=== PATIENT | female | born 1970 | race Caucasian/White ===

== ENCOUNTER → 2019-12-05 11:18 | Outpatient (BNVA) | payer MEDICARE, MEDICAID, SELFPAY | PROVIDERS: PCP Internal Medicine; Referring Provider Internal Medicine; Visit Provider Dietitian, Registered | DX: Z76.89 Persons encountering health services in other specified circumstances (principal) ==

== ENCOUNTER → 2020-02-04 11:22 | Outpatient (BNVA) | payer MEDICARE, MEDICAID, SELFPAY | PROVIDERS: PCP Internal Medicine; Visit Provider Dietitian, Registered | DX: Z76.89 Persons encountering health services in other specified circumstances (principal) ==

== ENCOUNTER → 2020-03-31 10:51 | Outpatient (BNVA) | payer OTHER, SELFPAY | PROVIDERS: PCP Internal Medicine; Visit Provider Dietitian, Registered ==

== ENCOUNTER 2020-06-13 08:45 | Outpatient (REF) | payer OTHER, SELFPAY ==
--- NOTE | ~2020-06-13 | XR_ITS ---
EXAMINATION: XR HIP, LEFT CLINICAL INFORMATION: Left hip pain. COMPARISON: None TECHNIQUE: Two views of the left hip. FINDINGS: There is cortical irregularity along the lateral aspect of the left iliac crest consistent with enthesopathy. Mild soft tissue calcification of the greater trochanter is consistent with enthesopathic change. The left hip joint space is maintained. No other bony abnormality is demonstrated. XR/XR hip LT min 2V IMPRESSION: Enthesopathic changes as described.
== END 2020-06-13 08:46 | disposition home or self-care (01) ==
LOC: HO.XRAY 08:45
PROVIDERS: PCP Internal Medicine; Visit Provider Internal Medicine
DX: M25.552 Pain in left hip (principal)
CPT/HCPCS: 73502

== ENCOUNTER → 2020-06-29 10:02 | Outpatient (BNVA) | payer OTHER, SELFPAY | PROVIDERS: PCP Internal Medicine; Visit Provider Dietitian, Registered | DX: E66.01 Morbid (severe) obesity due to excess calories (principal); E11.9 Type 2 diabetes mellitus without complications; Z68.42 Body mass index [BMI] 45.0-49.9, adult | CPT/HCPCS: 97803 ==

== ENCOUNTER → 2020-07-06 10:42 | Outpatient (BNVA) | payer OTHER, SELFPAY | PROVIDERS: PCP Internal Medicine; Visit Provider Internal Medicine | DX: E66.01 Morbid (severe) obesity due to excess calories (principal); G47.33 Obstructive sleep apnea (adult) (pediatric); J45.909 Unspecified asthma, uncomplicated; I25.10 Atherosclerotic heart disease of native coronary artery without angina pectoris; Z68.42 Body mass index [BMI] 45.0-49.9, adult | CPT/HCPCS: 99202 ==

== ENCOUNTER 2020-07-28 09:51 | Outpatient (REF) | payer OTHER, SELFPAY ==
--- NOTE | 2020-07-28 13:08 | PFT_ITS ---
FLOWS: FEV1 of 65% of predicted at 2.48 L. FVC 57% of predicted at 2.75 L. FEV1 to FVC ratio of 0.90. No bronchodilator response except in small to medium airways. LUNG VOLUMES: Total lung capacity 64% of predicted at 4.25 L. Residual volume 68% of predicted at 1.60 L. Slow vital capacity 62% of predicted at 2.65 L. Expiratory reserve volume 21% of predicted at 0.31 L. Diffusion capacity is mildly decreased, diffusion capacity adjust to normal after correction for alveolar ventilation. IMPRESSION: Moderate restrictive ventilatory defect with no bronchodilator response except in small to medium airways. Decreased expiratory reserve volume suggests extrathoracic restriction likely secondary to abdominal obesity. MD BELLA Aguila/MODL / [id number]
== END 2020-07-28 09:52 | disposition home or self-care (01) ==
LOC: HO.RESP 09:51
PROVIDERS: PCP Internal Medicine; Visit Provider Internal Medicine
DX: G47.33 Obstructive sleep apnea (adult) (pediatric) (principal); J45.909 Unspecified asthma, uncomplicated; E66.01 Morbid (severe) obesity due to excess calories; Z68.42 Body mass index [BMI] 45.0-49.9, adult
CPT/HCPCS: 94060; 94727; 94729

== ENCOUNTER → 2020-08-05 10:52 | Outpatient (BNVA) | payer OTHER, SELFPAY | PROVIDERS: PCP Internal Medicine; Visit Provider Internal Medicine | DX: J45.909 Unspecified asthma, uncomplicated (principal); G47.33 Obstructive sleep apnea (adult) (pediatric); E66.01 Morbid (severe) obesity due to excess calories; Z68.42 Body mass index [BMI] 45.0-49.9, adult | CPT/HCPCS: 99212 ==

== ENCOUNTER 2020-08-11 09:32 | Outpatient (REF) | payer OTHER, SELFPAY ==
--- NOTE | ~2020-08-11 | MM_ITS ---
EXAMINATION: MM SCREENING DIGITAL BREAST TOMOSYNTHESIS, BILATERAL CLINICAL INFORMATION: Screening. Asymptomatic. The lifetime risk of breast cancer based on the Tyrer-Cuzick Model is 9%. COMPARISON: Mammography: 04/30/2018, 04/04/2017, 02/11/2016 TECHNIQUE: Digital breast tomosynthesis is performed in both the craniocaudal and mediolateral oblique views along with computer-aided detection (CAD). Synthesized 2D images are generated from the tomosynthesis. FINDINGS: The breasts are almost entirely fatty (ACR BI-RADS breast composition Category a). There are no significant masses, abnormal calcifications, or other abnormalities. The axilla are unremarkable. There is a chronic dermal lesion again noted overlying the periareolar left breast. No significant changes. MM/MM tomosynthesis screening BI IMPRESSION: No mammographic evidence of malignancy. ASSESSMENT: BI-RADS 2: Benign RECOMMENDATION: Routine annual mammography screening. This patient's information was entered into a reminder system with a target due date for their next mammogram.
== END 2020-08-11 09:33 | disposition home or self-care (01) ==
LOC: HO.MAMMO 09:32
PROVIDERS: Visit Provider Internal Medicine
DX: Z12.31 Encounter for screening mammogram for malignant neoplasm of breast (principal)
CPT/HCPCS: 77063; 77067

== ENCOUNTER → 2020-08-20 11:04 | Outpatient (BNVA) | payer OTHER, SELFPAY | PROVIDERS: PCP Internal Medicine; Visit Provider Physician Assistant | DX: Z12.11 Encounter for screening for malignant neoplasm of colon (principal) | CPT/HCPCS: 99202 ==

== ENCOUNTER 2020-08-26 11:00 | Outpatient (RCR) | payer OTHER, SELFPAY ==
--- NOTE | 2020-07-14 10:49 | MHC.PT.EP ---
[facility] [place] Office [place] Office [place] Office [address] Nikki Ennis [address] [phone] F: [phone] F: [phone] F: [phone] F: [phone] Physical Therapy Plan of Care Date of Evaluation: Date of Surgery: N/A Diagnosis: left hip pain Assessment: pt presents to physical therapy with pain, decreased range of motion, decreased strength, impaired functional mobility, impaired postural awareness, and gait deviations. pt is a good candidate for skilled PT due to age, potential remediation of impairments, typical disease/condition progression and prognosis, comorbidities, and motivation. pt would benefit from tailored strengthening and stretching exercise program, functional training, gait training, postural re-training, neuromuscular re-education, modalities as needed for pain, equipment safety demonstration. Frequency and Duration: The patient will be seen 2x/wk for 4 wks Short Term Goals: pt will be I w/ HEP to promote self-management of condition. pt will improve B hip ABD strength by 1 MMT grade to normalize gait impairments on even ground. Silk Spreader Goals: pt will report a statistically significant improvement on self-reported outcome measure, LEFI, to promote return to PLOF. 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 Treatment Plan: Modalities to reduce pain, spasms and effusion. Manual therapy to restore motion and function. Therapeutic exercise to improve strength and flexibility. Neuromuscular re-education for posture and balance. Therapeutic activities to return to functional activities of daily living. Electronically signed by: Radha Bernal PT, DPT Please sign and return to therapist. Thank you for your referral.
--- NOTE | 2020-08-26 14:32 | MHC.PT.DC ---
[facility] [place] Office [place] Office [place] Office [address] Nikki Ennis 140 [facility] [phone] F: [phone] F: [phone] F: [phone] F: [phone] Physical Therapy Discharge Report Diagnosis: left hip pain Date of Surgery: N/A Date of Evaluation: 07/14/20 Date of Discharge: 08/26/20 Treatments to Date: 9 Cancellations to Date: 3 No Shows to Date: 0 Discharge Status: Independent with HEP Recommend MD Follow-up Discharge Summary: The patient overall reported minimal improvement of hip symptoms with physical therapy intervention to this point. She was limited in her participation for therapy for her hip by bilateral knee pain. The patient did report a statistically significant improvement in her self-reported outcome measure, LEFI, compared to the initial evaluation. She is discharged to her home exercise program at this time. Electronically signed by: Radha Bernal PT, DPT Please sign and return to therapist. Thank you for your referral.
== END 2020-08-26 14:32 | disposition home or self-care (01) ==
LOC: HO.PT 11:00
PROVIDERS: PCP Internal Medicine; Visit Provider Internal Medicine
DX: M25.552 Pain in left hip (principal)
CPT/HCPCS: 97110; 97140; 97161

== ENCOUNTER 2020-10-07 09:12 | Outpatient (REF) | payer OTHER, SELFPAY ==
[2020-10-07 09:46] LABS: MANUAL DIFF FLAG NO
[2020-10-07 09:58] LABS: Basophils Absolute Auto 0.1 X10*3/uL (0.0-0.2); Basophils Percent Auto 0.5 % (0-2); Eosinophils Absolute Auto 0.2 X10*3/uL (0.0-0.4); Eosinophils Percent Auto 2.1 % (0-4); Hematocrit 39.8 % (37-47); Hemoglobin 13.5 g/dl (12.0-16.0); Imm Gran Abs Auto 0.03 X10*3/uL (0.00-0.03); Imm Gran Pct Auto 0.3 % (0.0-0.4); Lymphocytes Absolute Auto 2.5 X10*3/uL (1.2-4.9); Lymphocytes Percent Auto 26.2 % (20-40); Mean Corpuscular HGB Conc 33.9 g/dl (31.0-35.0); Mean Corpuscular Hemoglobin 29.9 pg (27.0-33.0); Mean Corpuscular Volume 88.1 fL (80-98); Mean Platelet Volume 10.5 fL (9.4-12.3); Monocytes Absolute Auto 0.7 X10*3/uL (0.1-1.2); Monocytes Percent Auto 7.6 % (2-11); Neutrophils Absolute Auto 6.1 X10*3/uL (2.0-8.3); Neutrophils Percent Auto 63.3 % (45-73); Platelet Count 198 X10*3/uL (160-400); Red Blood Count 4.52 X10*6/uL (4.20-5.50); Red Cell Distribution Width 13.1 % (11.0-16.0); White Blood Count 9.6 X10*3/uL (4.8-10.8)
[2020-10-07 10:15] LABS: Estimated Average Glucose 154 mg/dL; Hemoglobin A1C 187.8684 umol/L
[2020-10-07 10:20] LABS: Alanine Aminotransferase 21 U/L (0-31); Albumin Level 4.1 g/dL (3.5-5.0); Alkaline Phosphatase 81 U/L (39-117); Anion Gap 14 (12-20); Aspartate Amino Transferase 15 U/L (5-31); Bilirubin Total 1.5 mg/dL (0.0-1.0); Blood Urea Nitrogen 18 mg/dL (9-16); Calcium 8.7 mg/dL (8.4-10.2); Carbon Dioxide 21 mmol/L (22-29); Chloride 108 mmol/L (96-108); Cholesterol 109 mg/dL; Estimated Glomerular Filt Rate 59; Glucose Random 169 mg/dL (60-115); HDL Cholesterol 45 mg/dL; LDL Cholesterol Calculated 57 mg/dl; Potassium 3.7 mmol/L (3.3-5.1); Sodium 139 mmol/L (135-145); Total Protein 6.8 g/dL (6.5-8.0); Triglycerides 38 mg/dL
[2020-10-07 11:10] LABS: Folate 9.3 ng/mL (> or = 4.0); Vitamin B12 300 pg/mL (200-900)
[2020-10-07 11:11] LABS: Free T4 (Free Thyroxine) 1.08 ng/dL (0.71-1.85); Thyroid Stimulating Hormone 1.53 uIU/mL (0.32-4.0); Vitamin D 25-OH Total 18.2 ng/mL (>30)
== END 2020-10-07 09:13 | disposition home or self-care (01) ==
LOC: HO.LAB 09:12
PROVIDERS: PCP Internal Medicine; Visit Provider Internal Medicine
DX: E11.65 Type 2 diabetes mellitus with hyperglycemia (principal); I10 Essential (primary) hypertension; K21.9 Gastro-esophageal reflux disease without esophagitis; E78.00 Pure hypercholesterolemia, unspecified
CPT/HCPCS: 36415; 80053; 80061; 82306; 82607; 82746; 83036; 84439; 84443; 85025

== ENCOUNTER → 2020-10-13 14:12 | Outpatient (BNVA) | payer OTHER, SELFPAY | PROVIDERS: PCP Internal Medicine; Visit Provider Dietitian, Registered | DX: E66.01 Morbid (severe) obesity due to excess calories (principal); E11.9 Type 2 diabetes mellitus without complications; Z68.42 Body mass index [BMI] 45.0-49.9, adult | CPT/HCPCS: 97803 ==

== ENCOUNTER → 2020-10-20 13:59 | Outpatient (BNVA) | payer OTHER, SELFPAY | PROVIDERS: Visit Provider Physician Assistant | CPT/HCPCS: Q3014 ==

== ENCOUNTER → 2020-11-24 09:24 | Outpatient (BNVA) | payer OTHER, SELFPAY | PROVIDERS: PCP Internal Medicine; Visit Provider Dietitian, Registered | DX: E11.9 Type 2 diabetes mellitus without complications (principal); E66.01 Morbid (severe) obesity due to excess calories; Z68.42 Body mass index [BMI] 45.0-49.9, adult; Z71.3 Dietary counseling and surveillance | CPT/HCPCS: 97803 ==

== ENCOUNTER → 2020-12-01 10:49 | Outpatient (BNVA) | payer OTHER, SELFPAY | PROVIDERS: PCP Internal Medicine; Visit Provider Internal Medicine | DX: E66.9 Obesity, unspecified (principal); J45.20 Mild intermittent asthma, uncomplicated; G47.33 Obstructive sleep apnea (adult) (pediatric) | CPT/HCPCS: 99212 ==

== ENCOUNTER → 2021-01-25 09:19 | Outpatient (BNVA) | payer OTHER, SELFPAY | PROVIDERS: PCP Internal Medicine; Visit Provider Dietitian, Registered | DX: E11.9 Type 2 diabetes mellitus without complications (principal); E66.01 Morbid (severe) obesity due to excess calories; Z68.42 Body mass index [BMI] 45.0-49.9, adult | CPT/HCPCS: 97803 ==

== ENCOUNTER → 2021-04-08 10:33 | Outpatient (BNVA) | payer OTHER, SELFPAY | PROVIDERS: PCP Internal Medicine; Visit Provider Internal Medicine | DX: J45.20 Mild intermittent asthma, uncomplicated (principal); G47.33 Obstructive sleep apnea (adult) (pediatric); E66.01 Morbid (severe) obesity due to excess calories; Z68.42 Body mass index [BMI] 45.0-49.9, adult | CPT/HCPCS: 99212 ==

== ENCOUNTER → 2021-04-26 09:51 | Outpatient (BNVA) | payer OTHER, SELFPAY | PROVIDERS: PCP Internal Medicine; Visit Provider Dietitian, Registered | DX: E11.9 Type 2 diabetes mellitus without complications (principal); E66.01 Morbid (severe) obesity due to excess calories; Z68.42 Body mass index [BMI] 45.0-49.9, adult | CPT/HCPCS: 97803 ==

== ENCOUNTER → 2021-07-29 11:18 | Outpatient (BNVA) | payer OTHER, SELFPAY | PROVIDERS: PCP Internal Medicine; Visit Provider Dietitian, Registered | DX: E11.9 Type 2 diabetes mellitus without complications (principal); E66.01 Morbid (severe) obesity due to excess calories; Z68.42 Body mass index [BMI] 45.0-49.9, adult; Z71.3 Dietary counseling and surveillance | CPT/HCPCS: 97803 ==

== ENCOUNTER 2021-10-20 10:57 | Outpatient (REF) | payer OTHER, SELFPAY ==
[2021-10-20 11:18] LABS: MANUAL DIFF FLAG NO
[2021-10-20 11:49] LABS: Basophils Absolute Auto 0.1 X10*3/uL (0.0-0.2); Basophils Percent Auto 0.7 % (0-2); Eosinophils Absolute Auto 0.2 X10*3/uL (0.0-0.4); Eosinophils Percent Auto 2.3 % (0-4); Hematocrit 42.5 % (37.0-47.0); Hemoglobin 14.5 g/dl (12.0-16.0); Imm Gran Abs Auto 0.03 X10*3/uL (0.00-0.03); Imm Gran Pct Auto 0.3 % (0.0-0.4); Lymphocytes Absolute Auto 2.1 X10*3/uL (1.2-4.9); Mean Corpuscular HGB Conc 34.1 g/dl (31.0-35.0); Mean Corpuscular Hemoglobin 29.9 pg (27.0-33.0); Mean Corpuscular Volume 87.6 fL (80.0-98.0); Mean Platelet Volume 10.8 fL (9.4-12.3); Monocytes Absolute Auto 0.6 X10*3/uL (0.1-1.2); Monocytes Percent Auto 6.8 % (2-11); Neutrophils Absolute Auto 5.8 x10*3/uL (2.0-8.3); Neutrophils Percent Auto 65.9 % (45-73); Platelet Count 217 X10*3/uL (160-400); Red Blood Count 4.85 X10*6/uL (4.20-5.50); Red Cell Distribution Width 13.2 % (11.0-16.0); White Blood Count 8.8 X10*3/uL (4.8-10.8)
[2021-10-20 12:27] LABS: B Type Natriuretic Peptide 328 pg/mL (<100)
[2021-10-20 12:41] LABS: Alanine Aminotransferase 20 U/L (0-31); Albumin Level 4.1 g/dL (3.5-5.0); Alkaline Phosphatase 85 U/L (39-117); Anion Gap 17 (12-20); Aspartate Amino Transferase 14 U/L (5-31); Bilirubin Total 1.5 mg/dL (0.0-1.0); Blood Urea Nitrogen 17 mg/dL (9-16); Calcium 8.8 mg/dL (8.4-10.2); Carbon Dioxide 22 mmol/L (22-29); Chloride 105 mmol/L (96-108); Cholesterol 123 mg/dL; Estimated Glomerular Filt Rate 53; Glucose Random 176 mg/dL (60-115); HDL Cholesterol 50 mg/dL; LDL Cholesterol Calculated 63 mg/dl; Potassium 4.2 mmol/L (3.3-5.1); Sodium 140 mmol/L (135-145); Total Protein 7.1 g/dL (6.5-8.0); Triglycerides 51 mg/dL
[2021-10-20 12:51] LABS: Free T4 (Free Thyroxine) 1.03 ng/dL (0.71-1.85); Thyroid Stimulating Hormone 1.52 uIU/mL (0.32-4.0); Vitamin D 25-OH Total 16.8 ng/mL (>30)
[2021-10-20 12:56] LABS: Vitamin B12 317 pg/mL (200-900)
== END 2021-10-20 10:58 | disposition home or self-care (01) ==
LOC: HO.LAB 10:57
PROVIDERS: PCP Internal Medicine; Visit Provider Internal Medicine
DX: J45.20 Mild intermittent asthma, uncomplicated (principal); E66.01 Morbid (severe) obesity due to excess calories; G47.33 Obstructive sleep apnea (adult) (pediatric); E11.65 Type 2 diabetes mellitus with hyperglycemia; E78.00 Pure hypercholesterolemia, unspecified; I25.10 Atherosclerotic heart disease of native coronary artery without angina pectoris; Z68.42 Body mass index [BMI] 45.0-49.9, adult; Z79.899 Other long term (current) drug therapy
CPT/HCPCS: 36415; 80053; 80061; 82306; 82607; 82746; 83880; 84439; 84443; 85025; 99212

== ENCOUNTER → 2021-12-22 09:30 | Outpatient (BNVA) | payer OTHER, SELFPAY | PROVIDERS: Visit Provider Dietitian, Registered | DX: E11.9 Type 2 diabetes mellitus without complications (principal); E66.01 Morbid (severe) obesity due to excess calories; Z68.42 Body mass index [BMI] 45.0-49.9, adult | CPT/HCPCS: 97803 ==

== ENCOUNTER 2021-12-29 08:31 | Outpatient (REF) | payer OTHER, SELFPAY ==
--- NOTE | ~2021-12-29 | MM_ITS ---
EXAMINATION: MM SCREENING DIGITAL BREAST TOMOSYNTHESIS, BILATERAL CLINICAL INFORMATION: Screening. Asymptomatic. COMPARISON: Mammography: 08/11/2020, 419, 04/04/2017 TECHNIQUE: Digital breast tomosynthesis is performed in both the craniocaudal and mediolateral oblique views along with computer-aided detection (CAD). Synthesized 2D images are generated from the tomosynthesis. FINDINGS: The breasts are almost entirely fatty (ACR BI-RADS breast composition Category a). Background stromal markings are similar to prior exams. There are no significant masses, abnormal calcifications, or other abnormalities. No developing density or architectural abnormality. Again, there is a chronic dermal lesion periareolar left breast. The axilla are unremarkable. MM/MM tomosynthesis screening BI IMPRESSION: No mammographic evidence of malignancy. ASSESSMENT: BI-RADS 2: Benign RECOMMENDATION: Routine annual mammography screening. This patient's information was entered into a reminder system with a target due date for their next mammogram.
== END 2021-12-29 08:32 | disposition home or self-care (01) ==
LOC: HO.MAMMO 08:31
PROVIDERS: PCP Internal Medicine; Visit Provider Internal Medicine
DX: Z12.31 Encounter for screening mammogram for malignant neoplasm of breast (principal)
CPT/HCPCS: 77063; 77067

== ENCOUNTER → 2022-01-31 13:30 | Outpatient (BNVA) | payer OTHER, SELFPAY | PROVIDERS: PCP Internal Medicine; Visit Provider Internal Medicine Cardiovascular Disease | DX: R07.89 Other chest pain (principal); I25.10 Atherosclerotic heart disease of native coronary artery without angina pectoris; I25.5 Ischemic cardiomyopathy; I35.0 Nonrheumatic aortic (valve) stenosis; Z79.82 Long term (current) use of aspirin; Z79.899 Other long term (current) drug therapy | CPT/HCPCS: 93005; 99212 ==

== ENCOUNTER → 2022-02-15 09:16 | Outpatient (REF) | payer OTHER, SELFPAY ==
--- NOTE | 2022-02-15 09:20 | CA_ITS ---
Transthoracic Echocardiogram Patient (Last, First, Middle): Radha Moreno L Gender: Female Date of : 1970 Age: 51 Procedure Date: 02/15/2022 Procedure Type: Transthoracic Echocardiogram Location: OP Height: 187.96 cm Weight: 170.1 kg BSA: 2.84 m2 Heart Rate: 62 bpm BP: 171 / 83 mmHg Counter Tender: EMMA Referring MD: Renaldo Cook MD Symptoms: I35.0 - Nonrheumatic aortic (valve) stenosis Study Quality: Fair w contrast ECG Rhythm: Sinus Conclusions: - The left ventricular systolic function is mildly decreased. The calculated ejection fraction is 51% by biplane method. - Evidence suggests grade II (moderate) diastolic dysfunction. - The inferoseptal wall, the apex, apical anterior, and apical septum segments are akinetic. - Gradients across aortic valve are elevated (mean 14mmHg). Cannot exclude subaortic membrane. - Consider a VANDANA if clinically appropriate. Findings Procedure Information Contrast agent, definity, is being given per protocol without apparent complications. Left Ventricle Mildly increased left ventricular cavity size. The left ventricular systolic function is mildly decreased. The calculated ejection fraction is 51% by biplane method. There is evidence of regional wall motion abnormalities. E/E prime ratio is >15, consistent with elevated filling pressures. Evidence suggests grade II (moderate) diastolic dysfunction. Wall Motion Rest Echo Findings The inferoseptal wall, the apex, apical anterior, and apical septum segments are akinetic. Atria Both atria are normal in size. Aortic Valve The aortic valve was not well visualized. The peak aortic gradient is 27 mmHg.The mean gradient is 14 mmHg. There is trace (trivial) aortic valve regurgitation. Gradients across aortic valve are elevated. Cannot exclude subaortic membrane. Mitral Valve There is mild mitral annular calcification. There is no mitral valve regurgitation. There is no mitral valve stenosis. Pulmonic Valve The pulmonic valve is likely normal. Tricuspid Valve There is trace tricuspid valve regurgitation. There is no evidence of pulmonary hypertension. Great Vessels The asc aorta is normal in size. Venous The inferior vena cava is normal in size and collapses greater than 50% with inspiration. Pericardium/Pleural There is no evidence of pericardial effusion. Prior Study Comparison No significant change compared to prior study dated: 10/23/2019. Recommendations, Care & Conclusions Consider a VANDANA if clinically appropriate. Measurements 2D Linear Measurements IVSd: 1.03 0.6-0.9/0.6-1.0 cm LVIDd: 6.66 3.9-5.3/4.2-5.9 cm LVIDd Index: 2.35 2.4-3.2/2.2-3.1 cm/m2 LVPWd: 0.99 0.7-1.1 cm LA Diam: 5.20 2.7-3.8/3.0-4.0 cm LAIDs Index: 1.83 1.5-2.3 cm/m2 LV Mass: 373.85 67-162/88-224 g LV Mass Index: 131.64 43-95/49-115 g/m2 LVOT Diam: 2.40 3.0+(-)1.3 cm 2D Volumes RA ESV A/L: 24.50 19-21 ML/M2 2D Systolic Function EF 4C: 44.10 >55% EF 2C: 56.00 >55% EF BiP: 50.80 >55% Mitral Valve MV Pk E: 1.03 MV PK A: 0.90 MV Decel Time: 223.00 E/A: 1.10 E'Lateral: 3.73 E'Medial: 5.03 E/E' Med: 20.50 E/E' Lat: 27.60 PHT: 65.00 MVA PHT: 3.38 Decel [place]: 4.62 Aortic Valve AoV Pk Nabor: 2.58 AoV Mn Nabor: 1.71 AoV VTI: 0.59 AoV Pk Grad: 27.00 Aov Mn Grad: 14.00 LVOT LVOT Pk Nabor: 2.44 LVOT Mn Nabor: 1.67 LVOT VTI: 0.57 LVOT Pk Grad: 24.00 LVOT Mn Grad: 13.00 LVOT Diam: 2.40 LVOT Area: 4.52 Diastolic Function MV Pk E: 1.03 MV Pk A: 0.90 E/A: 1.10 E'Medial: 5.03 E/E' Med: 20.50 E' Laterial: 3.73 E/E' Lat: 27.60 Tricuspid Valve RA Press: 3.00 Great Vessels Aorta Sinus of Valsalva: 3.40 2.0-3.5 cm Ao Asc: 3.60 2.1-3.4 cm Pulmonary Veins Pulm Vein S/D 1.00 Pulmonary Valve PV Pk Nabor: 1.30 Peak PV Grad: 7.00 Updated in Other Vendor System with Status of Final Christiano Whitlock MD electronically signed on 02/16/2022 12:07:36 PM with status of Final
== END ==
LOC: HO.CARD 09:16
PROVIDERS: Visit Provider Internal Medicine Cardiovascular Disease
DX: I35.0 Nonrheumatic aortic (valve) stenosis (principal)
CPT/HCPCS: 93306; Q9957

== ENCOUNTER → 2022-02-22 07:46 | Outpatient (REF) | payer OTHER, SELFPAY ==
--- NOTE | ~2022-02-22 | NM_ITS ---
Lexiscan Myocardial perfusion study Indication: Chest pain, assess for coronary disease and ischemia Technique: The patient was brought in for a Lexiscan perfusion study on 02/22/2022 and was injected 0.4 mg of Lexiscan intravenously. Within a minute of this injection 35 mCi of sestamibi was given intravenously. Images were obtained using the SPECT gamma camera interlaced with the gating device. Images were obtained in supine position. Resting perfusion study was performed on 02/23/2022. Patient was administered 35 mCi of sestamibi intravenously at rest. Images were then obtained in supine position. Total DLP 164mGy-cm. Images were processed with the software and compared side to side in short axis, horizontal long axis and vertical long axis views. Findings: Raw acquisition reviewed. The stress perfusion study showed absent tracer uptake in the mid to distal inferior wall and adjacent apex. No significant change with CT attenuation correction. The gated study shows reduced LV systolic function with calculated LVEF of 42%. LV cavity is dilated in size. The gated study shows absent wall thickening in the mid to distal inferior wall and adjacent apex. Resting study shows findings similar to stress acquisition. Gating at rest reveals mid to distal inferior akinesis with LVEF 43% The findings are consistent with fixed defect mid to distal inferior wall and adjacent apex. No clear reversible defects. NM/NM stacie perf SPECT rest & str Impression: 1. Myocardial perfusion imaging study shows transmural infarct involving the mid to distal inferior wall, adjacent apex. 2. Gated LVEF is 42% during stress and 43% during rest. 3. Transient ischemic dilatation not present but LV cavity is dilated. EKG component of the test reported separately.
--- NOTE | 2022-02-22 07:50 | CA_ITS ---
Acquisition Time: 2022-02-22 08:05:00 Total Exercise Time: 00:02:46 Test Indications: ABN ECHO Medications: SEE CHART Protocol: FER Max HR: 117 BPM 70% of Pred: 167 BPM Max BP: 152/086 mmHG Max Work Load: 4.6 METS Exercise stress test with exercise 2 min 46 sec of Fer protocol, achieving 70% MPHR, with moderate sob and request to stop. Assisted to sitting position and when breathing improved testing changed to a pharmacological stress test with Lexiscan injection, while kicking her legs, with isolated PAC and PVC, with normotensive response to injection, with nondiagnostic EKG for ischemia. In recovery she was treated with Aminophylline 75mg IVP to reverse Lexiscan. Nuclear images pending. Test reviewed with Dr Cook Referred By: Renaldo Cook Overread By: GERRY CORONADO
== END ==
LOC: HO.CARD 07:46
PROVIDERS: Visit Provider Internal Medicine Cardiovascular Disease
DX: R07.89 Other chest pain (principal)
CPT/HCPCS: 78452; 93017; A9500; J0280; J2785

== ENCOUNTER → 2022-03-17 10:52 | Outpatient (BNVA) | payer OTHER, SELFPAY | PROVIDERS: PCP Internal Medicine; Visit Provider Internal Medicine | DX: J45.20 Mild intermittent asthma, uncomplicated (principal); G47.33 Obstructive sleep apnea (adult) (pediatric); E11.65 Type 2 diabetes mellitus with hyperglycemia; I10 Essential (primary) hypertension; E66.01 Morbid (severe) obesity due to excess calories; Z68.42 Body mass index [BMI] 45.0-49.9, adult; Z99.89 Dependence on other enabling machines and devices | CPT/HCPCS: 99212 ==

== ENCOUNTER → 2022-03-23 13:04 | Outpatient (BNVA) | payer OTHER, SELFPAY | PROVIDERS: PCP Internal Medicine; Referring Provider Internal Medicine; Visit Provider Nurse Practitioner Family | DX: R07.89 Other chest pain (principal); I25.10 Atherosclerotic heart disease of native coronary artery without angina pectoris; I35.0 Nonrheumatic aortic (valve) stenosis; I10 Essential (primary) hypertension; I21.9 Acute myocardial infarction, unspecified | CPT/HCPCS: 99212 ==

== ENCOUNTER → 2022-06-20 10:23 | Outpatient (BNVA) | payer OTHER, SELFPAY | PROVIDERS: PCP Internal Medicine; Visit Provider Dietitian, Registered | DX: E11.9 Type 2 diabetes mellitus without complications (principal); E66.01 Morbid (severe) obesity due to excess calories; Z68.42 Body mass index [BMI] 45.0-49.9, adult | CPT/HCPCS: 97803 ==

== ENCOUNTER 2022-07-12 08:37 | Outpatient (REF) | payer OTHER, SELFPAY ==
--- NOTE | ~2022-07-12 | XR_ITS ---
EXAMINATION: Bilateral knee x-ray CLINICAL INFORMATION: Osteoarthritis COMPARISON: Left knee x-ray from 2009 TECHNIQUE: 4 views of each knee FINDINGS: Left: Bone alignment is normal. No fracture or dislocation. Severe tricompartment arthritis with joint space narrowing and osteophyte formation. Slight lateral tilt of the patella. Small joint effusion. Right: Bone alignment is normal. No fracture or dislocation. Severe tricompartment arthritis. Lateral tilt of the patella. Small joint effusion. XR/XR knee RT 4V IMPRESSION: Severe bilateral arthritis.
--- NOTE | ~2022-07-12 | XR_ITS ---
EXAMINATION: Bilateral knee x-ray CLINICAL INFORMATION: Osteoarthritis COMPARISON: Left knee x-ray from 2009 TECHNIQUE: 4 views of each knee FINDINGS: Left: Bone alignment is normal. No fracture or dislocation. Severe tricompartment arthritis with joint space narrowing and osteophyte formation. Slight lateral tilt of the patella. Small joint effusion. Right: Bone alignment is normal. No fracture or dislocation. Severe tricompartment arthritis. Lateral tilt of the patella. Small joint effusion. XR/XR knee LT 4V IMPRESSION: Severe bilateral arthritis.
== END 2022-07-12 08:38 | disposition home or self-care (01) ==
LOC: HO.XRAY 08:37
PROVIDERS: PCP Internal Medicine; Visit Provider Internal Medicine
DX: M17.0 Bilateral primary osteoarthritis of knee (principal)
CPT/HCPCS: 73564

== ENCOUNTER → 2022-07-14 08:48 | Outpatient (BNVA) | payer OTHER, SELFPAY | PROVIDERS: PCP Internal Medicine; Visit Provider Orthopaedic Surgery | DX: M17.0 Bilateral primary osteoarthritis of knee (principal); M75.41 Impingement syndrome of right shoulder; E11.65 Type 2 diabetes mellitus with hyperglycemia; E66.01 Morbid (severe) obesity due to excess calories; Z68.42 Body mass index [BMI] 45.0-49.9, adult | CPT/HCPCS: 99202 ==

== ENCOUNTER → 2022-07-29 10:01 | Outpatient (BNVA) | payer OTHER, SELFPAY | PROVIDERS: PCP Internal Medicine; Visit Provider Orthopaedic Surgery | DX: M17.0 Bilateral primary osteoarthritis of knee (principal) | CPT/HCPCS: 20610; 99212; J7318 ==

== ENCOUNTER 2022-09-27 08:33 | Outpatient (REF) | payer OTHER, SELFPAY ==
[2022-09-27 09:04] LABS: MANUAL DIFF FLAG NO
[2022-09-27 09:13] LABS: Basophils Absolute Auto 0.1 X10*3/uL (0.0-0.2); Basophils Percent Auto 0.7 % (0-2); Eosinophils Absolute Auto 0.2 X10*3/uL (0.0-0.4); Eosinophils Percent Auto 2.1 % (0-4); Hematocrit 44.5 % (37.0-47.0); Imm Gran Abs Auto 0.03 X10*3/uL (0.00-0.03); Imm Gran Pct Auto 0.3 % (0.0-0.4); Lymphocytes Absolute Auto 2.4 X10*3/uL (1.2-4.9); Lymphocytes Percent Auto 25.2 % (20-40); Mean Corpuscular HGB Conc 33.7 g/dl (31.0-35.0); Mean Corpuscular Hemoglobin 29.5 pg (27.0-33.0); Mean Corpuscular Volume 87.4 fL (80.0-98.0); Monocytes Absolute Auto 0.6 X10*3/uL (0.1-1.2); Monocytes Percent Auto 6.7 % (2-11); Neutrophils Absolute Auto 6.2 x10*3/uL (2.0-8.3); Platelet Count 224 X10*3/uL (160-400); Red Blood Count 5.09 X10*6/uL (4.20-5.50); White Blood Count 9.5 X10*3/uL (4.8-10.8)
[2022-09-27 10:08] LABS: Alanine Aminotransferase 22 U/L (0-31); Albumin Level 4.1 g/dL (3.5-5.0); Alkaline Phosphatase 86 U/L (39-117); Anion Gap 16 (12-20); Aspartate Amino Transferase 14 U/L (5-31); Bilirubin Total 1.5 mg/dL (0.0-1.0); Blood Urea Nitrogen 21 mg/dL (9-16); Calcium 9.5 mg/dL (8.4-10.2); Carbon Dioxide 21 mmol/L (22-29); Chloride 106 mmol/L (96-108); Cholesterol 115 mg/dL; Estimated Glomerular Filt Rate 50; Glucose Random 184 mg/dL (60-115); HDL Cholesterol 46 mg/dL; LDL Cholesterol Calculated 59 mg/dl; Sodium 139 mmol/L (135-145); Total Protein 7.4 g/dL (6.5-8.0); Triglycerides 50 mg/dL
[2022-09-27 10:24] LABS: Free T4 (Free Thyroxine) 0.98 ng/dL (0.71-1.85); Thyroid Stimulating Hormone 1.55 uIU/mL (0.32-4.0); Vitamin D 25-OH Total 23.9 ng/mL (>30)
[2022-09-27 10:27] LABS: Folate 8.8 ng/mL (> or = 4.0); Vitamin B12 394 pg/mL (200-900)
[2022-09-27 11:56] LABS: Microalbum/Creatinine Ratio Ur 143.6 ug/mg cr
[2022-09-28 17:28] LABS: Transglutaminase Ab IgG <1.0 U/mL; Transglutaminase IgA <1.0 U/mL
== END 2022-09-27 08:34 | disposition home or self-care (01) ==
LOC: HO.LAB 08:33
PROVIDERS: PCP Internal Medicine; Visit Provider Internal Medicine
DX: E11.65 Type 2 diabetes mellitus with hyperglycemia (principal); E78.00 Pure hypercholesterolemia, unspecified; E66.01 Morbid (severe) obesity due to excess calories; Z68.42 Body mass index [BMI] 45.0-49.9, adult; Z83.79 Family history of other diseases of the digestive system
CPT/HCPCS: 36415; 80053; 80061; 82043; 82306; 82607; 82746; 84439; 84443; 85025; 86364; 97803

== ENCOUNTER 2022-09-27 09:55 | Outpatient (AMB) | payer OTHER, SELFPAY ==
--- NOTE | 2022-09-27 09:59 | A.OFFVIS_ITS ---
Intake VS Expanded 09/27/22 10:02 Height 6 ft 2 in Weight 373 lb 0.354 oz BMI 47.9 Intake Visit Reasons: T2DM, check weight Allergies amoxicillin [AMOXICILLIN] Allergy (Unknown, Verified 08/08/22 14:02) HIVES atorvastatin Allergy (Unknown, Verified 08/08/22 14:02) hives bupropion [From ZYBAN] Allergy (Unknown, Verified 08/08/22 14:02) HIVES milk Allergy (Unknown, Verified 08/08/22 14:02) Diarrhea Penicillins [PENICILLINS] Allergy (Unknown, Verified 08/08/22 14:02) HIVES pravastatin Allergy (Unknown, Verified 08/08/22 14:02) hives simvastatin [SIMVASTATIN] Allergy (Unknown, Verified 08/08/22 14:02) HIVES tomato Allergy (Unknown, Verified 08/08/22 14:02) Hives HPI Nutrition Presentation Details Pt presents for MNT for T2DM and obesity Patient reports not monitoring blood glucose Reports recently starting to work on reducing starches and having once or twice a week an meal that consist of limb protein and non starchy vegetables. Patient reports taking a daily multivitamin Patient has SNAP, has not participated in the [employer] as of yet Food frequency Fruits: 0-1 a day, juices 4-6 oz a day Vegetables: 2-3 servings per day Starches: Greater than 20 servings per day Dairy: Greater than 2 servings a day Protein foods: Choosing a variety p of poultry, Beef, tofu 2, eggs, not including fish Beverages: Water, Crystal Light, diet soda, tea Physical activity: Daily life activities, limited due to bilateral osteoarthritis of knee Alcohol/smoking: Denies GEF-Momsvdm-Gs.Jeor Equation Height 6 ft 2 in Weight 373 lb Resting Metabolic Rate 2443.20 Calculated Activity Level Sedentary Calories Needed to Maintain Weight 2931.84 Most Recent Diabetes Results: Microalb/Creat Ratio Pending 09/27/22 Cholesterol 115 mg/dL 09/27/22 HDL Cholesterol 46 mg/dL 09/27/22 Triglycerides 50 mg/dL 09/27/22 Creatinine 1.14 mg/dL (0.5-1.4) 09/27/22 Blood Urea Nitrogen 21 mg/dL (9-16) H 09/27/22 Sodium 139 mmol/L (135-145) 09/27/22 Potassium 4.0 mmol/L (3.3-5.1) 09/27/22 Chloride 106 mmol/L (96-108) 09/27/22 Carbon Dioxide 21 mmol/L (22-29) L 09/27/22 Calcium 9.5 mg/dL (8.4-10.2) 09/27/22 AST 14 U/L (5-31) 09/27/22 ALT 22 U/L (0-31) 09/27/22 Total Protein 7.4 g/dL (6.5-8.0) 09/27/22 Albumin 4.1 g/dL (3.5-5.0) 09/27/22 [facility] Medical History Asthma Breast cancer screening by mammogram Colon cancer screening Folic acid deficiency GERD (gastroesophageal reflux disease) Hypercholesterolemia Hypertension Type 2 diabetes mellitus with hyperglycemia Vitamin D deficiency Surgical History History of section History of cholecystectomy History of coronary artery stent placement History of hand surgery Family History Father CVD (cardiovascular disease) Hypertension Heart disease Mother No problems noted. 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 Follow healthy plate method EST Kcal NEEDS as per [place] [facility] Jeor: 2931- 1000 = 1930 kcal/d USED BODY WT : 169 kg est protein needs as per -1.0 g/kg bw: 169 g/d est fluid needs as per 25 ml/kg bw: 4200 ml/d Educate patient on: (R= Reviewed, V = verbalizes understanding N/R= Needs review N/A= not applicable) * Food sources of carbohydrates and serving adequate serving sizes : V * Difference between complex carbohydrates and simple carbohydrates, role of fiber: V * Differences between fats (MUFA/PUFA/saturated fats, trans fats) and food sources of various fats: V * Food sources of sodium and salt and healthy modifications for heart health and kidney health: V * Vitamins and minerals: V * How to interpret food labels: V * Healthy Plate method concept: V * Physical activity: benefits and precaution: V (2) Morbid obesity with BMI of 45.0-49.9, adult: Code(s): E66.01 - Morbid (severe) obesity due to excess calories; Z68.42 - Body mass index [BMI] 45.0-49.9, adult Plan: Continue working on reducing total caloric intake from empty calorie foods (500- 1000 calories less per day) and follow healthy plate method EST Kcal NEEDS as per [facility] Jeor: 2931- 1000 = 1930 kcal/d USED BODY WT : 169 kg est protein needs as per 0.8-1.0 g/kg bw: 169 g/d est fluid needs as per 25 ml/kg bw: 4200 ml/d Patient Instructions: Include fish at least twice a week, baked, boiled, not fried or breaded, rep lacing higher fat meats (fried meats, pork beef high fat cheese) Continue working on reducing portion of high fat snacks and choose a fruit instead Continue working on following healthy plate method 4 times a week Discuss with your doctor regarding switching to metformin Extended Release Coding Level of Care Code Nutr Indiv Subseq ([id number]) Diagnoses T2DM (type 2 diabetes mellitus) E11.9 Morbid obesity with BMI of 45.0-49.9, adult E66.01; Z68.42 Time Spent (min) 30
[2022-09-27 10:02] VITALS: BMI 47.9
[2022-09-27 11:04] VITALS: BMI 47.9
== END 2022-09-27 11:03 | disposition home or self-care (01) ==
PROVIDERS: PCP Internal Medicine; Visit Provider Dietitian, Registered
DX: E11.9 Type 2 diabetes mellitus without complications (principal); E66.01 Morbid (severe) obesity due to excess calories; Z68.42 Body mass index [BMI] 45.0-49.9, adult

== ENCOUNTER 2022-09-29 14:03 | Outpatient (AMB) | payer OTHER, SELFPAY ==
[2022-09-29 14:05] VITALS: BP 132/68; PULSE 71; O2SAT 96; BMI 48.0
--- NOTE | 2022-09-29 14:05 | A.OFFVIS_ITS ---
Intake Vital Signs 09/29/22 14:05 Height 6 ft 2 in Weight 373 lb 10.936 oz BMI 48.0 BP 132/68 Blood Pressure Location Lt brachial Position Sitting Pulse 71 Pulse Source Pulse Oximeter Pulse Oximetry (%) 96 Oxygen Delivery Method Room Air Intake Visit Reasons: Asthma, KRYSTAL (obstructive sleep apnea) Oil Ref[employer] Process Technician Required: No Allergies amoxicillin [AMOXICILLIN] Allergy (Unknown, Verified 09/29/22 14:23) HIVES atorvastatin Allergy (Unknown, Verified 09/29/22 14:23) hives bupropion [From ZYBAN] Allergy (Unknown, Verified 09/29/22 14:23) HIVES milk Allergy (Unknown, Verified 09/29/22 14:23) Diarrhea Penicillins [PENICILLINS] Allergy (Unknown, Verified 09/29/22 14:23) HIVES pravastatin Allergy (Unknown, Verified 09/29/22 14:23) hives simvastatin [SIMVASTATIN] Allergy (Unknown, Verified 09/29/22 14:23) HIVES tomato Allergy (Unknown, Verified 09/29/22 14:23) Hives Medication List - Last Reconciled 09/29/22 by Pili Hunter MD albuterol sulfate 90 mcg/actuation (ProAir HFA) 2 puffs inhalation Q6H amlodipine (Norvasc) 5 mg PO DAILY aspirin (Adult Low Dose Aspirin) 162 mg PO DAILY [AUTOCPAP 8-20 mm HG humidified heated air As directed] blood sugar diagnostic As directed blood sugar diagnostic ([employer] Ultra Test strips) As directed check the blood sugar once a day blood-glucose meter As directed blood-glucose meter (Networks in MotionTouch Ultra2 Meter kit) As directed check the blood sugar once a day compr.stocking,knee,long,x-lrg As directed 20-30 mm HG [cpap Supplies As directed] [Diabetic Shoes As directed] [diabetic socks As directed] ibuprofen 800 mg PO TID PRN lancets (Networks in MotionTouch Delica Lancets) As directed check the blood sugar q.day lancets As directed lisinopril 40 mg PO DAILY metformin 1,000 mg (2 x 500 mg) PO BIDWMEAL 90 days metoprolol tartrate 2 tabs in am and 3 tabs in pm PO 2 times a day; montelukast 10 mg PO BEDTIME nitroglycerin 0.4 mg sublingual Q5M PRN rosuvastatin 10 mg PO BEDTIME [Sleeve right hand As directed] triamcinolone acetonide 0.5% 1 appl topical BID 14 days [trouser socks 20-30 millimeter mercury pressure] Do you need a note to return to daycare/school/sports/work: No HPI Asthma HPI Details 51 years old female with morbid obesity and diagnosis of obstructive sleep apnea, comes for her 6 months follow-up. She has been using her CPAP very regularly every night for at least 6-7 hours, and sleeps good. There is a mild air leak issue along the nasal bridge. But she does not want to tighten her straps anymore which becomes uncomfortable. Weight grimm there has been no big progress, she is seeing the Dietecian regularly. She is nonsmoker. Breathing is okay and uses albuterol inhaler only once in a while. [facility] Medical History Asthma Breast cancer screening by mammogram Colon cancer screening Folic acid deficiency GERD (gastroesophageal reflux disease) Hypercholesterolemia Hypertension Type 2 diabetes mellitus with hyperglycemia Vitamin D deficiency Surgical History History of section History of cholecystectomy History of coronary artery stent placement History of hand surgery Family History Father CVD (cardiovascular disease) Hypertension Heart disease Mother No problems noted. 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 Cognitive needs: No Hearing needs: No Vision needs: No Review of Systems Const All systems reviewed & are unremarkable except as noted in HPI and below Eyes Reports no additional complaints ENT Reports nasal congestion (Off and on due to changes in the weather) Card Denies chest pain, Denies irregular heart rhythm and Denies leg edema Resp Reports as per HPI GI Reports no additional complaints Reports no additional complaints Musc Reports no additional complaints Skin/Breast Reports dry skin and Reports pruritus (On the legs, ) Neuro Reports no additional complaints Psych Reports no additional complaints Physical Exam Vital Signs: Last Vital Signs Pulse 71 09/29/22 14:05 BP 132/68 09/29/22 14:05 Pulse Ox 96 09/29/22 14:05 Oxygen Delivery Method Room Air 09/29/22 14:05 BMI result Body Mass Index 48.0 Const Other: She is tall and grossly overweight General: comfortable, no acute distress, alert and awake Orientation/consciousness: patient oriented x3 HEENT Head: Yes normal to inspection General nose exam: No nasal polyps present and No nasal discharge present Face and sinus: Yes sinuses nontender Mouth: oropharynx normal Throat: Yes posterior oropharynx normal Eyes General: appearance normal, both eyes and all related structures Neck Neck: Yes normal visual inspection, Yes no lymphadenopathy, Yes trachea midline, Yes no JVD and Yes other (Neck is very obese) Thyroid: Thyroid normal Chest Chest palpation & inspection: normal inspection of the chest, normal palpation of entire chest wall and no tenderness Resp Effort & Inspection: normal respiratory effort Auscultation: clear to auscultation bilaterally Percussion: percussion normal Cardio Palpation: normal PMI Rate: regular rate Rhythm: regular rhythm Heart sounds: no gallops and no murmurs GI Palpation (GI): Soft to palpation, nontender, No hepatosplenomegaly present, no masses and Other GI palpation findings present (Abdomen obese and protuberant) Auscultation: normal bowel sounds Back/Spine/Pelvis Thoracic/Lumbar Spine: thoracic and lumbar spine normal to inspection and thoraco-lumbar ROM limited Skin General skin exam: dry skin Rashes: other (Mild stasis dermatitis noted over the lower part of legs) Neuro General: patient oriented x3 and no focal motor deficits Cranial nerves: Yes CN's II-XII intact bilaterally Extrem General: Yes normal to inspection, Yes no calf tenderness and Yes venous stasis dermatitis Psych Appearance: grossly normal and well kempt Speech and movement: Normal speech and movement present Results Reviewed Results Reviewed: COMPLIANCE REPORT FOR THE LAST 30 NIGHTS SHOWS THAT SHE HAS USING IT 100% OF THE NIGHTS. AVERAGE USE IT PER NIGHT 7 HOURS 15 MINUTES. 95TH PERCENTILE PRESSURE. 12.7 CM RESIDUAL AHI 0.9. THERE IS MODERATE AIR LEAK MAXIMUM 91.4 L. Assessment & Plan Assessment & Plan (1) Obstructive sleep apnea: Comment: DIAGNOSIS SINCE 2008. HAS BEEN VERY COMPLIANT, FACE MASK OF SMALLER SIZE IS MORE COMFORTABLE , SHE INTER CHANGES BETWEEN THE SMALL SIZE AND LARGE SIZE. Also has Fullface maskIFit-20 ( medium-sized ) ADVISED TO CONTINUE PRESENT SETTINGS OF AUTO PAP MODE 8-20 CM. And continue to use every night. Code(s): G47.33 - Obstructive sleep apnea (adult) (pediatric) (2) Morbid obesity with BMI of 45.0-49.9, adult: Comment: BMI=48 REMAINS MORBIDLY OBESE. SHE IS NOT ABLE TO EXERCISE MUCH, STAYS MOSTLY IN THE HOUSE. SHE IS WORKING WITH DIETITIAN. Code(s): E66.01 - Morbid (severe) obesity due to excess calories; Z68.42 - Body mass index [BMI] 45.0-49.9, adult (3) Asthma: Comment: SHE HAS LONG-STANDING HISTORY OF ASTHMA WHICH IS FAIRLY WELL CONTROLLED. IT SEEMS THAT HER MAIN TRIGGER IS PHYSICAL EXERTION . PFT. RESULTS SHOW MOSTLY RESTRICTIVE PATTEN . [place]: ADVISED TO USE PROAIR 2 PUFFS Q 4-6 HOURS P.R.N.. AND CONTINUE USING MONTELUKAST 10 MG DAILY. Code(s): J45.909 - Unspecified asthma, uncomplicated Qualifiers: Asthma severity: mild Asthma persistence: intermittent Asthma complication type: uncomplicated Qualified Code(s): J45.20 - Mild intermittent asthma, uncomplicated Coding Level of Care Code Est Pt Level 3 (63899) Diagnoses Obstructive sleep apnea G47.33 Morbid obesity with BMI of 45.0-49.9, adult E66.01; Z68.42 Asthma J45.20 Asthma severity: mild Asthma persistence: intermittent Asthma complication type: uncomplicated
== END 2022-09-29 14:25 | disposition home or self-care (01) ==
PROVIDERS: PCP Internal Medicine; Visit Provider Internal Medicine
DX: G47.33 Obstructive sleep apnea (adult) (pediatric) (principal); E66.01 Morbid (severe) obesity due to excess calories; Z68.42 Body mass index [BMI] 45.0-49.9, adult; J45.20 Mild intermittent asthma, uncomplicated
CPT/HCPCS: 99213

== ENCOUNTER → 2022-09-29 14:03 | Outpatient (BNVA) | payer OTHER, SELFPAY | PROVIDERS: Visit Provider Internal Medicine | DX: G47.33 Obstructive sleep apnea (adult) (pediatric) (principal); J45.20 Mild intermittent asthma, uncomplicated; E66.01 Morbid (severe) obesity due to excess calories; Z68.42 Body mass index [BMI] 45.0-49.9, adult | CPT/HCPCS: 99212 ==

== ENCOUNTER 2022-10-05 11:06 | Outpatient (AMB) | payer OTHER, SELFPAY ==
--- NOTE | 2022-10-05 11:14 | MHC.PC.OV ---
Vital Signs 10/05/22 11:15 Height 6 ft 2 in Weight 372 lb BMI 47.8 BP 158/90 H Blood Pressure Location Lt radial Position Sitting Pulse 64 Pulse Source Pulse Oximeter Temp Source Skin Pulse Oximetry (%) 97 Oxygen Delivery Method Room Air Intake Visit Reasons: 3 month f/u Allergies amoxicillin [AMOXICILLIN] Allergy (Unknown, Verified 10/05/22 11:18) HIVES atorvastatin Allergy (Unknown, Verified 10/05/22 11:18) hives bupropion [From ZYBAN] Allergy (Unknown, Verified 10/05/22 11:18) HIVES milk Allergy (Unknown, Verified 10/05/22 11:18) Diarrhea Penicillins [PENICILLINS] Allergy (Unknown, Verified 10/05/22 11:18) HIVES pravastatin Allergy (Unknown, Verified 10/05/22 11:18) hives simvastatin [SIMVASTATIN] Allergy (Unknown, Verified 10/05/22 11:18) HIVES tomato Allergy (Unknown, Verified 10/05/22 11:18) Hives Medication List - Last Reconciled 10/05/22 by Adán Yadav MD albuterol sulfate 90 mcg/actuation (ProAir HFA) 2 puffs inhalation Q6H amlodipine (Norvasc) 5 mg PO DAILY aspirin (Adult Low Dose Aspirin) 162 mg PO DAILY [AUTOCPAP 8-20 mm HG humidified heated air As directed] blood sugar diagnostic As directed blood sugar diagnostic (Red-M Groupuch Ultra Test strips) As directed check the blood sugar once a day blood-glucose meter As directed blood-glucose meter (OneTouch Ultra2 Meter kit) As directed check the blood sugar once a day compr.stocking,knee,long,x-lrg As directed 20-30 mm HG [cpap Supplies As directed] [Diabetic Shoes As directed] [diabetic socks As directed] ibuprofen 800 mg PO TID PRN lancets (OneTouch Delica Lancets) As directed check the blood sugar q.day lancets As directed lisinopril 40 mg PO DAILY metformin ER 2,000 mg (4 x 500 mg) PO DAILY 90 days metoprolol tartrate 2 tabs in am and 3 tabs in pm PO 2 times a day; montelukast 10 mg PO BEDTIME nitroglycerin 0.4 mg sublingual Q5M PRN rosuvastatin 10 mg PO BEDTIME semaglutide 0.25 mg (0.368 mL) subcut QWEEK [Sleeve right hand As directed] triamcinolone acetonide 0.5% 1 appl topical BID 14 days [trouser socks 20-30 millimeter mercury pressure] Tobacco use date assessed: 10/05/22 Dental Screening Dental Screen Date: 10/05/22 Did you have a dental visit in the last 12 months?: Yes Did you have a dental problem in the last 6 months where you did not have access to dental care?: No Was dental information given to patient?: Patient has dentist HPI 3 month f/u HPI Details 51-year-old morbidly obese female with diabetes mellitus asthma obstructive sleep apnea coronary artery disease hypertension hypercholesterolemia GERD last seen in June 2022 having left shoulder pain and knee osteoarthritis. Orthopedic referral done and blood work requested mammogram is up-to-date Cologuard 2020 patient follows up with Pulmonary for the obstructive sleep apnea compliant and for the asthma continues on the inhaler. For the knee patient was seen by Orthopedics and had injections done. PAtient admits to take only metformin 100 mg in am only [facility] Medical History Asthma Breast cancer screening by mammogram Colon cancer screening Folic acid deficiency GERD (gastroesophageal reflux disease) Hypercholesterolemia Hypertension Type 2 diabetes mellitus with hyperglycemia Vitamin D deficiency Surgical History History of section History of cholecystectomy History of coronary artery stent placement History of hand surgery Family History Father CVD (cardiovascular disease) Hypertension Heart disease Mother No problems noted. 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 How often do you have a drink containing alcohol?: Never 2. How many drinks containing alcohol do you have on a typical day when you are drinking?: 1 or 2 3. How often do you have six or more drinks on one occasion?: Never Total Score: 0 NGOZI-7 AMB Questionnaire NGOZI-7 Date NGOZI - 7 assessed: 03/31/22 Source: Developed by Drs. Steve Joshi, Carole Patton, Seth Duke and colleagues, with an educational velia from [employer]. Physical exam (Primary Care) Vital Signs: Last Vital Signs Pulse 64 10/05/22 11:15 BP 158/90 H 10/05/22 11:15 Pulse Ox 97 10/05/22 11:15 Oxygen Delivery Method Room Air 10/05/22 11:15 BMI result Body Mass Index 47.8 Tobacco/Smoking Status: Tobacco use Status Tobacco use date assessed 10/05/22 10/05/22 11:20 Patient Tobacco Use Status Former Tobacco user 10/05/22 11:20 Tobacco use type Cigarette 10/05/22 11:20 e-Cigarette/Vaping Use Never Used 10/05/22 11:20 Thrive Assessment: Date of Thrive Assessment Date Thrive assessed 03/31/22 10/05/22 11:20 Const General: alert; No acute distress Eyes Conjunctivae: conjunctivae normal Resp Auscultation: clear to auscultation bilaterally Cardio Rate: regular rate Rhythm: regular rhythm GI Inspection: Yes normal to inspection Extrem General: Yes normal to inspection and No edema Results AMB Hemoglobin A1c AMB Hemoglobin A1c 7.1 % Last Edit by SKYE Vargas on 10/05/22 11:25 Results Reviewed Results Reviewed: Laboratory Last Values Hgb A1c (Clinic) 7.1 % (4.0-6.0) H 10/05/22 11:14 Assessment and Plan Assessment & Plan (1) Morbid obesity with BMI of 45.0-49.9, adult: Comment: BMI=48 REMAINS MORBIDLY OBESE. SHE IS NOT ABLE TO EXERCISE MUCH, STAYS MOSTLY IN THE HOUSE. SHE IS WORKING WITH DIETITIAN. Code(s): E66.01 - Morbid (severe) obesity due to excess calories; Z68.42 - Body mass index [BMI] 45.0-49.9, adult Plan: Diet and exercise (2) Obstructive sleep apnea: Comment: DIAGNOSIS SINCE 2008. HAS BEEN VERY COMPLIANT, FACE MASK OF SMALLER SIZE IS MORE COMFORTABLE , SHE INTER CHANGES BETWEEN THE SMALL SIZE AND LARGE SIZE. Also has Fullface maskIFit-20 ( medium-sized ) ADVISED TO CONTINUE PRESENT SETTINGS OF AUTO PAP MODE 8-20 CM. And continue to use every night. Code(s): G47.33 - Obstructive sleep apnea (adult) (pediatric) Plan: Patient follows up with Pulmonary and has been compliant with CPAP uses more than 4 hours a night and benefits from this (3) Type 2 diabetes mellitus with hyperglycemia: Code(s): E11.65 - Type 2 diabetes mellitus with hyperglycemia Qualifiers: Diabetes mellitus terminal system operator insulin use: without alf use Qualified Code(s): E11.65 - Type 2 diabetes mellitus with hyperglycemia Plan: Decrease the amount of carbohydrate intake, pasta, bread, rice and potatoes are all sugar and that is aside from all the sweet stuff, remember that fruits are good but they are Sweet also. Hemoglobin A1c goal of less than 6.5 patient is taking metformin only (4) Asthma: Comment: SHE HAS LONG-STANDING HISTORY OF ASTHMA WHICH IS FAIRLY WELL CONTROLLED. IT SEEMS THAT HER MAIN TRIGGER IS PHYSICAL EXERTION . PFT. RESULTS SHOW MOSTLY RESTRICTIVE PATTEN . TX: ADVISED TO USE PROAIR 2 PUFFS Q 4-6 HOURS P.R.N.. AND CONTINUE USING MONTELUKAST 10 MG DAILY. Code(s): J45.909 - Unspecified asthma, uncomplicated Qualifiers: Asthma severity: mild Asthma persistence: intermittent Asthma complication type: uncomplicated Qualified Code(s): J45.20 - Mild intermittent asthma, uncomplicated Plan: Continue with the inhalers patient follows up with Pulmonary (5) Coronary artery disease: Comment: Myocardial infarction [address] Ayala ejection fraction 40-50% .10 November 2017, echo October 2018 dilated left ventricle 45-50% moderate grade 2 diastolic dysfunction. She is being followed by Cardiology service. Code(s): I25.10 - Atherosclerotic heart disease of [place] coronary artery without angina pectoris Qualifiers: Coronary Disease-Associated Artery/Lesion type: [place] artery [place] vs. transplanted heart: [place] heart Associated angina: without angina Qualified Code(s): I25.10 - Atherosclerotic heart disease of [place] coronary artery without angina pectoris Plan: Control the cholesterol, weight, blood pressure, diabetes (6) Hypertension: Code(s): I10 - Essential (primary) hypertension Qualifiers: Hypertension type: essential hypertension Qualified Code(s): I10 - Essential (primary) hypertension Plan: Continue with blood pressure medication. Decrease salt intake and exercise patient is on metoprolol lisinopril and amlodipine (7) Hypercholesterolemia: Code(s): E78.00 - Pure hypercholesterolemia, unspecified Plan: Avoid fried foods, chicken skin, eggs, butter margarine, pastries and meat. Be it pork or beef they have a lot of cholesterol LDL goal of less than 70 patient is at goal and triglyceride less than 150 (8) GERD (gastroesophageal reflux disease): Code(s): K21.9 - Gastro-esophageal reflux disease without esophagitis Qualifiers: Esophagitis presence: without esophagitis Qualified Code(s): K21.9 - Gastro-esophageal reflux disease without esophagitis Plan: Avoid the foods that causes that usually spicy foods, tomato products, juices, coffee, soda and foods that your sensitive to. After eating do not lie down, allow 3-4 hours before in lie down. And keep the head of bed above 30 degrees to avoid the acid from going up. (9) Tricompartment osteoarthritis of knees, bilateral: Code(s): M17.0 - Bilateral primary osteoarthritis of knee Plan: Patient has seen ortho and has had injections Orders: Orders AMB Hemoglobin A1c Today E11.65 - Type 2 diabetes mellitus with hyperglycemia Medications: New metformin ER 2,000 mg (4 x 500 mg) PO DAILY 90 days 360 tabs 3RF E11.65 - Type 2 diabetes mellitus with hyperglycemia semaglutide for 4 weeks 0.25 mg (0.368 mL) subcut QWEEK 3 mL 2RF E11.65 - Type 2 diabetes mellitus with hyperglycemia semaglutide for 4 weeks 0.25 mg (0.368 mL) subcut QWEEK 3 mL 2RF E11.65 - Type 2 diabetes mellitus with hyperglycemia ketoconazole 2% 1 appl topical 2XW 120 mL 0RF E11.65 - Type 2 diabetes mellitus with hyperglycemia Discontinued metformin Discontinued Reason: Patient Refused 1,000 mg (2 x 500 mg) PO BIDWMEAL 90 days 360 tabs 3RF E11.65 - Type 2 diabetes mellitus with hyperglycemia Coding Level of Care Code Est Pt Level 4 (72527) Diagnoses Morbid obesity with BMI of 45.0-49.9, adult E66.01; Z68.42 Obstructive sleep apnea G47.33 Type 2 diabetes mellitus with hyperglycemia E11.65 Diabetes mellitus terminal system operator insulin use: without terminal system operator use Asthma J45.20 Asthma severity: mild Asthma persistence: intermittent Asthma complication type: uncomplicated Coronary artery disease I25.10 Coronary Disease-Associated Artery/Lesion type: [place] artery [place] vs. transplanted heart: [place] heart Associated angina: without angina Hypertension I10 Hypertension type: essential hypertension Hypercholesterolemia E78.00 GERD (gastroesophageal reflux disease) K21.9 Esophagitis presence: without esophagitis Tricompartment osteoarthritis of knees, bilateral M17.0
[2022-10-05 11:15] VITALS: BP 158/90; PULSE 64; O2SAT 97; BMI 47.8
== END 2022-10-05 12:16 | disposition home or self-care (01) ==
PROVIDERS: Visit Provider Internal Medicine
DX: E11.65 Type 2 diabetes mellitus with hyperglycemia (principal); E66.01 Morbid (severe) obesity due to excess calories; Z68.42 Body mass index [BMI] 45.0-49.9, adult; I10 Essential (primary) hypertension; J45.20 Mild intermittent asthma, uncomplicated; K21.9 Gastro-esophageal reflux disease without esophagitis; G47.33 Obstructive sleep apnea (adult) (pediatric); I25.10 Atherosclerotic heart disease of native coronary artery without angina pectoris; E78.00 Pure hypercholesterolemia, unspecified; M17.0 Bilateral primary osteoarthritis of knee
CPT/HCPCS: 83036; 99214

== ENCOUNTER 2022-10-07 09:13 | Outpatient (AMB) | payer OTHER, SELFPAY ==
[2022-10-07 09:24] VITALS: BP 144/82; PULSE 62; BMI 47.8
--- NOTE | 2022-10-07 09:24 | A.OFFVIS_ITS ---
Intake Vital Signs 10/07/22 09:24 Height 6 ft 2 in Weight 372 lb BMI 47.8 BP 144/82 H Blood Pressure Location Lt radial Pulse 62 Intake Visit Reasons: 3-4 month follow up Intake Note: 3- 4 month f/u Internal Audit Consultant Required: No Allergies amoxicillin [AMOXICILLIN] Allergy (Unknown, Verified 10/07/22 09:33) HIVES atorvastatin Allergy (Unknown, Verified 10/07/22 09:33) hives bupropion [From ZYBAN] Allergy (Unknown, Verified 10/07/22 09:33) HIVES milk Allergy (Unknown, Verified 10/07/22 09:33) Diarrhea Penicillins [PENICILLINS] Allergy (Unknown, Verified 10/07/22 09:33) HIVES pravastatin Allergy (Unknown, Verified 10/07/22 09:33) hives simvastatin [SIMVASTATIN] Allergy (Unknown, Verified 10/07/22 09:33) HIVES tomato Allergy (Unknown, Verified 10/07/22 09:33) Hives Medication List - Last Reconciled 10/07/22 by JOMAR Grady albuterol sulfate 90 mcg/actuation (ProAir HFA) 2 puffs inhalation Q6H amlodipine (Norvasc) 5 mg PO DAILY aspirin (Adult Low Dose Aspirin) 162 mg PO DAILY [AUTOCPAP 8-20 mm HG humidified heated air As directed] blood sugar diagnostic As directed blood sugar diagnostic (eReceiptsuch Ultra Test strips) As directed check the blood sugar once a day blood-glucose meter As directed blood-glucose meter (eReceiptsuch Ultra2 Meter kit) As directed check the blood sugar once a day compr.stocking,knee,long,x-lrg As directed 20-30 mm HG [cpap Supplies As directed] [Diabetic Shoes As directed] [diabetic socks As directed] ibuprofen 800 mg PO TID PRN ketoconazole 2% 1 appl topical 2XW lancets (eReceiptsuch Delica Lancets) As directed check the blood sugar q.day lancets As directed lisinopril 40 mg PO DAILY metformin ER 2,000 mg (4 x 500 mg) PO DAILY 90 days metoprolol tartrate 2 tabs in am and 3 tabs in pm PO 2 times a day; montelukast 10 mg PO BEDTIME nitroglycerin 0.4 mg sublingual Q5M PRN rosuvastatin 10 mg PO BEDTIME semaglutide 0.25 mg (0.368 mL) subcut QWEEK [Sleeve right hand As directed] triamcinolone acetonide 0.5% 1 appl topical BID 14 days [trouser socks 20-30 millimeter mercury pressure] HPI 3-4 month follow up HPI Details Radha is a 51-year-old female with past medical history of morbid obesity, hypertension, hyperlipidemia, diabetes, obstructive sleep apnea, CAD with prior NV, lad stent who presents for follow-up. Today she has been doing well since her last visit. She believes the amlodipine is giving her headache and she takes it every other day. She takes all other meds as directed. She has not had any concerning chest discomfort at rest or with activity. She had shoulder discomfort once which she is relating to a pulled muscle. No palpitations, dizziness, presyncope, syncope, falls. She has some shortness of breath with exertional activities which is not new or concerning. Breathing is comfortable at rest, no PND, orthopnea or edema. She does have venous stasis changes in her lower extremities which is unchanged. She is busy with her 3-year-old foster child and is hoping to adopt her. She uses her CPAP at night. [facility] Medical History Asthma Breast cancer screening by mammogram Colon cancer screening Folic acid deficiency GERD (gastroesophageal reflux disease) Hypercholesterolemia Hypertension Type 2 diabetes mellitus with hyperglycemia Vitamin D deficiency Surgical History History of section History of cholecystectomy History of coronary artery stent placement History of hand surgery Family History Father CVD (cardiovascular disease) Hypertension Heart disease Mother No problems noted. 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 Cognitive needs: No Hearing needs: No Vision needs: No Review of Systems Const All systems reviewed & are unremarkable except as noted in HPI and below ENT Denies dizziness Card Denies chest pain, Denies chest pain at rest, Denies chest pain with activity, Denies rapid heart rate, Denies pedal edema, Denies edema, Denies leg edema, Denies lightheadedness, Denies palpitations, Denies dyspnea, Reports dyspnea on exertion and Denies orthopnea Resp Denies cough, Denies dyspnea and Reports dyspnea on exertion GI Denies hematochezia and Denies change in stool character Musc Denies abnormal gait, Reports limited range of motion, Reports muscle cramps, Denies muscle weakness, Denies numbness, Denies radiating pain into limb, Denies stiffness and Denies tingling Neuro Denies abnormal gait, Denies dizziness, Denies numbness and Denies tingling Endo Denies palpitations Physical Exam Vital Signs: Last Vital Signs Pulse 62 10/07/22 09:24 BP 144/82 H 10/07/22 09:24 BMI result Body Mass Index 47.8 Const Other: Morbidly obese General: cooperative, comfortable and no acute distress Orientation/consciousness: patient oriented x3 Neck Neck: Yes normal visual inspection Resp Effort & Inspection: normal respiratory effort Auscultation: clear to auscultation bilaterally, no crackles, no rales, no rhonchi and no wheezes Cardio Jugular venous distension: no JVD Rate: regular rate Rhythm: regular rhythm Heart sounds: S1 normal heart sound present, S2 normal heart sound present, Murmur heart sound present (2/6 systolic murmur, aortic region) and no rubs Neuro General: patient oriented x3 Extrem Other: Venous stasis changes to lower extremities, no skin break, no pitting edema Psych Appearance: grossly normal Mental Status: mental status grossly normal Speech and movement: Normal speech and movement present Office Procedures EKG Details: Today, read by me, sinus rhythm with first-degree AV block, can not rule out prior anterior infarct, compared to prior EKG and unchanged, rate 62, QTC 454 millisecond [id number], Complete Assessment & Plan Assessment & Plan (1) Atypical chest pain: Code(s): R07.89 - Other chest pain Plan: Prior reports of left shoulder discomfort with concern for possible angina. She has known history of CAD with prior LAD stent 2009. To evaluate her symptoms she underwent echocardiogram on 02/15/2022 showing EF 51%, grade 2 diastolic dysfunction, inferior septal, apex, apical anterior and apical septum akinetic, aortic valve gradients elevated, grade 2 diastolic dysfunction, no significant change from 10/23/2019. Nuclear stress test done on 02/23/2022 showing transmural infarct involving the mid to distal inferior wall and adjacent apex. On follow-up visit she reports that the shoulder discomfort had resolved. Today she reports she had discomfort in the shoulder once in the last 6 months and she is relating it to a muscle strain. She has no anginal sounding symptoms. She does have mild shortness of breath with activity which is not new. She remains active during the day and cares for her 3-year-old foster child. EKG done today showing sinus rhythm with first-degree AV block, prior anterior infarct, unchanged from prior, rate 62. Will continue current management for stable CAD including aspirin, rosuvastatin, metoprolol, amlodipine. She believes amlodipine is giving her headache. Instructed on trying half dose which would be 2.5 mg daily. Her blood pressure is mildly elevated this morning but tells me that she did not take any of her morning medications as she woke up late and was rushing to get to this appointment. Cardiology follow-up in 6 months, sooner if needed. (2) Coronary artery disease: Comment: Myocardial infarction [address] Ayala ejection fraction 40-50% 1.10 November 2017, echo October 2018 dilated left ventricle 45-50% moderate grade 2 diastolic dysfunction. She is being followed by Cardiology service. Code(s): I25.10 - Atherosclerotic heart disease of [place] coronary artery without angina pectoris Qualifiers: Coronary Disease-Associated Artery/Lesion type: [place] artery [place] vs. transplanted heart: [place] heart Associated angina: without angina Qualified Code(s): I25.10 - Atherosclerotic heart disease of [place] coronary artery without angina pectoris Plan: History of CAD with NV 2009. Notes indicate stent in the LAD, ischemic ca rdiomyopathy with EF 40-50%. Recent echo as above with EF 51%. Old NV noted on nuclear stress test however no ischemic findings. (3) Myocardial infarction: Code(s): I21.9 - Acute myocardial infarction, unspecified (4) Aortic stenosis: Code(s): I35.0 - Nonrheumatic aortic (valve) stenosis Plan: Previously followed by Dr. Holley. In the notes there is mention of echocardiogram showing moderate aortic stenosis. Systolic murmur noted on examination. She denies any cardinal signs of severe including new shortness of breath, chest discomfort with activity, presyncope or syncope. Echo done 02/23/22 does show aortic valve is not well visualized, peak gradient 20 7 mmHg, mean gradient 14 mmHg, trace aortic regurgitation, can not occlude subaortic membrane. Plan is for repeat echo 1 year from last, due 01/2023. (5) Hypertension: Code(s): I10 - Essential (primary) hypertension Qualifiers: Hypertension type: essential hypertension Qualified Code(s): I10 - Essential (primary) hypertension Plan: Blood pressure mildly elevated today. Had not taken medications today (6) Hypercholesterolemia: Code(s): E78.00 - Pure hypercholesterolemia, unspecified Plan: [place] LDL goal less than 70 and patient with known CAD and diabetes. Labs done on 10/20/2021 shows LDL 63. Continue rosuvastatin. (7) Morbid obesity with BMI of 45.0-49.9, adult: Comment: BMI=48 REMAINS MORBIDLY OBESE. SHE IS NOT ABLE TO EXERCISE MUCH, STAYS MOSTLY IN THE HOUSE. SHE IS WORKING WITH DIETITIAN. Code(s): E66.01 - Morbid (severe) obesity due to excess calories; Z68.42 - Body mass index [BMI] 45.0-49.9, adult Coding Level of Care Code Est Pt Level 4 (67571) Diagnoses Atypical chest pain R07.89 Coronary artery disease I25.10 Coronary Disease-Associated Artery/Lesion type: [place] artery [place] vs. transplanted heart: [place] heart Associated angina: without angina Myocardial infarction I21.9 Aortic stenosis I35.0 Hypertension I10 Hypertension type: essential hypertension Hypercholesterolemia E78.00 Morbid obesity with BMI of 45.0-49.9, adult E66.01; Z68.42 CPT Codes EKG - CPT: 31846-[id number], Complete ([id number]) Time Spent (min) 26 Comment Chart review, documentation, interview, assess
== END 2022-10-07 10:00 | disposition home or self-care (01) ==
PROVIDERS: PCP Internal Medicine; Referring Provider Internal Medicine; Visit Provider Nurse Practitioner Family
DX: R07.89 Other chest pain (principal); I25.10 Atherosclerotic heart disease of native coronary artery without angina pectoris; I21.9 Acute myocardial infarction, unspecified; I35.0 Nonrheumatic aortic (valve) stenosis; I10 Essential (primary) hypertension; E78.00 Pure hypercholesterolemia, unspecified; E66.01 Morbid (severe) obesity due to excess calories; Z68.42 Body mass index [BMI] 45.0-49.9, adult
CPT/HCPCS: 93010; 99214

== ENCOUNTER → 2022-10-07 09:13 | Outpatient (BNVA) | payer OTHER, SELFPAY | PROVIDERS: PCP Internal Medicine; Referring Provider Internal Medicine; Visit Provider Nurse Practitioner Family | DX: I44.0 Atrioventricular block, first degree (principal); I25.10 Atherosclerotic heart disease of native coronary artery without angina pectoris; I25.2 Old myocardial infarction; I35.0 Nonrheumatic aortic (valve) stenosis; I10 Essential (primary) hypertension; E11.9 Type 2 diabetes mellitus without complications; E66.01 Morbid (severe) obesity due to excess calories; E78.00 Pure hypercholesterolemia, unspecified; Z68.42 Body mass index [BMI] 45.0-49.9, adult; Z95.5 Presence of coronary angioplasty implant and graft; Z87.891 Personal history of nicotine dependence | CPT/HCPCS: 93005; 99212 ==

== ENCOUNTER 2022-11-03 09:54 | Outpatient (AMB) | payer OTHER, SELFPAY ==
--- NOTE | 2022-11-03 10:01 | A.OFFVIS_ITS ---
Intake Intake Visit Reasons: OV - Bilateral Knee Durolane last inj 07/29/22 Intake Note: Radha is a 52 year old female who presents today for a follow up of her bilateral knee pain. She received bilateral knee Durolane injections on 07/29/22. Patient reports that these injection did offer some releif. Allergies amoxicillin [AMOXICILLIN] Allergy (Unknown, Verified 10/07/22 09:33) HIVES atorvastatin Allergy (Unknown, Verified 10/07/22 09:33) hives bupropion [From ZYBAN] Allergy (Unknown, Verified 10/07/22 09:33) HIVES milk Allergy (Unknown, Verified 10/07/22 09:33) Diarrhea Penicillins [PENICILLINS] Allergy (Unknown, Verified 10/07/22 09:33) HIVES pravastatin Allergy (Unknown, Verified 10/07/22 09:33) hives simvastatin [SIMVASTATIN] Allergy (Unknown, Verified 10/07/22 09:33) HIVES tomato Allergy (Unknown, Verified 10/07/22 09:33) Hives HPI OV - Bilateral Knee Durolane last inj 07/29/22 HPI Details Radha is a 52 year old woman who returns to discuss her bilateral knee OA. She received bilateral Durolane injections on 07/29/22, which she says gave her some relief. She continues to have some pain and difficulty with daily activities, but says this has improved somewhat following her Durolane injections. She continues to work on weight management, and says she started Ozempic a few weeks ago which she hopes will help her. She remains active playing with her 3 year old. [facility] Medical History Asthma Breast cancer screening by mammogram Colon cancer screening Folic acid deficiency GERD (gastroesophageal reflux disease) Hypercholesterolemia Hypertension Type 2 diabetes mellitus with hyperglycemia Vitamin D deficiency Surgical History History of section History of cholecystectomy History of coronary artery stent placement History of hand surgery Family History Father CVD (cardiovascular disease) Hypertension Heart disease Mother No problems noted. 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 Cognitive needs: No Hearing needs: No Vision needs: No Review of Systems Const All systems reviewed & are unremarkable except as noted in HPI and below Physical Exam Const General: no acute distress, alert and awake Orientation/consciousness: patient oriented x3 HEENT Head: Yes normocephalic and Yes atraumatic Eyes EOM: EOMs intact bilaterally Resp Effort & Inspection: normal respiratory effort and able to speak in complete sentences Cardio Jugular venous distension: no JVD Skin General skin exam: turgor normal Rashes: no rashes Neuro General: patient oriented x3 Extrem Other: Bilateral Knees: TTP medial compartment Mild antalgia Psych Appearance: grossly normal Affect: normal affect Attitude: cooperative Assessment & Plan Assessment & Plan (1) Tricompartment osteoarthritis of knees, bilateral: Code(s): M17.0 - Bilateral primary osteoarthritis of knee Plan: This is a 51 year old woman with bilateral knee OA. She had some relief from bilateral Durolane injecitons on 07/29/22. She continues to have pain with daily activity, and remains active with her 3 year old child. I discussed possible surgical intervention in the future. She will continue to work on weight management and remaining active as tolerated, she has recently started Ozempic. She will follow up in 6 months. (2) BMI 45.0-49.9, adult: Code(s): Z68.42 - Body mass index [BMI] 45.0-49.9, adult Plan: Current BMI 47.6. Continue Ozempic, dietary modifications and weight management. Plan Scribed for Dougie Siddiqui MD by Rommel Edwards, lpn or medical assistant, on 11/03/22 at 10:30 AM, EST. Coding Level of Care Code Est Pt Level 4 (23059) Diagnoses Tricompartment osteoarthritis of knees, bilateral M17.0 BMI 45.0-49.9, adult Z68.42
== END 2022-11-03 10:30 | disposition home or self-care (01) ==
PROVIDERS: PCP Internal Medicine; Visit Provider Orthopaedic Surgery
DX: M17.0 Bilateral primary osteoarthritis of knee (principal); Z68.42 Body mass index [BMI] 45.0-49.9, adult
CPT/HCPCS: 99213

== ENCOUNTER → 2022-11-03 09:54 | Outpatient (BNVA) | payer OTHER, SELFPAY | PROVIDERS: PCP Internal Medicine; Visit Provider Orthopaedic Surgery ==

== ENCOUNTER 2022-12-15 10:02 | Outpatient (AMB) | payer OTHER, SELFPAY ==
--- NOTE | 2022-12-15 10:06 | A.OFFPC_ITS ---
Vital Signs 12/15/22 10:07 Height 6 ft 2 in Weight 356 lb BMI 45.7 BP 138/86 Blood Pressure Location Lt brachial Position Sitting Pulse 72 Pulse Source Pulse Oximeter Pulse Oximetry (%) 97 Oxygen Delivery Method Room Air Intake Visit Reasons: Annual Exam Intake Note: Patient here for an annual physical exam Residential Sales Representative Required: No Accompanied by: Self / Same As Patient Allergies amoxicillin [AMOXICILLIN] Allergy (Unknown, Verified 12/15/22 10:08) HIVES atorvastatin Allergy (Unknown, Verified 12/15/22 10:08) hives bupropion [From ZYBAN] Allergy (Unknown, Verified 12/15/22 10:08) HIVES milk Allergy (Unknown, Verified 12/15/22 10:08) Diarrhea Penicillins [PENICILLINS] Allergy (Unknown, Verified 12/15/22 10:08) HIVES pravastatin Allergy (Unknown, Verified 12/15/22 10:08) hives simvastatin [SIMVASTATIN] Allergy (Unknown, Verified 12/15/22 10:08) HIVES tomato Allergy (Unknown, Verified 12/15/22 10:08) Hives Medication List - Last Reconciled 12/15/22 by Adán Yadav MD albuterol sulfate 90 mcg/actuation (ProAir HFA) 2 puffs inhalation Q6H amlodipine (Norvasc) 5 mg PO DAILY aspirin (Adult Low Dose Aspirin) 162 mg PO DAILY [AUTOCPAP 8-20 mm HG humidified heated air As directed] blood sugar diagnostic As directed blood sugar diagnostic ([employer] Ultra Test strips) As directed check the blood sugar once a day blood-glucose meter As directed check the blood sugar once a day compr.stocking,knee,long,x-lrg As directed 20-30 mm HG [cpap Supplies As directed] [Diabetic Shoes As directed] [diabetic socks As directed] ibuprofen 800 mg PO TID PRN ketoconazole 2% 1 appl topical 2XW lancets (Smart PatientsTouch Delica Lancets) As directed check the blood sugar q.day lancets As directed lisinopril 40 mg PO DAILY metformin ER 2,000 mg (4 x 500 mg) PO DAILY 90 days metoprolol tartrate 2 tabs in am and 3 tabs in pm PO 2 times a day; montelukast 10 mg PO BEDTIME nitroglycerin 0.4 mg sublingual Q5M PRN rosuvastatin 10 mg PO BEDTIME semaglutide 0.5 mg (0.736 mL) subcut QWEEK [Sleeve right hand As directed] triamcinolone acetonide 0.5% 1 appl topical BID 14 days [trouser socks 20-30 millimeter mercury pressure] Tobacco use date assessed: 10/05/22 Dental Screening Dental Screen Date: 12/15/22 Did you have a dental visit in the last 12 months?: Yes Did you have a dental problem in the last 6 months where you did not have access to dental care?: No Was dental information given to patient?: Patient has dentist HPI Annual Exam HPI Details 52-year-old morbidly obese female with d iabetes mellitus obstructive sleep apnea asthma coronary artery disease 2009 hypertension hypercholesterolemia GERD and bilateral knee osteoarthritis last seen in September 2022. Patient is here for physical exam. Mammogram is due next month. Cologuard September 2020. Review of the notes was seen by Orthopedic October 2022 had do Prince injections July 2022 discussed about surgical intervention and will be working on weight.. September 2022 patient was seen by Cardiology echocardiogram January 2022 ejection fraction 51% grade 2 diastolic dysfunction inferior septal, apex, apical anterior and apical septum akinetic aortic valve gradients elevated grade 2 diastolic dysfunction no significant change since September 2019 nuclear stress test done January 2022 showing transmural infarct mid to distal inferior wall and adjacent apex amlodipine decrease to 2.5 mg once a day due to headaches repeat echo January 2023. has diarrhea- allergies to [facility] Medical History Asthma Breast cancer screening by mammogram Colon cancer screening Folic acid deficiency GERD (gastroesophageal reflux disease) Hypercholesterolemia Hypertension Type 2 diabetes mellitus with hyperglycemia Vitamin D deficiency Surgical History History of coronary artery stent placement History of cholecystectomy History of hand surgery History of section Family History Father CVD (cardiovascular disease) Hypertension Heart disease Mother No problems noted. 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 Steve Joshi, Carole Patton, Seth Duke and colleagues, with an educational velia from [employer]. Review of Systems Const Denies poor appetite and Denies weakness Eyes Denies no additional complaints ENT Reports Normal hearing present, Denies dizziness, Denies nasal congestion, Denies tinnitus and Denies sore throat Card Denies chest pain, Denies syncope, Denies rapid heart rate and Denies dyspnea Resp Denies cough and Denies dyspnea GI Denies change in stool character, Reports constipation, Denies diarrhea, Denies nausea and Denies vomiting Denies urinary frequency, Denies difficulty voiding and Denies dysuria Neuro Reports Normal hearing present, Denies confusion, Denies dizziness, Denies syncope and Denies weakness Psych Denies confusion Physical exam (Primary Care) Vital Signs: Last Vital Signs Pulse 72 12/15/22 10:07 BP 138/86 12/15/22 10:07 Pulse Ox 97 12/15/22 10:07 Oxygen Delivery Method Room Air 12/15/22 10:07 BMI result Body Mass Index 45.7 Tobacco/Smoking Status: Tobacco use Status Tobacco use date assessed 10/05/22 12/15/22 10:10 Patient Tobacco Use Status Former Tobacco user 12/15/22 10:10 Tobacco use type Cigarette 12/15/22 10:10 e-Cigarette/Vaping Use Never Used 12/15/22 10:10 Thrive Assessment: Date of Thrive Assessment Date Thrive assessed 03/31/22 12/15/22 10:10 Const General: No confusion Orientation/consciousness: No confusion HENMT Head: Yes normocephalic Ears: external ears normal and TM's normal bilaterally Face and sinus: Yes normal facial exam Mouth: moist mucous membranes Throat: Yes tonsils normal Eyes Conjunctivae: conjunctivae normal Pupils: Equal, round and reactive pupils present and Pupil accommodation reflex normal Direct Ophthalmoscopy: normal light reflex Neck Neck: No lymphadenopathy Thyroid: Thyroid normal Chest Chest palpation & inspection: normal inspection of the chest Resp Effort & Inspection: normal respiratory effort and no audible wheezes Auscultation: clear to auscultation bilaterally, no crackles, no wheezes and lung sounds not diminished Cardio Rate: regular rate Rhythm: regular rhythm Peripheral pulses: radial pulses present and dorsalis pedis present GI Palpation (GI): no masses Auscultation: normal bowel sounds and normoactive bowel sounds Rectal Exam - Female: deferred Skin General skin exam: no rashes or lesions noted Rashes: no rashes Neuro General: No confusion Cranial nerves: Yes Equal, round and reactive pupils present and Yes Normal hearing present Cognition (Neuro): normal cognition Gait exam (Neuro): Normal gait present Motor exam (neuro): 5/5 motor strength present throughout Deep tendon reflexes (DTR's): Right brachioradialis reflex intensity grade: 2+, Left brachioradialis reflex intensity grade: 2+, Right patellar reflex intensity grade: 2+ and Left patellar reflex intensity grade: 2+ Extrem General: No edema Assessment and Plan Assessment & Plan (1) Annual physical exam: Code(s): Z00.00 - Encounter for general adult medical examination without abnormal findings (2) Coronary artery disease: Comment: Myocardial infarction [address] Ayala ejection fraction 40-50% 1.10 November 2017, echo October 2018 dilated left ventricle 45-50% moderate grade 2 diastolic dysfunction. She is being followed by Cardiology service. Code(s): I25.10 - Atherosclerotic heart disease of [place] coronary artery without angina pectoris Qualifiers: Coronary Disease-Associated Artery/Lesion type: [place] artery [place] vs. transplanted heart: [place] heart Associated angina: without angina Qualified Code(s): I25.10 - Atherosclerotic heart disease of [place] coronary artery without angina pectoris Plan: Control the cholesterol, weight, blood pressure, diabetes continue with aspirin 81 mg once a day (3) Type 2 diabetes mellitus with hyperglycemia: Code(s): E11.65 - Type 2 diabetes mellitus with hyperglycemia Qualifiers: Diabetes mellitus senior care insulin use: without chemical recovery operator use Qualified Code(s): E11.65 - Type 2 diabetes mellitus with hyperglycemia Plan: Decrease the amount of carbohydrate intake, pasta, bread, rice and potatoes are all sugar and that is aside from all the sweet stuff, remember that fruits are good but they are Sweet also. Hemoglobin A1c goal of less than 6.5 patient is taking metformin 2000 mg once a day 7 glue time (4) Obstructive sleep apnea: Comment: DIAGNOSIS SINCE 2008. HAS BEEN VERY COMPLIANT, FACE MASK OF SMALLER SIZE IS MORE COMFORTABLE , SHE INTER CHANGES BETWEEN THE SMALL SIZE AND LARGE SIZE. Also has Fullface maskIFit-20 ( medium-sized ) ADVISED TO CONTINUE PRESENT SETTINGS OF AUTO PAP MODE 8-20 CM. And continue to use every night. Code(s): G47.33 - Obstructive sleep apnea (adult) (pediatric) Plan: Continue to use the CPAP more than 4 hours a night and benefits from this (5) Hypertension: Code(s): I10 - Essential (primary) hypertension Qualifiers: Hypertension type: essential hypertension Qualified Code(s): I10 - Essential (primary) hypertension Plan: Continue with blood pressure medication. Decrease salt intake and exercise patient on amlodipine 5 mg once a day lisinopril 40 mg once a day and and metoprolol (6) Hypercholesterolemia: Code(s): E78.00 - Pure hypercholesterolemia, unspecified Plan: Avoid fried foods, chicken skin, eggs, butter margarine, pastries and meat. Be it pork or beef they have a lot of cholesterol LDL goal of less than 70 and triglyceride of less than 150. Patient is on rosuvastatin (7) GERD (gastroesophageal reflux disease): Code(s): K21.9 - Gastro-esophageal reflux disease without esophagitis Qualifiers: Esophagitis presence: without esophagitis Qualified Code(s): K21.9 - Gastro-esophageal reflux disease without esophagitis Plan: Avoid the foods that causes that usually spicy foods, tomato products, juices, c offee, soda and foods that your sensitive to. After eating do not lie down, allow 3-4 hours before in lie down. And keep the head of bed above 30 degrees to avoid the acid from going up. (8) Obesity: Comment: Patient is fully aware of her being grossly obese. Trying to limit her calories intake, needs to walk more. Code(s): E66.9 - Obesity, unspecified Plan: Diet and exercise and continue with the semaglutide (9) Tricompartment osteoarthritis of knees, bilateral: Code(s): M17.0 - Bilateral primary osteoarthritis of knee Plan: Patient follows up with ortho and discussion about treatment (10) Venous stasis dermatitis of both lower extremities: Code(s): I87.2 - Venous insufficiency (chronic) (peripheral) Medications: Changed From metformin ER 2,000 mg (4 x 500 mg) PO DAILY 90 days 360 tabs 3RF E11.65 - Type 2 diabetes mellitus with hyperglycemia To metformin ER 1,000 mg (2 x 500 mg) PO DAILY 90 days 180 tabs 3RF E11.65 - Type 2 diabetes mellitus with hyperglycemia Coding Level of Care Code Est Pt Prev Care 40-64y([id number]) Diagnoses Annual physical exam Z00.00 Coronary artery disease involving [place] coronary artery of [place] heart without angina pectoris I25.10 Coronary Disease-Associated Artery/Lesion type: [place] artery [place] vs. transplanted heart: [place] heart Associated angina: without angina Type 2 diabetes mellitus with hyperglycemia, without long-term current use of insulin E11.65 Diabetes mellitus chemical recovery operator insulin use: without senior care use Obstructive sleep apnea G47.33 Essential hypertension I10 Hypertension type: essential hypertension Hypercholesterolemia E78.00 Gastroesophageal reflux disease without esophagitis K21.9 Esophagitis presence: without esophagitis Obesity E66.9 Tricompartment osteoarthritis of knees, bilateral M17.0 Venous stasis dermatitis of both lower extremities I87.2
[2022-12-15 10:07] VITALS: BP 138/86; PULSE 72; O2SAT 97; BMI 45.7
== END 2022-12-15 11:06 | disposition home or self-care (01) ==
PROVIDERS: Visit Provider Internal Medicine
DX: Z00.00 Encounter for general adult medical examination without abnormal findings (principal); E11.65 Type 2 diabetes mellitus with hyperglycemia; I25.10 Atherosclerotic heart disease of native coronary artery without angina pectoris; G47.33 Obstructive sleep apnea (adult) (pediatric); I10 Essential (primary) hypertension; E78.00 Pure hypercholesterolemia, unspecified; K21.9 Gastro-esophageal reflux disease without esophagitis; E66.9 Obesity, unspecified; M17.0 Bilateral primary osteoarthritis of knee; I87.2 Venous insufficiency (chronic) (peripheral)
CPT/HCPCS: 99396

== ENCOUNTER 2022-12-28 09:53 | Outpatient (AMB) | payer OTHER, SELFPAY ==
[2022-12-28 10:23] VITALS: BMI 45.6
--- NOTE | 2022-12-28 10:23 | A.OFFVIS_ITS ---
Intake VS Expanded 12/28/22 10:23 Height 6 ft 2 in Weight 355 lb 6.162 oz BMI 45.6 Intake Visit Reasons: DM Allergies amoxicillin [AMOXICILLIN] Allergy (Unknown, Verified 12/15/22 10:08) HIVES atorvastatin Allergy (Unknown, Verified 12/15/22 10:08) hives bupropion [From ZYBAN] Allergy (Unknown, Verified 12/15/22 10:08) HIVES milk Allergy (Unknown, Verified 12/15/22 10:08) Diarrhea Penicillins [PENICILLINS] Allergy (Unknown, Verified 12/15/22 10:08) HIVES pravastatin Allergy (Unknown, Verified 12/15/22 10:08) hives simvastatin [SIMVASTATIN] Allergy (Unknown, Verified 12/15/22 10:08) HIVES tomato Allergy (Unknown, Verified 12/15/22 10:08) Hives HPI Nutrition Presentation Details Pt presents for MNT f/u for T2DM with morbid obesity Pt reports doing well, now is on Ozempic and reports blood sugar getting better. Pt reports working on meal planning and including foods with Calcium in diet (fortified: almond milk , oatmilk,lactose free cows milk 2 c/d) Pt reports working n reducing on fried foods in general. Pt feeling motivated Most Recent Diabetes Results: Microalb/Creat Ratio 143.6 ug/mg cr 09/27/22 Cholesterol 115 mg/dL 09/27/22 HDL Cholesterol 46 mg/dL 09/27/22 Triglycerides 50 mg/dL 09/27/22 Creatinine 1.14 mg/dL (0.5-1.4) 09/27/22 Blood Urea Nitrogen 21 mg/dL (9-16) H 09/27/22 Sodium 139 mmol/L (135-145) 09/27/22 Potassium 4.0 mmol/L (3.3-5.1) 09/27/22 Chloride 106 mmol/L (96-108) 09/27/22 Carbon Dioxide 21 mmol/L (22-29) L 09/27/22 Calcium 9.5 mg/dL (8.4-10.2) 09/27/22 AST 14 U/L (5-31) 09/27/22 ALT 22 U/L (0-31) 09/27/22 Total Protein 7.4 g/dL (6.5-8.0) 09/27/22 Albumin 4.1 g/dL (3.5-5.0) 09/27/22 [facility] Medical History Asthma Breast cancer screening by mammogram Colon cancer screening Folic acid deficiency GERD (gastroesophageal reflux disease) Hypercholesterolemia Hypertension Type 2 diabetes mellitus with hyperglycemia Vitamin D deficiency Surgical History History of coronary artery stent placement History of cholecystectomy History of hand surgery History of section Family History Father CVD (cardiovascular disease) Hypertension Heart disease Mother No problems noted. 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 Follow healthy plate method EST Kcal NEEDS as per [place] [facility] Jeor: 2931 kcal/d USED BODY WT : 161 kg est protein needs as per -1.0 g/kg bw: 161 g/d est fluid needs as per 25 ml/kg bw: 0 ml/d Educate patient on: (R= Reviewed, V = verbalizes understanding N/R= Needs review N/A= not applicable) * Food sources of carbohydrates and serving adequate serving sizes : V * Difference between complex carbohydrates and simple carbohydrates, role of fiber: V * Differences between fats (MUFA/PUFA/saturated fats, trans fats) and food sources of various fats: V * Food sources of sodium and salt and healthy modifications for heart health and kidney health: V * Vitamins and minerals: V * How to interpret food labels: V * Healthy Plate method concept: V * Physical activity: benefits and precaution: V (2) Morbid obesity with BMI of 45.0-49.9, adult: Code(s): E66.01 - Morbid (severe) obesity due to excess calories; Z68.42 - Body mass index [BMI] 45.0-49.9, adult Plan: Continue working on reducing total caloric intake from empty calorie foods (500- 1000 calories less per day) and follow healthy plate method EST Kcal NEEDS as per [place] [facility] kcal/d USED BODY WT : 161 kg est protein needs as per 0.8-1.0 g/kg bw: 161 g/d est fluid needs as per 25 ml/kg bw: 4000 ml/d Patient Instructions: Include vitamin D sources of foods (3-4 serving of vitamin d fortified foods : milk/alternatives/fortified cereals Keep physically active as able Coding Level of Care Code Nutr Indiv Subseq ([id number]) Diagnoses T2DM (type 2 diabetes mellitus) E11.9 Morbid obesity with BMI of 45.0-49.9, adult E66.01; Z68.42 Time Spent (min) 30
== END 2022-12-28 10:48 | disposition home or self-care (01) ==
PROVIDERS: PCP Internal Medicine; Visit Provider Dietitian, Registered
DX: E11.9 Type 2 diabetes mellitus without complications (principal); E66.01 Morbid (severe) obesity due to excess calories; Z68.42 Body mass index [BMI] 45.0-49.9, adult

== ENCOUNTER → 2022-12-28 09:53 | Outpatient (BNVA) | payer OTHER, SELFPAY | PROVIDERS: PCP Internal Medicine; Visit Provider Dietitian, Registered | DX: E11.9 Type 2 diabetes mellitus without complications (principal); E66.01 Morbid (severe) obesity due to excess calories; Z68.42 Body mass index [BMI] 45.0-49.9, adult; Z71.3 Dietary counseling and surveillance | CPT/HCPCS: 97803 ==

== ENCOUNTER 2023-01-04 08:47 | Outpatient (REF) | payer OTHER, SELFPAY ==
--- NOTE | ~2023-01-04 | MM_ITS ---
EXAMINATION: MM SCREENING DIGITAL BREAST TOMOSYNTHESIS, BILATERAL CLINICAL INFORMATION: Screening. Asymptomatic. COMPARISON: Mammography: This study is compared with prior exams dating back to 2016. TECHNIQUE: Digital breast tomosynthesis is performed in both the craniocaudal and mediolateral oblique views along with computer-aided detection (CAD). Synthesized 2D images are generated from the tomosynthesis. FINDINGS: The breasts are almost entirely fatty (ACR BI-RADS breast composition Category a). There are no significant masses, abnormal calcifications, or other abnormalities. MM/MM tomosynthesis screening BI IMPRESSION: No mammographic evidence of malignancy. ASSESSMENT: BI-RADS BI-RADS 1 - Negative RECOMMENDATION: Routine annual mammography screening. 1 year F/U This examination should not preclude the clinical evaluation of a suspicious palpable abnormality. This patient's information was entered into a reminder system with a target due date for their next mammogram.
== END 2023-01-04 08:48 | disposition home or self-care (01) ==
LOC: HO.MAMMO 08:47
PROVIDERS: PCP Internal Medicine; Visit Provider Internal Medicine
DX: Z12.31 Encounter for screening mammogram for malignant neoplasm of breast (principal)
CPT/HCPCS: 77063; 77067

== ENCOUNTER → 2023-01-04 09:00 | Outpatient (BNV) | payer OTHER, SELFPAY | PROVIDERS: PCP Internal Medicine; Visit Provider Radiology Diagnostic Radiology | DX: Z12.31 Encounter for screening mammogram for malignant neoplasm of breast (principal) | CPT/HCPCS: 77063; 77067 ==

== ENCOUNTER → 2023-01-06 09:34 | Outpatient (REF) | payer OTHER, SELFPAY ==
--- NOTE | 2023-01-06 09:36 | CA_ITS ---
Transthoracic Echocardiogram Patient (Last, First, Middle): Radha Moreno L Gender: Female Date of : 1970 Age: 52 Procedure Date: 01/06/2023 Procedure Type: Transthoracic Echocardiogram Location: OP Height: 187.96 cm Weight: 158.76 kg BSA: 2.76 m2 Heart Rate: 69 bpm BP: 130 / 80 mmHg Fuel Quality Tech: BETH Davis MD: Majo Murillo VOCATIONAL PSYCHOLOGIST-C Security Installer: Renaldo Cook MD Symptoms: I35.0 - Nonrheumatic aortic (valve) stenosis Study Quality: Technically Difficult ECG Rhythm: Sinus Conclusions: - 1. [id number] LV systolic dysfunction with LVEF of 40-45% with wall motion abnormality in LAD territory with impaired relaxation filling pattern 2. Mild aortic stenosis and regurgitation noted 3. Upper limits normal ascending aortic size Findings Procedure Information Contrast agent, definity, is being given per protocol without apparent complications. Left Ventricle Normal left ventricular cavity size. There is mildly increased left ventricular wall thickness. The left ventricular systolic function is mild to moderately decreased. The visually estimated ejection fraction is between 40-45%. Spectral Doppler is indicative of an impaired relaxation filling pattern. E/E prime ratio is between 8 and 15 consistent with indeterminate filling pressures. Wall Motion Rest Echo Findings The apical lateral, mid inferoseptal, and basal anteroseptal segments are hypokinetic. The apical anterior, apical inferior, apical septum, basal inferoseptal, and mid anteroseptal segments are akinetic. The apex segment is dyskinetic. All other scored wall segments showed normal motion. Right Ventricle The right ventricle was not well visualized. Atria The left atrium is mildly dilated. Interatrial shunt cannot be excluded. The right atrium was not well visualized. Aortic Valve The aortic valve was not well visualized. There is mild calcification of the aortic valve. There is mild aortic valve stenosis. The peak aortic gradient is 27 mmHg.The mean gradient is 16 mmHg. The aortic valve area is 1.99 cm2. There is mild aortic valve regurgitation. Mitral Valve The mitral valve was not well visualized. There is mild mitral annular calcification. There is trace mitral valve regurgitation. There is no mitral valve stenosis. Pulmonic Valve The pulmonic valve was not well visualized. Tricuspid Valve The tricuspid valve was not well visualized. Tricuspid regurgitation envelope is inadequate for calculation of right ventricular systolic pressure. Normal right atrial pressure. Great Vessels The pulmonary artery was not well visualized. Venous The inferior vena cava is normal in size and collapses greater than 50% with inspiration. Pericardium/Pleural The pericardium was not well visualized. Measurements 2D Linear Measurements IVSd: 1.08 0.6-0.9/0.6-1.0 cm LVIDd: 5.19 3.9-5.3/4.2-5.9 cm LVIDd Index: 1.88 2.4-3.2/2.2-3.1 cm/m2 LVIDs: 3.96 2.0-3.6 cm LVPWd: 1.20 0.7-1.1 cm LA Diam: 4.50 2.7-3.8/3.0-4.0 cm LAIDs Index: 1.63 1.5-2.3 cm/m2 LV Mass: 432.24 67-162/88-224 g LV Mass Index: 156.61 43-95/49-115 g/m2 LVOT Diam: 2.10 3.0+(-)1.3 cm 2D Systolic Function EF 4C: 32.20 >55% EF 2C: 49.60 >55% EF BiP: 41.60 >55% Mitral Valve MV Pk E: 0.93 MV PK A: 1.17 MV Decel Time: 219.00 E/A: 0.80 E'Lateral: 12.60 E'Medial: 7.94 E/E' Med: 11.70 E/E' Lat: 7.40 PHT: 64.00 MVA PHT: 3.44 Decel [place]: 4.26 Aortic Valve AoV Pk [place]: 2.61 AoV Mn [place]: 1.89 AoV VTI: 0.59 AoV Pk Grad: 27.00 Aov Mn Grad: 16.00 STEPHEN Cont.VTI: 1.99 AI Pk [place]: 4.96 AI [place]: 2.90 LVOT LVOT Pk [place]: 1.44 LVOT Mn [place]: 1.01 LVOT VTI: 0.34 LVOT Pk Grad: 8.00 LVOT Mn Grad: 5.00 LVOT Diam: 2.10 LVOT Area: 3.46 Diastolic Function MV Pk E: 0.93 MV Pk A: 1.17 E/A: 0.80 E'Medial: 7.94 E/E' Med: 11.70 E' Laterial: 12.60 E/E' Lat: 7.40 Right Ventricle TAPSE (mm): 29.50 TVS' [place]: 18.30 Tricuspid Valve RA Press: 3.00 Great Vessels Aorta Sinus of Valsalva: 3.70 2.0-3.5 cm Ao Asc: 3.60 2.1-3.4 cm Pulmonary Valve PV Pk [place]: 1.60 Peak PV Grad: 10.00 Updated in Other Vendor System with Status of Final Renaldo Cook MD electronically signed on 01/06/2023 5:23:12 PM with status of Final
== END ==
LOC: HO.CARD 09:34
PROVIDERS: PCP Internal Medicine; Visit Provider Nurse Practitioner Family
DX: I25.10 Atherosclerotic heart disease of native coronary artery without angina pectoris (principal); I35.0 Nonrheumatic aortic (valve) stenosis
CPT/HCPCS: 93306; Q9957

== ENCOUNTER → 2023-01-06 09:36 | Outpatient (BNV) | payer OTHER, SELFPAY | PROVIDERS: PCP Internal Medicine; Visit Provider Internal Medicine Cardiovascular Disease | DX: I35.2 Nonrheumatic aortic (valve) stenosis with insufficiency (principal) | CPT/HCPCS: 93306 ==

== ENCOUNTER 2023-01-10 09:59 | Outpatient (AMB) | payer OTHER, SELFPAY ==
--- NOTE | 2023-01-10 10:43 | MHC.OFFWIV ---
Intake Vital Signs 01/10/23 10:44 Height 6 ft 2 in Weight 356 lb BMI 45.7 BP 132/78 Blood Pressure Location Rt brachial Position Sitting Pulse 78 Pulse Source Pulse Oximeter Temp 96.9 F Temp Source Temporal Artery Scan Pulse Oximetry (%) 98 Oxygen Delivery Method Room Air Intake Visit Reasons: EP, itchy watery eye, congestion [phone]) Intake Note: Pt is here c/o watery eyes and chest congestion. Patient Tobacco Use Status: Former Tobacco user Allergies amoxicillin [AMOXICILLIN] Allergy (Unknown, Verified 01/15/23 16:52) HIVES atorvastatin Allergy (Unknown, Verified 01/15/23 16:52) hives bupropion [From ZYBAN] Allergy (Unknown, Verified 01/15/23 16:52) HIVES milk Allergy (Unknown, Verified 01/15/23 16:52) Diarrhea Penicillins [PENICILLINS] Allergy (Unknown, Verified 01/15/23 16:52) HIVES pravastatin Allergy (Unknown, Verified 01/15/23 16:52) hives simvastatin [SIMVASTATIN] Allergy (Unknown, Verified 01/15/23 16:52) HIVES tomato Allergy (Unknown, Verified 01/15/23 16:52) Hives Medication List - Last Reconciled 01/15/23 by Cameron Trejo MD albuterol sulfate 90 mcg/actuation (ProAir HFA) 2 puffs inhalation Q6H amlodipine (Norvasc) 5 mg PO DAILY aspirin (Adult Low Dose Aspirin) 162 mg PO DAILY [AUTOCPAP 8-20 mm HG humidified heated air As directed] blood sugar diagnostic As directed blood sugar diagnostic ([employer] Ultra Test strips) As directed check the blood sugar once a day blood-glucose meter As directed check the blood sugar once a day compr.stocking,knee,long,x-lrg As directed 20-30 mm HG [cpap Supplies As directed] [Diabetic Shoes As directed] [diabetic socks As directed] erythromycin 0.5 inches ophthalmic (eye) TID ibuprofen 800 mg PO TID PRN ketoconazole 2% 1 appl topical 2XW lancets ([employer] Delica Lancets) As directed check the blood sugar q.day lancets As directed lisinopril 40 mg PO DAILY metformin ER 1,000 mg (2 x 500 mg) PO DAILY 90 days metoprolol tartrate 2 tabs in am and 3 tabs in pm PO 2 times a day; montelukast 10 mg PO BEDTIME nitroglycerin 0.4 mg sublingual Q5M PRN rosuvastatin 10 mg PO BEDTIME semaglutide 0.5 mg (0.736 mL) subcut QWEEK [Sleeve right hand As directed] triamcinolone acetonide 0.5% 1 appl topical BID 14 days [trouser socks 20-30 millimeter mercury pressure] Do you need a note to return to daycare/school/sports/work: No HPI EP, itchy watery eye, congestion [phone]) HPI Details 52-year-old female presents to the office for a sick visit Patient is reporting symptoms of redness in the eye, increased tearing and congestion. Associated symptoms include a mild sore throat without any fever. [facility] Medical History Asthma Breast cancer screening by mammogram Colon cancer screening Folic acid deficiency GERD (gastroesophageal reflux disease) Hypercholesterolemia Hypertension Type 2 diabetes mellitus with hyperglycemia Vitamin D deficiency Surgical History History of coronary artery stent placement History of cholecystectomy History of hand surgery History of section Family History Father CVD (cardiovascular disease) Hypertension Heart disease Mother No problems noted. 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 Anterior chambers clear. No digital tenderness. Neck Neck: Yes normal visual inspection Chest Chest palpation & inspection: normal palpation of entire chest wall Resp Effort & Inspection: normal respiratory effort Neuro General: patient oriented x3 Assessment & Plan Assessment & Plan (1) Conjunctivitis: Code(s): H10.9 - Unspecified conjunctivitis Plan: Erythromycin ophthalmic ointment. Symptoms not better to follow-up here. Medications: New erythromycin 0.5 inches ophthalmic (eye) TID 1 g 0RF Coding Level of Care Code Est Pt Level 3 (25435) Diagnoses Conjunctivitis H10.9
[2023-01-10 10:44] VITALS: BP 132/78; PULSE 78; TEMP 36.1; O2SAT 98; BMI 45.7
== END 2023-01-10 11:24 | disposition home or self-care (01) ==
PROVIDERS: PCP Internal Medicine; Visit Provider Internal Medicine
DX: H10.9 Unspecified conjunctivitis (principal)
CPT/HCPCS: 99213

== ENCOUNTER 2023-01-24 10:41 | Outpatient (AMB) | payer OTHER, SELFPAY ==
[2023-01-24 10:46] VITALS: BP 132/82; PULSE 72; O2SAT 99; BMI 45.0
--- NOTE | 2023-01-24 10:46 | MHC.PC.OV ---
Vital Signs 01/24/23 10:46 Height 6 ft 2 in Weight 350 lb 6 oz BMI 45.0 BP 132/82 Blood Pressure Location Lt brachial Position Sitting Pulse 72 Pulse Source Pulse Oximeter Pulse Oximetry (%) 99 Oxygen Delivery Method Room Air Intake Visit Reasons: Diabetes mellitus Machine Fastener Required: No Accompanied by: Self / Same As Patient Allergies amoxicillin [AMOXICILLIN] Allergy (Unknown, Verified 01/24/23 10:46) HIVES atorvastatin Allergy (Unknown, Verified 01/24/23 10:46) hives bupropion [From ZYBAN] Allergy (Unknown, Verified 01/24/23 10:46) HIVES milk Allergy (Unknown, Verified 01/24/23 10:46) Diarrhea Penicillins [PENICILLINS] Allergy (Unknown, Verified 01/24/23 10:46) HIVES pravastatin Allergy (Unknown, Verified 01/24/23 10:46) hives simvastatin [SIMVASTATIN] Allergy (Unknown, Verified 01/24/23 10:46) HIVES tomato Allergy (Unknown, Verified 01/24/23 10:46) Hives Medication List - Last Reconciled 01/24/23 by Adán Yadav MD albuterol sulfate 90 mcg/actuation (ProAir HFA) 2 puffs inhalation Q6H amlodipine (Norvasc) 5 mg PO DAILY aspirin (Adult Low Dose Aspirin) 162 mg PO DAILY [AUTOCPAP 8-20 mm HG humidified heated air As directed] blood sugar diagnostic As directed blood sugar diagnostic ([place] Ultra Test strips) As directed check the blood sugar once a day blood-glucose meter As directed check the blood sugar once a day compr.stocking,knee,long,x-lrg As directed 20-30 mm HG [cpap Supplies As directed] [Diabetic Shoes As directed] [diabetic socks As directed] erythromycin 0.5 inches ophthalmic (eye) TID ibuprofen 800 mg PO TID PRN ketoconazole 2% 1 appl topical 2XW lancets ([employer] Delica Lancets) As directed check the blood sugar q.day lancets As directed lisinopril 40 mg PO DAILY metformin ER 1,000 mg (2 x 500 mg) PO DAILY 90 days metoprolol tartrate 2 tabs in am and 3 tabs in pm PO 2 times a day; montelukast 10 mg PO BEDTIME nitroglycerin 0.4 mg sublingual Q5M PRN rosuvastatin 10 mg PO BEDTIME semaglutide 1 mg (0.75 mL) subcut QWEEK 30 days [Sleeve right hand As directed] triamcinolone acetonide 0.5% 1 appl topical BID 14 days [trouser socks 20-30 millimeter mercury pressure] Tobacco use date assessed: 10/05/22 Dental Screening Dental Screen Date: 01/24/23 Did you have a dental visit in the last 12 months?: Yes Did you have a dental problem in the last 6 months where you did not have access to dental care?: No Was dental information given to patient?: Patient has dentist HPI Diabetes mellitus HPI Details 52-year-old morbidly obese female with controlled diabetes mellitus obstructive sleep apnea hypertension hypercholesterolemia GERD bilateral knee osteoarthritis coming in for follow-up last seen in November 2022. For physical exam patient is here for follow-up mammogram is up-to-date Cologuard is up-to-date. Echocardiogram December 2022 [id number] LV systolic dysfunction with LVEF of 40-45% with wall motion abnormality in LAD territory with impaired relaxation filling pattern 2. Mild aortic stenosis and regurgitation noted 3. Upper limits normal ascending aortic size [facility] Medical History Asthma Breast cancer screening by mammogram Colon cancer screening Folic acid deficiency GERD (gastroesophageal reflux disease) Hypercholesterolemia Hypertension Type 2 diabetes mellitus with hyperglycemia Vitamin D deficiency Surgical History History of coronary artery stent placement History of cholecystectomy History of hand surgery History of section Family History Father CVD (cardiovascular disease) Hypertension Heart disease Mother No problems noted. 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 Steve Joshi, Carole Patton, Seth Duke and colleagues, with an educational veila from [employer]. Physical exam (Primary Care) Vital Signs: Last Vital Signs Pulse 72 01/24/23 10:46 BP 132/82 01/24/23 10:46 Pulse Ox 99 01/24/23 10:46 Oxygen Delivery Method Room Air 01/24/23 10:46 BMI result Body Mass Index 45.0 Tobacco/Smoking Status: Tobacco use Status Tobacco use date assessed 10/05/22 01/24/23 10:47 Patient Tobacco Use Status Former Tobacco user 01/24/23 10:47 Tobacco use type Cigarette 01/24/23 10:47 e-Cigarette/Vaping Use Never Used 01/24/23 10:47 Thrive Assessment: Date of Thrive Assessment Date Thrive assessed 03/31/22 01/24/23 10:47 Const General: alert; No acute distress Eyes Conjunctivae: conjunctivae normal Resp Auscultation: clear to auscultation bilaterally Cardio Rate: regular rate Rhythm: regular rhythm GI Inspection: Yes normal to inspection Extrem General: Yes normal to inspection and No edema Results AMB Hemoglobin A1c AMB Hemoglobin A1c 5.9 % Last Edit by Laya Jaimes on 01/24/23 11:23 Results Reviewed Results Reviewed: Laboratory Last Values Hgb A1c (Clinic) 5.9 % (4.0-6.0) 01/24/23 10:48 Assessment and Plan Assessment & Plan (1) Type 2 diabetes mellitus with hyperglycemia: Code(s): E11.65 - Type 2 diabetes mellitus with hyperglycemia Qualifiers: Diabetes mellitus customer acquisition manager insulin use: without group home use Qualified Code(s): E11.65 - Type 2 diabetes mellitus with hyperglycemia Plan: Decrease the amount of carbohydrate intake, pasta, bread, rice and potatoes are all sugar and that is aside from all the sweet stuff, remember that fruits are good but they are Sweet also. Hemoglobin A1c goal of less than 6.5. Patient is on metformin 1000 mg once a day placed on semaglutide. (2) Obstructive sleep apnea: Comment: DIAGNOSIS SINCE 2008. HAS BEEN VERY COMPLIANT, FACE MASK OF SMALLER SIZE IS MORE COMFORTABLE , SHE INTER CHANGES BETWEEN THE SMALL SIZE AND LARGE SIZE. Also has Fullface maskIFit-20 ( medium-sized ) ADVISED TO CONTINUE PRESENT SETTINGS OF AUTO PAP MODE 8-20 CM. And continue to use every night. Code(s): G47.33 - Obstructive sleep apnea (adult) (pediatric) Plan: Continue to use the CPAP more than 4 hours a night and benefits from this (3) Morbid obesity with BMI of 45.0-49.9, adult: Code(s): E66.01 - Morbid (severe) obesity due to excess calories; Z68.42 - Body mass index [BMI] 45.0-49.9, adult Plan: Noted weight loss continue (4) Coronary artery disease: Comment: Myocardial infarction [address] Ayala ejection fraction 40-50% 1.10 November 2017, echo October 2018 dilated left ventricle 45-50% moderate grade 2 diastolic dysfunction. She is being followed by Cardiology service. Echocardiogram December 2022 Code(s): I25.10 - Atherosclerotic heart disease of grayling coronary artery without angina pectoris Qualifiers: Coronary Disease-Associated Artery/Lesion type: gray[place] artery [place] vs. transplanted heart: grayling heart Associated angina: without angina Qualified Code(s): I25.10 - Atherosclerotic heart disease of grayling coronary artery without angina pectoris Plan: Control the cholesterol, weight, blood pressure, diabetes (5) Hypertension: Code(s): I10 - Essential (primary) hypertension Qualifiers: Hypertension type: essential hypertension Qualified Code(s): I10 - Essential (primary) hypertension Plan: Continue with blood pressure medication. Decrease salt intake and exercise continue with metoprolol lisinopril and amlodipine (6) Hypercholesterolemia: Code(s): E78.00 - Pure hypercholesterolemia, unspecified Plan: Avoid fried foods, chicken skin, eggs, butter margarine, pastries and meat. Be it pork or beef they have a lot of cholesterol September 2022 last blood work LDL goal of less than 70 and triglyceride of less than 150 patient on rosuvastatin 10 mg (7) GERD (gastroesophageal reflux disease): Code(s): K21.9 - Gastro-esophageal reflux disease without esophagitis Qualifiers: Esophagitis presence: without esophagitis Qualified Code(s): K21.9 - Gastro-esophageal reflux disease without esophagitis Plan: Avoid the foods that causes that usually spicy foods, tomato products, juices, coffee, soda and foods that your sensitive to. After eating do not lie down, allow 3-4 hours before in lie down. And keep the head of bed above 30 degrees to avoid the acid from going up. Orders: Orders AMB Hemoglobin A1c Today Z13.9 - Encounter for screening, unspecified Medications: Changed From semaglutide for 4 weeks 0.5 mg (0.736 mL) subcut QWEEK 3 mL 2RF E11.65 - Type 2 diabetes mellitus with hyperglycemia To semaglutide for 4 weeks 1 mg (0.75 mL) subcut QWEEK 3.75 mL 2RF 30 days E11.65 - Type 2 diabetes mellitus with hyperglycemia Refilled ibuprofen 800 mg PO TID PRN 90 tabs 2RF for pain Coding Level of Care Code Est Pt Level 4 (97718) Diagnoses Type 2 diabetes mellitus with hyperglycemia, without long-term current use of insulin E11.65 Diabetes mellitus customer acquisition manager insulin use: without group home use Obstructive sleep apnea G47.33 Morbid obesity with BMI of 45.0-49.9, adult E66.01; Z68.42 Coronary artery disease involving grayling coronary artery of grayling heart without angina pectoris I25.10 Coronary Disease-Associated Artery/Lesion type: [place] artery [place] vs. transplanted heart: grayling heart Associated angina: without angina Essential hypertension I10 Hypertension type: essential hypertension Hypercholesterolemia E78.00 Gastroesophageal reflux disease without esophagitis K21.9 Esophagitis presence: without esophagitis
== END 2023-01-24 12:46 | disposition home or self-care (01) ==
PROVIDERS: PCP Internal Medicine; Visit Provider Internal Medicine
DX: E11.65 Type 2 diabetes mellitus with hyperglycemia (principal); E66.01 Morbid (severe) obesity due to excess calories; Z68.42 Body mass index [BMI] 45.0-49.9, adult; G47.33 Obstructive sleep apnea (adult) (pediatric); I25.10 Atherosclerotic heart disease of native coronary artery without angina pectoris; I10 Essential (primary) hypertension; E78.00 Pure hypercholesterolemia, unspecified; K21.9 Gastro-esophageal reflux disease without esophagitis
CPT/HCPCS: 83036; 99214

== ENCOUNTER 2023-03-30 09:49 | Outpatient (AMB) | payer OTHER, SELFPAY ==
[2023-03-30 10:06] VITALS: BMI 45.3
--- NOTE | 2023-03-30 10:06 | A.OFFVIS_ITS ---
Intake VS Expanded 03/30/23 10:06 Height 6 ft 2 in Weight 353 lb 2.888 oz BMI 45.3 Intake Visit Reasons: t1dm/CONFIRMED Allergies amoxicillin [AMOXICILLIN] Allergy (Unknown, Verified 01/24/23 10:46) HIVES atorvastatin Allergy (Unknown, Verified 01/24/23 10:46) hives bupropion [From ZYBAN] Allergy (Unknown, Verified 01/24/23 10:46) HIVES milk Allergy (Unknown, Verified 01/24/23 10:46) Diarrhea Penicillins [PENICILLINS] Allergy (Unknown, Verified 01/24/23 10:46) HIVES pravastatin Allergy (Unknown, Verified 01/24/23 10:46) hives simvastatin [SIMVASTATIN] Allergy (Unknown, Verified 01/24/23 10:46) HIVES tomato Allergy (Unknown, Verified 01/24/23 10:46) Hives HPI Nutrition Presentation Details Pt presents for MNT f/u for T2DM Pt reports doing ok c/o frequent bowel movements, reports having discussions with MD regarding this and having med changes which appear to lessen symptoms. Pt reports working on diet modifications, trying different recipes with lower sugar options Most Recent Diabetes Results: No Data to Display [facility] Medical History Asthma Breast cancer screening by mammogram Colon cancer screening Folic acid deficiency GERD (gastroesophageal reflux disease) Hypercholesterolemia Hypertension Type 2 diabetes mellitus with hyperglycemia Vitamin D deficiency Surgical History History of coronary artery stent placement History of cholecystectomy History of hand surgery History of section Family History Father CVD (cardiovascular disease) Hypertension Heart disease Mother No problems noted. 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 Follow healthy plate method EST Kcal NEEDS as per [place] Jeor: 2931 kcal/d USED BODY WT : 161 kg est protein needs as per -1.0 g/kg bw: 161 g/d est fluid needs as per 25 ml/kg bw: 0 ml/d Educate patient on: (R= Reviewed, V = verbalizes understanding N/R= Needs review N/A= not applicable) * Food sources of carbohydrates and serving adequate serving sizes : V * Difference between complex carbohydrates and simple carbohydrates, role of fiber: V * Differences between fats (MUFA/PUFA/saturated fats, trans fats) and food sources of various fats: V * Food sources of sodium and salt and healthy modifications for heart health and kidney health: V * Vitamins and minerals: V * How to interpret food labels: V * Healthy Plate method concept: V * Physical activity: benefits and precaution: V (2) Morbid obesity with BMI of 45.0-49.9, adult: Code(s): E66.01 - Morbid (severe) obesity due to excess calories; Z68.42 - Body mass index [BMI] 45.0-49.9, adult Plan: Continue working on reducing total caloric intake from empty calorie foods (500- 1000 calories less per day) and follow healthy plate method EST Kcal NEEDS as per [place] Jeor: 2931 kcal/d USED BODY WT : 161 kg est protein needs as per 0.8-1.0 g/kg bw: 161 g/d est fluid needs as per 25 ml/kg bw: 4000 ml/d Patient Instructions: Read labels , choosing foods with less saturated (choose those with less than 10% per serving size), read labels and reduce sugar alcohols which often cause diarrhea Including solubles fiber ( oats, bananas, pears) Coding Level of Care Code Nutr Indiv Subseq (76669) Diagnoses T2DM (type 2 diabetes mellitus) E11.9 Morbid obesity with BMI of 45.0-49.9, adult E66.01; Z68.42 Time Spent (min) 25
== END 2023-03-30 10:48 | disposition home or self-care (01) ==
PROVIDERS: PCP Internal Medicine; Visit Provider Dietitian, Registered
DX: E11.9 Type 2 diabetes mellitus without complications (principal); E66.01 Morbid (severe) obesity due to excess calories; Z68.42 Body mass index [BMI] 45.0-49.9, adult

== ENCOUNTER → 2023-03-30 09:49 | Outpatient (BNVA) | payer OTHER, SELFPAY | PROVIDERS: PCP Internal Medicine; Visit Provider Dietitian, Registered | DX: E11.9 Type 2 diabetes mellitus without complications (principal); E66.01 Morbid (severe) obesity due to excess calories; Z68.42 Body mass index [BMI] 45.0-49.9, adult; Z71.3 Dietary counseling and surveillance | CPT/HCPCS: 97803 ==

== ENCOUNTER 2023-04-13 13:17 | Outpatient (AMB) | payer OTHER, SELFPAY ==
[2023-04-13 13:23] VITALS: BP 130/62; PULSE 74; O2SAT 97; BMI 45.6
--- NOTE | 2023-04-13 13:23 | MHC.OFFVIS ---
Intake Vital Signs 04/13/23 13:23 Height 6 ft 2 in Weight 354 lb 15.108 oz BMI 45.6 BP 130/62 Blood Pressure Location Lt radial Position Sitting Pulse 74 Pulse Source Pulse Oximeter Pulse Oximetry (%) 97 Oxygen Delivery Method Room Air Intake Visit Reasons: hung Intake Note: pt is here for follow up of HUNG, cpap is going well. Director Service Required: No Allergies amoxicillin [AMOXICILLIN] Allergy (Unknown, Verified 04/13/23 13:40) HIVES atorvastatin Allergy (Unknown, Verified 04/13/23 13:40) hives bupropion [From ZYBAN] Allergy (Unknown, Verified 04/13/23 13:40) HIVES milk Allergy (Unknown, Verified 04/13/23 13:40) Diarrhea Penicillins [PENICILLINS] Allergy (Unknown, Verified 04/13/23 13:40) HIVES pravastatin Allergy (Unknown, Verified 04/13/23 13:40) hives simvastatin [SIMVASTATIN] Allergy (Unknown, Verified 04/13/23 13:40) HIVES tomato Allergy (Unknown, Verified 04/13/23 13:40) Hives Medication List - Last Reconciled 04/13/23 by Pili Hunter MD albuterol sulfate 90 mcg/actuation (ProAir HFA) 2 puffs inhalation Q6H amlodipine (Norvasc) 5 mg PO DAILY aspirin (Adult Low Dose Aspirin) 162 mg PO DAILY [AUTOCPAP 8-20 mm HG humidified heated air As directed] blood sugar diagnostic As directed blood sugar diagnostic (kenxusuch Ultra Test strips) As directed check the blood sugar once a day blood-glucose meter As directed check the blood sugar once a day compr.stocking,knee,long,x-lrg As directed 20-30 mm HG [cpap Supplies As directed] [Diabetic Shoes As directed] [diabetic socks As directed] erythromycin 0.5 inches ophthalmic (eye) TID ibuprofen 800 mg PO TID PRN ketoconazole 2% 1 appl topical 2XW lancets (QumuTouch Delica Lancets) As directed check the blood sugar q.day lancets As directed lisinopril 40 mg PO DAILY metformin ER 1,000 mg (2 x 500 mg) PO DAILY 90 days metoprolol tartrate 2 tabs in am and 3 tabs in pm PO 2 times a day; montelukast 10 mg PO BEDTIME nitroglycerin 0.4 mg sublingual Q5M PRN rosuvastatin 10 mg PO BEDTIME semaglutide 1 mg (0.75 mL) subcut QWEEK 30 days [Sleeve right hand As directed] triamcinolone acetonide 0.5% 1 appl topical BID 14 days [trouser socks 20-30 millimeter mercury pressure] HPI hung HPI Details JANE IS 52 YEARS OLD FEMALE, , MORBIDLY OBESE AND KNOWN CASE OF OBSTRUCTIVE SLEEP APNEA. SHE HAS BEEN USING CPAP VERY REGULARLY EVERY NIGHT AND SLEEPS GOOD. SHE DOES HAVE SOME IRRITATION OF THE SKIN OF ON BOTH CHEEKS BUT IT IS TOLERABLE. AIR LEAK IS NOT MUCH IT WAS BEFORE. SHE GETS GOOD SLEEP FOR MORE THAN 6 HOURS AND WAKES UP REFRESHED. FOR WEIGHT REDUCTION SHE IS SEEING THE IT APPLICATION DEVELOPMENT MANAGER. WATCHING HER DIET, BUT HAS NOT BEEN ABLE TO LOSE MUCH WEIGHT. SHE HAS NO ISSUES WITH THE MASK OR CPAP MACHINE AT THIS TIME. [facility] Medical History Colon cancer screening Breast cancer screening by mammogram GERD (gastroesophageal reflux disease) Hypercholesterolemia Hypertension Folic acid deficiency Vitamin D deficiency Asthma Type 2 diabetes mellitus with hyperglycemia Surgical History History of coronary artery stent placement History of cholecystectomy History of hand surgery History of section Family History Father CVD (cardiovascular disease) Hypertension Heart disease Mother No problems noted. 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 Cognitive needs: No Hearing needs: No Vision needs: Yes Review of Systems Const All systems reviewed & are unremarkable except as noted in HPI and below Eyes Reports no additional complaints ENT Reports nasal congestion (Off and on due to changes in the weather) Card Denies chest pain, Denies irregular heart rhythm and Denies leg edema Resp Reports as per HPI GI Reports no additional complaints Reports no additional complaints Musc Reports no additional complaints Skin/Breast Reports dry skin and Reports pruritus (On the legs, ) Neuro Reports no additional complaints Psych Reports no additional complaints Physical Exam Const Other: She is tall and grossly overweight General: comfortable, no acute distress, alert and awake Orientation/consciousness: patient oriented x3 HEENT Head: Yes normal to inspection General nose exam: No nasal polyps present and No nasal discharge present Face and sinus: Yes sinuses nontender Mouth: oropharynx normal Throat: Yes posterior oropharynx normal Eyes General: appearance normal, both eyes and all related structures Neck Neck: Yes normal visual inspection, Yes no lymphadenopathy, Yes trachea midline, Yes no JVD and Yes other (Neck is very obese) Thyroid: Thyroid normal Chest Chest palpation & inspection: normal inspection of the chest, normal palpation of entire chest wall and no tenderness Resp Effort & Inspection: normal respiratory effort Auscultation: clear to auscultation bilaterally Percussion: percussion normal Cardio Palpation: normal PMI Rate: regular rate Rhythm: regular rhythm Heart sounds: no gallops and no murmurs GI Palpation (GI): Soft to palpation, nontender, No hepatosplenomegaly present, no masses and Other GI palpation findings present (Abdomen obese and protuberant) Auscultation: normal bowel sounds Back/Spine/Pelvis Thoracic/Lumbar Spine: thoracic and lumbar spine normal to inspection and thoraco-lumbar ROM limited Skin General skin exam: dry skin Rashes: other (Mild stasis dermatitis noted over the lower part of legs) Neuro General: patient oriented x3 and no focal motor deficits Cranial nerves: Yes CN's II-XII intact bilaterally Extrem General: Yes normal to inspection, Yes no calf tenderness and Yes venous stasis dermatitis Psych Appearance: grossly normal and well kempt Speech and movement: Normal speech and movement present Results Reviewed Results Reviewed: COMPLIANCE REPORT FOR THE LAST 30 NIGHTS SHOWS THAT SHE HAS USED 30/30 NIGHTS, 100%. AVERAGE USE IT PER NIGHT 6 HOURS 25 MINUTE. PRESSURE REQUIREMENT IS BETWEEN 15-18 CM. THERE IS MILD AIR LEAK MAXIMUM 76.3 L. RESIDUAL AHI 0.3 WHICH IS EXCELLENT Assessment & Plan Assessment & Plan (1) Morbid obesity with BMI of 45.0-49.9, adult: Comment: PATIENT HAS LONGSTANDING MORBID OBESITY, CURRENT BMI 45.6. Code(s): E66.01 - Morbid (severe) obesity due to excess calories; Z68.42 - Body mass index [BMI] 45.0-49.9, adult Plan: PATIENT IS SEEING THE IT APPLICATION DEVELOPMENT MANAGER FOR MANAGEMENT OF HER DIET. NOT ABLE TO DO MUCH EXERCISE (2) Obstructive sleep apnea: Comment: DIAGNOSIS SINCE 2008. HAS BEEN VERY COMPLIANT, FACE MASK OF SMALLER SIZE IS MORE COMFORTABLE , SHE INTER CHANGES BETWEEN THE SMALL SIZE AND LARGE SIZE. Also has Fullface mask IFit-20 ( medium-sized ) Code(s): G47.33 - Obstructive sleep apnea (adult) (pediatric) Plan: COMMENDED FOR GOOD COMPLIANCE AND ENCOURAGED TO KEEP ON USING IT EVERY NIGHT. TRY TO KEEP THE STRAPS TIGHT POSSIBLE. (3) Asthma: Comment: SHE HAS LONG-STANDING HISTORY OF ASTHMA WHICH IS FAIRLY WELL CONTROLLED. IT SEEMS THAT HER MAIN TRIGGER IS PHYSICAL EXERTION . PFT. RESULTS SHOW MOSTLY RESTRICTIVE PATTEN . TX: ADVISED TO USE PROAIR 2 PUFFS Q 4-6 HOURS P.R.N.. AND CONTINUE USING MONTELUKAST 10 MG DAILY. Code(s): J45.909 - Unspecified asthma, uncomplicated Qualifiers: Asthma severity: mild Asthma persistence: intermittent Asthma complication type: uncomplicated Qualified Code(s): J45.20 - Mild intermittent asthma, uncomplicated Plan: ABOVE Coding Level of Care Code Est Pt Level 3 (00973) Diagnoses Morbid obesity with BMI of 45.0-49.9, adult E66.01; Z68.42 Obstructive sleep apnea G47.33 Mild intermittent asthma without complication J45.20 Asthma severity: mild Asthma persistence: intermittent Asthma complication type: uncomplicated
== END 2023-04-13 13:42 | disposition home or self-care (01) ==
PROVIDERS: PCP Internal Medicine; Visit Provider Internal Medicine
DX: E66.01 Morbid (severe) obesity due to excess calories (principal); Z68.42 Body mass index [BMI] 45.0-49.9, adult; G47.33 Obstructive sleep apnea (adult) (pediatric); J45.20 Mild intermittent asthma, uncomplicated
CPT/HCPCS: 99213

== ENCOUNTER → 2023-04-13 13:17 | Outpatient (BNVA) | payer OTHER, SELFPAY | PROVIDERS: PCP Internal Medicine; Visit Provider Internal Medicine | DX: G47.33 Obstructive sleep apnea (adult) (pediatric) (principal); J45.20 Mild intermittent asthma, uncomplicated; E66.01 Morbid (severe) obesity due to excess calories; Z68.42 Body mass index [BMI] 45.0-49.9, adult | CPT/HCPCS: 99212 ==

== ENCOUNTER 2023-04-28 08:39 | Outpatient (AMB) | payer OTHER, SELFPAY ==
[2023-04-28 08:47] VITALS: BP 130/62; PULSE 69; BMI 45.1
--- NOTE | 2023-04-28 08:47 | A.OFFVIS_ITS ---
Intake Vital Signs 04/28/23 08:47 Height 6 ft 2 in Weight 351 lb 6.669 oz BMI 45.1 BP 130/62 Blood Pressure Location Rt radial Position Sitting Pulse 69 Pulse Source Pulse Oximeter Intake Visit Reasons: r/s 6 mos followup Software Designer Required: No Allergies amoxicillin [AMOXICILLIN] Allergy (Unknown, Verified 04/28/23 08:50) HIVES atorvastatin Allergy (Unknown, Verified 04/28/23 08:50) hives bupropion [From ZYBAN] Allergy (Unknown, Verified 04/28/23 08:50) HIVES milk Allergy (Unknown, Verified 04/28/23 08:50) Diarrhea Penicillins [PENICILLINS] Allergy (Unknown, Verified 04/28/23 08:50) HIVES pravastatin Allergy (Unknown, Verified 04/28/23 08:50) hives simvastatin [SIMVASTATIN] Allergy (Unknown, Verified 04/28/23 08:50) HIVES tomato Allergy (Unknown, Verified 04/28/23 08:50) Hives Medication List - Last Reconciled 04/28/23 by JOMAR Grady albuterol sulfate 90 mcg/actuation (ProAir HFA) 2 puffs inhalation Q6H amlodipine (Norvasc) 5 mg PO DAILY aspirin (Adult Low Dose Aspirin) 162 mg PO DAILY [AUTOCPAP 8-20 mm HG humidified heated air As directed] blood sugar diagnostic As directed blood sugar diagnostic (Rexteruch Ultra Test strips) As directed check the blood sugar once a day blood-glucose meter As directed check the blood sugar once a day compr.stocking,knee,long,x-lrg As directed 20-30 mm HG [cpap Supplies As directed] [Diabetic Shoes As directed] [diabetic socks As directed] ibuprofen 800 mg PO TID PRN ketoconazole 2% 1 appl topical 2XW lancets (Notice KioskTouch Delica Lancets) As directed check the blood sugar q.day lancets As directed lisinopril 40 mg PO DAILY metformin ER 1,000 mg (2 x 500 mg) PO DAILY 90 days metoprolol tartrate 2 tabs in am and 3 tabs in pm PO 2 times a day; montelukast 10 mg PO BEDTIME nitroglycerin 0.4 mg sublingual Q5M PRN rosuvastatin 10 mg PO BEDTIME semaglutide 1 mg (0.75 mL) subcut QWEEK 30 days [Sleeve right hand As directed] triamcinolone acetonide 0.5% 1 appl topical BID 14 days [trouser socks 20-30 millimeter mercury pressure] HPI r/s 6 mos followup HPI Details Radha is a 51-year-old female with past medical history of morbid obesity, hypertension, hyperlipidemia, diabetes, obstructive sleep apnea, CAD with prior VT, lad stent, mild aortic stenosis who presents for follow-up. Today she reports she has been doing well since her last visit in September. She denies any chest discomfort at rest or with activity. She has chronic shortness of breath with exertion which is not new. She has no PND, orthopnea. She does get leg edema in his currently wearing compression stockings. She remains active throughout the day and cares for her 4-year-old daughter. No palpitations, lightheadedness, presyncope, syncope, falls. Taking all meds as directed. She is on Ozempic and it is helping with weight loss. [facility] Medical History Colon cancer screening Breast cancer screening by mammogram GERD (gastroesophageal reflux disease) Hypercholesterolemia Hypertension Folic acid deficiency Vitamin D deficiency Asthma Type 2 diabetes mellitus with hyperglycemia Surgical History History of coronary artery stent placement History of cholecystectomy History of hand surgery History of section Family History Father CVD (cardiovascular disease) Hypertension Heart disease Mother No problems noted. 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 Cognitive needs: No Hearing needs: No Vision needs: Yes Review of Systems Const All systems reviewed & are unremarkable except as noted in HPI and below ENT Denies dizziness Card Denies chest pain, Denies chest pain at rest, Denies chest pain with activity, Denies rapid heart rate, Denies pedal edema, Denies edema, Denies leg edema, Den ies lightheadedness, Denies palpitations, Denies dyspnea, Reports dyspnea on exertion and Denies orthopnea Resp Denies cough, Denies dyspnea and Reports dyspnea on exertion GI Denies hematochezia and Denies change in stool character Musc Details: Low back discomfort Denies abnormal gait, Reports limited range of motion, Denies muscle cramps, Denies muscle weakness, Denies numbness, Denies radiating pain into limb, Denies stiffness and Denies tingling Neuro Denies abnormal gait, Denies dizziness, Denies numbness and Denies tingling Endo Denies palpitations Physical Exam Vital Signs: Last Vital Signs Pulse 69 04/28/23 08:47 BP 130/62 04/28/23 08:47 BMI result Body Mass Index 45.1 Const General: cooperative, healthy appearing, comfortable and no acute distress Orientation/consciousness: patient oriented x3 Neck Neck: Yes normal visual inspection and Yes no JVD Carotids: normal carotid upstroke Resp Effort & Inspection: normal respiratory effort Auscultation: clear to auscultation bilaterally, no crackles, no rales, no rhonchi and no wheezes Cardio Jugular venous distension: no JVD Rate: regular rate Rhythm: regular rhythm Heart sounds: S1 normal heart sound present, S2 normal heart sound present, no murmurs and no rubs Neuro General: patient oriented x3 Extrem Other: Wearing compression stockings General: Yes normal to inspection and No no pedal edema Psych Appearance: grossly normal Mental Status: mental status grossly normal Speech and movement: Normal speech and movement present Assessment & Plan Assessment & Plan (1) Coronary artery disease: Comment: Myocardial infarction [address] Ayala ejection fraction 40-50% .10 November 2017, echo October 2018 dilated left ventricle 45-50% moderate grade 2 diastolic dysfunction. She is being followed by Cardiology service. Echocardiogram December 2022 Code(s): I25.10 - Atherosclerotic heart disease of [place] coronary artery without angina pectoris Qualifiers: Coronary Disease-Associated Artery/Lesion type: [place] artery [place] vs. transplanted heart: [place] heart Associated angina: without angina Qualified Code(s): I25.10 - Atherosclerotic heart disease of [place] coronary artery without angina pectoris Plan: History of CAD with VT 2009. Notes indicate stent in the LAD, ischemic cardiomyopathy with EF 40-50%. Echocardiogram on 02/15/2022 showing EF 51%, grade 2 diastolic dysfunction, inferior septal, apex, apical anterior and apical septum akinetic, aortic valve gradients elevated, grade 2 diastolic dysfunction, no significant change from 10/23/2019. Nuclear stress test done on 02/23/2022 showing transmural infarct involving the mid to distal inferior wall and adjacent apex. A repeat echo was done on 01/06/2023 showing EF 40-45% with wall motion abnormality in the LAD territory which was seen on prior echo as well, mild and mild AR. Today she reports that she has been doing well overall. She has mild shortness of breath with exertion which is not new. No chest discomfort at rest or with activity. Continue med management for stable CAD and ischemic cardiomyopathy. Continue aspirin indefinitely. Continue rosuvastatin with ideal LDL goal less than 70. Continue metoprolol and lisinopril for neurohormonal modulation. Continue amlodipine for blood pressure control and as 2nd antianginal. Labs done 09/27/2022 showed potassium 4.0 creatinine 1.14, LDL 59. Signs and symptoms of angina and heart failure reviewed with her. Encouraged ongoing weight loss and increasing physical activity. Continue risk factor modification with good blood pressure, cholesterol and blood sugar control. Cardiology follow-up in 6 months, sooner if needed. (2) Myocardial infarction: Code(s): I21.9 - Acute myocardial infarction, unspecified Plan: As above (3) Aortic stenosis: Code(s): I35.0 - Nonrheumatic aortic (valve) stenosis Plan: Previously followed by Dr. Holley. In the notes there is mention of echocardiogram showing moderate aortic stenosis. Systolic murmur noted on exam ination. She denies any cardinal signs of severe including new shortness of breath, chest discomfort with activity, presyncope or syncope. Echo done 02/23/22 does show aortic valve is not well visualized, mean gradient 14 mmHg, trace aortic regurgitation, can not occlude subaortic membrane. Last echo 01/06/2023 shows mild aortic stenosis, mean gradient 16 mmHg, aortic valve area 1.99 centimeter sq and mild aortic regurgitation. Will continue to follow with periodic echoes (4) Hypertension: Code(s): I10 - Essential (primary) hypertension Qualifiers: Hypertension type: essential hypertension Qualified Code(s): I10 - Ess ential (primary) hypertension Plan: Blood pressure normal range today. No med changes made (5) Hypercholesterolemia: Code(s): E78.00 - Pure hypercholesterolemia, unspecified Plan: [place] LDL goal less than 70 and patient with known CAD and diabetes. LDL well controlled. Continue rosuvastatin. (6) Morbid obesity with BMI of 45.0-49.9, adult: Comment: PATIENT HAS LONGSTANDING MORBID OBESITY, CURRENT BMI 45.6. Code(s): E66.01 - Morbid (severe) obesity due to excess calories; Z68.42 - Body mass index [BMI] 45.0-49.9, adult Plan: Currently on Ozempic and tells me she is lost approximately 20 lb. With weight loss she hopes to increase her ability to do physical activity. Plan Time spent on chart review, documentation, interview and assessment Coding Level of Care Code Est Pt Level 4 (22116) Diagnoses Coronary artery disease involving [place] coronary artery of [place] heart without angina pectoris I25.10 Coronary Disease-Associated Artery/Lesion type: [place] artery [place] vs. transplanted heart: [place] heart Associated angina: without angina Myocardial infarction I21.9 Aortic stenosis I35.0 Essential hypertension I10 Hypertension type: essential hypertension Hypercholesterolemia E78.00 Morbid obesity with BMI of 45.0-49.9, adult E66.01; Z68.42 Time Spent (min) 28
== END 2023-04-28 09:35 | disposition home or self-care (01) ==
PROVIDERS: PCP Internal Medicine; Visit Provider Nurse Practitioner Family
DX: I25.10 Atherosclerotic heart disease of native coronary artery without angina pectoris (principal); I21.9 Acute myocardial infarction, unspecified; I35.0 Nonrheumatic aortic (valve) stenosis; I10 Essential (primary) hypertension; E78.00 Pure hypercholesterolemia, unspecified; E66.01 Morbid (severe) obesity due to excess calories; Z68.42 Body mass index [BMI] 45.0-49.9, adult
CPT/HCPCS: 99214

== ENCOUNTER → 2023-04-28 08:39 | Outpatient (BNVA) | payer OTHER, SELFPAY | PROVIDERS: PCP Internal Medicine; Visit Provider Nurse Practitioner Family | DX: I25.10 Atherosclerotic heart disease of native coronary artery without angina pectoris (principal); I25.2 Old myocardial infarction; I35.0 Nonrheumatic aortic (valve) stenosis; I10 Essential (primary) hypertension; E78.00 Pure hypercholesterolemia, unspecified; E66.01 Morbid (severe) obesity due to excess calories; Z68.42 Body mass index [BMI] 45.0-49.9, adult | CPT/HCPCS: 99212 ==

== ENCOUNTER 2023-05-29 12:49 | Outpatient (AMB) | payer OTHER, SELFPAY ==
[2023-05-29 12:54] VITALS: BP 134/68; PULSE 75; O2SAT 99; BMI 43.9
--- NOTE | 2023-05-29 12:54 | A.OFFPC_ITS ---
Vital Signs 05/29/23 12:54 Height 6 ft 2 in Weight 342 lb 0.6 oz BMI 43.9 BP 134/68 Blood Pressure Location Lt radial Position Sitting Pulse 75 Pulse Source Pulse Oximeter Pulse Oximetry (%) 99 Oxygen Delivery Method Room Air Intake Visit Reasons: DM Preparation Room Worker Required: No Allergies amoxicillin [AMOXICILLIN] Allergy (Unknown, Verified 05/29/23 12:54) HIVES atorvastatin Allergy (Unknown, Verified 05/29/23 12:54) hives bupropion [From ZYBAN] Allergy (Unknown, Verified 05/29/23 12:54) HIVES milk Allergy (Unknown, Verified 05/29/23 12:54) Diarrhea Penicillins [PENICILLINS] Allergy (Unknown, Verified 05/29/23 12:54) HIVES pravastatin Allergy (Unknown, Verified 05/29/23 12:54) hives simvastatin [SIMVASTATIN] Allergy (Unknown, Verified 05/29/23 12:54) HIVES tomato Allergy (Unknown, Verified 05/29/23 12:54) Hives metformin Adverse Reaction (Intermediate, Unverified 05/29/23 13:45) Diarrhea Tobacco use date assessed: 05/29/23 Dental Screening Dental Screen Date: 05/29/23 Did you have a dental visit in the last 12 months?: Yes Did you have a dental problem in the last 6 months where you did not have access to dental care?: No Was dental information given to patient?: Patient has dentist HPI DM HPI Details 52-year-old morbidly obese female with c ontrolled diabetes mellitus obstructive sleep apnea coronary artery disease hypertension hypercholesterolemia and GERD last seen in December 2022. Patient's mammogram is up-to-date Cologuard -20 due for Cologuard later this year patient has followed up with Cardiology in April 2023 last echocardiogram was December 2022. EF 40-45% aspirin ideal LDL of 70 patient also follows up with Pulmonary on CPAP good compliance as for the asthma has the montelukast ProAir [facility] Medical History Colon cancer screening Breast cancer screening by mammogram GERD (gastroesophageal reflux disease) Hypercholesterolemia Hypertension Folic acid deficiency Vitamin D deficiency Asthma Type 2 diabetes mellitus with hyperglycemia Surgical History History of coronary artery stent placement History of cholecystectomy History of hand surgery History of section Family History Father CVD (cardiovascular disease) Hypertension Heart disease Mother No problems noted. 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 1. Little interest or pleasure in doing things: not at all 2. Feeling down, depressed, or hopeless: not at all 3. Trouble falling or staying asleep, or sleeping too much: not at all 4. Feeling tired or having little energy: not at all 5. Poor appetite or overeating: not at all 6. Feeling bad about yourself - or that you are a failure or have let yourself or your family down: not at all 7. Trouble concentrating on things, such as reading the newspaper or watching television: not at all 8. Moving or speaking so slowly that other people could have noticed. Or the opposite - being so fidgety or restless that you have been moving around a lot more than usual: not at all 9. Thoughts that you would be better off or of hurting yourself in some way: not at all Total score: 0 Depression Screening Interpretation: Negative Depression Screening Done: Yes 52208 - PHQ-9 Billing: Yes Source: Developed by Drs. Steve Joshi, Carole Patton, Seth Duke and colleagues, with an educational velia from [employer]. Thrive Questionnaire Date Thrive assessed: 05/29/23 I am a: Patient What is your living situation today?: I have a steady place to live Within the past 12 months, did the food you bought not last and you didn't have the money to get more?: Never true Within the past 12 months, did you worry whether your food would run out before you got money to buy more?: Never true Do you have trouble paying for medicines?: No Do you have trouble getting transportation to medical appointments?: No Do you have trouble paying your heating and electricity bill?: No Do you have trouble taking care of your child, family member or friend?: No Do you have trouble with day-to-day activities such as bathing, preparing meals, shopping, managing finances, etc.?: No Are you currently unemployed and looking for a job?: No Are you interested in more education?: No Please select the resources that you would like help with: None Currently or been in a relationship where the following occur: no concerns reported THRIVE Score: 0 AUDIT C Alcohol Use Questionnaire (AUDIT-C) 1. How often do you have a drink containing alcohol?: Never 2. How many drinks containing alcohol do you have on a typical day when you are drinking?: 1 or 2 3. How often do you have six or more drinks on one occasion?: Never Total Score: 0 NGOZI-7 AMB Questionnaire NGOZI-7 Date NGOZI - 7 assessed: 05/29/23 Feeling nervous, anxious, or on edge: 0 = Not at all Not being able to stop or control worryin = Not at all Worrying too much about different things: 0 = Not at all Trouble relaxin = Not at all Being so restless that it is hard to sit still: 0 = Not at all Becoming easily annoyed or irritable: 0 = Not at all Feeling afraid as if something awful might happen: 0 = Not at all Total NGOZI-7 score (0-4 normal; 5-9 mild; 10-14 moderate; 15-21 severe): 0 Source: Developed by Drs. Steve Joshi, Carole Patton, Seth Duke and colleagues, with an educational velia from [employer] NGOZI-7 Assessment Billing NGOZI-7 Assessment Tool: NGOZI-7 Assessment 63130 Physical exam (Primary Care) Vital Signs: Last Vital Signs Pulse 75 05/29/23 12:54 BP 134/68 05/29/23 12:54 Pulse Ox 99 05/29/23 12:54 Oxygen Delivery Method Room Air 05/29/23 12:54 BMI result Body Mass Index 43.9 Tobacco/Smoking Status: Tobacco use Status Tobacco use date assessed 05/29/23 05/29/23 12:55 Patient Tobacco Use Status Former Tobacco user 05/29/23 12:55 Tobacco use type Cigarette 05/29/23 12:55 e-Cigarette/Vaping Use Never Used 05/29/23 12:55 PHQ-9: PHQ-9 Score PHQ-9: Total score 0 05/29/23 13:41 Depression Screening Interpretation: Negative Thrive Assessment: Date of Thrive Assessment Date Thrive assessed 05/29/23 05/29/23 12:55 Currently or been in a relationship where the following occur: no concerns reported Const General: alert; No acute distress Eyes Conjunctivae: conjunctivae normal Resp Auscultation: clear to auscultation bilaterally Cardio Rate: regular rate Rhythm: regular rhythm GI Inspection: Yes normal to inspection Extrem General: Yes normal to inspection and No edema Results AMB Hemoglobin A1c AMB Hemoglobin A1c 5.5 % Last Edit by SKYE Vargas on 05/29/23 13:06 Results Reviewed Results Reviewed: Laboratory Last Values Hgb A1c (Clinic) 5.5 % (4.0-6.0) 05/29/23 12:53 Assessment and Plan Assessment & Plan (1) Coronary artery disease: Comment: Myocardial infarction [address] Ayala ejection fraction 40-50% 1.10 November 2017, echo October 2018 dilated left ventricle 45-50% moderate grade 2 diastolic dysfunction. She is being followed by Cardiology service. Echocardiogram December 2022 Code(s): I25.10 - Atherosclerotic heart disease of [place] coronary artery without angina pectoris Qualifiers: Associated angina: without angina Coronary Disease-Associated Artery/Lesion type: [place] artery [place] vs. transplanted heart: [place] heart Qualified Code(s): I25.10 - Atherosclerotic heart disease of [place] coronary artery without angina pectoris Plan: Control the cholesterol, weight, blood pressure, diabetes continue to follow up with Cardiology and continue with aspirin (2) Hypertension: Code(s): I10 - Essential (primary) hypertension Qualifiers: Hypertension type: essential hypertension Qualified Code(s): I10 - Essential (primary) hypertension Plan: Continue with blood pressure medication. Decrease salt intake and exercise continue with present medical (3) Type 2 diabetes mellitus with hyperglycemia: Code(s): E11.65 - Type 2 diabetes mellitus with hyperglycemia Qualifiers: Diabetes mellitus prison insulin use: without prison use Qualified Code(s): E11.65 - Type 2 diabetes mellitus with hyperglycemia Plan: Decrease the amount of carbohydrate intake, pasta, bread, rice and potatoes are all sugar and that is aside from all the sweet stuff, remember that fruits are good but they are Sweet also. Hemoglobin A1c goal of less than 6.5 continue with present medication (4) Obstructive sleep apnea: Comment: DIAGNOSIS SINCE 2008. HAS BEEN VERY COMPLIANT, FACE MASK OF SMALLER SIZE IS MORE COMFORTABLE , SHE INTER CHANGES BETWEEN THE SMALL SIZE AND LARGE SIZE. Also has Fullface mask IFit-20 ( medium-sized ) Code(s): G47.33 - Obstructive sleep apnea (adult) (pediatric) Plan: Continue with CPAP more than 4 hours a night and benefits from this. Follows up with Pulmonary (5) Asthma: Comment: SHE HAS LONG-STANDING HISTORY OF ASTHMA WHICH IS FAIRLY WELL CONTROLLED. IT SEEMS THAT HER MAIN TRIGGER IS PHYSICAL EXERTION . PFT. RESULTS SHOW MOSTLY RESTRICTIVE PATTEN . TX: ADVISED TO USE PROAIR 2 PUFFS Q 4-6 HOURS P.R.N.. AND CONTINUE USING MONTELUKAST 10 MG DAILY. Code(s): J45.909 - Unspecified asthma, uncomplicated Qualifiers: Asthma complication type: uncomplicated Asthma persistence: intermittent Asthma severity: mild Qualified Code(s): J45.20 - Mild intermittent asthma, uncomplicated Plan: On ProAir and montelukast. (6) Hypercholesterolemia: Code(s): E78.00 - Pure hypercholesterolemia, unspecified Plan: Avoid fried foods, chicken skin, eggs, butter margarine, pastries and meat. Be it pork or beef they have a lot of cholesterol LDL goal of less than 70 and triglyceride of less than 150 patient on rosuvastatin 10 (7) GERD (gastroesophageal reflux disease): Code(s): K21.9 - Gastro-esophageal reflux disease without esophagitis Qualifiers: Esophagitis presence: without esophagitis Qualified Code(s): K21.9 - Gastro-esophageal reflux disease without esophagitis Plan: Avoid the foods that causes that usually spicy foods, tomato products, juices, coffee, soda and foods that your sensitive to. After eating do not lie down, allow 3-4 hours before in lie down. And keep the head of bed above 30 degrees to avoid the acid from going up. Orders: Orders AMB Hemoglobin A1c Today E11.65 - Type 2 diabetes mellitus with hyperglycemia Medications: Refilled semaglutide for 4 weeks 1 mg (0.75 mL) subcut QWEEK 3.75 mL 8RF 30 days E11.65 - Type 2 diabetes mellitus with hyperglycemia Coding Level of Care Code Est Pt Level 4 (23857) Diagnoses Coronary artery disease involving [place] coronary artery of [place] heart without angina pectoris I25.10 Associated angina: without angina Coronary Disease-Associated Artery/Lesion type: [place] artery [place] vs. transplanted heart: [place] heart Essential hypertension I10 Hypertension type: essential hypertension Type 2 diabetes mellitus with hyperglycemia, without long-term current use of insulin E11.65 Diabetes mellitus prison insulin use: without prison use Obstructive sleep apnea G47.33 Mild intermittent asthma without complication J45.20 Asthma complication type: uncomplicated Asthma persistence: intermittent Asthma severity: mild Hypercholesterolemia E78.00 Gastroesophageal reflux disease without esophagitis K21.9 Esophagitis presence: without esophagitis Additional Codes NGOZI-7 Assessment Billing - NGOZI-7 Assessment Tool: NGOZI-7 Assessment 11148 ([id number])
== END 2023-05-29 13:55 | disposition home or self-care (01) ==
PROVIDERS: PCP Internal Medicine; Visit Provider Internal Medicine
DX: I25.10 Atherosclerotic heart disease of native coronary artery without angina pectoris (principal); I10 Essential (primary) hypertension; E11.65 Type 2 diabetes mellitus with hyperglycemia; G47.33 Obstructive sleep apnea (adult) (pediatric); J45.20 Mild intermittent asthma, uncomplicated; E78.00 Pure hypercholesterolemia, unspecified; K21.9 Gastro-esophageal reflux disease without esophagitis
CPT/HCPCS: 83036; 99214

== ENCOUNTER 2023-07-20 09:54 | Outpatient (AMB) | payer OTHER, SELFPAY ==
[2023-07-20 10:14] VITALS: BMI 46.5
--- NOTE | 2023-07-20 10:14 | A.OFFVIS_ITS ---
VS Expanded 07/20/23 10:14 Height 6 ft 2 in Weight 361 lb 15.984 oz BMI 46.5 Intake Visit Reasons: t2dm Allergies amoxicillin [AMOXICILLIN] Allergy (Unknown, Verified 05/29/23 12:54) HIVES atorvastatin Allergy (Unknown, Verified 05/29/23 12:54) hives bupropion [From ZYBAN] Allergy (Unknown, Verified 05/29/23 12:54) HIVES milk Allergy (Unknown, Verified 05/29/23 12:54) Diarrhea Penicillins [PENICILLINS] Allergy (Unknown, Verified 05/29/23 12:54) HIVES pravastatin Allergy (Unknown, Verified 05/29/23 12:54) hives simvastatin [SIMVASTATIN] Allergy (Unknown, Verified 05/29/23 12:54) HIVES tomato Allergy (Unknown, Verified 05/29/23 12:54) Hives metformin Adverse Reaction (Intermediate, Unverified 05/29/23 13:45) Diarrhea Nutrition Presentation Details: Pt presents for MNT f/u for T2DM, obesity Pt reports increasing sugars this past 2 weeks Food frequency Fruits 1-3 servings per day Vegetables: Advised servings per day Dairy: Choosing lactose free may have 3 servings per day Protein foods: Poultry, eggs, fish, P Starches: Greater than 25 servings per day Physical activity: Daily life activities Alcohol/smoking: Denies BS Monitoring Most Recent Diabetes Results: No Data to Display [facility] Equation Height: 6 ft 2 in Weight: 362 lb Resting Metabolic Rate: 2388.43 Calculated Activity Level: Sedentary Calories Needed to Maintain Weight: 2866.12 [facility], [facility] Medical History Colon cancer screening Breast cancer screening by mammogram GERD (gastroesophageal reflux disease) Hypercholesterolemia Hypertension Folic acid deficiency Vitamin D deficiency Asthma Type 2 diabetes mellitus with hyperglycemia Surgical History History of coronary artery stent placement History of cholecystectomy History of hand surgery History of section Family History Father CVD (cardiovascular disease) Hypertension Heart disease Mother No problems noted. 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 Follow healthy plate method EST Kcal NEEDS as per [address] [place]: 2866 kcal/d USED BODY WT : 164 kg est protein needs as per -1.0 g/kg bw: 164 g/d est fluid needs as per 30 ml/kg bw: 4900 ml/d Educate patient on: (R= Reviewed, V = verbalizes understanding N/R= Needs review N/A= not applicable) * Food sources of carbohydrates and serving adequate serving sizes : V * Difference between complex carbohydrates and simple carbohydrates, role of fiber: V * Differences between fats (MUFA/PUFA/saturated fats, trans fats) and food sources of various fats: V * Food sources of sodium and salt and healthy modifications for heart health and kidney health: V * Vitamins and minerals: V * How to interpret food labels: V * Healthy Plate method concept: V * Physical activity: benefits and precaution: V (2) Morbid obesity with BMI of 45.0-49.9, adult: Code(s): E66.01 - Morbid (severe) obesity due to excess calories; Z68.42 - Body mass index [BMI] 45.0-49.9, adult Category: Medical Plan: Continue working on reducing total caloric intake from empty calorie foods (500- 1000 calories less per day) and follow healthy plate method EST Kcal NEEDS as per [address] [place]ee: 2965 kcal/d USED BODY WT : 164 kg est protein needs as per 0.8-1.0 g/kg bw: 164 g/d est fluid needs as per 30 ml/kg bw: 4900 ml/d Patient Instructions: Resume reducing on sugars, pastries and similar aim at having a fruit Continue working on reducing on empty calorie foods, reduce calories as snacks to less than 200 and limit to 3 snacks a day Coding Level of Care Code Nutr Indiv Subseq (32568) Diagnoses T2DM (type 2 diabetes mellitus) E11.9 Morbid obesity with BMI of 45.0-49.9, adult E66.01; Z68.42 Time Spent (min) 30
[2023-07-31 11:07] VITALS: BMI 46.5
== END 2023-07-20 12:53 | disposition home or self-care (01) ==
PROVIDERS: PCP Internal Medicine; Visit Provider Dietitian, Registered
DX: E11.9 Type 2 diabetes mellitus without complications (principal); E66.01 Morbid (severe) obesity due to excess calories; Z68.42 Body mass index [BMI] 45.0-49.9, adult

== ENCOUNTER → 2023-07-20 09:54 | Outpatient (BNVA) | payer OTHER, SELFPAY | PROVIDERS: PCP Internal Medicine; Visit Provider Dietitian, Registered | DX: E11.9 Type 2 diabetes mellitus without complications (principal); E66.01 Morbid (severe) obesity due to excess calories; Z68.42 Body mass index [BMI] 45.0-49.9, adult | CPT/HCPCS: 97803 ==

== ENCOUNTER 2023-09-04 11:03 | Outpatient (AMB) | payer OTHER, SELFPAY ==
[2023-09-04 11:52] VITALS: BP 136/78; PULSE 87; TEMP 36.6; O2SAT 98
--- NOTE | 2023-09-04 11:52 | MHC.OFFWIV ---
Intake Vital Signs 09/04/23 11:52 Height 6 ft 2 in BMI Reason not done Patient refused/unable BP 136/78 Blood Pressure Location Rt brachial Position Sitting Pulse 87 Pulse Source Pulse Oximeter Temp 97.8 F Temp Source Temporal Artery Scan Pulse Oximetry (%) 98 Intake Visit Reasons: EP lump rt side neck/ear Intake Note: pt is here for lump on right side of neck/ear Patient Tobacco Use Status: Former Tobacco user Allergies amoxicillin [AMOXICILLIN] Allergy (Unknown, Verified 09/04/23 11:52) HIVES atorvastatin Allergy (Unknown, Verified 09/04/23 11:52) hives bupropion [From ZYBAN] Allergy (Unknown, Verified 09/04/23 11:52) HIVES milk Allergy (Unknown, Verified 09/04/23 11:52) Diarrhea Penicillins [PENICILLINS] Allergy (Unknown, Verified 09/04/23 11:52) HIVES pravastatin Allergy (Unknown, Verified 09/04/23 11:52) hives simvastatin [SIMVASTATIN] Allergy (Unknown, Verified 09/04/23 11:52) HIVES tomato Allergy (Unknown, Verified 09/04/23 11:52) Hives metformin Adverse Reaction (Intermediate, Verified 09/04/23 11:52) Diarrhea Do you need a note to return to daycare/school/sports/work: No HPI HPI Comments History of Present Illness Details Patient is a 52-year-old female complaining of 4 days of a sore throat, productive cough, headache, fatigue and bilateral ear pain. She denies any fevers, shortness of breath, wheezing, nausea vomiting or diarrhea. She denies any sick contacts but thinks her daughter is starting to develop the same thing she has. She states nothing seems to make it better or worse. She is managing to handle her own secretions and can eat and drink but it is very painful and takes her much longer than normal PFS Medical History Colon cancer screening Breast cancer screening by mammogram GERD (gastroesophageal reflux disease) Hypercholesterolemia Hypertension Folic acid deficiency Vitamin D deficiency Asthma Type 2 diabetes mellitus with hyperglycemia Surgical History History of coronary artery stent placement History of cholecystectomy History of hand surgery History of section Family History Father CVD (cardiovascular disease) Hypertension Heart disease Mother No problems noted. 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 Cognitive needs: No Hearing needs: No Vision needs: Yes Review of Systems Const All systems reviewed & are unremarkable except as noted in HPI and below Physical Exam Vital Signs: Last Vital Signs Temp 97.8 F 09/04/23 11:52 Pulse 87 09/04/23 11:52 BP 136/78 09/04/23 11:52 Pulse Ox 98 09/04/23 11:52 Const General: cooperative, healthy appearing, comfortable and no acute distress Orientation/consciousness: patient oriented x3 Limitations: no limitations HEENT Head: Yes normal to inspection Ears: hearing grossly normal bilaterally, external ears normal and TM's normal bilaterally General nose exam: Normal external nose present, Normal nares present and No nasal discharge present Face and sinus: Yes normal facial exam and Yes sinuses nontender Mouth: Normal oral and palatal mucosa present and moist mucous membranes Throat: Yes tonsils normal, Yes uvula midline and Yes posterior oropharynx abnormal (Erythema) Eyes General: appearance normal, both eyes and all related structures Neck Neck: Yes normal visual inspection Resp Effort & Inspection: normal respiratory effort, able to speak in complete sentences, no respiratory distress, not tachypneic, no tripod positioning and no use of accessory muscles Auscultation: clear to auscultation bilaterally Cardio Rate: regular rate Rhythm: regular rhythm Heart sounds: normal S1 and S2 Skin General skin exam: no rashes or lesions noted Neuro General: patient oriented x3 Extrem General: Yes normal to inspection and Yes no clubbing, cyanosis or edema Assessment & Plan Assessment & Plan (1) Upper respiratory tract infection: Code(s): J06.9 - Acute upper respiratory infection, unspecified Qualifiers: URI type: unspecified viral URI Qualified Code(s): J06.9 - Acute upper respiratory infection, unspecified Plan: Sent COVID/flu/RSV disease. Recommended qlyc-nap-xluvbpi meds to treat her symptoms, staying hydrated. Plan See above Orders: Orders SARS-CoV2/FLU/RSV Today J06.9 - Acute upper respiratory infection, unspecified Coding Level of Care Code Est Pt Level 3 (63488) Diagnoses Viral upper respiratory tract infection J06.9 URI type: unspecified viral URI
== END 2023-09-04 12:37 | disposition home or self-care (01) ==
PROVIDERS: PCP Internal Medicine; Visit Provider Physician Assistant
DX: J06.9 Acute upper respiratory infection, unspecified (principal)
CPT/HCPCS: 99213

== ENCOUNTER 2023-09-04 12:26 | Outpatient (REF) | payer OTHER, SELFPAY ==
[2023-09-04 16:48] LABS: Influenza A PCR NEGATIVE (Negative); Influenza B PCR NEGATIVE (Negative); Resp Syncy Virus RNA Qual PCR NEGATIVE (Negative); SARS COV2 PCR INHOUSE NEGATIVE (Negative)
== END 2023-09-04 12:27 | disposition home or self-care (01) ==
LOC: HO.LAB 12:26
PROVIDERS: Visit Provider Physician Assistant
DX: J06.9 Acute upper respiratory infection, unspecified (principal)
CPT/HCPCS: 0241U

== ENCOUNTER 2023-09-05 11:31 | Outpatient (AMB) | payer OTHER, SELFPAY ==
--- NOTE | 2023-09-05 11:35 | AM.OFFWIN_ITS ---
Intake Vital Signs 09/05/23 11:36 Height 6 ft 2 in BMI Reason not done Patient refused/unable BP 130/72 Blood Pressure Location Rt brachial Position Sitting Pulse 72 Pulse Source Pulse Oximeter Temp 98.8 F Temp Source Oral Pulse Oximetry (%) 98 Oxygen Delivery Method Room Air Intake Visit Reasons: EP seen on 09/03 now has body rash Intake Note: pt was seen yesterday in walk in, and states she now has body rash. Patient Tobacco Use Status: Former Tobacco user Allergies amoxicillin [AMOXICILLIN] Allergy (Unknown, Verified 09/05/23 11:35) HIVES atorvastatin Allergy (Unknown, Verified 09/05/23 11:35) hives bupropion [From ZYBAN] Allergy (Unknown, Verified 09/05/23 11:35) HIVES milk Allergy (Unknown, Verified 09/05/23 11:35) Diarrhea Penicillins [PENICILLINS] Allergy (Unknown, Verified 09/05/23 11:35) HIVES pravastatin Allergy (Unknown, Verified 09/05/23 11:35) hives simvastatin [SIMVASTATIN] Allergy (Unknown, Verified 09/05/23 11:35) HIVES tomato Allergy (Unknown, Verified 09/05/23 11:35) Hives metformin Adverse Reaction (Intermediate, Verified 09/05/23 11:35) Diarrhea Do you need a note to return to daycare/school/sports/work: No HPI HPI Comments History of Present Illness Details 52-year-old female who presents today co mplaining of a total body rash. The patient was seen yesterday and diagnosed with a viral upper respiratory infection. Her COVID test came back negative. She continues to complain of right-sided lymphadenopathy and now has developed bilateral ear pain. FOR[facility], [facility] Medical History Colon cancer screening Breast cancer screening by mammogram GERD (gastroesophageal reflux disease) Hypercholesterolemia Hypertension Folic acid deficiency Vitamin D deficiency Asthma Type 2 diabetes mellitus with hyperglycemia Surgical History History of coronary artery stent placement History of cholecystectomy History of hand surgery History of section Family History Father CVD (cardiovascular disease) Hypertension Heart disease Mother No problems noted. 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 Cognitive needs: No Hearing needs: No Vision needs: Yes Review of Systems Const All systems reviewed & are unremarkable except as noted in HPI and below Reports lethargy Eyes Reports no additional complaints ENT Reports otalgia and Reports nasal congestion Card Reports no additional complaints Resp Reports no additional complaints and Reports cough Skin/Breast Reports rash (Total body rash erythema and slightly raised) Neuro Reports no additional complaints Physical Exam Vital Signs: Last Vital Signs Temp 98.8 F 09/05/23 11:36 Pulse 72 09/05/23 11:36 BP 130/72 09/05/23 11:36 Pulse Ox 98 09/05/23 11:36 Oxygen Delivery Method Room Air 09/05/23 11:36 Const General: in distress mild HEENT Head: Yes normal to inspection, Yes normocephalic and Yes atraumatic Ears: hearing grossly normal bilaterally and TM abnormal bulging, wth effusion and erythematous General nose exam: Normal external nose present Face and sinus: Yes normal facial exam and Yes sinuses nontender Throat: Yes posterior oropharynx normal Neck Lymphatic: lymphadenopathy (Left posterior cervical nodes) Resp Effort & Inspection: normal respiratory effort Auscultation: clear to auscultation bilaterally Cardio Rate: regular rate Rhythm: regular rhythm Heart sounds: S1 normal heart sound present and S2 normal heart sound present Skin Rashes: rashes noted (Total body erythematous rash slightly raised) Results AMB Rapid Strep AMB Rapid Strep Negative Last Edit by Andrea Grimes CMA on 09/05/23 12 :03 AMB Rapid Hart AMB Rapid Hart Negative Last Edit by Andrea Grimes CMA on 09/05/23 12: 13 Results Reviewed Results Reviewed: The patient had a rapid strep and Monospot done here today that were both negative. Her COVID test that was done yesterday was negative Assessment & Plan Assessment & Plan (1) Otitis media: Code(s): H66.90 - Otitis media, unspecified, unspecified ear Plan: Antibiotic ordered and the patient will follow up with the PCP. She was cautioned about being more susceptible to sunburn Plan See plan Orders: Orders AMB Rapid Strep Screen Today Z13.9 - Encounter for screening, unspecified AMB Hart Screen Today Z13.9 - Encounter for screening, unspecified Medications: New doxycycline hyclate 100 mg PO BID 10 days 20 caps 0RF Coding Level of Care Code Est Pt Level 3 (57172) Diagnoses Otitis media H66.90
[2023-09-05 11:36] VITALS: BP 130/72; PULSE 72; TEMP 37.1; O2SAT 98
== END 2023-09-05 12:19 | disposition home or self-care (01) ==
PROVIDERS: PCP Internal Medicine; Visit Provider Physician Assistant Medical
DX: H66.93 Otitis media, unspecified, bilateral (principal); R21 Rash and other nonspecific skin eruption
CPT/HCPCS: 87880; 99213

== ENCOUNTER 2023-09-15 11:07 | Outpatient (AMB) | payer OTHER, SELFPAY ==
[2023-09-15 11:09] VITALS: BP 146/98; PULSE 72; O2SAT 96; BMI 46.2
--- NOTE | 2023-09-15 11:09 | MHC.PC.OV ---
Vital Signs 09/15/23 11:09 Height 6 ft 2 in Weight 360 lb 0.6 oz BMI 46.2 BP 146/98 H Blood Pressure Location Lt brachial Position Sitting Pulse 72 Pulse Source Pulse Oximeter Pulse Oximetry (%) 96 Oxygen Delivery Method Room Air Intake Visit Reasons: DM Intake Note: Patient is here to follow up on DM Health Unit Supervisor Required: No Allergies amoxicillin [AMOXICILLIN] Allergy (Unknown, Verified 09/15/23 11:09) HIVES atorvastatin Allergy (Unknown, Verified 09/15/23 11:09) hives bupropion [From ZYBAN] Allergy (Unknown, Verified 09/15/23 11:09) HIVES milk Allergy (Unknown, Verified 09/15/23 11:09) Diarrhea Penicillins [PENICILLINS] Allergy (Unknown, Verified 09/15/23 11:09) HIVES pravastatin Allergy (Unknown, Verified 09/15/23 11:09) hives simvastatin [SIMVASTATIN] Allergy (Unknown, Verified 09/15/23 11:09) HIVES tomato Allergy (Unknown, Verified 09/15/23 11:09) Hives metformin Adverse Reaction (Intermediate, Verified 09/15/23 11:09) Diarrhea Tobacco use date assessed: 05/29/23 Dental Screening Dental Screen Date: 05/29/23 HPI DM HPI Details 52-year-old morbidly obese female with coronary artery disease diabetes mellitus hypertension obstructive sleep apnea asthma hypercholesterolemia and GERD last seen in May 2023. Patient's mammogram is up-to-date 01/16/2023 Cologuard test done in 10/16/2020. Noted urgent care visit September 04 for rash in the body diagnosis though of otitis media doxycycline sent patient is up-to-date with the eye exam August 08 no retinopathy does have cataracts which is not significant for now. rash on the exposed areas only. L ear pain and sore throat AB given - better right now PFSH Medical History Colon cancer screening Breast cancer screening by mammogram GERD (gastroesophageal reflux disease) Hypercholesterolemia Hypertension Folic acid deficiency Vitamin D deficiency Asthma Type 2 diabetes mellitus with hyperglycemia Surgical History History of coronary artery stent placement History of cholecystectomy History of hand surgery History of section Family History Father CVD (cardiovascular disease) Hypertension Heart disease Mother No problems noted. 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 Cognitive needs: No Hearing needs: No Vision needs: Yes Questionnaire Thrive Questionnaire Date Thrive assessed: 05/29/23 I am a: Patient What is your living situation today?: I have a steady place to live Within the past 12 months, did the food you bought not last and you didn't have the money to get more?: Never true Within the past 12 months, did you worry whether your food would run out before you got money to buy more?: Never true Do you have trouble paying for medicines?: No Do you have trouble getting transportation to medical appointments?: No Do you have trouble paying your heating and electricity bill?: No Do you have trouble taking care of your child, family member or friend?: No Do you have trouble with day-to-day activities such as bathing, preparing meals, shopping, managing finances, etc.?: No Are you currently unemployed and looking for a job?: No Are you interested in more education?: No Please select the resources that you would like help with: None THRIVE Score: 0 AUDIT C Alcohol Use Questionnaire (AUDIT-C) 1. How often do you have a drink containing alcohol?: Never 2. How many drinks containing alcohol do you have on a typical day when you are drinking?: 1 or 2 3. How often do you have six or more drinks on one occasion?: Never Total Score: 0 NGOZI-7 AMB Questionnaire NGOZI-7 Date NGOZI - 7 assessed: 05/29/23 Source: Developed by Drs. Steve Joshi, Carole B.W. Seth Patton and colleagues, with an educational velia from [employer]. Physical exam (Primary Care) Vital Signs: Last Vital Signs Pulse 72 09/15/23 11:09 BP 146/98 H 09/15/23 11:09 Pulse Ox 96 09/15/23 11:09 Oxygen Delivery Method Room Air 09/15/23 11:09 BMI result Body Mass Index 46.2 Tobacco/Smoking Status: Tobacco use Status Tobacco use date assessed 05/29/23 09/15/23 11:10 Patient Tobacco Use Status Former Tobacco user 09/15/23 11:10 Tobacco use type Cigarette 09/15/23 11:10 e-Cigarette/Vaping Use Never Used 09/15/23 11:10 Thrive Assessment: Date of Thrive Assessment Date Thrive assessed 05/29/23 09/15/23 11:10 Const General: alert; No acute distress Eyes Conjunctivae: conjunctivae normal Resp Auscultation: clear to auscultation bilaterally Cardio Rate: regular rate Rhythm: regular rhythm GI Inspection: Yes normal to inspection Extrem General: Yes normal to inspection and No edema Results AMB Hemoglobin A1c AMB Hemoglobin A1c 6.2 % Last Edit by SKYE Vargas on 09/15/23 11:26 Assessment and Plan Assessment & Plan (1) Type 2 diabetes mellitus with hyperglycemia: Code(s): E11.65 - Type 2 diabetes mellitus with hyperglycemia Qualifiers: Diabetes mellitus 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 Hemoglobin A1c goal of less than 6.5. Patient follows up with Ophthalmology does have cataracts but not significant yet, follows up with Podiatry. Metformin is a 1000 mg twice a day patient placed on semaglutide 1 mg once a week (2) Obstructive sleep apnea: Comment: DIAGNOSIS SINCE 2008. HAS BEEN VERY COMPLIANT, FACE MASK OF SMALLER SIZE IS MORE COMFORTABLE , SHE INTER CHANGES BETWEEN THE SMALL SIZE AND LARGE SIZE. Also has Fullface mask IFit-20 ( medium-sized ) Code(s): G47.33 - Obstructive sleep apnea (adult) (pediatric) Plan: Continue with CPAP use more than 4 hours a night and benefits from this (3) Asthma: Comment: SHE HAS LONG-STANDING HISTORY OF ASTHMA WHICH IS FAIRLY WELL CONTROLLED. IT SEEMS THAT HER MAIN TRIGGER IS PHYSICAL EXERTION . PFT. RESULTS SHOW MOSTLY RESTRICTIVE PATTEN . TX: ADVISED TO USE PROAIR 2 PUFFS Q 4-6 HOURS P.R.N.. AND CONTINUE USING MONTELUKAST 10 MG DAILY. Code(s): J45.909 - Unspecified asthma, uncomplicated Qualifiers: Asthma complication type: uncomplicated Asthma persistence: intermittent Asthma severity: mild Qualified Code(s): J45.20 - Mild intermittent asthma, uncomplicated Plan: Continue with the albuterol inhaler on montelukast 10 mg at bedtime (4) Coronary artery disease: Comment: Myocardial infarction [address] Ayala ejection fraction 40-50% 1.10 November 2017, echo October 2018 dilated left ventricle 45-50% moderate grade 2 diastolic dysfunction. She is being followed by Cardiology service. Echocardiogram December 2022 Code(s): I25.10 - Atherosclerotic heart disease of [place] coronary artery without angina pectoris Qualifiers: Associated angina: without angina Coronary Disease-Associated Artery/Lesion type: [place] artery [place] vs. transplanted heart: [place] heart Qualified Code(s): I25.10 - Atherosclerotic heart disease of [place] coronary artery without angina pectoris Plan: Control the cholesterol, weight, blood pressure, diabetes continue with aspirin 81 mg once a day (5) Hypertension: Code(s): I10 - Essential (primary) hypertension Qualifiers: Hypertension type: essential hypertension Qualified Code(s): I10 - Essential (primary) hypertension Plan: Continue with blood pressure medication. Decrease salt intake and exercise on amlodipine 5 mg once a day lisinopril 40 mg once a day metoprolol tartrate (6) Hypercholesterolemia: Code(s): E78.00 - Pure hypercholesterolemia, unspecified Plan: Avoid fried foods, chicken skin, eggs, butter margarine, pastries and meat. Be it pork or beef they have a lot of cholesterol LDL goal of less than 70 on rosuvastatin 10 mg at bedtime repeat blood work requested (7) GERD (gastroesophageal reflux disease): Code(s): K21.9 - Gastro-esophageal reflux disease without esophagitis Qualifiers: Esophagitis presence: without esophagitis Qualified Code(s): K21.9 - Gastro-esophageal reflux disease without esophagitis Plan: Avoid the foods that causes that usually spicy foods, tomato products, juices, coffee, soda and foods that your sensitive to. After eating do not lie down, allow 3-4 hours before in lie down. And keep the head of bed above 30 degrees to avoid the acid from going up. (8) Obesity: Comment: Patient is fully aware of her being grossly obese. Trying to limit her calories intake, needs to walk more. Code(s): E66.9 - Obesity, unspecified Plan: Diet and exercise Orders: Orders AMB Hemoglobin A1c Today E11.65 - Type 2 diabetes mellitus with hyperglycemia Complete Blood Count Auto Diff Today E11.65 - Type 2 diabetes mellitus with hyperglycemia Creatinine Urine Today E11.65 - Type 2 diabetes mellitus with hyperglycemia Microalbumin, Random (w Creat) Today E11.65 - Type 2 diabetes mellitus with hyperglycemia Thyroid Stimulating Hormone Today E11.65 - Type 2 diabetes mellitus with hyperglycemia Vitamin B12 and Folate Today E11.65 - Type 2 diabetes mellitus with hyperglycemia Free T4 (Free Thyroxine) Today E11.65 - Type 2 diabetes mellitus with hyperglycemia Comprehensive Met. Panel Today E11.65 - Type 2 diabetes mellitus with hyperglycemia Hemoglobin A1c Today E11.65 - Type 2 diabetes mellitus with hyperglycemia Lipid Panel Today E11.65 - Type 2 diabetes mellitus with hyperglycemia, E78.00 - Pure hypercholesterolemia, unspecified Vitamin D 25-OH Total Today E11.65 - Type 2 diabetes mellitus with hyperglycemia Medications: Changed From semaglutide for 4 weeks 1 mg (0.75 mL) subcut QWEEK 30 days 3.75 mL 8RF E11.65 - Type 2 diabetes mellitus with hyperglycemia To semaglutide for 4 weeks 2 mg (0.75 mL) subcut QWEEK 30 days 3.75 mL 8RF E11.65 - Type 2 diabetes mellitus with hyperglycemia Coding Level of Care Code Est Pt Level 4 (60740) Diagnoses Type 2 diabetes mellitus with hyperglycemia, without long-term current use of insulin E11.65 Diabetes mellitus shelter insulin use: without shelter use Obstructive sleep apnea G47.33 Mild intermittent asthma without complication J45.20 Asthma complication type: uncomplicated Asthma persistence: intermittent Asthma severity: mild Coronary artery disease involving [place] coronary artery of [place] heart without angina pectoris I25.10 Associated angina: without angina Coronary Disease-Associated Artery/Lesion type: [place] artery [place] vs. transplanted heart: [place] heart Essential hypertension I10 Hypertension type: essential hypertension Hypercholesterolemia E78.00 Gastroesophageal reflux disease without esophagitis K21.9 Esophagitis presence: without esophagitis Obesity E66.9
== END 2023-09-15 11:45 | disposition home or self-care (01) ==
PROVIDERS: PCP Internal Medicine; Visit Provider Internal Medicine
DX: E11.65 Type 2 diabetes mellitus with hyperglycemia (principal); E66.9 Obesity, unspecified; Z68.42 Body mass index [BMI] 45.0-49.9, adult; G47.33 Obstructive sleep apnea (adult) (pediatric); J45.20 Mild intermittent asthma, uncomplicated; I25.10 Atherosclerotic heart disease of native coronary artery without angina pectoris; I10 Essential (primary) hypertension; E78.00 Pure hypercholesterolemia, unspecified; K21.9 Gastro-esophageal reflux disease without esophagitis
CPT/HCPCS: 83036; 99214

== ENCOUNTER 2023-10-19 10:06 | Outpatient (AMB) | payer OTHER, SELFPAY ==
[2023-10-19 10:11] VITALS: BP 152/98; PULSE 75; O2SAT 97; BMI 46.0
--- NOTE | 2023-10-19 10:11 | A.OFFVIS_ITS ---
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: No Allergies amoxicillin [AMOXICILLIN] Allergy (Unknown, Verified 10/19/23 10:27) HIVES atorvastatin Allergy (Unknown, Verified 10/19/23 10:27) hives bupropion [From ZYBAN] Allergy (Unknown, Verified 10/19/23 10:27) HIVES milk Allergy (Unknown, Verified 10/19/23 10:27) Diarrhea Penicillins [PENICILLINS] Allergy (Unknown, Verified 10/19/23 10:27) HIVES pravastatin Allergy (Unknown, Verified 10/19/23 10:27) hives simvastatin [SIMVASTATIN] Allergy (Unknown, Verified 10/19/23 10:27) HIVES tomato Allergy (Unknown, Verified 10/19/23 10:27) Hives metformin Adverse Reaction (Intermediate, Verified 10/19/23 10:27) Diarrhea Medication List - Last Reconciled 10/19/23 by Pili Hunter MD albuterol sulfate 90 mcg/actuation (ProAir HFA) 2 puffs inhalation Q6H amlodipine (Norvasc) 5 mg PO DAILY aspirin (Adult Low Dose Aspirin) 162 mg PO DAILY [AUTOCPAP 8-20 mm HG humidified heated air As directed] blood sugar diagnostic As directed blood sugar diagnostic ([employer] Ultra Test strips) As directed check the blood sugar once a day blood-glucose meter As directed check the blood sugar once a day compr.stocking,knee,long,x-lrg As directed 20-30 mm HG [cpap Supplies As directed] [Diabetic Shoes As directed] [diabetic socks As directed] ibuprofen 800 mg PO TID PRN ketoconazole 2% 1 appl topical 2XW lancets ([employer] Delica Lancets) As directed check the blood sugar q.day lancets As directed lisinopril 40 mg PO DAILY metformin ER 1,000 mg (2 x 500 mg) PO DAILY 90 days metoprolol tartrate 2 tabs in am and 3 tabs in pm PO 2 times a day; montelukast 10 mg PO BEDTIME nitroglycerin 0.4 mg sublingual Q5M PRN rosuvastatin 10 mg PO BEDTIME semaglutide 2 mg (0.75 mL) subcut QWEEK 30 days [Sleeve right hand As directed] triamcinolone acetonide 0.5% 1 appl topical BID 14 days [trouser socks 20-30 millimeter mercury pressure] Do you need a note to return to daycare/school/sports/work: No HPI HPI Obstructive sleep apnea: Details: 52 YEARS OLD FEMALE CASE OF MORBID OBESITY AND OBSTRUCTIVE SLEEP APNEA, IS HERE FOR HER ROUTINE FOLLOW-UP. USES CPAP VERY REGULARLY EVERY NIGH.T AND SLEEPS WELL DENIES ANY DAYT.DOT SLEEPINESS WEIGHT REMAINS UNCHANGED AND RECENTLY STARTED ON OZEMPIC INJECTIONS. CURRENTLY SHE HAS MILD NASAL CONGESTION PROBABLY SECONDARY TO ALLERGIC RH INITIS. DENIES MUCH COUGH OR WHEEZING. PFSH Medical History Colon cancer screening Breast cancer screening by mammogram GERD (gastroesophageal reflux disease) Hypercholesterolemia Hypertension Folic acid deficiency Vitamin D deficiency Asthma Type 2 diabetes mellitus with hyperglycemia Surgical History History of coronary artery stent placement History of cholecystectomy History of hand surgery History of section Family History Father CVD (cardiovascular disease) Hypertension Heart disease Mother No problems noted. 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 Cognitive needs: No Hearing needs: No Vision needs: Yes Review of Systems Const All systems reviewed & are unremarkable except as noted in HPI and below Eyes Reports no additional complaints ENT Reports nasal congestion (Off and on due to changes in the weather) Card Denies chest pain, Denies irregular heart rhythm and Denies leg edema Resp Reports as per HPI GI Reports no additional complaints Reports no additional complaints Musc Reports no additional complaints Skin/Breast Reports dry skin and Reports pruritus (On the legs, ) Neuro Reports no additional complaints Psych Reports no additional complaints Physical Exam Vital Signs: Last Vital Signs Pulse 75 10/19/23 10:11 BP 152/98 H 10/19/23 10:11 Pulse Ox 97 10/19/23 10:11 Oxygen Delivery Method Room Air 10/19/23 10:11 BMI result Body Mass Index 46.0 Const Other: She is tall and grossly overweight General: comfortable, no acute distress, alert and awake Orientation/consciousness: patient oriented x3 HEENT Head: Yes normal to inspection General nose exam: No nasal polyps present, No nasal discharge present and Other nasal findings present ( MILD NASAL CONGESTION) Face and sinus: Yes sinuses nontender Mouth: oropharynx normal Throat: Yes posterior oropharynx normal Eyes General: appearance normal, both eyes and all related structures Neck Neck: Yes normal visual inspection, Yes no lymphadenopathy, Yes trachea midline, Yes no JVD and Yes other (Neck is very obese) Thyroid: Thyroid normal Chest Chest palpation & inspection: normal inspection of the chest, normal palpation of entire chest wall and no tenderness Resp Effort & Inspection: normal respiratory effort and other ( BREATH SOUNDS ARE SLIGHTLY DECREASED OVER THE BASILAR AREAS) Auscultation: clear to auscultation bilaterally Percussion: percussion normal Cardio Palpation: normal PMI Rate: regular rate Rhythm: regular rhythm Heart sounds: no gallops and no murmurs GI Palpation (GI): Soft to palpation, nontender, No hepatosplenomegaly present, no masses and Other GI palpation findings present (Abdomen obese and protuberant) Auscultation: normal bowel sounds Back/Spine/Pelvis Thoracic/Lumbar Spine: thoracic and lumbar spine normal to inspection and thoraco-lumbar ROM limited Skin General skin exam: dry skin Rashes: other (Mild stasis dermatitis noted over the lower part of legs) Neuro General: patient oriented x3 and no focal motor deficits Cranial nerves: Yes CN's II-XII intact bilaterally Extrem General: Yes normal to inspection, Yes no calf tenderness and Yes venous stasis dermatitis Psych Appearance: grossly normal and well kempt Speech and movement: Normal speech and movement present Results Reviewed Results Reviewed: COMPLIANCE REPORT FOR THE LAST 30 NIGHTS IS REVIEWED HER USAGE IS 30/30 NIGHTS, 100% AND AVERAGE USAGE 6 HOURS 27 MINUTES THERE IS SLIGHT AIR LEAK HOWEVER RESIDUAL AHI ONLY 0.4 Assessment & Plan Assessment & Plan (1) Obesity: Comment: continues to be grossly overweight . current BMI 46.0 Patient is fully aware of her being grossly obese. Trying to limit her calories intake, needs to walk more. Code(s): E66.9 - Obesity, unspecified Category: Medical Plan: Discussed about obesity once again She is not able to do much exercise ,started on Ozempic therapy and this may help to reduce some weight. (2) Obstructive sleep apnea: Comment: DIAGNOSIS SINCE 2008. HAS BEEN VERY COMPLIANT, FACE MASK OF SMALLER SIZE IS MORE COMFORTABLE , SHE INTER CHANGES BETWEEN THE SMALL SIZE AND LARGE SIZE. Also has Fullface mask IFit-20 ( medium-sized ) Code(s): G47.33 - Obstructive sleep apnea (adult) (pediatric) Category: Medical Plan: Commended for good compliance. As she does have some air leak issue, advised to keep the straps as tight as tolerated. Continue to use CPAP regularly every night . (3) Asthma: Comment: SHE HAS LONG-STANDING HISTORY OF ASTHMA WHICH IS FAIRLY WELL CONTROLLED. IT SEEMS THAT HER MAIN TRIGGER IS PHYSICAL EXERTION . PFT. RESULTS SHOWED MOSTLY RESTRICTIVE PATTEN . Code(s): J45.909 - Unspecified asthma, uncomplicated Category: Medical Qualifiers: Asthma severity: mild Asthma persistence: intermittent Asthma complication type: uncomplicated Qualified Code(s): J45.20 - Mild intermittent asthma, uncomplicated Plan: TX: ADVISED TO USE PROAIR 2 PUFFS Q 4-6 HOURS P.R.N.. AND CONTINUE USING MONTELUKAST 10 MG DAILY. Coding Level of Care Code Est Pt Level 3 (84656) Diagnoses Obesity E66.9 Obstructive sleep apnea G47.33 Mild intermittent asthma without complication J45.20 Asthma severity: mild Asthma persistence: intermittent Asthma complication type: uncomplicated
== END 2023-10-19 10:33 | disposition home or self-care (01) ==
PROVIDERS: PCP Internal Medicine; Visit Provider Internal Medicine
DX: E66.9 Obesity, unspecified (principal); G47.33 Obstructive sleep apnea (adult) (pediatric); J45.20 Mild intermittent asthma, uncomplicated
CPT/HCPCS: 99213

== ENCOUNTER → 2023-10-19 10:06 | Outpatient (BNVA) | payer OTHER, SELFPAY | PROVIDERS: PCP Internal Medicine; Visit Provider Internal Medicine | DX: E11.9 Type 2 diabetes mellitus without complications (principal); E66.01 Morbid (severe) obesity due to excess calories; G47.33 Obstructive sleep apnea (adult) (pediatric); J45.20 Mild intermittent asthma, uncomplicated; Z71.3 Dietary counseling and surveillance; Z68.42 Body mass index [BMI] 45.0-49.9, adult | CPT/HCPCS: 97803; 99212 ==

== ENCOUNTER 2023-10-19 10:58 | Outpatient (AMB) | payer OTHER, SELFPAY ==
--- NOTE | 2023-10-19 11:07 | A.OFFVIS_ITS ---
VS Expanded 10/19/23 21:46 Weight 358 lb Intake Visit Reasons: T2DM/CONFIRMED Allergies amoxicillin [AMOXICILLIN] Allergy (Unknown, Verified 10/19/23 10:27) HIVES atorvastatin Allergy (Unknown, Verified 10/19/23 10:27) hives bupropion [From ZYBAN] Allergy (Unknown, Verified 10/19/23 10:27) HIVES milk Allergy (Unknown, Verified 10/19/23 10:27) Diarrhea Penicillins [PENICILLINS] Allergy (Unknown, Verified 10/19/23 10:27) HIVES pravastatin Allergy (Unknown, Verified 10/19/23 10:27) hives simvastatin [SIMVASTATIN] Allergy (Unknown, Verified 10/19/23 10:27) HIVES tomato Allergy (Unknown, Verified 10/19/23 10:27) Hives metformin Adverse Reaction (Intermediate, Verified 10/19/23 10:27) Diarrhea Nutrition Presentation Details: Pt presents for MNT f/u for T2DM BS Monitoring Most Recent Diabetes Results: No Data to Display GWQ-Rizmzfp-Uz.Jeor Equation Height: 6 ft 2 in Weight: 358 lb Resting Metabolic Rate: 2365.39 Calculated Activity Level: Sedentary Calories Needed to Maintain Weight: 2838.47 PFSH Medical History Colon cancer screening Breast cancer screening by mammogram GERD (gastroesophageal reflux disease) Hypercholesterolemia Hypertension Folic acid deficiency Vitamin D deficiency Asthma Type 2 diabetes mellitus with hyperglycemia Surgical History History of coronary artery stent placement History of cholecystectomy History of hand surgery History of section Family History Father CVD (cardiovascular disease) Hypertension Heart disease Mother No problems noted. 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 Cognitive needs: No Hearing needs: No Vision needs: Yes Assessment & Plan Assessment & Plan (1) T2DM (type 2 diabetes mellitus): Comment: BMI hx 45.3 (04/22), 45.6 (12/2022) 47.9 on 09/2022, 48.3 on 05/2022 , 49 in 12/18 at PCP's appt, 48.6 on 07/29/21, 49.3 on 04/26/21, 49.6 on 12/05/2019, 48.2 on 07/26/20 , BMI at 49.5 on 01/25/21 Code(s): E11.9 - Type 2 diabetes mellitus without complications Category: Medical Plan: Reviewed low sodium, heart health nutrition concepts EST Kcal NEEDS as per [place] [address] Jeor: 2866 kcal/d USED BODY WT : 162 kg est protein needs as per -1.0 g/kg bw: 162 g/d est fluid needs as per 30 ml/kg bw: 4900 ml/d Educate patient on: (R= Reviewed, V = verbalizes understanding N/R= Needs review N/A= not applicable) * Food sources of carbohydrates and serving adequate serving sizes : V * Difference between complex carbohydrates and simple carbohydrates, role of fiber: V * Differences between fats (MUFA/PUFA/saturated fats, trans fats) and food sources of various fats: V * Food sources of sodium and salt and healthy modifications for heart health and kidney health: V * Vitamins and minerals: V * How to interpret food labels: V * Healthy Plate method concept: V * Physical activity: benefits and precaution: V (2) Morbid obesity with BMI of 45.0-49.9, adult: Code(s): E66.01 - Morbid (severe) obesity due to excess calories; Z68.42 - Body mass index [BMI] 45.0-49.9, adult Category: Medical Plan: Patient Instructions: Choose herbs, spices , lemon , vinegars to season foods , working on reducing sodium intake Read food labels Coding Level of Care Code Nutr Indiv Subseq (47500) Diagnoses T2DM (type 2 diabetes mellitus) E11.9 Morbid obesity with BMI of 45.0-49.9, adult E66.01; Z68.42 Time Spent (min) 20
[2023-10-26 21:53] VITALS: BMI 46.0
== END 2023-10-19 11:32 | disposition home or self-care (01) ==
PROVIDERS: PCP Internal Medicine; Visit Provider Dietitian, Registered
DX: E11.9 Type 2 diabetes mellitus without complications (principal); E66.01 Morbid (severe) obesity due to excess calories; Z68.42 Body mass index [BMI] 45.0-49.9, adult

== ENCOUNTER 2023-11-09 08:30 | Outpatient (AMB) | payer OTHER, SELFPAY ==
--- NOTE | 2023-11-09 08:43 | A.OFFVIS_ITS ---
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: No Allergies amoxicillin [AMOXICILLIN] Allergy (Unknown, Verified 10/19/23 10:27) HIVES atorvastatin Allergy (Unknown, Verified 10/19/23 10:27) hives bupropion [From ZYBAN] Allergy (Unknown, Verified 10/19/23 10:27) HIVES milk Allergy (Unknown, Verified 10/19/23 10:27) Diarrhea Penicillins [PENICILLINS] Allergy (Unknown, Verified 10/19/23 10:27) HIVES pravastatin Allergy (Unknown, Verified 10/19/23 10:27) hives simvastatin [SIMVASTATIN] Allergy (Unknown, Verified 10/19/23 10:27) HIVES tomato Allergy (Unknown, Verified 10/19/23 10:27) Hives metformin Adverse Reaction (Intermediate, Verified 10/19/23 10:27) Diarrhea Medication List - Last Reconciled 11/09/23 by Renaldo Cook MD albuterol sulfate 90 mcg/actuation (ProAir HFA) 2 puffs inhalation Q6H amlodipine (Norvasc) 5 mg PO DAILY aspirin (Adult Low Dose Aspirin) 162 mg PO DAILY [AUTOCPAP 8-20 mm HG humidified heated air As directed] blood sugar diagnostic As directed blood sugar diagnostic ([employer] Ultra Test strips) As directed check the blood sugar once a day blood-glucose meter As directed check the blood sugar once a day compr.stocking,knee,long,x-lrg As directed 20-30 mm HG [cpap Supplies As directed] [Diabetic Shoes As directed] [diabetic socks As directed] ibuprofen 800 mg PO TID PRN ketoconazole 2% 1 appl topical 2XW lancets ([employer] Delica Lancets) As directed check the blood sugar q.day lancets As directed lisinopril 40 mg PO DAILY metoprolol tartrate 2 tabs in am and 3 tabs in pm PO 2 times a day; montelukast 10 mg PO BEDTIME nitroglycerin 0.4 mg sublingual Q5M PRN rosuvastatin 10 mg PO BEDTIME semaglutide 2 mg (0.75 mL) subcut QWEEK 30 days [Sleeve right hand As directed] triamcinolone acetonide 0.5% 1 appl topical BID 14 days [trouser socks 20-30 millimeter mercury pressure] HPI Comments Details: Radha comes for yearly follow-up. She has been doing well from cardiac perspective. No cardiac symptoms of any exertional chest pain. Denies worsening shortness of breath, orthopnea, PND. Does have bilateral leg edema that gets treated with compression stocking. No recent lipid panel. She said her blood pressure can be elevated in stressful situation but otherwise controlled. Today her blood pressure is well controlled. She is taking all her medications religiously. Denies any lightheadedness, syncope. No prolonged palpitation irregular heartbeat. Uses CPAP regularly at nighttime. [facility] Medical History Myocardial infarction Colon cancer screening Breast cancer screening by mammogram GERD (gastroesophageal reflux disease) Hypercholesterolemia Hypertension Folic acid deficiency Vitamin D deficiency Asthma Type 2 diabetes mellitus with hyperglycemia Surgical History History of coronary artery stent placement History of cholecystectomy History of hand surgery History of section Family History Father CVD (cardiovascular disease) Hypertension Heart disease Mother No problems noted. 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 Cognitive needs: No Hearing needs: No Vision needs: Yes Review of Systems Const Denies chills, Denies fatigue, Denies fever(s), Denies frequent falls, Denies weakness, Denies weight gain and Denies weight loss ENT Denies dizziness Card Denies chest pain, Denies leg edema, Denies lightheadedness, Denies palpitations, Denies dyspnea, Denies dyspnea on exertion, Denies orthopnea and Denies other (loss of consciousness) Resp Denies cough, Denies dyspnea and Denies dyspnea on exertion GI Denies hematochezia and Denies change in stool character Musc Denies abnormal gait, Denies muscle weakness, Denies numbness, Denies radiating pain into limb and Denies tingling Neuro Denies abnormal gait, Denies dizziness, Denies frequent falls, Denies numbness, Denies tingling and Denies weakness Endo Denies fatigue and Denies palpitations Physical Exam Vital Signs: Last Vital Signs Pulse 70 11/09/23 08:45 BP 130/80 11/09/23 08:45 BMI result Body Mass Index 45.9 Const General: cooperative, healthy appearing, comfortable and no acute distress Orientation/consciousness: patient oriented x3 Neck Neck: Yes normal visual inspection and Yes no JVD Carotids: normal carotid upstroke Resp Effort & Inspection: normal respiratory effort Auscultation: clear to auscultation bilaterally, no crackles, no rales, no rhonchi and no wheezes Cardio Jugular venous distension: no JVD Rate: regular rate Rhythm: regular rhythm Heart sounds: S1 normal heart sound present, S2 normal heart sound present, no gallops, Murmur heart sound present systolic early, decrescendo, crescendo and soft and no rubs Neuro General: patient oriented x3 Extrem General: Yes normal to inspection, No no pedal edema and No calf tenderness Psych Appearance: grossly normal Mental Status: mental status grossly normal Speech and movement: Normal speech and movement present Office Procedures EKG Details: EKG shows normal sinus rhythm first-degree AV block with poor R-wave progression suggestive of prior anterior or LAD territory infarct [id number], Complete Assessment & Plan Assessment & Plan (1) Coronary artery disease: Comment: Myocardial infarction [address] Ayala ejection fraction 40-50% 1.10 November 2017, echo October 2018 dilated left ventricle 45-50% moderate grade 2 diastolic dysfunction. She is being followed by Cardiology service. Echocardiogram December 2022 Code(s): I25.10 - Atherosclerotic heart disease of [place] coronary artery without angina pectoris Category: Medical Qualifiers: Coronary Disease-Associated Artery/Lesion type: [place] artery [place] vs. transplanted heart: [place] heart Associated angina: without angina Qualified Code(s): I25.10 - Atherosclerotic heart disease of [place] coronary artery without angina pectoris Plan: CAD with prior myocardial infarction with LAD stent. Patient is currently doing well with no symptoms of now. No further workup is indicated at this point time. Continue aggressive medical therapy. Importance of this was discussed. Continue lifelong aspirin therapy. Continue high-intensity statin therapy. Advised lipid panel near future. Target goal LDL closer to 60 mg/dL. Continue aggressive blood pressure control which on today's exam is well controlled. Advised to monitor blood pressure intermittently at home maintain a log. Continue CPAP therapy. Continue aggressive diabetes management. Goal hemoglobin A1c less than 7%. Importance of aggressive weight loss program was discussed and she says she is trying. (2) Aortic stenosis: Code(s): I35.0 - Nonrheumatic aortic (valve) stenosis Category: Medical Plan: Aortic stenosis which is mild by last echocardiogram. Continue aggressive vascular risk factor modifications above. No interventions required from that perspective. Monitor clinically. (3) Ischemic cardiomyopathy: Code(s): I25.5 - Ischemic cardiomyopathy Category: Medical Plan: [id number] LV systolic dysfunction secondary to prior myocardial infarction. No signs or symptoms of heart failure. Continue aggressive neurohormonal modulation with lisinopril and metoprolol. Continue aggressive blood pressure control. Signs and symptoms of heart failure were discussed. Continue CPAP therapy. Will follow up in the clinic in 1 year's time, sooner p.r.n.. Thank you for allowing me to partake in the care Orders: Orders Lipid Panel Today I25.10 - Atherosclerotic heart disease of [place] coronary artery without angina pectoris CA echo transthorac w con 1 Year I35.0 - Nonrheumatic aortic (valve) stenosis Coding Level of Care Code Est Pt Level 4 (49173) Diagnoses Coronary artery disease involving [place] coronary artery of [place] heart without angina pectoris I25.10 Coronary Disease-Associated Artery/Lesion type: [place] artery [place] vs. transplanted heart: [place] heart Associated angina: without angina Aortic stenosis I35.0 Ischemic cardiomyopathy I25.5 CPT Codes EKG - CPT: 27261-[id number], Complete ([id number])
[2023-11-09 08:45] VITALS: BP 130/80; PULSE 70; BMI 45.9
== END 2023-11-09 09:04 | disposition home or self-care (01) ==
PROVIDERS: PCP Internal Medicine; Visit Provider Internal Medicine Cardiovascular Disease
DX: I25.10 Atherosclerotic heart disease of native coronary artery without angina pectoris (principal); I35.0 Nonrheumatic aortic (valve) stenosis; I25.5 Ischemic cardiomyopathy
CPT/HCPCS: 93010; 99214

== ENCOUNTER → 2023-11-09 08:30 | Outpatient (BNVA) | payer OTHER, SELFPAY | PROVIDERS: PCP Internal Medicine; Visit Provider Internal Medicine Cardiovascular Disease | DX: I44.0 Atrioventricular block, first degree (principal); I25.10 Atherosclerotic heart disease of native coronary artery without angina pectoris; I10 Essential (primary) hypertension; I35.0 Nonrheumatic aortic (valve) stenosis; I25.5 Ischemic cardiomyopathy; Z95.5 Presence of coronary angioplasty implant and graft | CPT/HCPCS: 93005; 99212 ==

== ENCOUNTER 2023-12-06 10:12 | Outpatient (REF) | payer OTHER, SELFPAY ==
[2023-12-06 10:48] LABS: MANUAL DIFF FLAG NO
[2023-12-06 11:14] LABS: Estimated Average Glucose 117 mg/dL; Hemoglobin A1C 135.9856 umol/L; Hemoglobin A1c % 5.7 % (<6.0); Total Hemoglobin (HGBA1C) 3462.9924 umol/L
[2023-12-06 11:22] LABS: Basophils Percent Auto 0.5 % (0-2); Eosinophils Absolute Auto 0.1 X10*3/uL (0.0-0.4); Eosinophils Percent Auto 1.9 % (0-4); Hematocrit 43.3 % (37.0-47.0); Hemoglobin 14.4 g/dl (12.0-16.0); Imm Gran Abs Auto 0.02 X10*3/uL (0.00-0.03); Imm Gran Pct Auto 0.3 % (0.0-0.4); Lymphocytes Absolute Auto 1.8 X10*3/uL (1.2-4.9); Mean Corpuscular HGB Conc 33.3 g/dl (31.0-35.0); Mean Corpuscular Hemoglobin 29.8 pg (27.0-33.0); Mean Corpuscular Volume 89.5 fL (80.0-98.0); Mean Platelet Volume 10.4 fL (9.4-12.3); Monocytes Absolute Auto 0.5 X10*3/uL (0.1-1.2); Neutrophils Percent Auto 66.3 % (45-73); Platelet Count 204 X10*3/uL (160-400); Red Blood Count 4.84 X10*6/uL (4.20-5.50); Red Cell Distribution Width 12.9 % (11.0-16.0); White Blood Count 7.6 X10*3/uL (4.8-10.8)
[2023-12-06 11:35] LABS: Creatinine Urine 42.72 mg/dL; Microalbum/Creatinine Ratio Ur 70.2 ug/mg cr (<30)
[2023-12-06 11:36] LABS: Cholesterol 103 mg/dL (<200); HDL Cholesterol 44 mg/dL (>40); LDL Cholesterol Calculated 51 mg/dL (<100); Triglycerides 40 mg/dL (<150)
[2023-12-06 11:42] LABS: Alanine Aminotransferase 19 U/L (0-31); Alkaline Phosphatase 94 U/L (39-117); Anion Gap 12 (12-20); Aspartate Amino Transferase 14 U/L (5-31); Bilirubin Total 1.4 mg/dL (0.0-1.0); Blood Urea Nitrogen 21 mg/dL (9-16); Calcium 9.3 mg/dL (8.4-10.2); Carbon Dioxide 23 mmol/L (22-29); Chloride 110 mmol/L (96-108); Cholesterol 105 mg/dL (<200); Estimated Glomerular Filt Rate 52; Glucose Random 118 mg/dL (60-115); HDL Cholesterol 45 mg/dL (>40); LDL Cholesterol Calculated 52 mg/dL (<100); Sodium 141 mmol/L (135-145); Total Protein 7.3 g/dL (6.5-8.0); Triglycerides 40 mg/dL (<150)
[2023-12-06 11:58] LABS: Free T4 (Free Thyroxine) 1.03 ng/dL (0.71-1.85); Vitamin D 25-OH Total 17.8 ng/mL (>30)
[2023-12-06 12:08] LABS: Folate 6.5 ng/mL (> or = 4.0); Vitamin B12 310 pg/mL (200-900)
== END 2023-12-06 10:13 | disposition home or self-care (01) ==
LOC: HO.LAB 10:12
PROVIDERS: Absent Provider Internal Medicine Cardiovascular Disease; PCP Internal Medicine; Visit Provider Internal Medicine
DX: E11.65 Type 2 diabetes mellitus with hyperglycemia (principal); E78.00 Pure hypercholesterolemia, unspecified; I25.10 Atherosclerotic heart disease of native coronary artery without angina pectoris
CPT/HCPCS: 36415; 80053; 80061; 82043; 82306; 82570; 82607; 82746; 83036; 84439; 84443; 85025

== ENCOUNTER 2024-01-11 09:28 | Outpatient (REF) | payer OTHER, SELFPAY ==
--- NOTE | ~2024-01-11 | MM_ITS ---
EXAMINATION: MM SCREENING DIGITAL BREAST TOMOSYNTHESIS, BILATERAL CLINICAL INFORMATION: Screening. Asymptomatic. COMPARISON: Mammography: Comparison is made with available priors TECHNIQUE: Digital breast mammography with tomosynthesis is performed in both the craniocaudal and mediolateral oblique views along with computer-aided detection (CAD). FINDINGS: There are scattered areas of fibroglandular density (ACR BI-RADS breast composition Category b). There are no significant masses, abnormal calcifications, or other abnormalities. MM/MM tomosynthesis screening BI IMPRESSION: No mammographic evidence of malignancy. ASSESSMENT: BI-RADS BI-RADS 1 - Negative RECOMMENDATION: Routine annual mammography screening. 1 year F/U This examination should not preclude the clinical evaluation of a suspicious palpable abnormality. This patient's information was entered into a reminder system with a target due date for their next mammogram. Electronically signed by: Kendra Call DO 01/19/2024 10:45 AM TONY
== END 2024-01-11 09:29 | disposition home or self-care (01) ==
LOC: HO.MAMMO 09:28
PROVIDERS: PCP Internal Medicine; Visit Provider Internal Medicine
DX: Z12.31 Encounter for screening mammogram for malignant neoplasm of breast (principal)
CPT/HCPCS: 77063; 77067

== ENCOUNTER → 2024-01-11 09:45 | Outpatient (BNV) | payer OTHER, SELFPAY | PROVIDERS: PCP Internal Medicine; Visit Provider Internal Medicine | DX: Z12.31 Encounter for screening mammogram for malignant neoplasm of breast (principal) | CPT/HCPCS: 77063; 77067 ==

== ENCOUNTER 2024-02-15 10:46 | Outpatient (AMB) | payer OTHER, SELFPAY ==
[2024-02-15 11:07] VITALS: BMI 45.3
--- NOTE | 2024-02-15 11:07 | A.OFFVIS_ITS ---
VS Expanded 02/15/24 11:07 03/03/24 18:46 Height 6 ft 2 in 6 ft 2 in Weight 352 lb 11.834 oz 353 lb BMI 45.3 45.3 Intake Visit Reasons: T2DM/Left vm Allergies amoxicillin [AMOXICILLIN] Allergy (Unknown, Verified 10/19/23 10:27) HIVES atorvastatin Allergy (Unknown, Verified 10/19/23 10:27) hives bupropion [From ZYBAN] Allergy (Unknown, Verified 10/19/23 10:27) HIVES milk Allergy (Unknown, Verified 10/19/23 10:27) Diarrhea Penicillins [PENICILLINS] Allergy (Unknown, Verified 10/19/23 10:27) HIVES pravastatin Allergy (Unknown, Verified 10/19/23 10:27) hives simvastatin [SIMVASTATIN] Allergy (Unknown, Verified 10/19/23 10:27) HIVES tomato Allergy (Unknown, Verified 10/19/23 10:27) Hives metformin Adverse Reaction (Intermediate, Verified 10/19/23 10:27) Diarrhea Nutrition Presentation Details: Pt presents for MNT f/u for morbid obesity Pt reports working on diet modification. Pt is also on DM med (semaglutide) denies symptoms of hypoglycemia Has questions regarding vitamin D sources of food, has vit d supplements at home but forgets to take them BS Monitoring Most Recent Diabetes Results: Microalb/Creat Ratio 70.2 ug/mg cr (<30) H 12/06/23 Cholesterol 105 mg/dL (<200) 12/06/23 HDL Cholesterol 45 mg/dL (>40) 12/06/23 Triglycerides 40 mg/dL (<150) 12/06/23 Creatinine 1.09 mg/dL (0.5-1.4) 12/06/23 Blood Urea Nitrogen 21 mg/dL (9-16) H 12/06/23 Sodium 141 mmol/L (135-145) 12/06/23 Potassium 4.0 mmol/L (3.3-5.1) 12/06/23 Chloride 110 mmol/L (96-108) H 12/06/23 Carbon Dioxide 23 mmol/L (22-29) 12/06/23 Calcium 9.3 mg/dL (8.4-10.2) 12/06/23 AST 14 U/L (5-31) 12/06/23 ALT 19 U/L (0-31) 12/06/23 Total Protein 7.3 g/dL (6.5-8.0) 12/06/23 Albumin 4.0 g/dL (3.5-5.0) 12/06/23 YMY-Iccmnzw-Bn.Jeor Equation Height: 6 ft 2 in Weight: 353 lb Resting Metabolic Rate: 2342.73 Calculated Activity Level: Sedentary Calories Needed to Maintain Weight: 2811.28 FOR[facility]LY [facility], [facility] Medical History Myocardial infarction Colon cancer screening Breast cancer screening by mammogram GERD (gastroesophageal reflux disease) Hypercholesterolemia Hypertension Folic acid deficiency Vitamin D deficiency Asthma Type 2 diabetes mellitus with hyperglycemia Surgical History History of coronary artery stent placement History of cholecystectomy History of hand surgery History of section Family History Father CVD (cardiovascular disease) Hypertension Heart disease Mother No problems noted. 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 Cognitive needs: No Hearing needs: No Vision needs: Yes Assessment & Plan Assessment & Plan (1) Morbid obesity with BMI of 45.0-49.9, adult: Code(s): E66.01 - Morbid (severe) obesity due to excess calories; Z68.42 - Body mass index [BMI] 45.0-49.9, adult Category: Medical Plan: BMI hx 45.3 (02/19), BMI at 49.5 on 01/25/21 Reviewed vitamin D sources of foods EST Kcal NEEDS as per [place] [facility] Jeor: 2800 kcal/d USED BODY WT : 160 kg est protein needs as per -1.0 g/kg bw: 160 g/d est fluid needs as per 30 ml/kg bw: 4800 ml/d Educate patient on: (R= Reviewed, V = verbalizes understanding N/R= Needs review N/A= not applicable) * Food sources of carbohydrates and serving adequate serving sizes : V * Difference between complex carbohydrates and simple carbohydrates, role of fiber: V * Differences between fats (MUFA/PUFA/saturated fats, trans fats) and food sources of various fats: V * Food sources of sodium and salt and healthy modifications for heart health and kidney health: V * Vitamins and minerals: V * How to interpret food labels: V * Healthy Plate method concept: V * Physical activity: benefits and precaution: V (2) T2DM (type 2 diabetes mellitus): Comment: BMI hx 45.3 (02/19), BMI at 49.5 on 01/25/21 Code(s): E11.9 - Type 2 diabetes mellitus without complications Category: Medical Plan: Reviewed low sodium, heart health nutrition concepts EST Kcal NEEDS as per [facility]: 2866 kcal/d USED BODY WT : 162 kg est protein needs as per -1.0 g/kg bw: 162 g/d est fluid needs as per 30 ml/kg bw: 4900 ml/d Educate patient on: (R= Reviewed, V = verbalizes understanding N/R= Needs review N/A= not applicable) * Food sources of carbohydrates and serving adequate serving sizes : V * Difference between complex carbohydrates and simple carbohydrates, role of fiber: V * Differences between fats (MUFA/PUFA/saturated fats, trans fats) and food sources of various fats: V * Food sources of sodium and salt and healthy modifications for heart health and kidney health: V * Vitamins and minerals: V * How to interpret food labels: V * Healthy Plate method concept: V * Physical activity: benefits and precaution: V Patient Instructions: Have at least 4 cups of vitamin D fortified almond milk (read food labels and choose the one with the higher %, at least 20% Vitamin D per cup) Include foods fortified with vitamin D, see list of options Coding Level of Care Code Nutr Indiv Subseq (33880) Diagnoses Morbid obesity with BMI of 45.0-49.9, adult E66.01; Z68.42 T2DM (type 2 diabetes mellitus) E11.9 Time Spent (min) 30
[2024-03-03 18:46] VITALS: BMI 45.3
== END 2024-02-15 11:38 | disposition home or self-care (01) ==
PROVIDERS: PCP Internal Medicine; Visit Provider Dietitian, Registered
DX: E66.01 Morbid (severe) obesity due to excess calories (principal); Z68.42 Body mass index [BMI] 45.0-49.9, adult; E11.9 Type 2 diabetes mellitus without complications

== ENCOUNTER → 2024-02-15 10:46 | Outpatient (BNVA) | payer OTHER, SELFPAY | PROVIDERS: PCP Internal Medicine; Visit Provider Dietitian, Registered | DX: E11.65 Type 2 diabetes mellitus with hyperglycemia (principal); E66.01 Morbid (severe) obesity due to excess calories; Z68.42 Body mass index [BMI] 45.0-49.9, adult; Z71.3 Dietary counseling and surveillance | CPT/HCPCS: 97803 ==

== ENCOUNTER 2024-03-04 09:43 | Outpatient (AMB) | payer OTHER, SELFPAY ==
[2024-03-04 10:42] VITALS: BP 128/90; PULSE 76; TEMP 36.6; O2SAT 96
--- NOTE | 2024-03-04 10:42 | MHC.OFFWIV ---
Intake Vital Signs 03/04/24 10:42 Weight 364 lb BP 128/90 H Blood Pressure Location Lt brachial Position Sitting Pulse 76 Pulse Source Pulse Oximeter Temp 97.8 F Temp Source Oral Pulse Oximetry (%) 96 Oxygen Delivery Method Room Air Intake Visit Reasons: EP-constantly dry throat, nose congestion Intake Note: Patient here for loss of voice, dry throat and congestion that has been present for about 3 weeks. Patient Tobacco Use Status: Former Tobacco user Allergies amoxicillin [AMOXICILLIN] Allergy (Unknown, Verified 03/04/24 10:43) HIVES atorvastatin Allergy (Unknown, Verified 03/04/24 10:43) hives bupropion [From ZYBAN] Allergy (Unknown, Verified 03/04/24 10:43) HIVES milk Allergy (Unknown, Verified 03/04/24 10:43) Diarrhea Penicillins [PENICILLINS] Allergy (Unknown, Verified 03/04/24 10:43) HIVES pravastatin Allergy (Unknown, Verified 03/04/24 10:43) hives simvastatin [SIMVASTATIN] Allergy (Unknown, Verified 03/04/24 10:43) HIVES tomato Allergy (Unknown, Verified 03/04/24 10:43) Hives metformin Adverse Reaction (Intermediate, Verified 03/04/24 10:43) Diarrhea Do you need a note to return to daycare/school/sports/work: No HPI HPI Comments History of Present Illness Details History - The patient is a 53-year-old female presenting with persistent symptoms of sore throat and nasal congestion for over three weeks. - Her symptoms include nasal congestion and a red, raw nasal area with crusting, now slightly improved. - The sore throat lingers, with no fever but a slight cough, and she reports asthma but hasn't used her inhaler recently. she denies shortness of breath or wheezing. - Recurrent nasal issues include irritation and scabbing. - The patient's household experienced similar illnesses, resolving without antibiotics, while her condition persists. Physical Exam General: Cooperative, healthy appearing, comfortable and no acute distress Orientation/consciousness: Patient oriented x3 Limitations: No limitations Head: Normal to inspection Ears: Hearing grossly normal bilaterally, external ears normal and TM's normal bilaterally Nose: 1cm linear area of scabbing and erythema tip of right nare, no warmth, no drainage or signs of infection noted. no nasal discharge present Face and sinus: Normal facial exam and Yes sinuses nontender Mouth: Normal oral and palatal mucosa present and moist mucous membranes Throat: Yes tonsils normal, Yes uvula midline. Posterior oropharynx erythema Eyes: Appearance normal, both eyes and all related structures Neck: Normal visual inspection Respiratory: Clear to auscultation bilaterally. Normal respiratory effort, able to speak in complete sentences, Actively coughing, no respiratory distress, not tachypneic, no tripod positioning and no use of accessory muscles Cardiovascular: Regular rate and rhythm. Normal S1 and S2 Skin: No rashes or lesions noted Neuro: Patient oriented x3 Extremities: Normal to inspection and Yes no clubbing, cyanosis or edema PFSH Medical History Myocardial infarction Colon cancer screening Breast cancer screening by mammogram GERD (gastroesophageal reflux disease) Hypercholesterolemia Hypertension Folic acid deficiency Vitamin D deficiency Asthma Type 2 diabetes mellitus with hyperglycemia Surgical History History of coronary artery stent placement History of cholecystectomy History of hand surgery History of section Family History Father CVD (cardiovascular disease) Hypertension Heart disease Mother No problems noted. 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 VSS, pt well appearing and PE unremarkable. Persistent symptoms. A thorough examination and assessment point towards atypical pneumonia as a possible underlying issue for the persistent sore throat and congestion. Azithromycin Z-Demarcus) is prescribed, carefully chosen due to the patient's allergies. Attention is given to the raw nasal skin, recommending petroleum-based products to promote healing. Further viral testing is deemed unnecessary given symptom persistence and family recovery patterns. The patient has adequate asthma management supplies, and no work-related adjustments are required. Patient was informed and verbally consented to the use of an ambient scribe for clinic note documentation during this visit Medications: New azithromycin For 250 mg dose pack: take 500 mg today (day 1), then 250 mg for 4 days (days 2-5) orally; 6 tabs 0RF Coding Level of Care Code Est Pt Level 3 (15135) Diagnoses Atypical pneumonia J18.9
== END 2024-03-04 11:33 | disposition home or self-care (01) ==
PROVIDERS: PCP Internal Medicine; Visit Provider Physician Assistant
DX: J18.9 Pneumonia, unspecified organism (principal)

== ENCOUNTER → 2024-03-04 09:43 | Outpatient (BNVA) | payer OTHER, SELFPAY | PROVIDERS: PCP Internal Medicine; Visit Provider Physician Assistant | DX: J18.9 Pneumonia, unspecified organism (principal) | CPT/HCPCS: 99212 ==

== ENCOUNTER 2024-03-21 09:44 | Outpatient (AMB) | payer OTHER, SELFPAY ==
[2024-03-21 09:51] VITALS: BP 142/78; PULSE 75; O2SAT 98; BMI 46.4
--- NOTE | 2024-03-21 09:51 | MHC.OFFVIS ---
Vital Signs 03/21/24 09:51 Height 6 ft 2 in Weight 361 lb 8.929 oz BMI 46.4 BP 142/78 H Blood Pressure Location Lt radial Position Sitting Pulse 75 Pulse Source Pulse Oximeter Pulse Oximetry (%) 98 Oxygen Delivery Method Room Air Intake Visit Reasons: Obstructive sleep apnea Intake Note: pt is here for follow up of KRYSTAL, and she is feeling good, cpap going well. 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 Allergies amoxicillin [AMOXICILLIN] Allergy (Unknown, Verified 03/21/24 10:25) HIVES atorvastatin Allergy (Unknown, Verified 03/21/24 10:25) hives bupropion [From ZYBAN] Allergy (Unknown, Verified 03/21/24 10:25) HIVES milk Allergy (Unknown, Verified 03/21/24 10:25) Diarrhea Penicillins [PENICILLINS] Allergy (Unknown, Verified 03/21/24 10:25) HIVES pravastatin Allergy (Unknown, Verified 03/21/24 10:25) hives simvastatin [SIMVASTATIN] Allergy (Unknown, Verified 03/21/24 10:25) HIVES tomato Allergy (Unknown, Verified 03/21/24 10:25) Hives metformin Adverse Reaction (Intermediate, Verified 03/21/24 10:25) Diarrhea Medication List - Last Reconciled 03/21/24 by Pili Hunter MD albuterol sulfate 90 mcg/actuation (ProAir HFA) 2 puffs inhalation Q6H aspirin (Adult Low Dose Aspirin) 162 mg PO DAILY [AUTOCPAP 8-20 mm HG humidified heated air As directed] blood sugar diagnostic As directed blood sugar diagnostic ([employer] Ultra Test strips) As directed check the blood sugar once a day blood-glucose meter As directed check the blood sugar once a day compr.stocking,knee,long,x-lrg As directed 20-30 mm HG [cpap Supplies As directed] [Diabetic Shoes As directed] [diabetic socks As directed] ibuprofen 800 mg PO TID PRN ketoconazole 2% 1 appl topical 2XW lancets ([employer] Delica Lancets) As directed check the blood sugar q.day lancets As directed lisinopril 40 mg PO DAILY metoprolol tartrate 2 tabs in am and 3 tabs in pm PO 2 times a day; montelukast 10 mg PO BEDTIME nitroglycerin 0.4 mg sublingual Q5M PRN rosuvastatin 10 mg PO BEDTIME semaglutide 2 mg (0.75 mL) subcut QWEEK 30 days [Sleeve right hand As directed] triamcinolone acetonide 0.5% 1 appl topical BID 14 days [trouser socks 20-30 millimeter mercury pressure] HPI HPI Obstructive sleep apnea: Details: THIS 53 YEARS OLD FEMALE IS A CASE OF SUPER MORBID OBESITY AND OBSTRUCTIVE SLEEP APNEA, SHE USES CPAP. RELIGIOUSLY EVERY NIGHT AND SLEEPS WELL. THERE IS NO ISSUE WITH THE CPAP DEVICE. SHE DENIES ANY DAYTIME SLEEPINESS. ONLY OCCASIONAL SENSE OF WHEEZING FOR WHICH SHE TAKES ALBUTEROL ONCE IN A WHILE. SHE ALSO HAS MILD INTERMITTENT NASAL CONGESTION WHICH REMAINS RELATIVELY CONTROLLED. SHE TAKES CARE OF HER 5 YEARS OLD CHILD AND REMAINS BUSY SO NOT ABLE TO DO MUCH EXERCISE. SHE HAS BEEN STARTED ON OZEMPIC INJECTIONS BUT SO FAR HAS NOT LOST MUCH WEIGHT. [facility] Medical History Myocardial infarction Colon cancer screening Breast cancer screening by mammogram GERD (gastroesophageal reflux disease) Hypercholesterolemia Hypertension Folic acid deficiency Vitamin D deficiency Asthma Type 2 diabetes mellitus with hyperglycemia Surgical History History of coronary artery stent placement History of cholecystectomy History of hand surgery History of section Family History Father CVD (cardiovascular disease) Hypertension Heart disease Mother No problems noted. 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 Cognitive needs: No Hearing needs: No Vision needs: Yes Review of Systems Const All systems reviewed & are unremarkable except as noted in HPI and below Eyes Reports no additional complaints ENT Reports nasal congestion (Off and on due to changes in the weather) Card Denies chest pain, Denies irregular heart rhythm and Denies leg edema Resp Reports as per HPI GI Reports no additional complaints Reports no additional complaints Musc Reports no additional complaints Skin/Breast Reports dry skin and Reports pruritus (On the legs, ) Neuro Reports no additional complaints Psych Reports no additional complaints Physical Exam Vital Signs: Last Vital Signs Pulse 75 03/21/24 09:51 BP 142/78 H 03/21/24 09:51 Pulse Ox 98 03/21/24 09:51 Oxygen Delivery Method Room Air 03/21/24 09:51 BMI result Body Mass Index 46.4 Const Other: She is tall and grossly overweight General: comfortable, no acute distress, alert and awake Orientation/consciousness: patient oriented x3 HEENT Head: Yes normal to inspection General nose exam: No nasal polyps present, No nasal discharge present and Other nasal findings present ( MILD NASAL CONGESTION) Face and sinus: Yes sinuses nontender Mouth: oropharynx normal Throat: Yes posterior oropharynx normal Eyes General: appearance normal, both eyes and all related structures Neck Neck: Yes normal visual inspection, Yes no lymphadenopathy, Yes trachea midline, Yes no JVD and Yes other (Neck is very obese) Thyroid: Thyroid normal Chest Chest palpation & inspection: normal inspection of the chest, normal palpation of entire chest wall and no tenderness Resp Effort & Inspection: normal respiratory effort and other ( BREATH SOUNDS ARE SLIGHTLY DECREASED OVER THE BASILAR AREAS) Auscultation: clear to auscultation bilaterally Percussion: percussion normal Cardio Palpation: normal PMI Rate: regular rate Rhythm: regular rhythm Heart sounds: no gallops and no murmurs GI Palpation (GI): Soft to palpation, nontender, No hepatosplenomegaly present, no masses and Other GI palpation findings present (Abdomen obese and protuberant) Auscultation: normal bowel sounds Back/Spine/Pelvis Thoracic/Lumbar Spine: thoracic and lumbar spine normal to inspection and thoraco-lumbar ROM limited Skin General skin exam: dry skin Rashes: other (Mild stasis dermatitis noted over the lower part of legs) Neuro General: patient oriented x3 and no focal motor deficits Cranial nerves: Yes CN's II-XII intact bilaterally Extrem General: Yes normal to inspection, Yes no calf tenderness, Yes edema (MILD ,CHRONIC STASIS ) and Yes venous stasis dermatitis Psych Appearance: grossly normal and well kempt Speech and movement: Normal speech and movement present Results Reviewed Results Reviewed: COMPLIANCE REPORT FOR THE LAST 30 NIGHTS IS REVIEWED. SHE HAS USED CPAP 30/30 NIGHTS AND AN AVERAGE USE IT PER NIGHT IS 7 HOURS 28 MINUTES. THERE IS NOT MUCH AIR LEAK AND RESIDUAL AHI ONLY 0.3 Assessment & Plan Assessment & Plan (1) Morbid obesity with BMI of 45.0-49.9, adult: Comment: PATIENT REMAINS MORBIDLY OBESE. WATCHES HER DIET BUT SHE IS NOT ABLE TO DO ANY WALKING OR EXERCISE. RECENTLY HAS BEEN STARTED ON OZEMPIC INJECTIONS. Code(s): E66.01 - Morbid (severe) obesity due to excess calories; Z68.42 - Body mass index [BMI] 45.0-49.9, adult Category: Medical Plan: STRESSED THAT SHE SHOULD FINDS SOME TIME TO WALK AROUND AT LEAST FOR 30 MINUTES. SHE SHOULD DO SOME KIND OF EXERCISE JUST AT HOME. CONTINUE TO WATCH DIET. (2) Obstructive sleep apnea: Comment: DIAGNOSIS SINCE 2008. HAS BEEN VERY COMPLIANT, FACE MASK OF SMALLER SIZE IS COMFORTABLE , SHE INTER CHANGES BETWEEN THE SMALL SIZE AND LARGE SIZE. Code(s): G47.33 - Obstructive sleep apnea (adult) (pediatric) Category: Medical Plan: COMMENDED FOR GOOD COMPLIANCE AND ADVISED TO CONTINUE USING CPAP EVERY NIGHT REGULARLY. (3) Asthma: Comment: SHE HAS LONG-STANDING HISTORY OF ASTHMA WHICH IS FAIRLY WELL CONTROLLED. IT SEEMS THAT HER MAIN TRIGGER IS PHYSICAL EXERTION . PFT. RESULTS SHOWED MOSTLY RESTRICTIVE PATTEN . Code(s): J45.909 - Unspecified asthma, uncomplicated Category: Medical Qualifiers: Asthma severity: mild Asthma persistence: intermittent Asthma complication type: uncomplicated Qualified Code(s): J45.20 - Mild intermittent asthma, uncomplicated Plan: CONTINUE USING ALBUTEROL 2 PUFFS Q 6 HOURS BUT ONLY P.R.N.. CONTINUE USING MONTELUKAST 10 MG DAILY. Coding Level of Care Code Est Pt Level 3 (96545) Diagnoses Morbid obesity with BMI of 45.0-49.9, adult E66.01; Z68.42 Obstructive sleep apnea G47.33 Mild intermittent asthma without complication J45.20 Asthma severity: mild Asthma persistence: intermittent Asthma complication type: uncomplicated
== END 2024-03-21 10:26 | disposition home or self-care (01) ==
PROVIDERS: PCP Internal Medicine; Visit Provider Internal Medicine
DX: E66.01 Morbid (severe) obesity due to excess calories (principal); Z68.42 Body mass index [BMI] 45.0-49.9, adult; G47.33 Obstructive sleep apnea (adult) (pediatric); J45.20 Mild intermittent asthma, uncomplicated
CPT/HCPCS: 99213

== ENCOUNTER → 2024-03-21 09:44 | Outpatient (BNVA) | payer OTHER, SELFPAY | PROVIDERS: PCP Internal Medicine; Visit Provider Internal Medicine | DX: J45.20 Mild intermittent asthma, uncomplicated (principal); G47.33 Obstructive sleep apnea (adult) (pediatric); E66.01 Morbid (severe) obesity due to excess calories; Z99.89 Dependence on other enabling machines and devices; Z68.42 Body mass index [BMI] 45.0-49.9, adult | CPT/HCPCS: 99212 ==

== ENCOUNTER 2024-05-03 11:18 | Outpatient (AMB) | payer OTHER, SELFPAY ==
--- NOTE | 2024-05-03 11:20 | MHC.PC.OV ---
Vital Signs 05/03/24 11:21 Height 6 ft 2 in Weight 365 lb BMI 46.9 BP 134/80 Respiration 18 Pulse 72 Pulse Source Pulse Oximeter Temp 97.8 F Pulse Oximetry (%) 97 Oxygen Delivery Method Room Air Intake Visit Reasons: 6 month f/u Ordering Box Operator Required: No Accompanied by: Self / Same As Patient Allergies amoxicillin [AMOXICILLIN] Allergy (Unknown, Verified 05/03/24 11:21) HIVES atorvastatin Allergy (Unknown, Verified 05/03/24 11:21) hives bupropion [From ZYBAN] Allergy (Unknown, Verified 05/03/24 11:21) HIVES milk Allergy (Unknown, Verified 05/03/24 11:21) Diarrhea Penicillins [PENICILLINS] Allergy (Unknown, Verified 05/03/24 11:21) HIVES pravastatin Allergy (Unknown, Verified 05/03/24 11:21) hives simvastatin [SIMVASTATIN] Allergy (Unknown, Verified 05/03/24 11:21) HIVES tomato Allergy (Unknown, Verified 05/03/24 11:21) Hives metformin Adverse Reaction (Intermediate, Verified 05/03/24 11:21) Diarrhea Medication List - Last Reconciled 05/03/24 by Adán Yadav MD albuterol sulfate 90 mcg/actuation (ProAir HFA) 2 puffs inhalation Q6H aspirin (Adult Low Dose Aspirin) 162 mg PO DAILY [AUTOCPAP 8-20 mm HG humidified heated air As directed] blood sugar diagnostic As directed blood sugar diagnostic (ReactXuch Ultra Test strips) As directed check the blood sugar once a day blood-glucose meter As directed check the blood sugar once a day compr.stocking,knee,long,x-lrg As directed 20-30 mm HG [cpap Supplies As directed] [Diabetic Shoes As directed] [diabetic socks As directed] ibuprofen 800 mg PO TID PRN ketoconazole 2% 1 appl topical 2XW lancets (EvisorsTouch Delica Lancets) As directed check the blood sugar q.day lancets As directed lisinopril 40 mg PO DAILY metoprolol tartrate 2 tabs in am and 3 tabs in pm PO 2 times a day; montelukast 10 mg PO BEDTIME nitroglycerin 0.4 mg sublingual Q5M PRN rosuvastatin 10 mg PO BEDTIME semaglutide (weight loss) (Wegovy) 2.4 mg (0.75 mL) subcut QWEEK [Sleeve right hand As directed] triamcinolone acetonide 0.5% 1 appl topical BID 14 days [trouser socks 20-30 millimeter mercury pressure] Tobacco use date assessed: 05/03/24 Dental Screening Dental Screen Date: 05/03/24 Did you have a dental visit in the last 12 months?: Yes Did you have a dental problem in the last 6 months where you did not have access to dental care?: No [facility] Medical History (Updated 05/03/24 @ 11:50 by Adán Yadav MD) Colon cancer screening Myocardial infarction Breast cancer screening by mammogram GERD (gastroesophageal reflux disease) Hypercholesterolemia Hypertension Folic acid deficiency Vitamin D deficiency Asthma Type 2 diabetes mellitus with hyperglycemia Surgical History History of coronary artery stent placement History of cholecystectomy History of hand surgery History of section Family History Father CVD (cardiovascular disease) Hypertension Heart disease Mother No problems noted. 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 1. Little interest or pleasure in doing things: not at all 2. Feeling down, depressed, or hopeless: not at all 3. Trouble falling or staying asleep, or sleeping too much: not at all 4. Feeling tired or having little energy: not at all 5. Poor appetite or overeating: not at all 6. Feeling bad about yourself - or that you are a failure or have let yourself or your family down: not at all 7. Trouble concentrating on things, such as reading the newspaper or watching television: not at all 8. Moving or speaking so slowly that other people could have noticed. Or the opposite - being so fidgety or restless that you have been moving around a lot more than usual: not at all 9. Thoughts that you would be better off or of hurting yourself in some way: not at all Total score: 0 Depression Screening Interpretation: Negative Depression Screening Done: Yes Source: Developed by Drs. Steve Joshi, Carole Patton, Seth Duke and colleagues, with an educational velia from [employer]. Thrive Questionnaire Date Thrive assessed: 05/03/24 I am a: Patient What is your living situation today?: I have a steady place to live Within the past 12 months, did the food you bought not last and you didn't have the money to get more?: Never true Within the past 12 months, did you worry whether your food would run out before you got money to buy more?: Never true Do you have trouble paying for medicines?: No Do you have trouble getting transportation to medical appointments?: No Do you have trouble paying your heating and electricity bill?: No Do you have trouble taking care of your child, family member or friend?: No Do you have trouble with day-to-day activities such as bathing, preparing meals, shopping, managing finances, etc.?: No Are you currently unemployed and looking for a job?: No Are you interested in more education?: No Please select the resources that you would like help with: None THRIVE Score: 0 AUDIT C Alcohol Use Questionnaire (AUDIT-C) 1. How often do you have a drink containing alcohol?: Never 3. How often do you have six or more drinks on one occasion?: Never Total Score: 0 NGOZI-7 AMB Questionnaire NGOZI-7 Date NGOZI - 7 assessed: 05/03/24 Feeling nervous, anxious, or on edge: 0 = Not at all Not being able to stop or control worryin = Not at all Worrying too much about different things: 0 = Not at all Trouble relaxin = Not at all Being so restless that it is hard to sit still: 0 = Not at all Becoming easily annoyed or irritable: 0 = Not at all Feeling afraid as if something awful might happen: 0 = Not at all Total NGOZI-7 score (0-4 normal; 5-9 mild; 10-14 moderate; 15-21 severe): 0 Source: Developed by Drs. Steve Joshi, Carole Patton, Seth Duke and colleagues, with an educational velia from [employer]. Physical exam (Primary Care) Vital Signs: Last Vital Signs Temp 97.8 F 05/03/24 11:21 Pulse 72 05/03/24 11:21 Resp 18 05/03/24 11:21 BP 134/80 05/03/24 11:21 Pulse Ox 97 05/03/24 11:21 Oxygen Delivery Method Room Air 05/03/24 11:21 BMI result Body Mass Index 46.9 Tobacco/Smoking Status: Tobacco use Status Tobacco use date assessed 05/03/24 05/03/24 11:22 Patient Tobacco Use Status Former Tobacco user 05/03/24 11:20 Tobacco use type Cigarette 05/03/24 11:20 e-Cigarette/Vaping Use Never Used 05/03/24 11:20 PHQ-9: PHQ-9 Score PHQ-9: Total score 0 05/03/24 11:51 Depression Screening Interpretation: Negative Thrive Assessment: Date of Thrive Assessment Date Thrive assessed 05/03/24 05/03/24 11:22 Const General: alert; No acute distress Eyes Conjunctivae: conjunctivae normal Resp Auscultation: clear to auscultation bilaterally Cardio Rate: regular rate Rhythm: regular rhythm GI Inspection: Yes normal to inspection Extrem General: Yes normal to inspection and No edema Results AMB Hemoglobin A1c AMB Hemoglobin A1c 6.0 % Last Edit by SKYE Painter on 05/03/24 11:40 Results Reviewed Results Reviewed: Laboratory Last Values Hgb A1c (Clinic) 6.0 % (4.0-6.0) 05/03/24 11:23 Coding Level of Care Code Est Pt Level 4 (95289) Complex EM visit Add On G2211 Diagnoses Morbid obesity with BMI of 45.0-49.9, adult E66.01; Z68.42 Obstructive sleep apnea G47.33 Type 2 diabetes mellitus with hyperglycemia, without long-term current use of insulin E11.65 Diabetes mellitus prison insulin use: without photo graphics librarian use Mild intermittent asthma without complication J45.20 Asthma complication type: uncomplicated Asthma persistence: intermittent Asthma severity: mild Coronary artery disease involving [place] coronary artery of [place] heart without angina pectoris I25.10 Associated angina: without angina Coronary Disease-Associated Artery/Lesion type: [place] artery [place] vs. transplanted heart: [place] heart Essential hypertension I10 Hypertension type: essential hypertension Hypercholesterolemia E78.00 Gastroesophageal reflux disease without esophagitis K21.9 Esophagitis presence: without esophagitis Colon cancer screening Z12.11 Assessment & Plan Assessment & Plan (1) Morbid obesity with BMI of 45.0-49.9, adult: Comment: PATIENT REMAINS MORBIDLY OBESE. WATCHES HER DIET BUT SHE IS NOT ABLE TO DO ANY WALKING OR EXERCISE. RECENTLY HAS BEEN STARTED ON OZEMPIC INJECTIONS. Code(s): E66.01 - Morbid (severe) obesity due to excess calories; Z68.42 - Body mass index [BMI] 45.0-49.9, adult Category: Medical (2) Obstructive sleep apnea: Comment: DIAGNOSIS SINCE 2008. HAS BEEN VERY COMPLIANT, FACE MASK OF SMALLER SIZE IS COMFORTABLE , SHE INTER CHANGES BETWEEN THE SMALL SIZE AND LARGE SIZE. Code(s): G47.33 - Obstructive sleep apnea (adult) (pediatric) Category: Medical (3) Type 2 diabetes mellitus with hyperglycemia: Code(s): E11.65 - Type 2 diabetes mellitus with hyperglycemia Category: Medical Qualifiers: Diabetes mellitus photo graphics librarian insulin use: without photo graphics librarian use Qualified Code(s): E11.65 - Type 2 diabetes mellitus with hyperglycemia (4) Asthma: Comment: SHE HAS LONG-STANDING HISTORY OF ASTHMA WHICH IS FAIRLY WELL CONTROLLED. IT SEEMS THAT HER MAIN TRIGGER IS PHYSICAL EXERTION . PFT. RESULTS SHOWED MOSTLY RESTRICTIVE PATTEN . Code(s): J45.909 - Unspecified asthma, uncomplicated Category: Medical Qualifiers: Asthma complication type: uncomplicated Asthma persistence: intermittent Asthma severity: mild Qualified Code(s): J45.20 - Mild intermittent asthma, uncomplicated (5) Coronary artery disease: Comment: Myocardial infarction [address] Ayala ejection fraction 40-50% 1.10 November 2017, echo October 2018 dilated left ventricle 45-50% moderate grade 2 diastolic dysfunction. She is being followed by Cardiology service. Echocardiogram December 2022 Code(s): I25.10 - Atherosclerotic heart disease of [place] coronary artery without angina pectoris Category: Medical Qualifiers: Associated angina: without angina Coronary Disease-Associated Artery/Lesion type: [place] artery [place] vs. transplanted heart: [place] heart Qualified Code(s): I25.10 - Atherosclerotic heart disease of [place] coronary artery without angina pectoris (6) Hypertension: Code(s): I10 - Essential (primary) hypertension Category: Medical Qualifiers: Hypertension type: essential hypertension Qualified Code(s): I10 - Essential (primary) hypertension Plan: Continue with blood pressure medication. Decrease salt intake and exercise patient is on lisinopril and metoprolol tartrate (7) Hypercholesterolemia: Code(s): E78.00 - Pure hypercholesterolemia, unspecified Category: Medical Plan: Avoid fried foods, chicken skin, eggs, butter margarine, pastries and meat. Be it pork or beef they have a lot of cholesterol on rosuvastatin 10 mg once a day LDL goal of less than 60 and triglyceride of less than 150. (8) GERD (gastroesophageal reflux disease): Code(s): K21.9 - Gastro-esophageal reflux disease without esophagitis Category: Medical Qualifiers: Esophagitis presence: without esophagitis Qualified Code(s): K21.9 - Gastro-esophageal reflux disease without esophagitis Plan: Avoid the foods that causes that usually spicy foods, tomato products, juices, coffee, soda and foods that your sensitive to. After eating do not lie down, allow 3-4 hours before in lie down. And keep the head of bed above 30 degrees to avoid the acid from going up. (9) Colon cancer screening: Comment: Discussed results of Cologuard,- She understands though it is negative she should report any GI symptoms or change in family history. Recommend we repeat in 3 years. Code(s): Z12.11 - Encounter for screening for malignant neoplasm of colon Category: Medical Plan: Patient is reminded about colon cancer screening Plan History of Present Illness The patient is a 53-year-old female presenting with a follow-up for chronic medical conditions, focusing on diabetes management, hypertension, and hyperlipidemia. She has a longstanding history of systemic lupus erythematosus and receives regular pulmonary evaluations, most recently noted in February. After a pneumonia episode in early February, the patient received azithromycin, and her condition has improved since then. Diabetes care reveals a well-monitored hemoglobin A1c of 6.0 currently, maintained under control, whereas blood sugar levels have remained stable. Hyperlipidemia treatment goal reflects an LDL cholesterol target of 60 mg/dL or lower, with recent levels at 51 mg/dL. The patient's obstructive sleep apnea is aided by consistent CPAP use, which she recognizes as beneficial. Hypertension management shows effective control, likely supported by medications including lisinopril and metoprolol. Her renal and liver functions are stable, vitamin D levels remain low necessitating supplementation, and further weight management discussions have taken place regarding medication adjustment options. Health Maintenance - Mammogram up to date. - Cologuard test due, missed previous appointment due to pneumonia. - Regular CPAP use for obstructive sleep apnea. - LDL cholesterol managed below target goal with rosuvastatin. - Vitamin D supplementation recommended, 2000 IU daily during winter months. - Encouragement of diet and exercise for weight management. - Blood pressure, blood sugar levels monitored and controlled. Social History - Reports living with a 5-year-old child; occupational exposure to frequent illnesses likely due to child's school attendance. - Managing weight with current use of semaglutide. - Concerns over injection site reactions when administering semaglutide. Review of Systems - Respiratory: Reports regular CPAP use for sleep apnea. - Musculoskeletal: Denies recent trauma; reports tendon-related pain in the hand. - Endocrine: Reports stable blood sugar control, querying weight management with current medications. Physical Exam - Musculoskeletal- Reports tendinitis-related swelling and pain in hand, without recent trauma. Results - Labs: Hemoglobin A1c 6.0, LDL cholesterol 51 mg/dL, vitamin D low, GFR 52.7. - Diagnostics: Recent blood work with normal renal and liver function, stable electrolytes. Plan With a focus on effectively managing the patient's chronic conditions, I have advised continuation of her existing diabetes medications, and will adjust the semaglutide dosage if insurance approval is secured. Hyperlipidemia management with rosuvastatin is succeeding and we aim to keep LDL levels low, supplemented with lifestyle changes to support weight control. Hypertension remains well-managed under the current treatment and regular blood pressure checks will continue. CPAP usage is affirmed beneficial for sleep apnea. I have prescribed vitamin D supplementation to compensate for deficiency during winter. Asthma management on montelukast and albuterol shows satisfactory control and is advised to keep going. Attention to musculoskeletal discomfort will persist, considering orthopedic consultation if necessary. Reinstituting colorectal cancer screening via Cologuard test stands as a priority. Patient was informed and verbally consented to the use of an ambient scribe for clinic note documentation during this visit. Discussion Notes The extensive review covered ongoing issues associated with lupus, diabetes, sleep apnea, hyperlipidemia, and hypertension. I confirmed the management of diabetes and discussed the possibility of adjusting semaglutide dosages, contingent upon insurance coverage. Regarding hyperlipidemia, effective control is affirmed by current lab results. Further discussion encouraged continued lifestyle modifications to bolster cardiac health. Consent was given for routine CPAP adherence and increased vitamin D during winter. The patient understood the need to address musculoskeletal pain possibly linked to tendinitis. Screening for colorectal cancer and additional echocardiogram investigations were agreed upon for continued risk assessment. All recommendations were received well by the patient. Patient Instructions - Continue all current medications as prescribed. - Regularly use CPAP for at least 4 hours nightly for sleep apnea. - Supplement with 2000 IU of vitamin D daily during winter. - Maintain a heart-healthy diet and exercise regularly. - Monitor blood pressure and blood sugar consistently. - Return for scheduled follow-ups and testing, including echocardiogram and Cologuard. - Contact the office should any symptoms worsen or new concerns arise. Orders: Orders AMB Hemoglobin A1c Today E11.65 - Type 2 diabetes mellitus with hyperglycemia Referrals Cologuard Test Z12.11 - Encounter for screening for malignant neoplasm of colon, Z12.12 - Encounter for screening for malignant neoplasm of rectum Medications: New semaglutide (weight loss) (Jesus) 2.4 mg (0.75 mL) subcut QWEEK 3 mL 2RF E66.01 - Morbid (severe) obesity due to excess calories, Z68.42 - Body mass index [BMI] 45.0-49.9, adult Discontinued semaglutide for 4 weeks Discontinued Reason: Doctor's Order 2 mg (0.75 mL) subcut QWEEK 30 days 3.75 mL 0RF E11.65 - Type 2 diabetes mellitus with hyperglycemia
[2024-05-03 11:21] VITALS: BP 134/80; PULSE 72; RESP 18; TEMP 36.6; O2SAT 97; BMI 46.9
--- OUTSIDE RECORDS SUMMARY | 2024-05-03 13:08 | XMS_ITS ---
Author Organization [facility] Address [address] [place] [address] Care Team Providers Care Nicker Name Role Phone LeifIrenerogers Primary Care Provider Unavailgopi e Syed Noel Unavailable [phone] Allergies Allergen (clinical drug ingredient) Drug/Non Drug Allergy documented on EMR Reaction Allergy Type Onset Date Status Milk (uncoded) diarrhea Allergy Activ e Simvastatin Unknown Drug Allergy Activ e Wellbutrin hives Drug Allergy Active Adhesive rash Allergy Active amoxicillin Amoxicillin Unknown Drug Allergy Act jyothi atorvastatin Atorvastatin Unknown Drug Allergy A ctive bupropion Bupropion Unknown Drug Allergy Active Penicillin hives Drug Allergy Active pravastatin Pravastatin Unknown Drug Allergy Act jyothi Tomatoes Unknown Allergy Active REASON FOR VISIT At Risk Footcare, Skin problem(s) Medications Medication SIG (Take, Route, Frequency, Duration) Notes Start Date End Date Status Nitroglycerin 0.4 MG as directed Sublingual PRN Active Metoprolol Tartrate 25 MG as directed Orally Active Montelukast Sodium 10 MG as directed Orally Once a day Active Lancets Active Lisinopril 20 MG as directed Orally Once a day Active Ibuprofen 800 MG 1 tablet every Orally every 6 hrs PRN Active Aspirin 81 MG 1 tablet Orally Once a day for 30 day(s) Active Albuterol Sulfate Ac tive Ozempic Active Aspirin 162.5 MG 1 capsule Orally Once a day for 30 day(s) Not-Taking Antibiotic 7 days took for 3 days due to heartburn Not-Taking Ammonium Lactate 12 % 1 application Externally to affected areas of skin to feet except for between the toes Twice a day for 30 days Active metFORMIN HCl 500 MG as directed Orally Not-Taking Triamcinolone Acetonide 0.5 % as directed Externally Active Night Splint AFO - L1930 as directed Active Rosuvastatin Calcium 10 MG 1 tablet Orally Once a day Active Social History Tobacco Use: Social History Observation Description Date Details (start date - stop date) Never Smoker NA - NA Tobacco use other than smoking: Question Answer Notes Are you an other tobacco user? No Tobacco Control (Standard) Question Answer Notes Tobacco use: Nonsmoker AUDIT-C (Standard) Question Answer Notes Did you have a drink containing alcohol in the p ast year? No Points 0 Interpretation Negative Vital Signs Height 6ft2in in 03/19/2024 Weight 342 lbs 03/19/2024 BMI 43.91 kg/m2 03/19/2024 Blood pressure systolic 130 mm Hg 03/19/19 Blood pressure diastolic 70 mm Hg 025 Procedures Procedure Date Ordered Date Performed Result Body Sit e 53217-QYZMCQC NAIL, 6 OR MORE 03/19/2024 N/A 90338-ZCFI SKIN LESIONS, OVER 4 03/19/2024 N/A Encounters Encounter Location Date Provider Diagnosis [facility] [address] [address] 03/19/2024 Syed Noel Type 2 diabetes mellitus with diabetic polyneuropathy E11.42 ; Tinea unguium B35.1 and Xerosis of skin L85.3 Assessments Encounter Date Diagnosis (ICD Code) Assessment Notes Treatment Notes Treatment Clinical Notes Section Notes 03/19/2024 Type 2 diabetes mellitus with diabetic polyneuropathy (ICD-10 - E11.42) 03/19/2024 Tinea unguium (ICD-10 - B35.1) 03/19/2024 Xerosis of skin (ICD-10 - L85.3) Plan Of Treatment Pending Test Test Name Order Date [id number] NAIL, 6 OR MORE 03/19/2024 45432-GFMO SKIN LESIONS, OVER 4 03/19/19 25 Next Appt Details Follow Up: 2 Months, Reason: Provider Name:Syed Noel , 06/21/2024 11:00:00 AM, [address] [place] [address], [id number], Procedure Notes * Category Sub-Category Detail Notes Debride Nail 6-10 Nail debridement Due to the cl inical pathology outlined in the exam findings, performance of this nail treatment is medically necessary as its management by an unskilled/untrained nonprofessional would put this patients foot and overall health at risk. Therefore, debridement to affected nail(s), as described in exam ( TA, T1, T2, T3, T4, T5, T6, T7, T8, T9 ), was performed exclusively by the physician of record to reduce/remove overall nail length, girth, thickness, subungual debris, and necrotic tissue, by manual and/or electrical means through the use of a nail nipper and/or dremel-type clay grinder, to a more viable healthy nail plate or bed tissue 6-10 nails in total. Silver nitrate was used for any petechial bleeding as necessary. Definitive antifungal treatment options, both pharmaceutical and surgical, have been reviewed and discussed with the patient. The patient solely prefers the use of intermittent/as needed professional debridement services for their nail condition and understands the need for additional periodic treatments to maintain effectiveness in symptomatic relief - 77086 Keratoma Treatment Parring or Cutting o f Benign Hyperkeratotic Lesion(s) (-57) More than 4 Lesions - Due to the at risk nature of the patients medical condition as documented in the exam findings, performance of this keratoderma treatment is medically necessary as its management by an unskilled/untrained nonprofessional would put this patients foot and overall health at risk. Therefore, the benign hyperkeratotic lesions, ( 15) in total, locations as stated and described in the exam ( Medial plantar, IPJ, TA, Medial plantar, IPJ, T5, Plantar, T2, Plantar, T3, Plantar, T4, Plantar, T6, Plantar, T7, Plantar, T8, Plantar, T9, SUB MTH (s), 1, B/L, SUB MTH (s), 5, B/L , Plantar, Heel(s), B/L ), were pared, and/or cut utilizing a sterile 15 blade, tissue nippers, and/or power dremel instrumentation by the physician of record - [id number] Progress Notes * Radha MORENODOB: [birth year] (53 yo F)Acc No.[id number]:03/19/2024 Progress Note Patient:?Radha MORENO Provider:?Syed Noel DPM :1970???Age:53 Y???Sex:Female D ate:03/19/2024 Address[address], [id number] Pcp:Adán Yadav Subjective: * Chief Complaints: * ???At Risk FootcareSkin prob bernardino(s) * HPI: ???At Risk footcare:?Pt States Last PCP Visit:?Date?02/12/2024 ???Skin problems:?Nature:?dryness , scaling.?Location:?B/L .?Treatments:?medication ( AM Lactin ), admits intermittent adherence to recommended application.? * ROS:?General/Constitutional:?Nausea?denies.?Vomiting?denies.?Hunger Thirst?denies.?Loss appetite?denies.?Chills?denies.?Fatigue?denies.?Fever?denies.?Night Sweats?denies.?Unexplained weight loss?denies.?Unexplained weight gain?denies.?HEENTM:?Dentures?denies.?Dizziness?denies.?Glasses/contacts?admits.?Retinopathy?den ies.?Blurred/double vision?denies.?TMJ?denies.?Discharge/drainage?denies.?Implants?denies.?Sore throat?denies.?Dental implants?denies.?Hard of hearing ?denies.?Difficulty chewing/swallowing/speaking?denies.?Nose bleeds?denies.?Sore mouth?denies.?Respiratory:?On O xygen?denies.?Pneumonia/pleurisy?admits.?Bronchitis?denies.?Emphysema?denies.?Co ughing?denies.?Cough blood?denies.?Shortness of breath?denies.?Wheezing?denies.?Cardiovascular:?Pacemaker?denies.?MVP?denies.?WPW?denies.?CHF?denies.?Heart attack?denies.?Septal defect?denies.?Rapid beat?denies.?Chest pain ?denies.?Atrial Fib.?denies.?Murmur/Palpitations?denies.?Gastrointestinal:?Hemorrhoids?denies.?Stomach/Abdominal pain?denies.?Dark blood stool?denies.?Irritable bowel ?denies.?Constipation?denies.?Diarrhea?denies.?Hematology:?Swelling?admits.?Clots?denies.?Varicose Veins?admits.?Bruising?admits, on aspirin.?Bleeding problem?admits, on anticoagulants.?Genitourinary:?Blood urine?denies.?Frequent/Painfu/urination/bladder control?denies.?Kidney stones?denies.?Infection (UTI)?denies.?Nephropathy?denies.?sex trans dis (STD)?denies.?Prostate?denies.?Musculoskeletal:?Hammertoes?admits.?Bunions?admits.?Back Pain?denies.?Muscle Cramps/ Resting?admits.?Muscle cramps / walking?denies.?Generalized aches and pains?admits.?Weakness?denies.?Integ.:?Eddy?denies.?Scars?denies.?Corns/calluses?admits.?Ingrown nails?admits.?Painful nails?denies.?Open Sores?denies.?Rashes?denies.?Neurologic:?Difficulty sleeping?denies.?Brain disorder?denies.?Numbness?admits.?Balance t rouble?denies.?Confusion?denies.?Fainting/blackouts?denies.?Tingling?denies.?Jordon mors?denies.? * Medical History:? * Surgical History:?cholecyste ctomy coronary artery stent placement 2009Hand Surgery 1993Mammogram Screening section 2000gallbladder * Hospitalization/Major Diagno stic Procedure:?Denies Past Hospitalization * Family History:?Mother: elizabeth rivera?Father: alive, heart disease, cardiovascular disease, diagnosed with Unspecified essential hypertension.?Paternal Grand Mother: brain cancer, heart attack.?Paternal Grand Father: colon cancer, lymphoma.?Paternal aunt: substance abuse.?Paternal uncle: gastric cancer, substance abuse.? * Social History:?Tobacco Use:?Tobacco use other than smoking?Are you an other tobacco user??No ?Tobacco Control (Standard)?Tobacco use:?Nonsmoker ???Drugs/Alcohol:?Drugs?Have you used drugs other than those for medical reasons in the past 12 months??No ???Miscellaneous:?Caffeine: yes, frequency: 3-5 cups per day. ?Children: yes, 1. ?Exercise: yes. ?Marital status: partner. 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 ???Drug/Alcohol:?AUDIT-C (Standard)?Did you have a drink containing alcohol in the past year??No ?Points?0 ?Interpretation?Negative * Medications:?TakingOzempic A spirin 81 MG Tablet Chewable 1 tablet Orally Once a day Albuterol Sulfate Ibuprofen 800 MG Tablet 1 tablet every Orally every 6 hrs , Notes to Pharmacist: PRNLancets Lisinopril 20 MG Tablet as directed Orally Once a day Metoprolol Tartrate 25 MG Tablet as directed Orally Montelukast Sodium 10 MG Tablet as directed Orally Once a day Nitroglycerin 0.4 MG Tablet Sublingual as directed Sublingual , Notes to Pharmacist: PRNRosuvastatin Calcium 10 MG Tablet 1 tablet Orally Once a day Triamcinolone Acetonide 0.5 % Cream as directed Externally Night Splint AFO - L1930 as directed Ammonium Lactate 12 % Cream 1 application Externally to affected areas of skin to feet except for between the toes Twice a day Taking Ozempic Taking Aspirin 81 MG Tablet Chewable 1 tablet Orally Once a day Taking Albuterol Sulfate Taking Ibuprofen 800 MG Tablet 1 tablet every Orally every 6 hrs , Notes to Pharmacist: PRNTaking Lancets Taking Lisinopril 20 MG Tablet as directed Orally Once a day Taking Metoprolol Tartrate 25 MG Tablet as directed Orally Taking Montelukast Sodium 10 MG Tablet as directed Orally Once a day Taking Nitroglycerin 0.4 MG Tablet Sublingual as directed Sublingual , Notes to Pharmacist: PRNTaking Rosuvastatin Calcium 10 MG Tablet 1 tablet Orally Once a day Taking Triamcinolone Acetonide 0.5 % Cream as directed Externally Taking Night Splint AFO - L1930 as directed Taking Ammonium Lactate 12 % Cream 1 application Externally to affected areas of skin to feet except for between the toes Twice a day Not- Taking/PRNmetFORMIN HCl 500 MG Tablet as directed Orally Antibiotic , Notes to Pharmacist: 7 days took for 3 days due to heartburnAspirin 162.5 MG Capsule Extended Release 24 Hour 1 capsule Orally Once a day Medication List reviewed and reconciled with the patientNot-Taking/PRN metFORMIN HCl 500 MG Tablet as directed Orally Not- Taking/PRN Antibiotic , Notes to Pharmacist: 7 days took for 3 days due to heartburnNot-Taking/PRN Aspirin 162.5 MG Capsule Extended Release 24 Hour 1 capsule Orally Once a day Medication List reviewed and reconciled with the patient * Allergies:?Amoxicillin: Yuri rgyAtorvastatin: AllergyBupropion: AllergyPenicillin: hives - AllergyPravastatin: AllergySimvastatin: AllergyWellbutrin: hives - AllergyTomatoes: AllergyMilk: diarrhea - AllergyAdhesive: rashyes[Allergies Verified] Objective: * Vitals:?Ht:6ft2in, Wt:342, B HI:43.91, Shoe size:10-10.5, BP:130/70mm Hg, BS:not taken, Ht-cm: 187.96 cm, Wt-k.13 kg. * ???Past Orders: ???Lab:HEMOGLOBIN A1C (GLYCO HEMOGLOBIN) (Order Date - 01/29/2024) (Collection Date & Time - 03/19/2024 11:30 AM) ? Value Reference Range ?HEMOGLOBIN A1C % (HH) 4.5 * Examination: ???Ophthalmology Referral: ?DIABETES EYE EXAM?Procedure Performed:?Yes ?Date of Exam Performed?12/13/2023 ?Findings of Diabetic Eye Exam:?no retinopathy?Neurological: ?SENSORY:? Neurological exam demonstrates, reduced light touch sensation, reduced sharp/dull pin prick discrimination , B/L, 5.07 monofilament test performed at plantar aspects of 5 varied sites per foot shows sensation, reduced , B/L.?Nails: ?NAILS are:?Elongated, overgrown, dystrophic, lytic, greater than 3mm thick, discolored and friable with crumbly malodorous subungual debris , TA, T1, T2, T3, T4, T5, T6, T7, T8, T9.?Dermatologic: ?SKIN FINDINGS:?Skin exam reveals Keratotic lesion(s) located at, Medial plantar, IPJ, TA, Medial plantar, IPJ, T5, Plantar, T2, Plantar, T3, Plantar, T4, Plantar, T6, Plantar, T7, Plantar, T8, Plantar, T9, SUB MTH (s), 1, B/L, SUB MTH (s), 5, B/L , Plantar, Heel(s), B/L , Skin STILL, shows sign(s) of, dryness, scaling, in a stocking fashion, no fissure(s) present, B/L.? Assessment: * Assessment: 1.?Type 2 diabetes mellitus with diabetic polyneuropathy - E11.42 (Primary)???2.?Tinea unguium - B35.1???3.?Xerosis of skin - L85.3???Specify :Acute problem, Uncomplicated (3),Rx Management (4) Response to treatment - Unresolved Nonadherent to recommendations??? Plan: * Treatment: * Procedures:?Debride Nail 6-10:?Nail debridement?Due to the clinical pathology outlined in the exam findings, performance of this nail treatment is medically necessary as its management by an unskilled/untrained nonprofessional would put this patients foot and overall health at risk. Therefore, debridement to affected nail(s), as described in exam (?TA, T1, T2, T3, T4, T5, T6, T7, T8, T9?), was performed exclusively by the physician of record to reduce/remove overall nail length, girth, thickness, subungual debris, and necrotic tissue, by manual and/or electrical means through the use of a nail nipper and/or dremel-type clay grinder, to a more viable healthy nail plate or bed tissue 6-10 nails in total. Silver nitrate was used for any petechial bleeding as necessary. Definitive antifungal treatment options, both pharmaceutical and surgical, have been reviewed and discussed with the patient. The patient solely prefers the use of intermittent/as needed professional debridement services for their nail condition and understands the need for additional periodic treatments to maintain effectiveness in symptomatic relief - 08340.?Keratoma Treatment:?Parring or Cutting of Benign Hyperkeratotic Lesion(s)?(-57) More than 4 Lesions - Due to the at risk nature of the patients medical condition as documented in the exam findings, performance of this keratoderma treatment is medically necessary as its management by an unskilled/untrained nonprofessional would put this patients foot and overall health at risk. Therefore, the benign hyperkeratotic lesions, ( 15) in total, locations as stated and described in the exam (?Medial plantar,?IPJ,?TA,?Medial p lantar,?IPJ,?T5,?Plantar,?T2,?Plantar,?T3,?Plantar,?T4,?Plantar,?T6,?Plantar,?T7 ,?Plantar,?T8,?P lantar,?T9,?SUB MTH (s),?1,?B/L,?SUB MTH (s),?5,?B/L?,?Plantar,?Heel(s),?B/L?), were pared, and/or cut utilizing a sterile 15 blade, tissue nippers, and/or power dremel instrumentation by the physician of record - 86943.? * Procedure Codes:?76230 DEBRI DE NAIL, 6 OR MORE, Modifiers: XS 90708 TRIM SKIN LESIONS, OVER 4, Modifiers: XS * Preventive Medicine:? ??Counseling:?Discussion:?-13: Office or other outpatient visit for the evaluation and management of an established patient, which required a medically appropriate history and/or examination and LOW level of DECISION MAKING for: 1 STABLE ACUTE UNCOMPLICATED PROBLEM, 2 OR MORE MINOR PROBLEMS, OR 1 STABLE CHRONIC PROBLEM, THAT POSE(S) A LOW RISK FOR MORBIDITY/MORTALITY. The visit on the day of the encounter encompassed interpreting the data and educating the patient as to the nature of their condition, treatment options available according to their individual PMH, meds, allergies, and overall health/living conditions, as well as any potential risks or complications that may occur from a failure to adhere to, and participate in, the recommended course of therapy. The discussion included a complete verbal, and/or written explanation of the examination results, any x-rays taken, the proposed diagnosis, and outline of the treatment plan. A schedule for future care needs was also explained. The patient verbalized an understanding of the instructions at this time and agreed to be an active participant in their treatment. If the patient should think of any questions or concerns after the visit, I have encouraged the patient to call the office.?Xerosis:?The patient was again counseled on the diagnosis, potential etiologies, and treatment options for their skin condition. We discussed the risks and benefits of each option from performing no treatment, to utilizing OTC topical skin creams/ointments, to utilizing prescription topical creams/ointments, to utilizing customized compounded topical medications and use of nocturnal occlusion with any/all previously detailed therapies. We discussed the advantages and disadvantages of each possible treatment and importance for adherence to all the recommended therapies for optimum success and avoid potential complications such as open sore/infection/possible hospitalization. We discussed the potential effectiveness of each topical preparation as well as each ones possible side effects and/or patient medication interactions. Patient questions re: use, dosage, successful outcomes, and application consistency were reviewed and the patient verbalized that all answers were clearly understood. The patient has decided to apply Rx skin creams to their feet save the interspaces while paying special attention to the heels.? ??Screening/Special Tests:?Fall Risk?Screening:?No falls in the past year ?FALLS: Screening for Future Fall Risk?Have you had any falls with injury in the past year??No * Follow Up:?2 Months * Images: * Sign off status: Completed true * Provider:?Syed Noel DPM Date:?2024 Generated for Danna elmore/Alphonso/Rosalio on:?05/03/2024 01:08 PM EST History and Physical Notes * HPI (History of Present Illness) Category Sub-Category Detail Notes Category Not es Skin problems Nature: dryness , scaling Location: B/L Treatments: medication ( AM Lact in ), admits intermittent adherence to recommended application At Risk footcare Pt States Last PCP Visit: Date: 4 Examination Category Sub-Category Detail Notes Category Not es Neurological SENSORY: Neurological exa m demonstrates, reduced light touch sensation, reduced sharp/dull pin prick discrimination , B/L, 5.07 monofilament test performed at plantar aspects of 5 varied sites per foot shows sensation, reduced , B/L Dermatologic SKIN FINDINGS: Skin exam reveal s Keratotic lesion(s) located at, Medial plantar, IPJ, TA, Medial plantar, IPJ, T5, Plantar, T2, Plantar, T3, Plantar, T4, Plantar, T6, Plantar, T7, Plantar, T8, Plantar, T9, SUB MTH (s), 1, B/L, SUB MTH (s), 5, B/L , Plantar, Heel(s), B/L , Skin STILL, shows sign(s) of, dryness, scaling, in a stocking fashion, no fissure(s) present, B/L Ophthalmology Referral DIABETES EYE EXAM Procedu re Performed:: Yes ?Date of Exam Performed: 12/13/2023 Findings of Diabetic Eye Exam:: no retin opathy Nails NAILS are: Elongated, overg rown, dystrophic, lytic, greater than 3mm thick, discolored and friable with crumbly malodorous subungual debris , TA, T1, T2, T3, T4, T5, T6, T7, T8, T9
--- OUTSIDE RECORDS SUMMARY | 2024-05-03 13:08 | XMS_ITS ---
Author Organization [facility] Address [address] [facility] [facility] [place] [address] Care Team Providers Care Stereo Equipment Repairer Name Role Phone LeifFlorenceeri Primary Care Provider UnavailSyed Rodriguez Unavailable [phone] Montrell Calle Unavailable [phone] Allergies Allergen (clinical drug ingredient) Drug/Non Drug [...] Allergy Act jyothi Tomatoes Unknown Allergy Active Medications Medication SIG (Take, Route, Frequency, Duration) Notes Start Date End Date Status Rosuvastatin Calcium 10 MG 1 tablet Orally Once a day Active Metoprolol Tartrate 25 MG as directed Orally Active Lisinopril 20 MG as directed Orally Once a day Active Nitroglycerin 0.4 MG as directed Sublingual PRN Active Montelukast Sodium 10 MG as directed Orally Once a day Active Extra Depth Diabetic Shoes with 3 Pair Custom heat-molded multi-density innersoles for 1 year Dx: 09/13/2023 Active Albuterol Sulfate Ac tive Aspirin 81 MG 1 tablet Orally Once a day for 30 day(s) Active Lancets Active Ibuprofen 800 MG 1 tablet every Orally every 6 hrs PRN Active Aspirin 162.5 MG 1 capsule Orally Once a day for 30 day(s) Not-Taking Antibiotic 7 days took for 3 days due to heartburn Not-Taking Night Splint AFO - L1930 as directed Active metFORMIN HCl 500 MG as directed Orally Not-Taking Custom Orthotics as directed A ctive Compression Stockings Active Triamcinolone Acetonide 0.5 % as directed Externally Active Extra Depth Diabetic Shoes with 3 Pair Custom heat-molded multi-density innersoles for 1 year Dx: Active Social History Tobacco Use: Social History Observation Description Date Details (start date - stop date) Former Smoker NA - NA Tobacco Use/Smoking Question Answer Notes Are you a: former smoker Additional Findings: Tobacco Non-User Ex-cigaret te smoker Alcohol Screen Question Answer Notes Did you have a drink containing alcohol in the p ast year? No Points 0 Interpretation Negative Tobacco use other than smoking: Question Answer Notes Are you an other tobacco user? No Vital Signs Height 6 ft 2 in in 09/13/2023 Weight 342 lbs 09/13/2023 BMI 43.91 kg/m2 09/13/2023 Blood pressure systolic 140 mm Hg 09/13/19 24 Blood pressure diastolic 70 mm Hg 024 Encounters Encounter Location Date Provider Diagnosis [facility] [address] [address] 09/13/2023 Montrell Calle Type 2 diabetes mellitus with diabetic polyneuropathy E11.42 ; Pain in right toe(s) M79.674 ; Pain in left toe(s) M79.675 ; Tinea unguium B35.1 ; Hallux rigidus, left foot M20.22 ; Hallux rigidus, right foot M20.21 ; Other hammer toe(s) (acquired), left foot M20.42 ; Other hammer toe(s) (acquired), right foot M20.41 ; Primary osteoarthritis, left ankle and foot M19.072 ; Primary osteoarthritis, right ankle and foot M19.071 ; Xerosis cutis L85.3 ; Plantar 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 and Ingrowing nail L60.0 Assessments Encounter Date Diagnosis (ICD Code) Assessment Notes Treatment Notes Treatment Clinical Notes Section Notes 09/13/2023 Type 2 diabetes mellitus with diabetic polyneuropathy (ICD-10 - E11.42) 09/13/2023 Pain in right toe(s) (ICD-10 - M79.674) 09/13/2023 Pain in left toe(s) (ICD-10 - M79.675) 09/13/2023 Tinea unguium (ICD-10 - B35.1) 09/13/2023 Hallux rigidus, left foot (ICD-10 - M20.22) 09/13/2023 Hallux rigidus, right foot (ICD-10 - M20.21) 09/13/2023 Other hammer toe(s) (acquired), left foot (ICD-10 - M20.42) 09/13/2023 Other hammer toe(s) (acquired), right foot (ICD-10 - M20.41) 09/13/2023 Primary osteoarthritis, left ankle and foot (ICD-10 - M19.072) 09/13/2023 Primary osteoarthritis, right ankle and foot (ICD-10 - M19.071) 09/13/2023 Xerosis cutis (ICD-10 - L85.3) 09/13/2023 Plantar fascial fibromatosis (ICD-10 - M72.2) 09/13/2023 Ingrowing nail (ICD-10 - L60.0) Plan Of Treatment Medication Medication Name Sig Start Date Stop Date Notes Extra Depth Diabetic Shoes w ith 3 Pair Custom heat-molded multi-density innersoles for 1 year Dx: 09/13/2023 Next Appt Details Follow Up: 3 Months, Reason: Provider Name:Syed Noel , 06/21/2024 11:00:00 AM, [address] [place] [address], [id number], Procedure Notes * Category Sub-Category Detail Notes Debride Nail 6-10 Nail debridement Nail debridem ent performed extensively to reduce/remove overall nail length and girth, subungual debris, and necrotic tissue, by manual and electrical means with use of a nail nipper and/or dremel, to more viable healthy nail plate or bed tissue 6-10. Silver nitrate used for any petechial bleeding as necessary. Patient chooses, no pharmaceutical tx (63165) Keratoma Treatment Parring or Cutting o f Benign Hyperkeratotic Lesion(s) 86661 ( >4 Lesions) - The Benign hyperkeratotic lesions, as described above were pared, and/or cut utilizing a sterile #15 blade, tissue nippers, and/or dremel Progress Notes * Radha MORENODOB: [birth year] (52 yo F)Acc No.[id number]:09/13/2023 Progress Note Patient:?Radha Moreno Provider:?Montrell Calle DPM :1970???Age:52 Y???Sex:Female D ate:09/13/2023 Address:[address] [place], [place] [id number] Pcp:Adán Yadav Subjective: * Chief Complaints: * ??? * HPI: ???At Risk footcare:?Pt States Last PCP Visit:?Date?11/29/2022 ???Foot Pain:?Nature:?aching.?Location?B/L, R>L, Forefoot, Midfoot, Rearfoot.?Duration:?several months.?Onset/Cause:?unknown.?Course:?unchanged.?Aggrevated:?any pressure.?Treatments:?pt now has dm shoes since 09/18.?Painful Nails:?Misc:?pt has 3 children; 1 adopted 12yo and one foster 4yo child--trying to adopt.?Heel pain:?Nature:?tenderness, throbbing, aching.?Location:?Proximal plantar aspect of Heel, plantar, Arch, B/L, RIGHT > LEFT.?Course:?improved when she wears her orthoses.?Ingrown toenail:?Nature:?aching, tenderness.?Location:?Great toe, Right foot.?Course:?intermittent.?Aggrevated by:?any pressure.? * ROS:?General/Constitutional:?Nausea?denies.?Vomiting?denies.?Hunger Thirst?denies.?Loss appetite?denies.?Chills?denies.?Fatigue?denies.?Fever?denies.?Night Sweats?denies.?Unexplained weight loss?denies.?Unexplained weight gain?denies.?HEENTM:?Dentures?denies.?Dizziness?denies.?Glasses/contacts?admits.?Retinopathy?de nies.?Blurred/double vision?denies.?TMJ?denies.?Discharge/drainage?denies.?Implants?denies.?Sore throat?denies.?Dental implants?denies.?Hard of hearing ?denies.?Difficulty chewing/swallowing/speaking?denies.?Nose bleeds?denies.?Sore mouth?denies.?Respiratory:?On Oxygen?denies.?Pneumonia/pleurisy?admits.?Bronchitis?denies.?Emphysema?denies.?C oughing?denies.?Cough blood?denies.?Shortness of breath?denies.?Wheezing?denies.?Cardiovascular:?Pacemaker?denies.?MVP?denies.?WPW?denies.?CHF?denies.?Heart attack?denies.?Septal defect?denies.?Rapid beat?denies.?Chest pain ?denies.?Atrial Fib.?denies.?Murmur/Palpitations?denies.?Gastrointestinal:?Hemorrhoids?denies.?Stomach/Abdominal pain?denies.?Dark blood stool?denies.?Irritable bowel ?denies.?Constipation?denies.?Diarrhea?denies.?Hematology:?Swelling?admits.?Clots?denies.?Varicose Veins?admits.?Bruising?denies.?Bleeding problem?denies.?Genitourinary:?Blood urine?denies.?Frequent/Painfu/urination/bladder control?denies.?Kidney stones?denies.?Infection (UTI)?denies.?Nephropathy?denies.?sex trans dis (STD)?denies.?Prostate?denies.?Musculoskeletal:?Hammertoes?denies.?Bunions?admits.?Back Pain?denies.?Muscle Cramps/ Resting?admits.?Muscle cramps / walking?denies.?Generalized aches and pains?admits.?Weakness?denies.?Integ.:?Eddy?denies.?Scars?denies.?Corns/calluses?admits.?Ingrown nails?admits.?Painful nails?denies.?Open Sores?denies.?Rashes?denies.?Neurologic:?Difficulty sleeping?denies.?Brain disorder?denies.?Numbness?admits.?Balance trouble?denies.?Confusion?denies.?Fainting/blackouts?denies.?Tingling?denies.?Tr emors?denies.? * Medical History:? * Surgical History:?cholecyste ctomy coronary artery stent placement 2009Hand Surgery 1993Mammogram Screening section 2000gallbladder * Hospitalization/Major Diagno stic Procedure:?Denies Past Hospitalization * Family History:?Mother: elizabeth rivera?Father: alive, heart disease, cardiovascular disease, diagnosed with Unspecified essential hypertension.?Paternal Grand Mother: brain cancer, heart attack.?Paternal Grand Father: colon cancer, lymphoma.?Paternal aunt: substance abuse.?Paternal uncle: gastric cancer, substance abuse.? * Social History:?Tobacco Use:?Tobacco Use/Smoking?Are you a:?former smoker ?Additional Findings: Tobacco Non-User?Ex-cigarette smoker ?Tobacco use other than smoking?Are you an other tobacco user??No ???Drugs/Alcohol:?Drugs?Have you used drugs other than those for medical reasons in the past 12 months??No ?Alcohol Screen?Did you have a drink containing alcohol in the past year??No ?Points?0 ?Interpretation?Negative ???Miscellaneous:?Caffeine: yes, frequency: 3-5 cups per day. ?Children: yes, 1. ?Exercise: yes. ?Marital status: partner. 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 * Medications:?TakingAspirin 8 1 MG Tablet Chewable 1 tablet Orally Once a dayAlbuterol Sulfate Ibuprofen 800 MG Tablet 1 tablet every Orally every 6 hrs, Notes: PRNLancets Lisinopril 20 MG Tablet as directed Orally Once a dayMetoprolol Tartrate 25 MG Tablet as directed Orally Montelukast Sodium 10 MG Tablet as directed Orally Once a dayNitroglycerin 0.4 MG Tablet Sublingual as directed Sublingual , Notes: PRNRosuvastatin Calcium 10 MG Tablet 1 tablet Orally Once a dayTriamcinolone Acetonide 0.5 % Cream as directed Externally Compression Stockings Extra Depth Diabetic Shoes with 3 Pair Custom heat-molded multi-density innersoles for 1 year Dx:Night Splint AFO - L1930 as directed Custom Orthotics as directed Taking Aspirin 81 MG Tablet Chewable 1 tablet Orally Once a dayTaking Albuterol Sulfate Taking Ibuprofen 800 MG Tablet 1 tablet every Orally every 6 hrs, Notes: PRNTaking Lancets Taking Lisinopril 20 MG Tablet as directed Orally Once a dayTaking Metoprolol Tartrate 25 MG Tablet as directed Orally Taking Montelukast Sodium 10 MG Tablet as directed Orally Once a dayTaking Nitroglycerin 0.4 MG Tablet Sublingual as directed Sublingual , Notes: PRNTaking Rosuvastatin Calcium 10 MG Tablet 1 tablet Orally Once a dayTaking Triamcinolone Acetonide 0.5 % Cream as directed Externally Taking Compression Stockings Taking Extra Depth Diabetic Shoes with 3 Pair Custom heat-molded multi-density innersoles for 1 year Dx:Taking Night Splint AFO - L1930 as directed Taking Custom Orthotics as directed Not-Taking/PRNmetFORMIN HCl 500 MG Tablet as directed Orally Antibiotic , Notes: 7 days took for 3 days due to heartburnAspirin 162.5 MG Capsule Extended Release 24 Hour 1 capsule Orally Once a dayMedication List reviewed and reconciled with the patientNot-Taking/PRN metFORMIN HCl 500 MG Tablet as directed Orally Not-Taking/PRN Antibiotic , Notes: 7 days took for 3 days due to heartburnNot-Taking/PRN Aspirin 162.5 MG Capsule Extended Release 24 Hour 1 capsule Orally Once a dayMedication List reviewed and reconciled with the patient * Allergies:?Amoxicillin: Yuri rgyAtorvastatin: AllergyBupropion: AllergyPenicillin: hives - AllergyPravastatin: AllergySimvastatin: AllergyWellbutrin: hives - AllergyTomatoes: AllergyMilk: diarrhea - AllergyAdhesive: rashyes[Allergies Verified] Objective: * Vitals:?Ht: 6 ft 2 in, Wt:34 2, BMI:43.91, BP:140/70 mm Hg, BS:not taken. * ???Past Orders: ???Lab:HEMOGLOBIN A1C (GLYCO HEMOGLOBIN) (Order Date - 03/16/2023) (Collection Date - 12/28/2022) ? Value Reference Range ?HEMOGLOBIN A1C (HH) 5.7 * Examination: ???Ophthalmology Referral: ?DIABETES EYE EXAM?Diabetic Retinopathy Screening:?No 2018 or 2019?Neurological: ?SENSORY:? Neurological exam demonstrates, reduced vibration sensation, at Forefoot, 5.07 monofilament test performed at plantar aspects of 5 varied sites per foot shows sensation, reduced , B/L.?TINEL'S COMPRESSION:?Negative tarsal tunnel, ryan pedis, and medial calcaneal nerves B/L.?BABINSKI REFLEX:?absent.?Vascular: ?DP PULSES:? 2/4, B/L.?PT PULSES:? 1/4, B/L.?CAPILLARY FILL TIME:?3 secs. per digit, B/L.?SKIN TEMPERTURE GRADIENT OF THE LOWER EXTERMITIES:?warm to cool, proximal to distal, B/L.?HAIR GROWTH/TEXTURE/ELASTICITY/TURGOR:?normal, B/L.?PIGMENTATION:?normal, B/L.?EDEMA:? 2/4, B/L, Feet, Ankle(s), Leg(s).?TELANGECTASIA:?absent.?VARICOSITIES:?absent.?Nails: ?NAILS are:? Elongated, overgrown, dystrophic, lytic, greater than 3mm thick, discolored and friable with crumbly malodorous subungual debris, with dull to no pain on palpation due to neuropathy, 1-5 Right foot, T4 .?Dermatologic: ?SKIN FINDINGS:? Skin exam reveals Keratotic lesion(s) located at, Medial plantar, IPJ, TA, T5, Plantar, T2, T4, T6, T7, T8, T9, SUB MTH (s), SUB MTH (s), 5, B/L , Heel(s), B/L .?General Examination: ?GENERAL APPEARANCE:?pleasant, alert, well nourished, well developed, well hydrated, with good attention to hygene/body habitus, and in no acute distress.?ORIENTED:?person,place, and time.?FOOT EXAM:?Lower Extremity Neurological Exam performed:?Yes ?Visual exam of foot performed:?Yes ?Date?03/16/2023 ?Sensory testing performed:?sensations diminished ?Pedal pulse taking performed:?2+?Neuroma Pain: ?PALPATION:?No interspace pain noted on palpation.?Orthopedic: ?MUSCLE STRENGTH:?5/5 all groups in a symmetrical fashion , B/L.?GAIT ABNORMALITY:?pronated, abducted, B/L.?FOOT MORPHOLOGY:? Pes Planus structure, B/L.?BUNION:? Medially prominent 1st MPJ, Dorsally prominent 1st MPJ , (+) Pain on palpation, B/L, Lateral tracking 1st MPJ nonreducable, Limited 1st MPJ Dorsal ROM, Limited 1st MPJ Plantar ROM.?DIGITAL DEFORMITIES:? Digital contracture, PIPJ, 2-5 B/L, incompl- reducable with WB, or to push-up test, no over, nor underlapping.?Heel Pain: ?INSPECTION REVEALS:? Pain on Palpation to Plantar Fascia med. and central bands, intrinsic musc., infracalcaneal bursa, and med calc tubercle , B/L.?Ingrown Nail: ?INSPECTION:? Reveals nail incurvation, dull pain on palpation due to neuropathy, groove hypertrophy, Lateral nail border, T5.? Assessment: * Assessment: 1.?Type 2 diabetes mellitus with diabetic polyneuropathy - E11.42?2.?Pain in right toe(s) - M79.674?3.?Pain in left toe(s) - M79.675?4.?Tinea unguium - B35.1 (Primary)?5.?Hallux rigidus, left foot - M20.22?6.?Hallux rigidus, right foot - M20.21 7.?Other hammer toe(s) (acquired), left foot - M20.42?8.?Other hammer toe(s) (acquired), right foot - M20.41?9.?Primary osteoarthritis, left ankle and foot - M19.072 10.?Primary osteoarthritis, right ankle and foot - M19.071?11.?Xerosis cutis - L85.3?12.?Plantar fascial fibromatosis - M72.2?13.?Ingrowing nail - L60.0? Plan: * Treatment: * Procedures:?Debride Nail 6-10:?Nail debridement?Nail debridement performed extensively to reduce/remove overall nail length and girth, subungual debris, and necrotic tissue, by manual and electrical means with use of a nail nipper and/or dremel, to more viable healthy nail plate or bed tissue 6-10. Silver nitrate used for any petechial bleeding as necessary. Patient chooses, no pharmaceutical tx (45326).?Keratoma Treatment:?Parring or Cutting of Benign Hyperkeratotic Lesion(s)?14936 ( >4 Lesions) - The Benign hyperkeratotic lesions, as described above were pared, and/or cut utilizing a sterile #15 blade, tissue nippers, and/or dremel.? * Procedure Codes:?02793 DEBRI DE NAIL, 6 OR MORE, Modifiers: XS 76866 TRIM SKIN LESIONS, OVER 4, Modifiers: XS [...] have encouraged the patient to call the office--discussed need for better bs control and then need to perform pna lateral t5 once a1c is appropriate.? * Follow Up:?3 Months * Images: * Sign off status: Completed true * Provider:?Montrell Calle DPM Date:? 024 Generated for Danna elmore/Alphonso/eTtomyitting on:?05/03/2024 01:08 PM EST History and Physical Notes * HPI (History of Present Illness) Category Sub-Category Detail Notes Category Not es Heel pain Nature: tenderness, throbbing, achin g Location: Proximal plantar asp ect of Heel, plantar, Arch, B/L, RIGHT > LEFT Course: improved when she we ars her orthoses Ingrown toenail Nature: aching, tenderness Location: Great toe, Right aida t Aggravated by: any pressure Course: intermittent Painful Nails Misc: pt has 3 childre n; 1 adopted 12yo and one foster 4yo child--trying to adopt At Risk footcare Pt States Last PCP Visit: Date: 3 Foot Pain Aggrevated: any pressure Onset/Cause: unknown Course: unchanged Duration: several months Nature: aching Treatments: pt now has dm shoes since 09/18 Location B/L, R>L, Forefoot, Midfoot, Rearfoot Examination Category Sub-Category Detail Notes Category Not es Ingrown Nail INSPECTION: Reveals nail inc urvation, dull pain on palpation due to neuropathy, groove hypertrophy, Lateral nail border, T5 Neuroma Pain PALPATION: No interspace pain noted on palpation Heel Pain INSPECTION REVEALS: Pain on Palp ation to Plantar Fascia med. and central bands, intrinsic musc., infracalcaneal bursa, and med calc tubercle , B/L Neurological SENSORY: Neurological exa m demonstrates, reduced vibration sensation, at Forefoot, 5.07 monofilament test performed at plantar aspects of 5 varied sites per foot shows sensation, reduced , B/L BABINSKI REFLEX: absent TINEL'S COMPRESSION: Negative tarsal ivis suzy, ryan pedis, and medial calcaneal nerves B/L Dermatologic SKIN FINDINGS: Skin exam reveal s Keratotic lesion(s) located at, Medial plantar, IPJ, TA, T5, Plantar, T2, T4, T6, T7, T8, T9, SUB MTH (s), SUB MTH (s), 5, B/L , Heel(s), B/L Orthopedic GAIT ABNORMALITY: pronated, abducted, B/L FOOT MORPHOLOGY: Pes Planus structure , B/L BUNION: Medially prominent 1 st MPJ, Dorsally prominent 1st MPJ , (+) Pain on palpation, B/L, Lateral tracking 1st MPJ nonreducable, Limited 1st MPJ Dorsal ROM, Limited 1st MPJ Plantar ROM DIGITAL DEFORMITIES: Digital contracture , PIPJ, 2-5 B/L, incompl-reducable with WB, or to push-up test, no over, nor underlapping MUSCLE STRENGTH: 5/5 all groups in a symmetrical fashion , B/L General Examination GENERAL APPEARANCE: pleasant , alert, well nourished, well developed, well hydrated, with good attention to hygene/body habitus, and in no acute distress FOOT EXAM: Lower Extremity Neurological Exa m performed:: Yes Visual exam of foot performed:: Yes Date: 03/16/2023 Sensory testing performed:: sensations d iminished Pedal pulse taking performed:: 2+ ORIENTED: person,place, and ti me Ophthalmology Referral DIABETES EYE EXAM Diabeti c Retinopathy Screening:: No 2018 or 2019 Vascular DP PULSES (B): 2/4, B/L PT PULSES (B): 1/4, B/L CAPILLARY FILL TIME: 3 secs. per digit, B/L TEMPERTURE GRADIENT (C): warm to cool, p roximal to distal, B/L TROPHIC CONDITION-TEXTURE/ELASTICITY/TURGOR/HAIR GROWTH (B): normal, B/L EDEMA (C): 2/4, B/L, Feet, Ankl e(s), Leg(s) TELANGECTASIA: absent VARICOSITIES: absent PIGMENTATION: normal, B/L Nails NAILS are: Elongated, overg rown, dystrophic, lytic, greater than 3mm thick, discolored and friable with crumbly malodorous subungual debris, with dull to no pain on palpation due to neuropathy, 1-5 Right foot, T4
--- OUTSIDE RECORDS SUMMARY | 2024-05-03 13:09 | XMS_ITS | Patient Health Record ---
Author Organization [facility] Address [address] [place] [address] [address] [place] [address] Care Team Providers Care Manager Poker Name Role Phone ERIN COLBERT M.D. Primary Care Provider MARGY Mishra Unavailable [phone] Allergies Allergen (clinical drug ingredient) Drug/Non Drug Allergy documented on EMR Reaction Allergy Type Onset Date Status amoxicillin Amoxicillin Hives/Swelling Drug Allergy Active atorvastatin Lipitor Hives/Swelling Drug Allergy Active Wellbutrin Hives Drug Allergy Active Zyban Hives Drug Allergy Active Reason For Referral No Information Medications Medication SIG (Take, Route, Frequency, Duration) Notes Start Date End Date Status Symbicort 80-4.5 MCG/ACT TAKE 2 PUFFS BY MOUTH TWICE A DAY Inhalation for 90 Active [address] 0[address] 1 TABLET UNDE R TONGUE IF NEEDED FOR CHEST PAIN EVERY 5 MINUTES X3 DOSES Sublingual for 90 Active Lisinopril 20 MG TAKE 1 TABLET EVERY DAY ONCE A DAY ORALLY 90 DAYS Oral for 90 Active Accu-Chek Softclix Lancets - USE DIRECTED 3 TIMES A DAY for 30 Active Accu-Chek Sarah Plus - USE DIRECTED 3 TIMES A DAY In Vitro for 90 Active Metoprolol Tartrate 25 MG TAKE 2 TABLETS BY MOUTH EVERY DAY IN THE MORNING AND TAKE 3 TABLETS IN THE EVENING Oral for 90 Active metFORMIN HCl ER 500 MG TAKE 2 TABS ONCE A DAY ORALLY 30 DAY(S) Oral for 30 Active Rosuvastatin Calcium 10 MG TAKE 1 TABLET BY MOUTH DAILY Oral for 90 Active Albuterol Sulfate HFA 108 (90 Base) MCG/ACT INHALE 1 PUFF EVERY 4 HOURS NEEDED Inhalation for 25 Active miSOPROStol 200 MCG as directed Orally 8 -12 hrs prior to appointment for 1 days 07/16/2018 Active Social History Tobacco Use: Social History Observation Description Date Details (start date - stop date) Former Smoker NA - NA Tobacco Use/Smoking Question Answer Notes Are you a former smoker How long has it been since you last smoked? > 10 years Alcohol Screen (Audit-C) Question Answer Notes Did you have a drink containing alcohol in the p ast year? No Points 0 Interpretation Negative Sexual History Question Answer Notes Had sex in the past 12 months (vaginal, oral, or anal)? Yes with Men only Prevention strategies discussed: Other Problems Problem Type SNOMED Code ICD Code Onset Dates Problem Status W/U Status Risk Notes Problem Excessive and freque nt menstruation (765143692) Excessive and frequent menstruation with regular cycle (N92.0) Active confirmed Problem Body mass index 40+ - severely obese (858948247) Body mass index (BMI) 45.0-49.9, adult (Z68.42) Active confirmed Problem Pure hypercholesterolemia (884098977) Pure hypercholester olemia, unspecified (E78.00) Active confirmed Plan Of Treatment Pending Test Test Name Order Date COMPLETE BLOOD COUNT 12/14/2018 THIN PREP,HPV,BEA IF HPV+ (>29YR)(DIAG) 07/16/2018 MM Digital Screening Mammogram 3D 2018 Insurance Providers Payer Name Payer Address Payer Phone Subscriber Number Group Number Insured Name Patient Relationship to Insured Coverage Start Date Coverage End Date MEDICARE [address] [place] [id number] [phone] [id number] JANE DUARTE Self - patient is the insured Medical (General) History Medical History History ICD Code Other asthma J45.998 Essential (primary) hypertension I10 Type 2 diabetes mellitus with unspecifie d complications E11.8 Cardiac murmur, unspecified R01.1 Pure hypercholesterolemia, unspecified E 78.00 Surgical History Surgery Date(Month/Year) 03/09/1999 Cholecystectomy x1 Hand Surgery 3 Stents in Veins in Heart ~2006 Hospitalization History Reason Date(Month/Year) See Surgical Hx
--- OUTSIDE RECORDS SUMMARY | 2024-05-03 13:09 | XMS_ITS ---
Author Organization [facility] Address [address] [place] [address] Care Team Providers Care Financial Analyst Intern Name Role Phone LeifIrenerogers Primary Care Provider Unavailgopi e Syed Noel Unavailable [phone] Allergies Allergen (clinical drug ingredient) Drug/Non Drug [...] Duration) Notes Start Date End Date Status Night Splint AFO - L1930 as directed Active Antibiotic 7 days took for 3 days due to heartburn Not-Taking metFORMIN HCl 500 MG as directed Orally Not-Taking Ammonium Lactate 12 % 1 application Externally to affected areas of skin to feet except for between the toes Twice a day for 30 days Active Aspirin 162.5 MG 1 capsule Orally Once a day for 30 day(s) Not-Taking Triamcinolone Acetonide 0.5 % as directed Externally Active Nitroglycerin 0.4 MG as directed Sublingual PRN Active Montelukast Sodium 10 MG as directed Orally Once a day Active Rosuvastatin Calcium 10 MG 1 tablet Orally Once a day Active Metoprolol Tartrate 25 MG as directed Orally Active Albuterol Sulfate Ac tive Aspirin 81 MG 1 tablet Orally Once a day for 30 day(s) Active Lancets Active Ibuprofen 800 MG 1 tablet every Orally every 6 hrs PRN Active Lisinopril 20 MG as directed Orally Once a day Active Social History Tobacco Use: Social History Observation Description Date Details (start date - stop date) Never Smoker NA - NA Tobacco use other than smoking: Question Answer Notes Are you an other tobacco user? No Tobacco Control (Standard) Question Answer Notes Tobacco use: Nonsmoker Problems Problem Type SNOMED Code ICD Code Onset Dates Problem Status W/U Status Risk Notes Problem Polyneuropathy due to type 2 diabetes mellitus (551959261) Type 2 diabetes mellitus with diabetic polyneuropathy (E11.42) Active confirmed Vital Signs Height 6ft2in in 12/19/2023 Weight 342 lbs 12/19/2023 BMI 43.91 kg/m2 12/19/2023 Blood pressure systolic 130 mm Hg 12/19/19 Blood pressure diastolic 80 mm Hg 024 Procedures Procedure Date Ordered Date Performed Result Body Sit e 90573-TSKPJYZ NAIL, 6 OR MORE 12/19/2023 N/A 67961-XTHC SKIN LESIONS, OVER 4 12/19/2023 N/A Encounters Encounter Location Date Provider Diagnosis [facility] [place] [address] [place] [address] 12/19/2023 Syed Noel Type 2 diabetes mellitus with diabetic polyneuropathy E11.42 ; Tinea unguium B35.1 and Xerosis of skin L85.3 Assessments Encounter Date Diagnosis (ICD Code) Assessment Notes Treatment Notes Treatment Clinical Notes Section Notes 12/19/2023 Type 2 diabetes mellitus with diabetic polyneuropathy (ICD-10 - E11.42) 12/19/2023 Tinea unguium (ICD-10 - B35.1) 12/19/2023 Xerosis of skin (ICD-10 - L85.3) Plan Of Treatment Medication Medication Name Sig Start Date Stop Date Notes Ammonium Lactate 12 % 1 application Exte rnally to affected areas of skin to feet except for between the toes Twice a day for 30 days Pending Test Test Name Order Date [id number] NAIL, 6 OR MORE 12/19/2023 19928-NYMR SKIN LESIONS, OVER 4 12/19/19 24 Next Appt Details Follow Up: 2 Months, Reason: Provider Name:Syed Noel , 06/21/2024 11:00:00 AM, [address] [place] [address], [id number], Procedure Notes * Category Sub-Category Detail Notes [...] T2, T3, T4, T5, T6, T7, T8, T9), was performed exclusively by the physician of record to reduce/remove overall nail length, girth, thickness, subungual debris, and necrotic tissue, by manual and/or electrical means through the use of a nail nipper and/or dremel-type swing frame grinder operator, to a more viable healthy nail plate [...] to maintain effectiveness in symptomatic relief - 70243 Keratoma Treatment Parring or Cutting o f [...] MTH (s), 5, B/L , Plantar, Heel(s), B/L), were pared, and/or cut utilizing a sterile 15 blade, tissue nippers, and/or power dremel instrumentation by the physician of record - 39140 Progress Notes * Radha MORENODOB: [birth year] (53 yo F)Acc No.[id number]:12/19/2023 Progress Note Patient:?Radha MORENO Provider:?Syed Noel DPM :1970???Age:53 Y???Sex:Female D ate:12/19/2023 Address:[address] [place] [address], [facility] [place] Pcp:Adán Yadav Subjective: * Chief Complaints: * ???At Risk FootcareSkin prob bernardino(s) * HPI: ???At Risk footcare:?Pt States Last PCP Visit:?Date?09/07/2023 ???Skin problems:?Nature:?dryness , scaling.?Location:?B/L .?Duration:?several days.?Course:?worse.? * ROS:?General/Constitutional:?Nausea?denies.?Vomiting?denies.?Hunger Thirst?denies.?Loss appetite?denies.?Chills?denies.?Fatigue?denies.?Fever?denies.?Night Sweats?denies.?Unexplained weight loss?denies.?Unexplained [...] Procedure:?Denies Past Hospitalization * Family History:?Mother: elizabeth marin.?Father: alive, heart disease, cardiovascular disease, diagnosed with Unspecified essential hypertension.?Paternal Grand Mother: brain cancer, heart attack.?Paternal Grand Father: colon cancer, lymphoma.?Paternal aunt: substance abuse.?Paternal uncle: gastric cancer, substance abuse.? * Social History:?Tobacco Use:?Tobacco use other than smoking?Are you an other tobacco user??No ?Tobacco Control (Standard)?Tobacco use:?Nonsmoker ???Miscellaneous:?Caffeine: yes, frequency: 3-5 cups per day. [...] Splint AFO - L1930 as directed Taking Aspirin 81 MG Tablet [...] Night Splint AFO - L1930 as directed Not-Taking/PRNmetFORMIN HCl 500 MG Tablet as directed Orally Antibiotic , Notes to Pharmacist: 7 days took for 3 days due to heartburnAspirin 162.5 MG Capsule Extended Release 24 Hour 1 capsule Orally Once a day Medication List reviewed and reconciled with the patientNot-Taking/PRN metFORMIN HCl 500 MG Tablet as directed Orally Not-Taking/PRN Antibiotic , Notes to Pharmacist: 7 days took for 3 days due to heartburnNot-Taking/PRN Aspirin 162.5 MG Capsule Extended Release 24 Hour 1 capsule Orally Once a day Medication List reviewed and reconciled with the patient * Allergies:?Amoxicillin: Yuri rgyAtorvastatin: AllergyBupropion: AllergyPenicillin: hives - AllergyPravastatin: AllergySimvastatin: AllergyWellbutrin: hives - AllergyTomatoes: AllergyMilk: diarrhea - AllergyAdhesive: rashyes[Allergies Verified] Objective: * Vitals:?Ht: 6ft2in, Wt:342, BMI:43.91, Shoe size: 10-10.5, BP:130/80mm Hg, BS: not taken, Ht-cm: 187.96 cm, Wt-k.13 kg. * ???Past Orders: Lab:HEMOGLOBIN A1C (GLYCOHEM OGLOBIN) * Collection Date 12/28/2022 12/28/2022 09/05/2022 Collection Time 11:20 AM Order Date 12/28/2022 03/16/2023 10/06/2022 HEMOGLOBIN A1C % (HH) 5.7 NR NR HEMOGLOBIN A1C (HH) NR 5.7 NR * Examination: ???Ophthalmology Referral: ?DIABETES EYE EXAM?Procedure Performed:?Yes ?Date of Exam Performed?01/09/2023 ?Findings of Diabetic Eye Exam:?no retinopathy?Neurological: ?SENSORY:? [...] B/L , Plantar, Heel(s), B/L , Skin shows sign(s) of, dryness, scaling, in a stocking fashion, no fissure(s) present, B/L.?Vascular: ?DP PULSES (B):?1/4, B/L.?PT PULSES (B):? 1/4, B/L.?CAPILLARY FILL TIME:?3 secs. per digit, B/L.?TROPHIC CONDITION-TEXTURE/ELASTICITY/TURGOR/HAIR GROWTH (B):?normal, B/L.?TEMPERTURE GRADIENT (C):?warm to cool, proximal to distal, B/L.?PIGMENTATION:?normal, B/L.?EDEMA (C):?2/4, pitting, without aching pain, Leg(s), Ankle(s), Foot, B/L.?CLAUDICATION (C):?denies, B/L.?REST PAIN:?denies, B/L.?Orthopedic: ?MUSCLE STRENGTH:?5/5 all groups in a symmetrical fashion , B/L.?FOOT MORPHOLOGY:? Pes Planus structure, B/L.?DIGITAL DEFORMITIES:? Digital contracture, PIPJ, 2-5 B/L, incompl- reducable with WB, or to push-up test, no over, nor underlapping.?FOOTWEAR:?fair condition.?General Examination: ?GENERAL APPEARANCE:?Reveals a pleasant, alert, well nourished, well- developed, well hydrated individual, who demonstrates proper attention to hygiene/body habitus, and is in no acute distress, Pt serves as own historian for office visit today.?ORIENTED:?person, place, and time.?FOOT EXAM:?Lower Extremity Neurological Exam performed:?Yes ?Visual exam of foot performed:?Yes ?Date?12/19/2023 ?Footwear Evaluation?Footwear Evaluation performed:?Yes??? Assessment: * Assessment: 1.?Type 2 diabetes mellitus with diabetic polyneuropathy - E11.42 (Primary)???2.?Tinea unguium - B35.1???3.?Xerosis of skin - L85.3???Specify :Acute problem, Uncomplicated (3),Rx Management (4)??? Plan: * Treatment: 2.?Xerosis of skin? Start Ammonium Lactate Cream, 12 %, 1 application, Externally to affected areas of skin to feet except for between the toes, Twice a day, 30 days, 140, Refills 2.?? * Procedures:?Debride Nail 6-10:?Nail debridement?Due to the clinical pathology outlined in the exam findings, performance of this nail treatment is medically necessary as its management by an unskilled/untrained nonprofessional would put this patients foot and overall health at risk. Therefore, debridement to affected nail(s), as described in exam (?TA, T1, T2, T3, T4, T5, T6, T7, T8, T9), was performed exclusively by the physician of record to reduce/remove overall nail length, girth, thickness, subungual debris, and necrotic tissue, by manual and/or electrical means through the use of a nail nipper and/or dremel-type swing frame grinder operator, to a more viable healthy nail plate [...] to maintain effectiveness in symptomatic relief - 25496.?Keratoma Treatment:?Parring or Cutting of Benign Hyperkeratotic Lesion(s)?(-57) [...] p lantar,?IPJ,?T5,?Plantar,?T2,?Plantar,?T3,?Plantar,?T4,?Plantar,?T6,?Plantar,?T7 ,?Plantar,?T8,?P lantar,?T9,?SUB MTH (s),?1,?B/L,?SUB MTH (s),?5,?B/L?,?Plantar,?Heel(s),?B/L), were pared, and/or cut utilizing a sterile 15 blade, tissue nippers, and/or power dremel instrumentation by the physician of record - 59114.? * Procedure Codes:?91218 DEBRI DE NAIL, 6 OR MORE, Modifiers: XS 38892 TRIM SKIN LESIONS, OVER 4, Modifiers: XS [...] patient to call the office.?Xerosis:?The patient was counseled on the diagnosis, potential etiologies, and [...] interspaces while paying special attention to the heels. Such was sent to their pharmacy at the time of visit.? ??Screening/Special Tests:?Fall Risk?Screening:?No falls in the past year ?FALLS: Screening for Future Fall Risk?Have you had any falls with injury in the past year??No * Follow Up:?2 Months * Images: * Sign off status: Completed true * Provider:?Syed Noel DPM Date:?2023 Generated for Danna elmore/Alphonso/Rosalio on:?05/03/2024 01:08 PM EST History and Physical Notes * HPI (History of Present Illness) Category Sub-Category Detail Notes Category Not es Skin problems Nature: dryness , scaling Location: B/L Duration: several days Course: worse At Risk footcare Pt States Last PCP [...] B/L , Plantar, Heel(s), B/L , Skin shows sign(s) of, dryness, scaling, in a stocking fashion, no fissure(s) present, B/L Orthopedic FOOT MORPHOLOGY: Pes Planus structure, B/ L FOOTWEAR: fair condition DIGITAL DEFORMITIES: Digital contracture , PIPJ, 2-5 B/L, incompl-reducable with WB, or to push-up test, no over, nor underlapping MUSCLE STRENGTH: 5/5 all groups in a symmetrical fashion , B/L General Examination GENERAL APPEARANCE: Reveals a pleasant, alert, well nourished, well-developed, well hydrated individual, who demonstrates proper attention to hygiene/body habitus, and is in no acute distress, Pt serves as own historian for office visit today FOOT EXAM: Lower Extremity Neurological Exa m performed:: Yes Visual exam of foot performed:: Yes Date: 12/19/2023 ORIENTED: person, place, and t bashir Footwear Evaluation Footwear Evaluation performe d:: Yes Ophthalmology Referral DIABETES EYE EXAM Procedure Perform ed:: Yes ?Date of Exam Performed: 01/09/2023 Findings of Diabetic Eye Exam:: no retin opathy Vascular DP PULSES (B): 1/4, B/L PT PULSES (B): 1/4, B/L CAPILLARY FILL TIME: 3 secs. per digit, B/L TEMPERTURE GRADIENT (C): warm to cool, p roximal to distal, B/L TROPHIC CONDITION-TEXTURE/ELASTICITY/TURGOR/HAIR GROWTH (B): normal, B/L EDEMA (C): 2/4, pitting, withou t aching pain, Leg(s), Ankle(s), Foot, B/L CLAUDICATION (C): denies, B/L REST PAIN: denies, B/L PIGMENTATION: normal, B/L Nails NAILS are: Elongated, overg rown, dystrophic, lytic, greater than 3mm thick, discolored and friable with crumbly malodorous subungual debris , TA, T1, T2, T3, T4, T5, T6, T7, T8, T9
--- OUTSIDE RECORDS SUMMARY | 2024-05-03 13:09 | XMS_ITS | Patient Health Record ---
[facility] Address [address] [place] [address] Care Team Providers Care Floral Merchandiser Name Role Phone Adán Yadav Primary Care Provider Syed Ford Unavailable [phone] Montrell Calle Unavailable [phone] Allergies Allergen (clinical drug ingredient) Drug/Non Drug [...] Allergy Act jyothi Tomatoes Unknown Allergy Active Results Component Value Reference Range Notes HEMOGLOBIN A1C (GLYCOHEMOGLO BIN) Reviewed date:03/19/2024 11:31:45 AM Interpretation: Performing Lab: Notes/Report: HEMOGLOBIN A1C % (HH) 4.5 HEMOGLOBIN A1C (GLYCOHEMOGLO BIN) Reviewed date:03/19/2024 11:15:04 AM Interpretation: Performing Lab: Notes/Report: HEMOGLOBIN A1C % (HH) 4.5 Reason For Referral No Information Medications Medication SIG (Take, Route, Frequency, Duration) Notes Start Date End Date Status Antibiotic 7 days took for 3 days due to heartburn Not-Taking Ibuprofen 800 MG 1 tablet every Orally every 6 hrs PRN Active Aspirin 81 MG 1 tablet Orally Once a day for 30 day(s) Active Ammonium Lactate 12 % 1 application Externally to affected areas of skin to feet except for between the toes Twice a day for 30 days Active Albuterol Sulfate Ac tive metFORMIN HCl 500 MG as directed Orally Not-Taking Triamcinolone Acetonide 0.5 % as directed Externally Active Ozempic Active Night Splint AFO - L1930 as directed Active Nitroglycerin 0.4 MG as directed Sublingual PRN Active Rosuvastatin Calcium 10 MG 1 tablet Orally Once a day Active Metoprolol Tartrate 25 MG as directed Orally Active Montelukast Sodium 10 MG as directed Orally Once a day Active Lancets Active Aspirin 162.5 MG 1 capsule Orally Once a day for 30 day(s) Not-Taking Lisinopril 20 MG as directed Orally Once a day Active Immunizations Vaccine Route Administration Date Status Comme nts COVID-19 Moderna Vaccine Unknown 07/13/2020 Administere d 06/17/2020 Influenza Unknown 11/27/2021 Administered Social History Tobacco Use: Social History Observation [...] Polyneuropathy due to type 2 diabetes mellitus (940691986) Type 2 diabetes mellitus with diabetic polyneuropathy (E11.42) Active confirmed Vital Signs Blood pressure diastolic 70 mm Hg 03/19/2024 Height 6ft2in in 03/19/2024 Blood pressure systolic 130 mm Hg 03/19/2024 Weight 342 lbs 03/19/2024 BMI 43.91 kg/m2 03/19/2024 Procedures Procedure Date Ordered Date Performed Result Body Sit e 26980-OVSSNDO NAIL, 6 OR MORE 12/19/2023 N/A 60431-YWOM SKIN LESIONS, OVER 4 12/19/2023 N/A 50855-DJCBTHI NAIL, 6 OR MORE 03/19/2024 N/A 01522-WHKH SKIN LESIONS, OVER 4 03/19/2024 N/A Encounters Encounter Location Date Provider Diagnosis [facility] [place] [address] [place] [address] 06/05/2023 Montrell Calle Type 2 diabetes mellitus with [...] 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 and Ingrowing nail L60.[address] [address] 09/13/2023 Montrell Luc Type 2 diabetes mellitus with diabetic polyneuropathy [...] 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 and Ingrowing nail L60.[address] [address] 12/19/2023 Syed Noel Type 2 diabetes mellitus with diabetic polyneuropathy E11.42 ; Tinea unguium B35.1 and Xerosis of skin L85.[address] [address] 03/19/2024 Syedsharron KruseBert Type 2 diabetes mellitus with diabetic polyneuropathy E11.42 ; Tinea unguium B35.1 and Xerosis of skin L85.3 Assessments Encounter Date Diagnosis (ICD Code) Assessment Notes Treatment Notes Treatment Clinical Notes Section Notes 06/05/2023 Type 2 diabetes mellitus with diabetic polyneuropathy (ICD-10 - E11.42) 09/13/2023 Type 2 diabetes mellitus with diabetic polyneuropathy (ICD-10 - E11.42) 12/19/2023 Type 2 diabetes mellitus with diabetic polyneuropathy (ICD-10 - E11.42) 12/19/2023 Tinea unguium (ICD-10 - B35.1) 03/19/2024 Type 2 diabetes mellitus with diabetic polyneuropathy (ICD-10 - E11.42) 03/19/2024 Tinea unguium (ICD-10 - B35.1) 03/19/2024 Xerosis of skin (ICD-10 - L85.3) 09/13/2023 Pain in right toe(s) (ICD-10 - M79.674) 06/05/2023 Pain in right toe(s) (ICD-10 - M79.674) 06/05/2023 Pain in left toe(s) (ICD-10 - M79.675) 09/13/2023 Pain in left toe(s) (ICD-10 - M79.675) 12/19/2023 Xerosis of skin (ICD-10 - L85.3) 09/13/2023 Hallux rigidus, left foot (ICD-10 - M20.22) 09/13/2023 Tinea unguium (ICD-10 - B35.1) 06/05/2023 Tinea unguium (ICD-10 - B35.1) 06/05/2023 Hallux rigidus, left foot (ICD-10 - M20.22) 09/13/2023 Hallux rigidus, right foot (ICD-10 - M20.21) 09/13/2023 Other hammer toe(s) (acquired), left foot (ICD-10 - M20.42) 06/05/2023 Hallux rigidus, right foot (ICD-10 - M20.21) 06/05/2023 Other hammer toe(s) (acquired), left foot (ICD-10 - M20.42) 09/13/2023 Other hammer toe(s) (acquired), right foot (ICD-10 - M20.41) 09/13/2023 Primary osteoarthritis, left ankle and foot (ICD-10 - M19.072) 06/05/2023 Other hammer toe(s) (acquired), right foot (ICD-10 - M20.41) 09/13/2023 Primary osteoarthritis, right ankle and foot (ICD-10 - M19.071) 06/05/2023 Primary osteoarthritis, left ankle and foot (ICD-10 - M19.072) 06/05/2023 Primary osteoarthritis, right ankle and foot (ICD-10 - M19.071) 09/13/2023 Xerosis cutis (ICD-10 - L85.3) 09/13/2023 Plantar fascial fibromatosis (ICD-10 - M72.2) 06/05/2023 Xerosis cutis (ICD-10 - L85.3) 06/05/2023 Plantar fascial fibromatosis (ICD-10 - M72.2) 09/13/2023 Ingrowing nail (ICD-10 - L60.0) 06/05/2023 Ingrowing nail (ICD-10 - L60.0) Plan Of Treatment Pending Test Test Name Order Date X ray : Foot, left 3V 02/07/2022 X ray : Foot, right 3V 02/07/2022 59331-BUFLFGO NAIL, 6 OR MORE 07/27/2022 97453-GUNZMVU NAIL, 6 OR MORE 12/19/2023 18262-UFFLFKS NAIL, 6 OR MORE 03/19/2024 76614-HZZG SKIN LESIONS, OVER 4 03/19/19 25 96076-XEIR SKIN LESIONS, OVER 4 12/19/19 24 33734-NAAD SKIN LESIONS, OVER 4 02/08/20 22 24961-DYIF SKIN LESIONS, OVER 4 05/17/19 23 86407-IFWI SKIN LESIONS, OVER 4 07/28/19 23 Next Appt Details Provider Name:Syed Noel , 06/21/2024 11:00:00 AM, [address] [place] [address], [phone], Insurance Providers Payer Name Payer Address Payer Phone Subscriber Number Group Number Insured Name Patient Relationship to Insured Coverage Start Date Coverage End Date [facility] [employer] Claims [address] [place] [id number] Radha Moreno Self - patient is the insured Medical (General) History Medical History History ICD Code asthma Coronary artery disease Gastroesophageal reflux disease (GERD) Hypercholesterolemia Hypertension moderate Aortic stenosis Vitamin D deficiency Folic acid deficiency Sleep apnea Sciatica Obesity Arthritis Back,Hip,and Knee pain type II diabetes Headaches/Migraines Heart disease Psoriasis/eczema Chicken pox Surgical History Surgery Date(Month/Year) cholecystectomy coronary artery stent placement 2008 Hand Surgery 1993 Mammogram Screening section 1999 gallbladder
== END 2024-05-03 12:07 | disposition home or self-care (01) ==
PROVIDERS: PCP Internal Medicine; Visit Provider Internal Medicine
DX: E66.01 Morbid (severe) obesity due to excess calories (principal); Z68.42 Body mass index [BMI] 45.0-49.9, adult; G47.33 Obstructive sleep apnea (adult) (pediatric); E11.65 Type 2 diabetes mellitus with hyperglycemia; J45.20 Mild intermittent asthma, uncomplicated; I25.10 Atherosclerotic heart disease of native coronary artery without angina pectoris; I10 Essential (primary) hypertension; E78.00 Pure hypercholesterolemia, unspecified; K21.9 Gastro-esophageal reflux disease without esophagitis; Z12.11 Encounter for screening for malignant neoplasm of colon

== ENCOUNTER → 2024-05-03 11:18 | Outpatient (BNVA) | payer OTHER, SELFPAY | PROVIDERS: PCP Internal Medicine; Visit Provider Internal Medicine | DX: E66.01 Morbid (severe) obesity due to excess calories (principal); Z68.42 Body mass index [BMI] 45.0-49.9, adult; G47.33 Obstructive sleep apnea (adult) (pediatric); E11.65 Type 2 diabetes mellitus with hyperglycemia; J45.20 Mild intermittent asthma, uncomplicated; I25.10 Atherosclerotic heart disease of native coronary artery without angina pectoris; I10 Essential (primary) hypertension; E78.00 Pure hypercholesterolemia, unspecified; K21.9 Gastro-esophageal reflux disease without esophagitis | CPT/HCPCS: 83036; 99212 ==

== ENCOUNTER 2024-05-15 09:46 | Outpatient (AMB) | payer OTHER, SELFPAY ==
[2024-05-15 10:09] VITALS: BMI 46.1
--- NOTE | 2024-05-15 10:09 | A.OFFVIS_ITS ---
VS Expanded 05/15/24 10:09 Height 6 ft 2 in Weight 359 lb 5.655 oz BMI 46.1 Intake Visit Reasons: T2DM Allergies amoxicillin [AMOXICILLIN] Allergy (Unknown, Verified 05/03/24 11:21) HIVES atorvastatin Allergy (Unknown, Verified 05/03/24 11:21) hives bupropion [From ZYBAN] Allergy (Unknown, Verified 05/03/24 11:21) HIVES milk Allergy (Unknown, Verified 05/03/24 11:21) Diarrhea Penicillins [PENICILLINS] Allergy (Unknown, Verified 05/03/24 11:21) HIVES pravastatin Allergy (Unknown, Verified 05/03/24 11:21) hives simvastatin [SIMVASTATIN] Allergy (Unknown, Verified 05/03/24 11:21) HIVES tomato Allergy (Unknown, Verified 05/03/24 11:21) Hives metformin Adverse Reaction (Intermediate, Verified 05/03/24 11:21) Diarrhea Nutrition Presentation Details: Pt presents for MNT f/u for T2DM Pt reports doing ok Dietary indiscretion during iday season and gradually working on reducing Reports taking vitamin D supplements and working on including food sources of vitamin D food frequency fruit: 1-2/wk veserving/d starches >25/d dairy : 2 serving/d fish: 2x/wk pastries: + fluids: 64 oz/d physical activity:ADL etoh/smokingdenies BS Monitoring Most Recent Diabetes Results: No Data to Display [facility] Medical History (Updated 05/15/24 @ 10:42 by Wanda Covington, RD, LDN) Colon cancer screening Myocardial infarction Breast cancer screening by mammogram GERD (gastroesophageal reflux disease) Hypercholesterolemia Hypertension Folic acid deficiency Vitamin D deficiency Asthma Type 2 diabetes mellitus with hyperglycemia Surgical History History of coronary artery stent placement History of cholecystectomy History of hand surgery History of section Family History Father CVD (cardiovascular disease) Hypertension Heart disease Mother No problems noted. Sister In good health Sister In good health Daughter In good health Paternal Uncle Gastric cancer Substance abuse Paternal Grandfather Colon cancer Paternal Grandmother Brain cancer Maternal Grandmother Myocardial infarction Paternal Uncle Lymphoma Paternal Aunt Substance abuse Social History (Reviewed 05/03/24 @ 11:21 by NARINDER Painter Household Members: Significant Other Household Members Other:: 2 kids Housing: House Alcohol intake: never Patient Tobacco Use Status: Former Tobacco user Tobacco use type: Cigarette e-Cigarette/Vaping Use: Never Used Second Hand Smoke Exposure: No service: No Current occupational status: disabled 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 Cognitive needs: No Hearing needs: No Vision needs: Yes Assessment & Plan Assessment & Plan (1) Morbid obesity with BMI of 45.0-49.9, adult: Comment: Code(s): E66.01 - Morbid (severe) obesity due to excess calories; Z68.42 - Body mass index [BMI] 45.0-49.9, adult Category: Medical Plan: BMI hx 46 (05/21) , 45.3 (02/19), BMI at 49.5 on 01/25/21 Reviewed vitamin D sources of foods EST Kcal NEEDS as per [place] Jeor: 2800 kcal/d USED BODY WT : 160 kg est protein needs as per -1.0 g/kg bw: 160 g/d est fluid needs as per 30 ml/kg bw: 4800 ml/d Educate patient on: (R= Reviewed, V = verbalizes understanding N/R= Needs review N/A= not applicable) * Food sources of carbohydrates and serving adequate serving sizes : V * Difference between complex carbohydrates and simple carbohydrates, role of fiber: V * Differences between fats (MUFA/PUFA/saturated fats, trans fats) and food sources of various fats: V * Food sources of sodium and salt and healthy modifications for heart health and kidney health: V * Vitamins and minerals: V * How to interpret food labels: V * Healthy Plate method concept: V * Physical activity: benefits and precaution: V (2) T2DM (type 2 diabetes mellitus): Comment: BMI hx 56 (05/21) 45.3 (02/19), BMI at 49.5 on 01/25/21 Code(s): E11.9 - Type 2 diabetes mellitus without complications Category: Medical Plan: Reviewed low sodium, heart health nutrition concepts EST Kcal NEEDS as per [place] Jeor: 2866 kcal/d USED BODY WT : 162 kg est protein needs as per -1.0 g/kg bw: 162 g/d est fluid needs as per 30 ml/kg bw: 4900 ml/d Educate patient on: (R= Reviewed, V = verbalizes understanding N/R= Needs review N/A= not applicable) * Food sources of carbohydrates and serving adequate serving sizes : V * Difference between complex carbohydrates and simple carbohydrates, role of fiber: V * Differences between fats (MUFA/PUFA/saturated fats, trans fats) and food sources of various fats: V * Food sources of sodium and salt and healthy modifications for heart health and kidney health: V * Vitamins and minerals: V * How to interpret food labels: V * Healthy Plate method concept: V * Physical activity: benefits and precaution: V Patient Instructions: continue practicing mindful eating, Choose high fiber foods with no sugar added (fruit in place of pastries) Engage in movement as tolerated goal 150 min per week Coding Level of Care Code Nutr Indiv Subseq (97962) Diagnoses Morbid obesity with BMI of 45.0-49.9, adult E66.01; Z68.42 T2DM (type 2 diabetes mellitus) E11.9 Time Spent (min) 20
--- OUTSIDE RECORDS SUMMARY | 2024-05-15 11:00 | XMS_ITS ---
Author Organization [facility] Address [address] [place] [address] Care Team Providers Care Manager Union Name Role Phone LeifFlorenceeri Primary Care Provider Unavailgopi e Syed Noel Unavailable [phone] Allergies Allergen (clinical drug ingredient) Drug/Non Drug Allergy documented on EMR Reaction Allergy Type Onset Date Status Milk (uncoded) diarrhea Allergy Activ e simvastatin Simvastatin Unknown Drug Allergy Act jyothi Wellbutrin hives Drug Allergy Active Adhesive rash [...] Polyneuropathy due to type 2 diabetes mellitus (540940240) Type 2 diabetes mellitus with diabetic polyneuropathy (E11.42) Active confirmed Vital Signs Height 6ft2in in 12/19/2023 Weight 342 lbs 12/19/2023 BMI 43.91 kg/m2 12/19/2023 Blood pressure systolic 130 mm Hg 12/19/19 Blood pressure diastolic 80 mm Hg 024 Procedures Procedure Date Ordered Date Performed Result Body Sit e 79745-ACFMYQJ NAIL, 6 OR MORE 12/19/2023 N/A 30428-HGXV SKIN LESIONS, OVER 4 12/19/2023 N/A Encounters Encounter Location Date Provider Diagnosis [facility] [place] [address] [place] [address] 12/19/2023 Syed Noel Type 2 diabetes mellitus [...] days Pending Test Test Name Order Date 29506-AGEFKAH NAIL, 6 OR MORE 12/19/2023 83146-EKDO SKIN LESIONS, OVER 4 12/19/19 24 Next Appt Details Follow Up: 2 Months, Reason: Provider Name:Syed Noel , 06/21/2024 11:00:00 AM, [address] [place] [address], [phone], Procedure Notes * Category Sub-Category Detail Notes [...] use of a nail nipper and/or dremel-type level vial inside grinder, to a more viable healthy nail [...] to maintain effectiveness in symptomatic relief - 92290 Keratoma Treatment Parring or Cutting o f [...] instrumentation by the physician of record - 95588 Progress Notes * Radha MORENODOB: [birth year] (53 yo F)Acc No.[id number]:12/19/2023 Progress Note Patient:?Radha MORENO Provider:?Syed Noel DPM :1970???Age:53 Y???Sex:Female D ate:12/19/2023 Address:[address] [place] [address], [facility] Pcp:Adán Yadav Subjective: * Chief Complaints: * [...] use of a nail nipper and/or dremel-type level vial inside grinder, to a more viable healthy nail [...] to maintain effectiveness in symptomatic relief - 62608.?Keratoma Treatment:?Parring or Cutting of Benign Hyperkeratotic Lesion(s)?(-57) [...] instrumentation by the physician of record - 04181.? * Procedure Codes:?12293 DEBRI DE NAIL, 6 OR MORE, Modifiers: XS 05436 TRIM SKIN LESIONS, OVER 4, Modifiers: XS [...] Noel DPM Date:?2023 Generated for Danna elmore/Alphonso/Rosalio on:?05/15/2024 11:00 AM EDT History and Physical Notes * HPI (History [...]
--- OUTSIDE RECORDS SUMMARY | 2024-05-15 11:00 | XMS_ITS ---
Author Organization [facility] Address [address] [place] [address] Care Team Providers Care Technical Support Technician Name Role Phone Adán Yadav Primary Care Provider Unavailgopi e Syed Noel Unavailable [phone] Allergies Allergen (clinical drug ingredient) Drug/Non Drug [...] Ordered Date Performed Result Body Sit e 20436-UUWNRUI NAIL, 6 OR MORE 03/19/2024 N/A 59972-SVZV SKIN LESIONS, OVER 4 03/19/2024 N/A Encounters Encounter Location Date Provider Diagnosis [facility] [address] [address] 03/19/2024 Syed Noel Type 2 diabetes mellitus [...] Treatment Pending Test Test Name Order Date 90123-LOZAWWT NAIL, 6 OR MORE 03/19/2024 30043-OTSE SKIN LESIONS, OVER 4 03/19/19 25 Next Appt Details Follow Up: 2 Months, Reason: Provider Name:Syed Noel , 06/21/2024 11:00:00 AM, [address] [place] [address], [phone], Procedure Notes * Category Sub-Category Detail Notes [...] use of a nail nipper and/or dremel-type jewel grinder, to a more viable healthy nail [...] to maintain effectiveness in symptomatic relief - 26436 Keratoma Treatment Parring or Cutting o f [...] instrumentation by the physician of record - 93221 Progress Notes * Radha MORENODOB: [birth year] (53 yo F)Acc No.[id number]:03/19/2024 Progress Note Patient:?Radha MORENO Provider:?Syed Noel DPM :1970???Age:53 Y???Sex:Female D ate:03/19/2024 Address:[address] [place], [place] Pcp:Adán Yadav Subjective: * Chief Complaints: * [...] rashyes[Allergies Verified] Objective: * Vitals:?Ht:6ft2in, Wt:342, B DC:43.91, Shoe size:10-10.5, BP:130/70mm Hg, BS:not taken, Ht-cm: [...] use of a nail nipper and/or dremel-type jewel grinder, to a more viable healthy nail [...] to maintain effectiveness in symptomatic relief - 88561.?Keratoma Treatment:?Parring or Cutting of Benign Hyperkeratotic Lesion(s)?(-57) [...] instrumentation by the physician of record - 80477.? * Procedure Codes:?31233 DEBRI DE NAIL, 6 OR MORE, Modifiers: XS 84018 TRIM SKIN LESIONS, OVER 4, Modifiers: XS [...] Noel DPM Date:?2024 Generated for Danna elmore/Alphonso/Rosalio on:?05/15/2024 11:00 AM EDT History and Physical Notes * HPI (History of Present Illness) Category Sub-Category Detail Notes Category Not es Skin problems Nature: dryness , scaling Location: B/L Treatments: medication ( AM Lact in ), admits intermittent adherence to recommended application At Risk footcare Pt States Last PCP Visit: Date: Examination Category Sub-Category Detail Notes Category Not [...]
--- OUTSIDE RECORDS SUMMARY | 2024-05-15 11:00 | XMS_ITS ---
Author Organization [facility] Address [address] [facility] [place] [address] Care Team Providers Care Kindergarten Aide Name Role Phone LeifIrenerogers Primary Care Provider UnavailSyed Rodriguez Unavailable [phone] Montrell Calle Unavailable [phone] Allergies Allergen (clinical drug ingredient) Drug/Non Drug [...] 024 Encounters Encounter Location Date Provider Diagnosis [facility] [address] [address] 09/13/2023 Montrell Calle Type 2 diabetes mellitus [...] Provider Name:Syed Noel , 06/21/2024 11:00:00 AM, [address] [place] [address], [phone], Procedure Notes * Category Sub-Category Detail Notes [...] as necessary. Patient chooses, no pharmaceutical tx (74491) Keratoma Treatment Parring or Cutting o f Benign Hyperkeratotic Lesion(s) 87249 ( >4 Lesions) - The Benign hyperkeratotic lesions, as described above were pared, and/or cut utilizing a sterile #15 blade, tissue nippers, and/or dremel Progress Notes * Radha MORENODOB: [birth year] (52 yo F)Acc No.[id number]:09/13/2023 Progress Note Patient:?Radha Moreno Provider:?Montrell Calle DPM :1970???Age:52 Y???Sex:Female D ate:09/13/2023 Address:[address] [place] [address] Pcp:Adán Yadav Subjective: * Chief Complaints: * [...] as necessary. Patient chooses, no pharmaceutical tx (33952).?Keratoma Treatment:?Parring or Cutting of Benign Hyperkeratotic Lesion(s)?88871 ( >4 Lesions) - The Benign hyperkeratotic lesions, as described above were pared, and/or cut utilizing a sterile #15 blade, tissue nippers, and/or dremel.? * Procedure Codes:?41207 DEBRI DE NAIL, 6 OR MORE, Modifiers: XS 13338 TRIM SKIN LESIONS, OVER 4, Modifiers: XS [...] Calle DPM Date:? 024 Generated for Danna elmore/Alphonso/eTlisbethsmitting on:?05/15/2024 11:00 AM EDT History and Physical [...]
--- OUTSIDE RECORDS SUMMARY | 2024-05-15 11:00 | XMS_ITS | Patient Health Record ---
Author Organization [facility] Address [address] [place] [address] [address] [place] [address] Care Team Providers Care Tapeman Name Role Phone ERIN COLBERT M.D. Primary Care Provider MARGY Mishra Unavailable [phone] Allergies Allergen (clinical drug ingredient) Drug/Non Drug [...] Notes Problem Excessive and freque nt menstruation (005097441) Excessive and frequent menstruation with regular cycle (N92.0) Active confirmed Problem Body mass index 40+ - severely obese (814848695) Body mass index (BMI) 45.0-49.9, adult (Z68.42) Active confirmed Problem Pure hypercholesterolemia (283842012) Pure hypercholester olemia, unspecified (E78.00) Active confirmed Plan Of Treatment Pending Test Test Name Order Date COMPLETE BLOOD COUNT 12/14/2018 THIN PREP,HPV,BEA IF HPV+ (>29YR)(DIAG) 07/16/2018 MM Digital Screening Mammogram 3D 2018 Insurance Providers Payer Name Payer Address Payer Phone Subscriber Number Group Number Insured Name Patient Relationship to Insured Coverage Start Date Coverage End Date MEDICARE [address] [place] [id number] JANE DUARTE Self - patient is the [...]
--- OUTSIDE RECORDS SUMMARY | 2024-05-15 11:01 | XMS_ITS | Patient Health Record ---
Author Organization [facility] Address [address] [place] [address] Care Team Providers Care Brine Maker Name Role Phone Adán Yadav Primary Care Provider Syed Ford Unavailable [phone] Montrell Calle Unavailable [phone] Allergies Allergen (clinical drug ingredient) Drug/Non Drug [...] Polyneuropathy due to type 2 diabetes mellitus (654765251) Type 2 diabetes mellitus with diabetic polyneuropathy (E11.42) Active confirmed Vital Signs Blood pressure diastolic 70 mm Hg 03/19/2024 Height 6ft2in in 03/19/2024 Blood pressure systolic 130 mm Hg 03/19/2024 Weight 342 lbs 03/19/2024 BMI 43.91 kg/m2 03/19/2024 Procedures Procedure Date Ordered Date Performed Result Body Sit e 47421-KYKNZMD NAIL, 6 OR MORE 12/19/2023 N/A 72273-VBIA SKIN LESIONS, OVER 4 12/19/2023 N/A 73883-HRCOUIK NAIL, 6 OR MORE 03/19/2024 N/A 17954-ZLHQ SKIN LESIONS, OVER 4 03/19/2024 N/A Encounters Encounter Location Date Provider Diagnosis [facility] [place] [address] [place] [address] 06/05/2023 Montrell Calle Type 2 diabetes mellitus [...] 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 and Ingrowing nail L60.[address] [address] 09/13/2023 Montrell Luc Type 2 diabetes mellitus [...] 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 and Ingrowing nail L60.[address] [address] 12/19/2023 Syed Noel Type 2 diabetes mellitus with diabetic polyneuropathy E11.42 ; Tinea unguium B35.1 and Xerosis of skin L85.[address] [address] 03/19/2024 Syedsharron KruseBert Type 2 diabetes mellitus [...] X ray : Foot, right 3V 02/07/2022 92672-AWDEENJ NAIL, 6 OR MORE 07/27/2022 90160-TEBACDI NAIL, 6 OR MORE 12/19/2023 05393-RWOSPKT NAIL, 6 OR MORE 03/19/2024 52469-UILR SKIN LESIONS, OVER 4 03/19/19 25 95850-NXLD SKIN LESIONS, OVER 4 12/19/19 24 39705-LTDI SKIN LESIONS, OVER 4 02/08/20 22 30822-WNNL SKIN LESIONS, OVER 4 05/17/19 23 68352-DJPQ SKIN LESIONS, OVER 4 07/28/19 23 Next Appt Details Provider Name:Syed Noel , 06/21/2024 11:00:00 AM, [address] [place] [address], [place], [address], Insurance Providers Payer Name Payer Address Payer Phone Subscriber Number Group Number Insured Name Patient Relationship to Insured Coverage Start Date Coverage End Date [facility] SCO Claims [address] [place] [address] [id number] Radha Moreno Self - patient is the [...]
== END 2024-05-15 10:32 | disposition home or self-care (01) ==
LOC: HO.ENCR 09:47
PROVIDERS: PCP Internal Medicine; Visit Provider Dietitian, Registered
DX: E66.01 Morbid (severe) obesity due to excess calories (principal); Z68.42 Body mass index [BMI] 45.0-49.9, adult; E11.9 Type 2 diabetes mellitus without complications

== ENCOUNTER → 2024-05-15 09:46 | Outpatient (BNVA) | payer OTHER, SELFPAY | PROVIDERS: PCP Internal Medicine; Visit Provider Dietitian, Registered | DX: E66.01 Morbid (severe) obesity due to excess calories (principal); E11.9 Type 2 diabetes mellitus without complications; Z68.42 Body mass index [BMI] 45.0-49.9, adult | CPT/HCPCS: 97803 ==

== ENCOUNTER 2024-09-10 09:20 | Outpatient (AMB) | payer OTHER, SELFPAY ==
[2024-09-10 09:36] VITALS: BMI 46.4
--- NOTE | 2024-09-10 09:36 | A.OFFVIS_ITS ---
VS Expanded 09/10/24 09:36 Height 6 ft 2 in Weight 361 lb 8.929 oz BMI 46.4 Intake Visit Reasons: t2dm Allergies amoxicillin (AMOXICILLIN) Allergy (Unknown, Verified 05/03/24 11:21) HIVES atorvastatin Allergy (Unknown, Verified 05/03/24 11:21) hives bupropion (From ZYBAN) Allergy (Unknown, Verified 05/03/24 11:21) HIVES milk Allergy (Unknown, Verified 05/03/24 11:21) Diarrhea Penicillins (PENICILLINS) Allergy (Unknown, Verified 05/03/24 11:21) HIVES pravastatin Allergy (Unknown, Verified 05/03/24 11:21) hives simvastatin (SIMVASTATIN) Allergy (Unknown, Verified 05/03/24 11:21) HIVES tomato Allergy (Unknown, Verified 05/03/24 11:21) Hives metformin Adverse Reaction (Intermediate, Verified 05/03/24 11:21) Diarrhea Nutrition Presentation Details: Pt presents for MNT f/u for T2DM and morbid obesity Pt reports doing well, Pt reports working on choosing lean protein foods, trying new meal replacements high in protein Trying fiber rich foods (tried taylor seeds) Physical activity : ADL, + keeping as active as possible d/t OA of knees fluids: water, low sugar beverages, oatmilk fruits 3-4/day (in smoothies with taylor seeds) PFSH Medical History (Updated 09/10/24 @ 10:07 by Wanda Covington, RD, LDN) Colon cancer screening Myocardial infarction Breast cancer screening by mammogram GERD (gastroesophageal reflux disease) Hypercholesterolemia Hypertension Folic acid deficiency Vitamin D deficiency Asthma Type 2 diabetes mellitus with hyperglycemia Surgical History History of coronary artery stent placement History of cholecystectomy History of hand surgery History of section Family History Father CVD (cardiovascular disease) Hypertension Heart disease Mother No problems noted. 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 Cognitive needs: No Hearing needs: No Vision needs: Yes Assessment & Plan Assessment & Plan (1) Morbid obesity with BMI of 45.0-49.9, adult: Comment: Code(s): E66.01 - Morbid (severe) obesity due to excess calories; Z68.42 - Body mass index [BMI] 45.0-49.9, adult Category: Medical Plan: BMI hx 46 (09/20) , 46 (05/21) , 45.3 (02/19), BMI at 49.5 on 01/25/21 , Reviewed lean protein foods and low sodium EST Kcal NEEDS as per [place] Jeor: 2800 kcal/d USED BODY WT : 160 kg est protein needs as per -1.0 g/kg bw: 160 g/d est fluid needs as per 30 ml/kg bw: 4800 ml/d Educate patient on: (R= Reviewed, V = verbalizes understanding N/R= Needs review N/A= not applicable) * Food sources of carbohydrates and serving adequate serving sizes : V * Difference between complex carbohydrates and simple carbohydrates, role of fiber: V * Differences between fats (MUFA/PUFA/saturated fats, trans fats) and food sources of various fats: V * Food sources of sodium and salt and healthy modifications for heart health and kidney health: V * Vitamins and minerals: V * How to interpret food labels: V * Healthy Plate method concept: V * Physical activity: benefits and precaution: V (2) T2DM (type 2 diabetes mellitus): Comment: BMI hx 46 (09/20) 45.3 (02/19), BMI at 49.5 on 01/25/21 Code(s): E11.9 - Type 2 diabetes mellitus without complications Category: Medical Plan: Reviewed low sodium, heart health nutrition concepts used wt: 162 kg EST Kcal NEEDS as per [place] Jeor: 2860 -500 = 2400 kcal/d est protein needs as per -1.0 g/kg bw: 162 g/d est fluid needs as per 30 ml/kg bw: 4900 ml/d Educate patient on: (R= Reviewed, V = verbalizes understanding N/R= Needs review N/A= not applicable) * Food sources of carbohydrates and serving adequate serving sizes : V * Difference between complex carbohydrates and simple carbohydrates, role of fiber: V * Differences between fats (MUFA/PUFA/saturated fats, trans fats) and food sources of various fats: V * Food sources of sodium and salt and healthy modifications for heart health and kidney health: V * Vitamins and minerals: V * How to interpret food labels: V * Healthy Plate method concept: V * Physical activity: benefits and precaution: V Patient Instructions: Continue working on choosing lean protein foods, (steamed shrimp, 4-6 oz fish at least 3 times a week) Choose foods high in fiber and with prot (2 tbs of taylor =5 g prot, 1 cup of beans :edamame/chickpeas = 16-21 g protein/12-16 g fiber) keep hydrated by having water, low sugar beverages, milk , vegetable Continue choosing low sugar (ex bran cereal or cheerios vs raisin bran) Coding Level of Care Code Nutr Indiv Subseq (03345) Diagnoses Morbid obesity with BMI of 45.0-49.9, adult E66.01; Z68.42 T2DM (type 2 diabetes mellitus) E11.9 Time Spent (min) 30
--- OUTSIDE RECORDS SUMMARY | 2024-09-10 09:49 | XMS_ITS | Patient Health Record ---
Author Organization [facility] Address [address] [facility] [place] [address] Care Team Providers Care Bench Assembler Electrical Name Role Phone Adán Yadav Primary Care Provider Syed Ford Unavailable [phone] Montrell Calle Unavailable [phone] Allergies Allergen (clinical drug ingredient) Drug/Non Drug [...] (HH) 4.5 HEMOGLOBIN A1C (GLYCOHEMOGLO BIN) Reviewed date:06/21/2024 11:43:14 AM Interpretation: Performing Lab: Notes/Report: HEMOGLOBIN A1C % (HH) 6.1 Reason For Referral No Information Medications Medication SIG (Take, Route, Frequency, Duration) Notes Start Date End Date Status Wegovy Active Triamcinolone Acetonide 0.5 % as directed Externally Active Ozempic Active Night Splint AFO - L1930 as directed Active Aspirin 81 MG 1 tablet Orally Once a day; Duration: 30 day(s) Active Ammonium Lactate 12 % 1 application Externally to affected areas of skin to feet except for between the toes Twice a day; Duration: 30 days Active Albuterol Sulfate Ac tive metFORMIN HCl 500 MG as directed Orally Not-Taking Extra Depth Orthopedic Shoes (1 Pair) with Customized Heat Molded Multidensity Innersoles (3 Pair) as directed Dx: NIDDM/Polyneuropath y (E11.42), Hammertoe Foot Deformity (M20.41,M20.42), Preulcerative Skin Lesion(s) (L85.1 06/21/2024 Active Montelukast Sodium 10 MG as directed Orally Once a day Active Nitroglycerin 0.4 MG as directed Sublingual PRN Active Rosuvastatin Calcium 10 MG 1 tablet Orally Once a day Active Ibuprofen 800 MG 1 tablet every Orally every 6 hrs PRN Active Antibiotic 7 days took for 3 days due to heartburn Not-Taking Lancets Active Aspirin 162.5 MG 1 capsule Orally Once a day; Duration: 30 day(s) Not-Taking Lisinopril 20 MG as directed Orally Once a day Active Metoprolol Tartrate 25 MG as directed Orally Active Immunizations Vaccine Route Administration Date Status [...] Problem Status W/U Status Risk Notes Problem Acquired hammer toe of right foot (7326517666345288 ) Other hammer toe(s) (acquired), right foot (M20.41) Active confirmed Problem Acquired hammer toe of left foot (9279086647113443 ) Other hammer toe(s) (acquired), left foot (M20.42) Active confirmed Problem Polyneuropathy due to type 2 diabetes mellitus (566278630) Type 2 diabetes mellitus with diabetic polyneuropathy (E11.42) Active confirmed Vital Signs Blood pressure diastolic 60 mm Hg 06/21/2024 Height 6ft2in in 06/21/2024 Blood pressure systolic 130 mm Hg 06/21/2024 Weight 342 lbs 06/21/2024 BMI 43.91 kg/m2 06/21/2024 Procedures Procedure Date Ordered Date Performed Result Body Sit e 34820-LGZISYB NAIL, 6 OR MORE 03/19/2024 N/A 95839-IIMO SKIN LESIONS, OVER 4 03/19/2024 N/A 75237-HZZUGGR NAIL, 6 OR MORE 06/21/2024 N/A 44364-UCTI SKIN LESIONS, OVER 4 06/21/2024 N/A 70050-TDMH SKIN LESIONS, OVER 4 12/19/2023 N/A 95271-DWSVQXD NAIL, 6 OR MORE 12/19/2023 N/A Encounters Encounter Location Date Provider Diagnosis [address] [address] 09/13/2023 Montrell Calle Type 2 diabetes mellitus [...] 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 and Ingrowing nail L60.[address] [address] 12/19/2023 Syed Noel Type 2 diabetes mellitus with diabetic polyneuropathy E11.42 ; Tinea unguium B35.1 and Xerosis of skin L85.[address] [address] 03/19/2024 Syed Kruseunier Type 2 diabetes mellitus with diabetic polyneuropathy E11.42 ; Tinea unguium B35.1 and Xerosis of skin L85.3 [address] [place] [address] 06/21/2024 Syed Noel Type 2 diabetes mellitus with diabetic polyneuropathy E11.42 ; Tinea unguium B35.1 ; Other hammer toe(s) (acquired), right foot M20.41 and Other hammer toe(s) (acquired), left foot M20.42 Assessments Encounter Date Diagnosis (ICD Code) Assessment Notes Treatment Notes Treatment Clinical Notes Section Notes 09/13/2023 Type 2 diabetes mellitus with diabetic polyneuropathy (ICD-10 - E11.42) 03/19/2024 Type 2 diabetes mellitus with diabetic polyneuropathy (ICD-10 - E11.42) 03/19/2024 Tinea unguium (ICD-10 - B35.1) 12/19/2023 Type 2 diabetes mellitus with diabetic polyneuropathy (ICD-10 - E11.42) 12/19/2023 Tinea unguium (ICD-10 - B35.1) 06/21/2024 Type 2 diabetes mellitus with diabetic polyneuropathy (ICD-10 - E11.42) 06/21/2024 Tinea unguium (ICD-10 - B35.1) 03/19/2024 Xerosis of skin (ICD-10 - L85.3) 06/21/2024 Other hammer toe(s) (acquired), right foot (ICD-10 - M20.41) Patient Educated with: DIABETIC FOOT CARE INSTRUCTIONS. pdf (DIABETIC FOOT CARE INSTRUCTIONS. pdf) 09/13/2023 Pain in right toe(s) (ICD-10 - M79.674) 09/13/2023 Pain in left toe(s) (ICD-10 - M79.675) 06/21/2024 Other hammer toe(s) (acquired), left foot (ICD-10 - M20.42) 12/19/2023 Xerosis of skin (ICD-10 - L85.3) 09/13/2023 Hallux rigidus, left foot (ICD-10 - M20.22) 09/13/2023 Tinea unguium (ICD-10 - B35.1) 09/13/2023 Hallux rigidus, right foot (ICD-10 - [...] X ray : Foot, right 3V 02/07/2022 36707-CEAJFXD NAIL, 6 OR MORE 06/21/2024 06997-PMUTRRV NAIL, 6 OR MORE 07/27/2022 70565-GKWHBQJ NAIL, 6 OR MORE 12/19/2023 51652-SDYWKIA NAIL, 6 OR MORE 03/19/2024 19951-YZFN SKIN LESIONS, OVER 4 03/19/19 25 00417-EOEI SKIN LESIONS, OVER 4 12/19/19 24 07801-XQTP SKIN LESIONS, OVER 4 02/08/20 22 45595-OAIB SKIN LESIONS, OVER 4 05/17/19 23 19631-BIDY SKIN LESIONS, OVER 4 07/28/19 23 50968-BSZG SKIN LESIONS, OVER 4 06/22/19 25 Next Appt Details Provider Name:Syed Noel , 09/24/2024 09:30:00 AM, [address] [place], [address], Insurance Providers Payer Name Payer Address Payer Phone Subscriber Number Group Number Insured Name Patient Relationship to Insured Coverage Start Date Coverage End Date [facility] SCO Claims [address] [place] [address] [id number] Radha Moreno Self - patient is the [...]
--- OUTSIDE RECORDS SUMMARY | 2024-09-10 09:49 | XMS_ITS | Patient Health Record ---
Author Organization [facility] Address [address] [facility] [address] [place] [address] Care Team Providers Care Principal Planner Name Role Phone ERIN COLBERT M.D. Primary Care Provider MARGY Mishra Unavailable [phone] Allergies Allergen (clinical drug ingredient) Drug/Non Drug [...] 2 PUFFS BY MOUTH TWICE A DAY Inhalation; Duration: 90 Active Nitroglycerin 0.[address] 1 TABLET UNDE R TONGUE IF NEEDED FOR CHEST PAIN EVERY 5 MINUTES X3 DOSES Sublingual; Duration: 90 Active Lisinopril 20 MG TAKE 1 TABLET EVERY DAY ONCE A DAY ORALLY 90 DAYS Oral; Duration: 90 Active Accu-Chek Softclix Lancets - USE DIRE CTED 3 TIMES A DAY; Duration: 30 Active Accu-Chek Sarah Plus - USE DIRECTED 3 TIMES A DAY In Vitro; Duration: 90 Active Metoprolol Tartrate 25 MG TAKE 2 TABLETS BY MOUTH EVERY DAY IN THE MORNING AND TAKE 3 TABLETS IN THE EVENING Oral; Duration: 90 Active metFORMIN HCl ER 500 MG TAKE 2 TABS ONCE A DAY ORALLY 30 DAY(S) Oral; Duration: 30 Active Rosuvastatin Calcium 10 MG TAKE 1 TABLET BY MOUTH DAILY Oral; Duration: 90 Active Albuterol Sulfate HFA 108 (90 Base) MCG/ACT INHALE 1 PUFF EVERY 4 HOURS NEEDED Inhalation; Duration: 25 Active miSOPROStol 200 MCG as directed Orally 8 -12 hrs prior to appointment; Duration: 1 days 07/16/2018 Active Social History Tobacco [...] Notes Problem Excessive and freque nt menstruation (464064841) Excessive and frequent menstruation with regular cycle (N92.0) Active confirmed Problem Body mass index 40+ - severely obese (411846617) Body mass index (BMI) 45.0-49.9, adult (Z68.42) Active confirmed Problem Pure hypercholesterolemia (574340276) Pure hypercholester olemia, unspecified (E78.00) Active confirmed Plan Of Treatment Pending Test Test Name Order Date COMPLETE BLOOD COUNT 12/14/2018 THIN PREP,HPV,BEA IF HPV+ (>29YR)(DIAG) 07/16/2018 MM Digital Screening Mammogram 3D 2018 Insurance Providers Payer Name Payer Address Payer Phone Subscriber Number Group Number Insured Name Patient Relationship to Insured Coverage Start Date Coverage End Date MEDICARE [address] [place] [id number] JANE DUARTE Self - patient is the [...]
== END 2024-09-10 10:01 | disposition home or self-care (01) ==
LOC: HO.ENCR 09:20
PROVIDERS: PCP Internal Medicine; Visit Provider Dietitian, Registered
DX: E66.01 Morbid (severe) obesity due to excess calories (principal); Z68.42 Body mass index [BMI] 45.0-49.9, adult; E11.9 Type 2 diabetes mellitus without complications

== ENCOUNTER → 2024-09-10 09:20 | Outpatient (BNVA) | payer OTHER, SELFPAY | PROVIDERS: PCP Internal Medicine; Visit Provider Dietitian, Registered | DX: E66.01 Morbid (severe) obesity due to excess calories (principal); Z68.42 Body mass index [BMI] 45.0-49.9, adult | CPT/HCPCS: 97803 ==

== ENCOUNTER 2024-09-18 10:30 | Outpatient (AMB) | payer OTHER, SELFPAY ==
[2024-09-18 10:35] VITALS: BP 160/102; PULSE 76; O2SAT 90; BMI 47.4
--- NOTE | 2024-09-18 10:35 | A.OFFVIS_ITS ---
Vital Signs 09/18/24 10:35 Height 6 ft 2 in Weight 369 lb 4.388 oz BMI 47.4 BP 160/102 H Blood Pressure Location Lt radial Position Sitting Pulse 76 Pulse Source Pulse Oximeter Pulse Oximetry (%) 90 L Oxygen Delivery Method Room Air Intake Visit Reasons: Obstructive sleep apnea Intake Note: pt is here for follow up of KRYSTAL, and she states she is feeling fine. 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 Required: No Allergies amoxicillin (AMOXICILLIN) Allergy (Unknown, Verified 09/18/24 10:43) HIVES atorvastatin Allergy (Unknown, Verified 09/18/24 10:43) hives bupropion (From ZYBAN) Allergy (Unknown, Verified 09/18/24 10:43) HIVES milk Allergy (Unknown, Verified 09/18/24 10:43) Diarrhea Penicillins (PENICILLINS) Allergy (Unknown, Verified 09/18/24 10:43) HIVES pravastatin Allergy (Unknown, Verified 09/18/24 10:43) hives simvastatin (SIMVASTATIN) Allergy (Unknown, Verified 09/18/24 10:43) HIVES tomato Allergy (Unknown, Verified 09/18/24 10:43) Hives metformin Adverse Reaction (Intermediate, Verified 09/18/24 10:43) Diarrhea Medication List - Last Reconciled 09/18/24 by Pili Hunter MD albuterol sulfate 90 mcg/actuation (ProAir HFA) 2 puffs inhalation Q6H aspirin (Adult Low Dose Aspirin) 162 mg PO DAILY [AUTOCPAP 8-20 mm HG humidified heated air As directed] blood sugar diagnostic As directed blood sugar diagnostic ([employer] Ultra Test strips) As directed check the blood sugar once a day blood-glucose meter As directed check the blood sugar once a day compr.stocking,knee,long,x-lrg As directed 20-30 mm HG [cpap Supplies As directed] [Diabetic Shoes As directed] [diabetic socks As directed] empty container (BD Sharps Clearance Diver) As directed ibuprofen 800 mg PO TID PRN ketoconazole 2% 1 appl topical 2XW lancets (Smackagesuch Delica Lancets) As directed check the blood sugar q.day lancets As directed lisinopril 40 mg PO DAILY metoprolol tartrate 2 tabs in am and 3 tabs in pm PO 2 times a day; montelukast 10 mg PO BEDTIME nitroglycerin 0.4 mg sublingual Q5M PRN rosuvastatin 10 mg PO BEDTIME semaglutide (weight loss) (Wegovy) 2.4 mg (0.75 mL) subcut QWEEK [Sleeve right hand As directed] triamcinolone acetonide 0.5% 1 appl topical BID 14 days [trouser socks 20-30 millimeter mercury pressure] Do you need a note to return to daycare/school/sports/work: No HPI HPI Obstructive sleep apnea: Details: This 53 years old a pleasant female, with morbid obesity and obstructive sleep apnea is here for 6 months follow-up. Uses CPAP very regularly every night and sleeps good. She has no issues with the mask or the equipment, except that the mask does slip off during the night sometimes and she has to adjust the strap. She is getting Wajovy shots for the past 5-6 months but has not made any progre ss as far as weight reduction is concerned. Is hard for her to walk outdoors but she tries to stay active in the house. [facility]LY [facility] Medical History Colon cancer screening Myocardial infarction Breast cancer screening by mammogram GERD (gastroesophageal reflux disease) Hypercholesterolemia Hypertension Folic acid deficiency Vitamin D deficiency Asthma Type 2 diabetes mellitus with hyperglycemia Surgical History History of coronary artery stent placement History of cholecystectomy History of hand surgery History of section Family History Father CVD (cardiovascular disease) Hypertension Heart disease Mother No problems noted. 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 Cognitive needs: No Hearing needs: No Vision needs: Yes Review of Systems Const All systems reviewed & are unremarkable except as noted in HPI and below Eyes Reports no additional complaints ENT Reports nasal congestion (Off and on due to changes in the weather) Card Denies chest pain, Denies irregular heart rhythm and Denies leg edema Resp Reports as per HPI GI Reports no additional complaints Reports no additional complaints Musc Reports no additional complaints Skin/Breast Reports dry skin and Reports pruritus (On the legs, ) Neuro Reports no additional complaints Psych Reports no additional complaints Physical Exam Vital Signs: Last Vital Signs Pulse 76 09/18/24 10:35 BP 160/102 H 09/18/24 10:35 Pulse Ox 90 L 09/18/24 10:35 Oxygen Delivery Method Room Air 09/18/24 10:35 BMI result Body Mass Index 47.4 Const Other: She is tall and grossly overweight General: comfortable, no acute distress, alert and awake Orientation/consciousness: patient oriented x3 HEENT Head: Yes normal to inspection General nose exam: No nasal polyps present, No nasal discharge present and Other nasal findings present ( MILD NASAL CONGESTION) Face and sinus: Yes sinuses nontender Mouth: oropharynx normal Throat: Yes posterior oropharynx normal Eyes General: appearance normal, both eyes and all related structures Neck Neck: Yes normal visual inspection, Yes no lymphadenopathy, Yes trachea midline, Yes no JVD and Yes other (Neck is very obese) Thyroid: Thyroid normal Chest Chest palpation & inspection: normal inspection of the chest, normal palpation of entire chest wall and no tenderness Resp Effort & Inspection: normal respiratory effort and other ( BREATH SOUNDS ARE SLIGHTLY DECREASED OVER THE BASILAR AREAS) Auscultation: clear to auscultation bilaterally Percussion: percussion normal Cardio Palpation: normal PMI Rate: regular rate Rhythm: regular rhythm Heart sounds: no gallops and no murmurs GI Palpation (GI): Soft to palpation, nontender, No hepatosplenomegaly present, no masses and Other GI palpation findings present (Abdomen obese and protuberant) Auscultation: normal bowel sounds Back/Spine/Pelvis Thoracic/Lumbar Spine: thoracic and lumbar spine normal to inspection and thoraco-lumbar ROM limited Skin General skin exam: dry skin Rashes: other (Mild stasis dermatitis noted over the lower part of legs) Neuro General: patient oriented x3 and no focal motor deficits Cranial nerves: Yes CN's II-XII intact bilaterally Extrem General: Yes normal to inspection, Yes no calf tenderness, Yes edema (MILD ,CHRONIC STASIS ) and Yes venous stasis dermatitis Psych Appearance: grossly normal and well kempt Speech and movement: Normal speech and movement present Results Reviewed Results Reviewed: Compliance report for the last 6 months is reviewed. And it is excellent Uses 100% of the nights, average use it per night. For 7 hours 31 minutes There is only slight air leak and that may be due to slipping off of the mask. But residual AHI is only 0.8 Assessment & Plan Assessment & Plan (1) Morbid obesity with BMI of 45.0-49.9, adult: Comment: Patient remains morbidly obese. She has difficulty in losing weight. Currently getting wagovy injections Q 1 month but has not made much progress in the last 6 months. Code(s): E66.01 - Morbid (severe) obesity due to excess calories; Z68.42 - Body mass index [BMI] 45.0-49.9, adult Category: Medical Plan: Discussed about need to lose weight she should try to walk about 2 miles every day or do some regular exercise at home. Watch her diet closely. (2) Obstructive sleep apnea: Comment: DIAGNOSIS SINCE 2008. HAS BEEN VERY COMPLIANT, FACE MASK OF SMALLER SIZE WITH AUTO PAP MODE PRESSURE SETTING 8-20 CM. IS COMFORTABLE AND SHE HAS NO SPECIAL ISSUES. SHE INTER CHANGES BETWEEN THE SMALL SIZE AND LARGE SIZE. Code(s): G47.33 - Obstructive sleep apnea (adult) (pediatric) Category: Medical Plan: COMMENDED FOR GOOD COMPLIANCE AND ENCOURAGED TO KEEP ON USING THE CPAP MASK EVERY NIGHT REGULARLY (3) Asthma: Comment: SHE HAS LONG-STANDING HISTORY OF ASTHMA WHICH IS FAIRLY WELL CONTROLLED. IT SEEMS THAT HER MAIN TRIGGER IS PHYSICAL EXERTION . PFT. RESULTS SHOWED MOSTLY RESTRICTIVE PATTEN WHICH IS RELATED TO HER WEIGHT. Code(s): J45.909 - Unspecified asthma, uncomplicated Category: Medical Qualifiers: Asthma severity: mild Asthma persistence: intermittent Asthma complication type: uncomplicated Qualified Code(s): J45.20 - Mild intermittent asthma, uncomplicated Plan: MAY USE ALBUTEROL HFA 2 PUFFS Q 6 HOURS ONLY P.R.N. CONTINUE MONTELUKAST 10 MG DAILY. Coding Level of Care Code Est Pt Level 3 (52761) Diagnoses Morbid obesity with BMI of 45.0-49.9, adult E66.01; Z68.42 Obstructive sleep apnea G47.33 Mild intermittent asthma without complication J45.20 Asthma severity: mild Asthma persistence: intermittent Asthma complication type: uncomplicated
--- OUTSIDE RECORDS SUMMARY | 2024-09-18 11:36 | XMS_ITS | Patient Health Record ---
[facility] Address [address] [place] [address] Care Team Providers Care Finishing Supervisor Plastic Sheets Name Role Phone Adán Yadav Primary Care Provider Syed Ford Unavailable [phone] Allergies Allergen (clinical drug ingredient) Drug/Non Drug [...] Vaccine Route Administration Date Status Comme nts Influenza Unknown 11/27/2021 Administered COVID-19 Moderna Vaccine Unknown 07/13/2020 Administere d 06/17/2020 Social History Tobacco Use: Social History Observation [...] Problem Acquired hammer toe of right foot (4281210846494139 ) Other hammer toe(s) (acquired), right foot (M20.41) Active confirmed Problem Acquired hammer toe of left foot (1139030141681193 ) Other hammer toe(s) (acquired), left foot (M20.42) Active confirmed Problem Polyneuropathy due to type 2 diabetes mellitus (668289590) Type 2 diabetes mellitus with diabetic polyneuropathy (E11.42) Active confirmed Vital Signs Blood pressure diastolic 60 mm Hg 06/21/2024 Height 6ft2in in 06/21/2024 Blood pressure systolic 130 mm Hg 06/21/2024 Weight 342 lbs 06/21/2024 BMI 43.91 kg/m2 06/21/2024 Procedures Procedure Date Ordered Date Performed Result Body Sit e 31256-LKBQNKS NAIL, 6 OR MORE 12/19/2023 N/A 29213-AZSB SKIN LESIONS, OVER 4 12/19/2023 N/A 92508-KURDEEO NAIL, 6 OR MORE 03/19/2024 N/A 61299-UVXN SKIN LESIONS, OVER 4 03/19/2024 N/A 55202-DSTRBFP NAIL, 6 OR MORE 06/21/2024 N/A 07716-LDTU SKIN LESIONS, OVER 4 06/21/2024 N/A Encounters Encounter [facility] Date [facility] [address] 12/19/2023 Syed Noel Type 2 diabetes mellitus with diabetic polyneuropathy E11.42 ; Tinea unguium B35.1 and Xerosis of skin L85.[address] [address] 03/19/2024 Syed Noel Type 2 diabetes mellitus with diabetic polyneuropathy E11.42 ; Tinea unguium B35.1 and Xerosis of skin L85.[address] [address] 06/21/2024 Syed Noel Type 2 diabetes mellitus [...] INSTRUCTIONS. pdf (DIABETIC FOOT CARE INSTRUCTIONS. pdf) 06/21/2024 Other hammer toe(s) (acquired), left foot (ICD-10 - M20.42) 12/19/2023 Xerosis of skin (ICD-10 - L85.3) Plan Of Treatment Pending Test Test Name Order Date X ray : Foot, left 3V 02/07/2022 X ray : Foot, right 3V 02/07/2022 89650-VESBZEV NAIL, 6 OR MORE 06/21/2024 40784-MWVNOWW NAIL, 6 OR MORE 07/27/2022 23891-HTTMRSJ NAIL, 6 OR MORE 12/19/2023 03369-YQCVCJD NAIL, 6 OR MORE 03/19/2024 93045-CGOT SKIN LESIONS, OVER 4 03/19/19 25 53008-YKOU SKIN LESIONS, OVER 4 12/19/19 24 23733-EHBC SKIN LESIONS, OVER 4 02/08/20 22 99999-ZOZD SKIN LESIONS, OVER 4 05/17/19 23 89894-ZBAE SKIN LESIONS, OVER 4 07/28/19 23 47168-MWGU SKIN LESIONS, OVER 4 06/22/19 25 Next Appt Details Provider Name:Syed Noel , 09/24/2024 09:30:00 AM, [address] [place], [address], Insurance Providers Payer Name Payer Address Payer Phone Subscriber Number Group Number Insured Name Patient Relationship to Insured Coverage Start Date Coverage End Date [facility] SCO Claims [address] [place] [id number] [id number] Radha Moreno Self - patient is the [...] coronary artery stent placement 2008 Hand Surgery 1992 Mammogram Screening section 1999 gallbladder
--- OUTSIDE RECORDS SUMMARY | 2024-09-18 11:36 | XMS_ITS | Patient Health Record ---
Author Organization [facility] Address [address] [place] [address] Care Team Providers Care Print Developer Name Role Phone ERIN COLBERT M.D. Primary Care Provider MARGY Mishra Unavailable [phone] Allergies Allergen (clinical drug ingredient) Drug/Non Drug [...] Notes Problem Excessive and freque nt menstruation (291215438) Excessive and frequent menstruation with regular cycle (N92.0) Active confirmed Problem Body mass index 40+ - severely obese (489000438) Body mass index (BMI) 45.0-49.9, adult (Z68.42) Active confirmed Problem Pure hypercholesterolemia (722930533) Pure hypercholester olemia, unspecified (E78.00) Active confirmed Plan Of Treatment Pending Test Test Name Order Date COMPLETE BLOOD COUNT 12/14/2018 THIN PREP,HPV,BEA IF HPV+ (>29YR)(DIAG) 07/16/2018 MM Digital Screening Mammogram 3D 2018 Insurance Providers Payer Name Payer Address Payer Phone Subscriber Number Group Number Insured Name Patient Relationship to Insured Coverage Start Date Coverage End Date MEDICARE [address] [place] [id number] JANE DUARTE Self - patient is the [...]
== END 2024-09-18 10:50 | disposition home or self-care (01) ==
LOC: HO.HPS 10:30
PROVIDERS: PCP Internal Medicine; Visit Provider Internal Medicine
DX: E66.01 Morbid (severe) obesity due to excess calories (principal); Z68.42 Body mass index [BMI] 45.0-49.9, adult; G47.33 Obstructive sleep apnea (adult) (pediatric); J45.20 Mild intermittent asthma, uncomplicated
CPT/HCPCS: 99213

== ENCOUNTER → 2024-09-18 10:30 | Outpatient (BNVA) | payer OTHER, SELFPAY | PROVIDERS: PCP Internal Medicine; Visit Provider Internal Medicine | DX: G47.33 Obstructive sleep apnea (adult) (pediatric) (principal); J45.20 Mild intermittent asthma, uncomplicated; E66.01 Morbid (severe) obesity due to excess calories; Z68.42 Body mass index [BMI] 45.0-49.9, adult; Z79.82 Long term (current) use of aspirin; Z79.899 Other long term (current) drug therapy | CPT/HCPCS: 99212 ==

== ENCOUNTER → 2024-10-29 08:56 | Outpatient (REF) | payer OTHER, SELFPAY ==
--- NOTE | 2024-10-29 08:58 | CA_ITS ---
Transthoracic Echocardiogram Patient (Last, First, Middle): Radha Moreno L Gender: F Date of : 1970 Age: 54 Procedure Date: 10/29/2024 Procedure Type: Transthoracic Echocardiogram Location: OP Height: 187.96 cm Weight: 167.38 kg BSA: 2.82 m2 Heart Rate: 73 bpm BP: 148 / 78 mmHg Networker: [facility] Referring MD: Renaldo Cook MD Symptoms: I35.0 - Nonrheumatic aortic (valve) stenosis Study Quality: Adequate w contrast ECG Rhythm: Sinus Conclusions: - The left ventricular systolic function is mildly decreased. The visually estimated ejection fraction is between 40-45%. - Wall motion abnormalities from coronary artery disease. As described in body of report. - No obvious valvular pathology seen on this study. Findings Procedure Information Contrast agent, definity, is being given per protocol without apparent complications. The quality of the study was technically difficult. Left Ventricle Mildly increased left ventricular cavity size. There is mildly increased left ventricular wall thickness. The left ventricular systolic function is mildly decreased. The visually estimated ejection fraction is between 40 45%. Evidence suggests grade I (mild) diastolic dysfunction. Wall Motion Rest Echo Findings The basal inferior segment is hypokinetic. The apex, apical inferior, apical septum, basal inferoseptal, and basal inferolateral segments are akinetic. The apical anterior segment is dyskinetic. Right Ventricle Normal right ventricular cavity size and systolic function. Atria Both atria are normal in size. Aortic Valve The aortic valve was not well visualized. There is no aortic valve stenosis. There is no aortic valve regurgitation. Slightly increased aortic valve gradients could be related to sclerosis. Mitral Valve There is mild mitral annular calcification. There is no mitral valve regurgitation. There is no mitral valve stenosis. Pulmonic Valve The pulmonic valve is likely normal. Tricuspid Valve There is no tricuspid valve regurgitation. Tricuspid regurgitation envelope is inadequate for calculation of right ventricular systolic pressure. Great Vessels The asc aorta is normal in size. Venous The inferior vena cava was not well visualized. Pericardium/Pleural There is no evidence of pericardial effusion. Prior Study Comparison No significant change compared to prior study dated: 01/16/2023. Recommendations, Care & Conclusions No obvious valvular pathology seen on this study. Measurements 2D Linear Measurements IVSd: 1.16 0.6-0.9/0.6-1.0 cm LVIDd: 5.99 3.9-5.3/4.2-5.9 cm LVIDd Index: 2.12 2.4-3.2/2.2-3.1 cm/m2 LVIDs: 4.55 2.0-3.6 cm LVPWd: 1.08 0.7-1.1 cm LA Diam: 4.60 2.7-3.8/3.0-4.0 cm LAIDs Index: 1.63 1.5-2.3 cm/m2 LV Mass: 356.22 67-162/88-224 g LV Mass Index: 126.32 43-95/49-115 g/m2 LVOT Diam: 2.20 3.0+(-)1.3 cm 2D Systolic Function EF 4C: 48.90 >55% EF 2C: 56.20 >55% EF BiP: 53.30 >55% Mitral Valve MV Pk E: 0.96 MV PK A: 1.13 MV Decel Time: 177.00 E/A: 0.80 E'Lateral: 4.24 E'Medial: 5.11 E/E' Med: 18.70 E/E' Lat: 22.50 PHT: 52.00 MVA PHT: 4.23 Decel Luna: 5.39 Aortic Valve AoV Pk Nabor: 2.29 AoV Mn Nabor: 1.63 AoV VTI: 0.53 AoV Pk Grad: 21.00 Aov Mn Grad: 12.00 STEPHEN Cont.VTI: 2.24 LVOT LVOT Pk Nabor: 1.38 LVOT Mn Nabor: 0.94 LVOT VTI: 0.31 LVOT Pk Grad: 8.00 LVOT Mn Grad: 4.00 LVOT Diam: 2.20 LVOT Area: 3.80 Diastolic Function MV Pk E: 0.96 MV Pk A: 1.13 E/A: 0.80 E'Medial: 5.11 E/E' Med: 18.70 E' Laterial: 4.24 E/E' Lat: 22.50 Right Ventricle TAPSE (mm): 29.80 TVS' Nabor: 17.70 Tricuspid Valve RA Press: 3.00 Great Vessels Aorta Sinus of Valsalva: 3.20 2.0-3.5 cm Ao Asc: 3.80 2.1-3.4 cm Pulmonary Veins Pulm Vein S/D 1.50 Updated in Other Vendor System with Status of Final Christiano Whitlock MD electronically signed on 10/29/2024 11:59:33 AM with status of Final
--- OUTSIDE RECORDS SUMMARY | 2024-10-29 09:42 | XMS_ITS | Patient Health Record ---
Author Organization [facility] [facility] Address [address] [place] [address] Care Team Providers Care Joinery Factory Worker Name Role Phone ERIN COLBERT M.D. Primary Care Provider MARGY Mishra Unavailable [phone] Allergies Allergen (clinical drug ingredient) Drug/Non Drug [...] Notes Problem Excessive and freque nt menstruation (779180017) Excessive and frequent menstruation with regular cycle (N92.0) Active confirmed Problem Body mass index 40+ - severely obese (113533392) Body mass index (BMI) 45.0-49.9, adult (Z68.42) Active confirmed Problem Pure hypercholesterolemia (050912086) Pure hypercholester olemia, unspecified (E78.00) Active confirmed Plan Of Treatment Pending Test Test Name Order Date COMPLETE BLOOD COUNT 12/14/2018 THIN PREP,HPV,BEA IF HPV+ (>29YR)(DIAG) 07/16/2018 MM Digital Screening Mammogram 3D 2018 Insurance Providers Payer Name Payer Address Payer Phone Subscriber Number Group Number Insured Name Patient Relationship to Insured Coverage Start Date Coverage End Date MEDICARE [address] [place] [id number] JANE DUARTE Self - patient is the [...]
--- OUTSIDE RECORDS SUMMARY | 2024-10-29 09:42 | XMS_ITS | Patient Health Record ---
[facility] Address [address] [place] [address] Care Team Providers Care Mail Distribution Scheme Examiner Name Role Phone Adán Yadav Primary Care Provider UnavailSyed Rodriguez Unavailable [phone] Allergies Allergen (clinical drug ingredient) Drug/Non Drug [...] Duration) Notes Start Date End Date Status Triamcinolone Acetonide 0.5 % as directed Externally Active Aspirin 81 MG 1 tablet Orally Once a day; Duration: 30 day(s) Active Ammonium Lactate 12 % 1 application Externally to affected areas of skin to feet except for between the toes Twice a day; Duration: 30 days Active Ozempic Active Night Splint AFO - L1930 as directed Active Ibuprofen 800 MG 1 tablet every Orally every 6 hrs PRN Active metFORMIN HCl 500 MG as directed Orally Not-Taking Albuterol Sulfate Ac tive Extra Depth Orthopedic Shoes (1 Pair) with Customized Heat Molded Multidensity Innersoles (3 Pair) as directed Dx: NIDDM/Polyneuropath y (E11.42), Hammertoe Foot Deformity (M20.41,M20.42), Preulcerative Skin Lesion(s) (L85.1 06/21/2024 Active Lisinopril 20 MG as directed Orally Once a day Active Aspirin 162.5 MG 1 capsule Orally Once a day; Duration: 30 day(s) Not-Taking Lancets Active Antibiotic 7 days took for 3 days due to heartburn Not-Taking Montelukast Sodium 10 MG as directed Orally Once a day Active Metoprolol Tartrate 25 MG as directed Orally Active Rosuvastatin Calcium 10 MG 1 tablet Orally Once a day Active Nitroglycerin 0.4 MG as directed Sublingual PRN Active Wegovy Active Immunizations Vaccine Route Administration Date Status Comme nts Influenza Unknown 11/27/2021 Administered Influenza Unknown 11/28/2023 Administered COVID-19 Moderna Vaccine Unknown 07/13/2020 Administere [...] Problem Acquired hammer toe of right foot (769393180833 9105) Other hammer toe(s) (acquired), right foot (M20.41) Active confirmed Problem Acquired hammer toe of left foot (823422474399 9103) Other hammer toe(s) (acquired), left foot (M20.42) Active confirmed Problem Type 2 diabetes mellitus with diabetic polyneuropathy (E11.42) Active confirmed Vital Signs Blood pressure diastolic 65 mm Hg 09/24/2024 Height 6ft2in in 09/24/2024 Blood pressure systolic 128 mm Hg 09/24/2024 Weight 342 lbs 09/24/2024 BMI 43.91 kg/m2 09/24/2024 Procedures Procedure Date Ordered Date Performed Result Body Sit e 09205-AABDMRP NAIL, 6 OR MORE 12/19/2023 N/A 67171-XENP SKIN LESIONS, OVER 4 12/19/2023 N/A 25665-IHWUBUQ NAIL, 6 OR MORE 03/19/2024 N/A 07439-PZQV SKIN LESIONS, OVER 4 03/19/2024 N/A 65620-LKHHQSM NAIL, 6 OR MORE 06/21/2024 N/A 68886-YWFI SKIN LESIONS, OVER 4 06/21/2024 N/A 84005-MGUJJUV NAIL, 6 OR MORE 09/24/2024 N/A 55484-POKO SKIN LESIONS, OVER 4 09/24/2024 N/A Encounters Encounter Location Date Provider Diagnosis [address] [address] 12/19/2023 Syed Noel Type 2 diabetes mellitus with diabetic polyneuropathy E11.42 ; Tinea unguium B35.1 and Xerosis of skin L85.[address] [address] 03/19/2024 Syed Bert Type 2 diabetes mellitus with diabetic polyneuropathy E11.42 ; Tinea unguium B35.1 and Xerosis of skin L85.[address] [address] 06/21/2024 Syedsharron Noel Type 2 diabetes mellitus with diabetic polyneuropathy E11.42 ; Tinea unguium B35.1 ; Other hammer toe(s) (acquired), right foot M20.41 and Other hammer toe(s) (acquired), left foot M20.[address] [address] 09/24/2024 Syed Bert Type 2 diabetes mellitus with diabetic polyneuropathy E11.42 and Tinea unguium B35.1 Assessments Encounter Date Diagnosis (ICD Code) Assessment Notes Treatment Notes Treatment Clinical Notes Section Notes 03/19/2024 Type 2 diabetes mellitus with diabetic polyneuropathy (ICD-10 - E11.42) 03/19/2024 Tinea unguium (ICD-10 - B35.1) 06/21/2024 Type 2 diabetes mellitus with diabetic polyneuropathy (ICD-10 - E11.42) 06/21/2024 Tinea unguium (ICD-10 - B35.1) 09/24/2024 Type 2 diabetes mellitus with diabetic polyneuropathy (ICD-10 - E11.42) 09/24/2024 Tinea unguium (ICD-10 - B35.1) 12/19/2023 Type 2 diabetes mellitus with diabetic polyneuropathy (ICD-10 - E11.42) 12/19/2023 Tinea unguium (ICD-10 - B35.1) 03/19/2024 Xerosis [...] X ray : Foot, right 3V 02/07/2022 69297-ORTGLTN NAIL, 6 OR MORE 06/21/2024 12706-CSXPDJO NAIL, 6 OR MORE 09/24/2024 32390-YLNRUTU NAIL, 6 OR MORE 07/27/2022 72357-GRBGPQU NAIL, 6 OR MORE 12/19/2023 19070-GHKIDAN NAIL, 6 OR MORE 03/19/2024 20295-KAXN SKIN LESIONS, OVER 4 03/19/19 80806-VZLS SKIN LESIONS, OVER 4 12/19/19 24 68562-JZED SKIN LESIONS, OVER 4 02/08/20 93587-UVMD SKIN LESIONS, OVER 4 05/17/19 73559-DTXI SKIN LESIONS, OVER 4 07/28/19 34820-RSRG SKIN LESIONS, OVER 4 09/25/19 33636-TOLU SKIN LESIONS, OVER 4 06/22/19 Next Appt Details Provider Name:Syed Noel , 01/14/2025 09:00:00 AM, [address] [place], [address], Insurance Providers Payer Name Payer Address Payer Phone Subscriber Number Group Number Insured Name Patient Relationship to Insured Coverage Start Date Coverage End Date [facility] [employer] SCO Claims [address] [place] [address] [phone] [id number] Radha Moreno Self - patient is the [...]
== END ==
LOC: HO.CARD 08:56
PROVIDERS: PCP Internal Medicine; Visit Provider Internal Medicine Cardiovascular Disease
DX: I35.0 Nonrheumatic aortic (valve) stenosis (principal)
CPT/HCPCS: 93306; Q9957

== ENCOUNTER → 2024-10-29 08:58 | Outpatient (BNV) | payer OTHER, SELFPAY | PROVIDERS: PCP Internal Medicine; Visit Provider Internal Medicine | DX: I25.10 Atherosclerotic heart disease of native coronary artery without angina pectoris (principal); I35.8 Other nonrheumatic aortic valve disorders | CPT/HCPCS: 93306 ==

== ENCOUNTER 2024-11-11 09:29 | Outpatient (AMB) | payer OTHER, SELFPAY ==
--- NOTE | 2024-11-11 09:32 | MHC.OFFVIS ---
Vital Signs 11/11/24 09:37 Height 6 ft 2 in Weight 363 lb 12.203 oz BMI 46.7 BP 120/72 Blood Pressure Location Lt brachial Position Sitting Pulse 74 Intake Visit Reasons: 1 year follow-up with ekg after echo Intake Note: 1 year follow-up with ekg after echo feeling good Electrical Supervisor Required: No Allergies amoxicillin (AMOXICILLIN) Allergy (Unknown, Verified 09/18/24 10:43) HIVES atorvastatin Allergy (Unknown, Verified 09/18/24 10:43) hives bupropion (From ZYBAN) Allergy (Unknown, Verified 09/18/24 10:43) HIVES milk Allergy (Unknown, Verified 09/18/24 10:43) Diarrhea Penicillins (PENICILLINS) Allergy (Unknown, Verified 09/18/24 10:43) HIVES pravastatin Allergy (Unknown, Verified 09/18/24 10:43) hives simvastatin (SIMVASTATIN) Allergy (Unknown, Verified 09/18/24 10:43) HIVES tomato Allergy (Unknown, Verified 09/18/24 10:43) Hives metformin Adverse Reaction (Intermediate, Verified 09/18/24 10:43) Diarrhea Medication List - Last Reconciled 11/11/24 by Renaldo Cook MD albuterol sulfate 90 mcg/actuation (ProAir HFA) 2 puffs inhalation Q6H aspirin (Adult Low Dose Aspirin) 162 mg PO DAILY [AUTOCPAP 8-20 mm HG humidified heated air As directed] blood sugar diagnostic As directed blood sugar diagnostic ([facility] Ultra Test strips) As directed check the blood sugar once a day blood-glucose meter As directed check the blood sugar once a day compr.stocking,knee,long,x-lrg As directed 20-30 mm HG [cpap Supplies As directed] [Diabetic Shoes As directed] [diabetic socks As directed] empty container (BD [employer]) As directed ibuprofen 800 mg PO TID PRN ketoconazole 2% 1 appl topical 2XW lancets (inZairuch Delica Lancets) As directed check the blood sugar q.day lancets As directed lisinopril 40 mg PO DAILY metoprolol tartrate 2 tabs in am and 3 tabs in pm PO 2 times a day; montelukast 10 mg PO BEDTIME nitroglycerin 0.4 mg sublingual Q5M PRN rosuvastatin 10 mg PO BEDTIME semaglutide (weight loss) (Wegovy) 2.4 mg (0.75 mL) subcut QWEEK [Sleeve right hand As directed] triamcinolone acetonide 0.5% 1 appl topical BID 14 days [trouser socks 20-30 millimeter mercury pressure] walker (Ultra-Light Rollator misc) As directed HPI Comments Details: Radha comes for follow-up. She has been doing well from cardiac perspective. No new cardiac symptoms. Her echocardiogram show syej-qd-yhpncijr LV systolic dysfunction secondary to ischemic cardiomyopathy which has remained stable. She has no heart failure symptoms. Denies any orthopnea, PND, leg edema. Uses a CPAP. She says her main issue currently is arthritis in the knee and inability to lose further weight. Her last LDL last November was 51 mg/dL. Overall doing well. No prolonged palpitation irregular heartbeat. [facility] Medical History Colon cancer screening Myocardial infarction Breast cancer screening by mammogram GERD (gastroesophageal reflux disease) Hypercholesterolemia Hypertension Folic acid deficiency Vitamin D deficiency Asthma Type 2 diabetes mellitus with hyperglycemia Surgical History History of coronary artery stent placement History of cholecystectomy History of hand surgery History of section Family History Father CVD (cardiovascular disease) Hypertension Heart disease Mother No problems noted. 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 Cognitive needs: No Hearing needs: No Vision needs: Yes Review of Systems Const Denies chills, Denies fatigue, Denies fever(s), Denies frequent falls, Denies weakness, Denies weight gain and Denies weight loss ENT Denies dizziness Card Denies chest pain, Denies leg edema, Denies lightheadedness, Denies palpitations, Denies dyspnea, Denies dyspnea on exertion, Denies orthopnea and Denies other (loss of consciousness) Resp Denies cough, Denies dyspnea and Denies dyspnea on exertion GI Denies hematochezia and Denies change in stool character Musc Denies abnormal gait, Denies muscle weakness, Denies numbness, Denies radiating pain into limb and Denies tingling Neuro Denies abnormal gait, Denies dizziness, Denies frequent falls, Denies numbness, Denies tingling and Denies weakness Endo Denies fatigue and Denies palpitations Physical Exam Vital Signs: Last Vital Signs Pulse 74 11/11/24 09:37 BP 120/72 11/11/24 09:37 BMI result Body Mass Index 46.7 Const General: cooperative, healthy appearing, comfortable and no acute distress Orientation/consciousness: patient oriented x3 Neck Neck: Yes normal visual inspection and Yes no JVD Carotids: normal carotid upstroke Resp Effort & Inspection: normal respiratory effort Auscultation: clear to auscultation bilaterally, no crackles, no rales, no rhonchi and no wheezes Cardio Jugular venous distension: no JVD Rate: regular rate Rhythm: regular rhythm Heart sounds: S1 normal heart sound present, S2 normal heart sound present, no gallops, Murmur heart sound present systolic early, decrescendo, crescendo and soft and no rubs Neuro General: patient oriented x3 Extrem General: Yes normal to inspection, No no pedal edema and No calf tenderness Psych Appearance: grossly normal Mental Status: mental status grossly normal Speech and movement: Normal speech and movement present Office Procedures EKG Details: EKG shows normal sinus rhythm with poor R-wave progression secondary to apical/distal anterior myocardial infarction. No significant ST T wave changes 49730-Deqkrcroqlevcknim, Complete Assessment & Plan Assessment & Plan (1) Ischemic cardiomyopathy: Code(s): I25.5 - Ischemic cardiomyopathy Category: Medical Plan: Ischemic cardiomyopathy with hgpf-rq-fepijcry LV systolic dysfunction. Clinically no signs or symptoms of heart failure. LV ejection fraction has remained stable. Follow-up echocardiogram next year. Continue neurohormonal modulation with metoprolol as well as lisinopril therapy. Signs and symptoms of heart failure were discussed. Discussed about continuing CPAP therapy. Continue aggressive blood pressure control. Encouraged to participate in weight loss program we discussed about various options including bariatric surgery. She is currently not interested in pursuing consultation with bariatric surgery. (2) Coronary artery disease: Comment: Myocardial infarction [address] Ayala ejection fraction 40-50% 1.10 November 2017, echo October 2018 dilated left ventricle 45-50% moderate grade 2 diastolic dysfunction. She is being followed by Cardiology service. Echocardiogram December 2022 Code(s): I25.10 - Atherosclerotic heart disease of [place] coronary artery without angina pectoris Category: Medical Qualifiers: Coronary Disease-Associated Artery/Lesion type: [place] artery [place] vs. transplanted heart: [place] heart Associated angina: without angina Qualified Code(s): I25.10 - Atherosclerotic heart disease of [place] coronary artery without angina pectoris Plan: CAD with prior myocardial infarction without any significant symptoms since then. Continue low-dose aspirin therapy for life. Continue high-intensity statin therapy with LDL well optimized at this point time. Continue aggressive diabetes management goal hemoglobin A1c less than 7%. Blood pressure is currently well optimized advised to monitor blood pressure and maintain a log. Goal blood pressure less than 130/84. Low-salt diet was discussed. Follow up in the clinic in 1 year's time, sooner p.r.n.. Thank you for allowing me to partake in her care Coding Level of Care Code Est Pt Level 4 (69236) Complex EM visit Add On G2211 Diagnoses Ischemic cardiomyopathy I25.5 Coronary artery disease involving [place] coronary artery of [place] heart without angina pectoris I25.10 Coronary Disease-Associated Artery/Lesion type: [place] artery [place] vs. transplanted heart: [place] heart Associated angina: without angina CPT Codes EKG - CPT: 37368-Muuvhjkoqrgyddfna, Complete ([id number])
[2024-11-11 09:37] VITALS: BP 120/72; PULSE 74; BMI 46.7
--- OUTSIDE RECORDS SUMMARY | 2024-11-11 11:25 | XMS_ITS | Patient Health Record ---
Author Organization Activity [facility] Address [address] [place] [address] Care Team Providers Care Guest Advisor Name Role Phone ERIN COLBERT M.D. Primary Care Provider MARGY Mishra Unavailable [phone] Allergies Allergen (clinical drug ingredient) Drug/Non Drug [...] Notes Problem Excessive and freque nt menstruation (920517071) Excessive and frequent menstruation with regular cycle (N92.0) Active confirmed Problem Body mass index 40+ - severely obese (774363438) Body mass index (BMI) 45.0-49.9, adult (Z68.42) Active confirmed Problem Pure hypercholesterolemia (997279587) Pure hypercholester olemia, unspecified (E78.00) Active confirmed Plan Of Treatment Pending Test Test Name Order Date COMPLETE BLOOD COUNT 12/14/2018 THIN PREP,HPV,BEA IF HPV+ (>29YR)(DIAG) 07/16/2018 MM Digital Screening Mammogram 3D 2018 Insurance Providers Payer Name Payer Address Payer Phone Subscriber Number Group Number Insured Name Patient Relationship to Insured Coverage Start Date Coverage End Date MEDICARE [address] [place] [id number] JANE DUARTE Self - patient is the [...]
--- OUTSIDE RECORDS SUMMARY | 2024-11-11 11:26 | XMS_ITS | Patient Health Record ---
[facility] Address [address] [place] [address] Care Team Providers Care Paint Pourer Name Role Phone Adán Yadav Primary Care Provider UnavailSyed Rodriguez Unavailable [phone] Allergies Allergen (clinical drug ingredient) Drug/Non Drug [...] Problem Acquired hammer toe of right foot (9481039496592905 ) Other hammer toe(s) (acquired), right foot (M20.41) Active confirmed Problem Acquired hammer toe of left foot (5819970898951358 ) Other hammer toe(s) (acquired), left foot (M20.42) Active confirmed Problem Polyneuropathy due to type 2 diabetes mellitus (628257161) Type 2 diabetes mellitus with diabetic polyneuropathy (E11.42) Active confirmed Vital Signs Blood pressure diastolic 65 mm Hg 09/24/2024 Height 6ft2in in 09/24/2024 Blood pressure systolic 128 mm Hg 09/24/2024 Weight 342 lbs 09/24/2024 BMI 43.91 kg/m2 09/24/2024 Procedures Procedure Date Ordered Date Performed Result Body Sit e 88659-KKIIBOX NAIL, 6 OR MORE 12/19/2023 N/A 08024-BWSE SKIN LESIONS, OVER 4 12/19/2023 N/A 58054-KUTPTDU NAIL, 6 OR MORE 03/19/2024 N/A 70608-PYZG SKIN LESIONS, OVER 4 03/19/2024 N/A 81397-LLVAVEG NAIL, 6 OR MORE 06/21/2024 N/A 08241-LTEO SKIN LESIONS, OVER 4 06/21/2024 N/A 23820-BXJXHIH NAIL, 6 OR MORE 09/24/2024 N/A 35535-ERAQ SKIN LESIONS, OVER 4 09/24/2024 N/A Encounters Encounter Location Date Provider Diagnosis [address] [address] 12/19/2023 Syed Noel Type 2 diabetes mellitus with diabetic polyneuropathy E11.42 ; Tinea unguium B35.1 and Xerosis of skin L85.[address] [address] 03/19/2024 Syedsharron Noel Type 2 diabetes mellitus with diabetic polyneuropathy E11.42 ; Tinea unguium B35.1 and Xerosis of skin L85.[address] [address] 06/21/2024 Syedsharron Noel Type 2 diabetes mellitus with diabetic polyneuropathy E11.42 ; Tinea unguium B35.1 ; Other hammer toe(s) (acquired), right foot M20.41 and Other hammer toe(s) (acquired), left foot M20.[address] [address] 09/24/2024 Syed Noel Type 2 diabetes mellitus with [...] E11.42) 09/24/2024 Tinea unguium (ICD-10 - B35.1) 03/19/2024 Xerosis [...] X ray : Foot, right 3V 02/07/2022 31528-BXPABRG NAIL, 6 OR MORE 06/21/2024 15681-SGFKGNC NAIL, 6 OR MORE 09/24/2024 83969-AVILAIS NAIL, 6 OR MORE 07/27/2022 29376-SMGXAQJ NAIL, 6 OR MORE 12/19/2023 83830-XZVVVSB NAIL, 6 OR MORE 03/19/2024 33282-QMQH SKIN LESIONS, OVER 4 03/19/19 88373-YAMU SKIN LESIONS, OVER 4 12/19/19 24 36665-LUSP SKIN LESIONS, OVER 4 02/08/20 22660-AFJD SKIN LESIONS, OVER 4 05/17/19 23 60246-BMAV SKIN LESIONS, OVER 4 07/28/19 23 76202-MCDS SKIN LESIONS, OVER 4 09/25/19 43099-LRRK SKIN LESIONS, OVER 4 06/22/19 Next Appt Details Provider Name:Syed Noel , 01/14/2025 09:00:00 AM, [address] [place], [address], Insurance Providers Payer Name Payer Address Payer Phone Subscriber Number Group Number Insured Name Patient Relationship to Insured Coverage Start Date Coverage End Date [facility] [employer] Claims [address] [place] [id number] Radha Moreno Self - patient is the [...]
== END 2024-11-11 10:10 | disposition home or self-care (01) ==
LOC: HO.HCS 09:30
PROVIDERS: PCP Internal Medicine; Visit Provider Internal Medicine Cardiovascular Disease
DX: I25.5 Ischemic cardiomyopathy (principal); I25.10 Atherosclerotic heart disease of native coronary artery without angina pectoris
CPT/HCPCS: 93010; 99214; G2211

== ENCOUNTER → 2024-11-11 09:29 | Outpatient (BNVA) | payer OTHER, SELFPAY | PROVIDERS: PCP Internal Medicine; Visit Provider Internal Medicine Cardiovascular Disease | DX: I25.5 Ischemic cardiomyopathy (principal); I25.10 Atherosclerotic heart disease of native coronary artery without angina pectoris | CPT/HCPCS: 93005; 99212 ==

== ENCOUNTER 2024-11-21 08:39 | Outpatient (REF) | payer OTHER, SELFPAY ==
[2024-11-21 09:55] LABS: MANUAL DIFF FLAG NO
[2024-11-21 10:43] LABS: Hematocrit 43.9 % (37.0-47.0); Hemoglobin 15.0 g/dl (12.0-16.0); Imm Gran Abs Auto 0.03 X10*3/uL (0.00-0.03); Imm Gran Pct Auto 0.3 % (0.0-0.4); Lymphocytes Absolute Auto 2.7 X10*3/uL (1.2-4.9); Mean Corpuscular HGB Conc 34.2 g/dl (31.0-35.0); Mean Corpuscular Hemoglobin 29.8 pg (27.0-33.0); Mean Corpuscular Volume 87.3 fL (80.0-98.0); NRBC Abs Auto 0.000 X10*3/uL (0.0-0.012); NRBC Pct Auto 0.0 /100WBC (0.0-0.2); Platelet Count 215 X10*3/uL (160-400); Red Blood Count 5.03 X10*6/uL (4.20-5.50); Reticulocytes Absolute 0.098 X10*6/uL (0.026-0.095); White Blood Count 10.1 X10*3/uL (4.8-10.8)
[2024-11-21 10:44] LABS: Appearance Urine Clear; Glucose Urine UA Negative (Negative); PH 5.5 (5.0-9.0); Specific Gravity - Urine 1.020 (1.005-1.025); UMIC TRIGGER UACC YES
[2024-11-21 10:47] LABS: UACC Culture Trigger YES
[2024-11-21 11:19] LABS: Microalbum/Creatinine Ratio Ur 49.4 ug/mg cr (<30)
[2024-11-21 11:31] LABS: Alanine Aminotransferase 37 U/L (0-31); Albumin Level 4.5 g/dL (3.5-5.0); Alkaline Phosphatase 101 U/L (39-117); Anion Gap 11 (12-20); Aspartate Amino Transferase 25 U/L (5-31); Blood Urea Nitrogen 23 mg/dL (9-16); Calcium 9.1 mg/dL (8.4-10.2); Carbon Dioxide 27 mmol/L (22-29); Chloride 109 mmol/L (96-108); Cholesterol 112 mg/dL (<200); Estimated Glomerular Filt Rate 50; HDL Cholesterol 47 mg/dL (>40); Potassium 3.8 mmol/L (3.3-5.1); Sodium 143 mmol/L (135-145); Total Protein 7.5 g/dL (6.5-8.0); Triglycerides 47 mg/dL (<150)
[2024-11-21 11:35] LABS: Free T4 (Free Thyroxine) 1.06 ng/dL (0.71-1.85); Thyroid Stimulating Hormone 1.18 uIU/mL (0.32-4.0)
[2024-11-21 11:51] LABS: Folate 15.4 ng/mL (> or = 4.0); Vitamin B12 382 pg/mL (200-900)
== END 2024-11-21 08:40 | disposition home or self-care (01) ==
LOC: HO.LAB 08:39
PROVIDERS: PCP Internal Medicine; Visit Provider Internal Medicine
DX: E11.65 Type 2 diabetes mellitus with hyperglycemia (principal); E78.00 Pure hypercholesterolemia, unspecified; I10 Essential (primary) hypertension; I25.5 Ischemic cardiomyopathy; I25.10 Atherosclerotic heart disease of native coronary artery without angina pectoris; E66.01 Morbid (severe) obesity due to excess calories; Z68.42 Body mass index [BMI] 45.0-49.9, adult; K21.9 Gastro-esophageal reflux disease without esophagitis; G47.33 Obstructive sleep apnea (adult) (pediatric); M77.8 Other enthesopathies, not elsewhere classified; R82.90 Unspecified abnormal findings in urine
CPT/HCPCS: 36415; 80053; 80061; 81001; 82043; 82306; 82570; 82607; 82746; 83036; 84439; 84443; 85025; 85045; 87086; 99212

== ENCOUNTER 2024-11-21 08:39 | Outpatient (AMB) | payer OTHER, SELFPAY ==
[2024-11-21 08:47] VITALS: BP 148/88; PULSE 73; O2SAT 98; BMI 47.0
--- NOTE | 2024-11-21 08:47 | A.OFFPC_ITS ---
Vital Signs 11/21/24 08:47 Height 6 ft 2 in Weight 366 lb BMI 47.0 BP 148/88 H Blood Pressure Location Lt radial Position Sitting Pulse 73 Pulse Source Pulse Oximeter Pulse Oximetry (%) 98 Oxygen Delivery Method Room Air Intake Visit Reasons: follow up Allergies amoxicillin (AMOXICILLIN) Allergy (Unknown, Verified 11/21/24 08:47) HIVES atorvastatin Allergy (Unknown, Verified 11/21/24 08:47) hives bupropion (From ZYBAN) Allergy (Unknown, Verified 11/21/24 08:47) HIVES milk Allergy (Unknown, Verified 11/21/24 08:47) Diarrhea Penicillins (PENICILLINS) Allergy (Unknown, Verified 11/21/24 08:47) HIVES pravastatin Allergy (Unknown, Verified 11/21/24 08:47) hives simvastatin (SIMVASTATIN) Allergy (Unknown, Verified 11/21/24 08:47) HIVES tomato Allergy (Unknown, Verified 11/21/24 08:47) Hives metformin Adverse Reaction (Intermediate, Verified 11/21/24 08:47) Diarrhea Medication List - Last Reconciled 11/21/24 by Adán Yadav MD albuterol sulfate 90 mcg/actuation (ProAir HFA) 2 puffs inhalation Q6H aspirin (Adult Low Dose Aspirin) 162 mg PO DAILY [AUTOCPAP 8-20 mm HG humidified heated air As directed] blood sugar diagnostic As directed blood sugar diagnostic (IFTTT Ultra Test strips) As directed check the blood sugar once a day blood-glucose meter As directed check the blood sugar once a day compr.stocking,knee,long,x-lrg As directed 20-30 mm HG [cpap Supplies As directed] [Diabetic Shoes As directed] [diabetic socks As directed] empty container (BD [employer]) As directed ibuprofen 800 mg PO TID PRN ketoconazole 2% 1 appl topical 2XW lancets (LearnBIGuch Delica Lancets) As directed check the blood sugar q.day lancets As directed lisinopril 40 mg PO DAILY metoprolol tartrate 2 tabs in am and 3 tabs in pm PO 2 times a day; montelukast 10 mg PO BEDTIME nitroglycerin 0.4 mg sublingual Q5M PRN rosuvastatin 10 mg PO BEDTIME [Sleeve right hand As directed] tirzepatide (Mounjaro) 7.5 mg (0.5 mL) subcut QWEEK triamcinolone acetonide 0.5% 1 appl topical BID 14 days [trouser socks 20-30 millimeter mercury pressure] walker (Ultra-Light Rollator misc) As directed Tobacco use date assessed: 05/03/24 Dental Screening Dental Screen Date: 05/03/24 [facility] Medical History (Updated 11/21/24 @ 09:23 by Adán Yadav MD) Aortic stenosis Colon cancer screening Myocardial infarction Breast cancer screening by mammogram GERD (gastroesophageal reflux disease) Hypercholesterolemia Hypertension Folic acid deficiency Vitamin D deficiency Asthma Type 2 diabetes mellitus with hyperglycemia Surgical History History of coronary artery stent placement History of cholecystectomy History of hand surgery History of section Family History Father CVD (cardiovascular disease) Hypertension Heart disease Mother No problems noted. 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 1. Little interest or pleasure in doing things: not at all 2. Feeling down, depressed, or hopeless: not at all 3. Trouble falling or staying asleep, or sleeping too much: not at all 4. Feeling tired or having little energy: not at all 5. Poor appetite or overeating: several days 6. Feeling bad about yourself - or that you are a failure or have let yourself or your family down: not at all 7. Trouble concentrating on things, such as reading the newspaper or watching television: not at all 8. Moving or speaking so slowly that other people could have noticed. Or the opposite - being so fidgety or restless that you have been moving around a lot more than usual: not at all 9. Thoughts that you would be better off or of hurting yourself in some way: not at all Total score: 1 Source: Developed by Drs. Steve Joshi, Carole Patton, Seth Duke and colleagues, with an educational velia from [employer]. Thrive Questionnaire Date Thrive assessed: 11/14/24 I am a: Patient What is your living situation today?: I have a steady place to live Within the past 12 months, did the food you bought not last and you didn't have the money to get more?: I choose not to answer this question Within the past 12 months, did you worry whether your food would run out before you got money to buy more?: I choose not to answer this question Do you have trouble paying for medicines?: No Do you have trouble getting transportation to medical appointments?: No Do you have trouble paying your heating and electricity bill?: No Do you have trouble taking care of your child, family member or friend?: No Do you have trouble with day-to-day activities such as bathing, preparing meals, shopping, managing finances, etc.?: No Are you currently unemployed and looking for a job?: No Are you interested in more education?: No Please select the resources that you would like help with: None Currently or been in a relationship where the following occur: I choose not to answer THRIVE Score: 0 AUDIT C Alcohol Use Questionnaire (AUDIT-C) 1. How often do you have a drink containing alcohol?: Never 3. How often do you have six or more drinks on one occasion?: Never Total Score: 0 NGOZI-7 AMB Questionnaire NGOZI-7 Date NGOZI - 7 assessed: 05/03/24 Feeling nervous, anxious, or on edge: 0 = Not at all Not being able to stop or control worryin = Not at all Worrying too much about different things: 0 = Not at all Trouble relaxin = Not at all Being so restless that it is hard to sit still: 0 = Not at all Becoming easily annoyed or irritable: 1 = Several days Feeling afraid as if something awful might happen: 0 = Not at all Total NGOZI-7 score (0-4 normal; 5-9 mild; 10-14 moderate; 15-21 severe): 1 Source: Developed by Drs. Steve Joshi, Carole Patton, Seth Duke and colleagues, with an educational velia from [employer]. Review of Systems Const Reports as per HPI Physical exam (Primary Care) Vital Signs: Last Vital Signs Pulse 73 11/21/24 08:47 BP 148/88 H 11/21/24 08:47 Pulse Ox 98 11/21/24 08:47 Oxygen Delivery Method Room Air 11/21/24 08:47 BMI result Body Mass Index 47.0 Tobacco/Smoking Status: Tobacco use Status Tobacco use date assessed 05/03/24 11/21/24 08:51 Patient Tobacco Use Status Former Tobacco user 11/21/24 08:51 Tobacco use type Cigarette 11/21/24 08:51 e-Cigarette/Vaping Use Never Used 11/21/24 08:51 PHQ-9: PHQ-9 Score PHQ-9: Total score 1 11/21/24 09:08 Thrive Assessment: Date of Thrive Assessment Date Thrive assessed 11/14/24 11/21/24 08:51 Currently or been in a relationship where the following occur: I choose not to answer Results AMB Hemoglobin A1c AMB Hemoglobin A1c 6.2 % Last Edit by Natacha Howard CMA on 11/21/24 09 :09 Results Reviewed Results Reviewed: Laboratory Last Values Hgb A1c (Clinic) 6.2 % (4.0-6.0) H 11/21/24 08:52 Coding Level of Care Code Est Pt Level 4 (99229) Complex EM visit Add On G2211 Diagnoses Type 2 diabetes mellitus with hyperglycemia, without long-term current use of insulin E11.65 Diabetes mellitus termite control technician insulin use: without termite control technician use Essential hypertension I10 Hypertension type: essential hypertension Hypercholesterolemia E78.00 Ischemic cardiomyopathy I25.5 Coronary artery disease involving campo coronary artery of campo heart without angina pectoris I25.10 Associated angina: without angina Coronary Disease-Associated Artery/Lesion type: campo artery Eyak vs. transplanted heart: campo heart Morbid obesity with BMI of 45.0-49.9, adult E66.01; Z68.42 Gastroesophageal reflux disease without esophagitis K21.9 Esophagitis presence: without esophagitis Colon cancer screening Z12.11 Obstructive sleep apnea G47.33 Tendinitis of thumb M77.8 Assessment & Plan Assessment & Plan (1) Type 2 diabetes mellitus with hyperglycemia: Code(s): E11.65 - Type 2 diabetes mellitus with hyperglycemia Category: Medical Qualifiers: Diabetes mellitus termite control technician insulin use: without termite control technician use Qualified Code(s): E11.65 - Type 2 diabetes mellitus with hyperglycemia Plan: Decrease the amount of carbohydrate intake, pasta, bread, rice and potatoes are all sugar and that is aside from all the sweet stuff, remember that fruits are good but they are Sweet also. Hemoglobin A1c is at goal patient is on semaglutide 2.5 mg once a week (2) Hypertension: Code(s): I10 - Essential (primary) hypertension Category: Medical Qualifiers: Hypertension type: essential hypertension Qualified Code(s): I10 - Essential (primary) hypertension Plan: Continue with blood pressure medication. Decrease salt intake and exercise on metoprolol and lisinopril. BP high today so will montor. (3) Hypercholesterolemia: Code(s): E78.00 - Pure hypercholesterolemia, unspecified Category: Medical Plan: Avoid fried foods, chicken skin, eggs, butter margarine, pastries and meat. Be it pork or beef they have a lot of cholesterol LDL goal of less than 70 and triglyceride of less than 150 patient needs blood work (4) Ischemic cardiomyopathy: Code(s): I25.5 - Ischemic cardiomyopathy Category: Medical Plan: Continue with blood pressure medication continue follow-up with Cardiology also. (5) Coronary artery disease: Comment: Myocardial infarction [address] Ayala ejection fraction 40-50% 1.10 November 2017, echo October 2018 dilated left ventricle 45-50% moderate grade 2 diastolic dysfunction. She is being followed by Cardiology service. Echocardiogram December 2022 Code(s): I25.10 - Atherosclerotic heart disease of campo coronary artery without angina pectoris Category: Medical Qualifiers: Associated angina: without angina Coronary Disease-Associated Artery/Lesion type: campo artery Eyak vs. transplanted heart: campo heart Qualified Code(s): I25.10 - Atherosclerotic heart disease of campo coronary artery without angina pectoris Plan: Control the cholesterol, weight, blood pressure, diabetes (6) Morbid obesity with BMI of 45.0-49.9, adult: Comment: Patient remains morbidly obese. She has difficulty in losing weight. Currently getting wagovy injections Q 1 month but has not made much progress in the last 6 months. Code(s): E66.01 - Morbid (severe) obesity due to excess calories; Z68.42 - Body mass index [BMI] 45.0-49.9, adult Category: Medical Plan: Presently on semaglutide (7) GERD (gastroesophageal reflux disease): Code(s): K21.9 - Gastro-esophageal reflux disease without esophagitis Category: Medical Qualifiers: Esophagitis presence: without esophagitis Qualified Code(s): K21.9 - Gastro-esophageal reflux disease without esophagitis Plan: Avoid the foods that causes that usually spicy foods, tomato products, juices, coffee, soda and foods that your sensitive to. After eating do not lie down, allow 3-4 hours before in lie down. And keep the head of bed above 30 degrees to avoid the acid from going up. (8) Colon cancer screening: Comment: Discussed results of Cologuard,- She understands though it is negative she should report any GI symptoms or change in family history. Recommend we r epeat in 3 years. Code(s): Z12.11 - Encounter for screening for malignant neoplasm of colon Category: Medical Plan: Patient is reminded about Cologuard testing (9) Obstructive sleep apnea: Comment: DIAGNOSIS SINCE 2008. HAS BEEN VERY COMPLIANT, FACE MASK OF SMALLER SIZE WITH AUTO PAP MODE PRESSURE SETTING 8-20 CM. IS COMFORTABLE AND SHE HAS NO SPECIAL ISSUES. SHE INTER CHANGES BETWEEN THE SMALL SIZE AND LARGE SIZE. Code(s): G47.33 - Obstructive sleep apnea (adult) (pediatric) Category: Medical Plan: Patient follows up with Pulmonary continue with CPAP more than 4 hours a night and benefits from this. (10) Tendinitis of thumb: Comment: right Code(s): M77.8 - Other enthesopathies, not elsewhere classified Category: Medical Plan History of Present Illness The patient is a 54-year-old female presenting for a follow-up visit. The patient has a history of diabetes mellitus, which is currently managed with semaglutide, and her hemoglobin A1c is at goal. She is also diagnosed with obstructive sleep apnea and is compliant with CPAP therapy, using it for more than 4 hours a night. The patient has coronary artery disease, with a history of myocardial infarction in 2009, and stents were placed at that time. Her last echocardiogram showed mild to moderate left ventricular systolic dysfunction due to ischemic cardiomyopathy, which is stable. She continues on metoprolol and lisinopril for management. The patient has hypertension, which is being monitored, and she is advised to continue with her current medications. Her blood pressure was noted to be high during the visit, but no changes were made to her medication regimen at this time. The patient has a history of asthma and hypercholesterolemia, with an LDL cholesterol goal of less than 70 mg/dL. She is also managing gastroesophageal reflux disease (GERD) and peripheral vascular disease. The patient has bilateral knee osteoarthritis, which contributes to her mobility issues. The patient has nephropathy with protein spillage, and her renal function is stable. Her liver function tests are normal, and vitamin D levels are low. The patient has a ganglion cyst on her hand, which is painful, and she is advised to monitor it for any changes. Preventative care measures include an up-to-date mammogram and a pending Cologuard test for colon cancer screening. Health Maintenance - Mammogram is up to date as of December 2023. - Cologuard testing is due for colon cancer screening. - Patient is advised to receive flu and shingles vaccinations. Social History - Nutritional intake includes occasional consumption of high-sodium foods such as Danish food. Review of Systems - Cardiovascular: Reports high blood pressure during the visit. Denies chest pain. - Musculoskeletal: Reports painful lump on the hand. Physical Exam - Cardiovascular: Blood pressure measurement attempted, patient experienced pain at 100 mmHg. Results - Labs: Hemoglobin A1c is 6.2, controlled. - Labs: LDL cholesterol is 51 mg/dL, vitamin D is low. - Labs: Renal function stable at 1.09, protein spillage noted indicating nephropathy. - Imaging: Last echocardiogram showed mild to moderate LV systolic dysfunction due to ischemic cardiomyopathy, stable. Plan Patient was informed and verbally consented to the use of an ambient scribe for clinic note documentation during this visit. 1. Diabetes Mellitus The patient's diabetes mellitus is currently managed with semaglutide, and her hemoglobin A1c is at goal. She is advised to continue with her current medication regimen and monitor her blood glucose levels regularly. 2. Obstructive Sleep Apnea The patient is compliant with CPAP therapy, using it for more than 4 hours a night, which is beneficial for her obstructive sleep apnea. She is advised to continue using CPAP as prescribed. 3. Coronary Artery Disease The patient has a history of coronary artery disease with a myocardial infarction in 2009, and stents were placed at that time. Her last echocardiogram showed mild to moderate LV systolic dysfunction due to ischemic cardiomyopathy, which is stable. She continues on metoprolol and lisinopril for management and is advised to follow up with cardiology. 4. Hypertension The patient's hypertension is being monitored, and she is advised to continue with her current medications. Her blood pressure was noted to be high during the visit, but no changes were made to her medication regimen at this time. 5. Asthma The patient has a history of asthma, and she is advised to continue her current management plan. 6. Hypercholesterolemia The patient is managing her hypercholesterolemia with a goal of maintaining LDL cholesterol below 70 mg/dL. Her current LDL cholesterol is 51 mg/dL, indicating good control. 7. Gastroesophageal Reflux Disease (Gerd) The patient is managing her gastroesophageal reflux disease with lifestyle modifications and medications as needed. 8. Peripheral Vascular Disease The patient is managing her peripheral vascular disease with lifestyle mo difications and medications as needed. 9. Bilateral Knee Osteoarthritis The patient has bilateral knee osteoarthritis, which contributes to her mobility issues. She is advised to continue with her current management plan and consider physical therapy if needed. 10. Nephropathy The patient has nephropathy with protein spillage, and her renal function is stable. She is advised to continue monitoring her renal function and follow up with her healthcare provider as needed. 11. Ganglion Cyst The patient has a ganglion cyst on her hand, which is painful. She is advised to monitor it for any changes and consider intervention if it becomes problematic. 12. Preventative Care The patient is up to date with her mammogram as of December 2023 and is due for Cologuard testing for colon cancer screening. She is advised to receive flu and shingles vaccinations as part of her preventative care plan. Discussion Notes During the visit, I discussed with the patient the management of her diabetes mellitus, emphasizing the importance of maintaining her hemoglobin A1c at goal with semaglutide. We reviewed her coronary artery disease history, including her myocardial infarction in 2009 and the placement of stents, and I advised her to continue her current medications and follow up with cardiology. I also addressed her hypertension, noting the elevated blood pressure during the visit, and recommended monitoring without changing her medication regimen at this time. We discussed her obstructive sleep apnea management with CPAP therapy, which she is compliant with, and I encouraged her to continue its use. Preventative care measures were reviewed, including the need for Cologuard testing and vaccinations for flu and shingles. Patient Instructions - Continue taking semaglutide as prescribed and monitor blood glucose levels regularly. - Use CPAP machine for more than 4 hours each night. - Follow up with cardiology and continue taking metoprolol and lisinopril. - Monitor blood pressure at home and report any significant changes. - Schedule Cologuard testing for colon cancer screening. - Receive flu and shingles vaccinations as recommended. - Monitor the ganglion cyst on the hand for any changes. Orders: Orders Complete Blood Count Auto Diff Today E11.65 - Type 2 diabetes mellitus with hyperglycemia Free T4 (Free Thyroxine) Today E11.65 - Type 2 diabetes mellitus with hyperglycemia Lipid Panel Today E11.65 - Type 2 diabetes mellitus with hyperglycemia, E78.00 - Pure hypercholesterolemia, unspecified Microalbumin, Random (w Creat) Today E11.65 - Type 2 diabetes mellitus with hyperglycemia Creatinine Urine Today E11.65 - Type 2 diabetes mellitus with hyperglycemia Reticulocyte Count Today E11.65 - Type 2 diabetes mellitus with hyperglycemia Vitamin D 25-OH Total Today E11.65 - Type 2 diabetes mellitus with hyperglycemia UA CC w/rflx Micro + Cult Today E11.65 - Type 2 diabetes mellitus with hyperglycemia, R30.0 - Dysuria AMB Hemoglobin A1c Today Z13.9 - Encounter for screening, unspecified Comprehensive Met. Panel Today E11.65 - Type 2 diabetes mellitus with hyperglycemia Thyroid Stimulating Hormone Today E11.65 - Type 2 diabetes mellitus with hyperglycemia Vitamin B12 and Folate Today E11.65 - Type 2 diabetes mellitus with hyperglycemia Referrals Orthopedics Referral M77.8 - Other enthesopathies, not elsewhere classified Medications: New tirzepatide (Mounjaro) 7.5 mg (0.5 mL) subcut QWEEK 2 mL 2RF E11.65 - Type 2 diabetes mellitus with hyperglycemia Refilled nitroglycerin do not exceed 3 doses per episode 0.4 mg sublingual Q5M PRN 20 tabs 0RF chest pain E11.65 - Type 2 diabetes mellitus with hyperglycemia [Sleeve right hand] As directed 1 ea 0RF Right hand swelling M79.89 - Other specified soft tissue disorders walker (Ultra-Light Rollator misc) As directed 1 ea 0RF M17.0 - Bilateral primary osteoarthritis of knee, M17.9 - Osteoarthritis of knee, unspecified Discontinued semaglutide (weight loss) (Jesus) Discontinued Reason: Doctor's Order 2.4 mg (0.75 mL) subcut QWEEK 3 mL 2RF E66.01 - Morbid (severe) obesity due to excess calories, Z68.42 - Body mass index [BMI] 45.0-49.9, adult
--- OUTSIDE RECORDS SUMMARY | 2024-11-21 09:11 | XMS_ITS | Patient Health Record ---
[facility] Address [address] [place] [address] Care Team Providers Care Renovation Plant Supervisor Name Role Phone Adán Yadav Primary Care Provider UnavailSyed Rodriguez Unavailable [phone] Allergies Allergen (clinical drug ingredient) Drug/Non Drug [...] Problem Acquired hammer toe of right foot ([id number] ) Other hammer toe(s) (acquired), right foot (M20.41) Active confirmed Problem Acquired hammer toe of left foot ([id number] ) Other hammer toe(s) (acquired), left foot (M20.42) Active confirmed Problem Polyneuropathy due to type 2 diabetes mellitus (499226380) Type 2 diabetes mellitus with diabetic polyneuropathy (E11.42) Active confirmed Vital Signs Blood pressure diastolic 65 mm Hg 09/24/2024 Height 6ft2in in 09/24/2024 Blood pressure systolic 128 mm Hg 09/24/2024 Weight 342 lbs 09/24/2024 BMI 43.91 kg/m2 09/24/2024 Procedures Procedure Date Ordered Date Performed Result Body Sit e 92984-LHICAYB NAIL, 6 OR MORE 12/19/2023 N/A 40505-SUZD SKIN LESIONS, OVER 4 12/19/2023 N/A 11117-MBUAJFF NAIL, 6 OR MORE 03/19/2024 N/A 59462-JJUT SKIN LESIONS, OVER 4 03/19/2024 N/A 42032-DOQGYSU NAIL, 6 OR MORE 06/21/2024 N/A 63021-DWKL SKIN LESIONS, OVER 4 06/21/2024 N/A 90786-OCQTQAN NAIL, 6 OR MORE 09/24/2024 N/A 13918-ADEB SKIN LESIONS, OVER 4 09/24/2024 N/A Encounters Encounter Location Date Provider Diagnosis [address] [address] 12/19/2023 Syed Noel Type 2 diabetes mellitus with diabetic polyneuropathy E11.42 ; Tinea unguium B35.1 and Xerosis of skin L85.[address] [address] 03/19/2024 Syedsharron Noel Type 2 diabetes mellitus with diabetic polyneuropathy E11.42 ; Tinea unguium B35.1 and Xerosis of skin L85.[address] [address] 06/21/2024 Syedsharron Noel Type 2 diabetes mellitus with diabetic polyneuropathy E11.42 ; Tinea unguium B35.1 ; Other hammer toe(s) (acquired), right foot M20.41 and Other hammer toe(s) (acquired), left foot M20.[address] [address] 09/24/2024 Syed Noel Type 2 diabetes mellitus [...] X ray : Foot, right 3V 02/07/2022 77676-XEWNQFQ NAIL, 6 OR MORE 06/21/2024 17622-EANRKAK NAIL, 6 OR MORE 09/24/2024 47372-INXUAVZ NAIL, 6 OR MORE 07/27/2022 06004-YBYUUAC NAIL, 6 OR MORE 12/19/2023 77463-PKPPMIB NAIL, 6 OR MORE 03/19/2024 31702-SKVE SKIN LESIONS, OVER 4 03/19/19 79317-DFMQ SKIN LESIONS, OVER 4 12/19/19 24 64496-ETWY SKIN LESIONS, OVER 4 02/08/20 81219-NKBZ SKIN LESIONS, OVER 4 05/17/19 23 59478-RYJR SKIN LESIONS, OVER 4 07/28/19 23 21326-MLJQ SKIN LESIONS, OVER 4 09/25/19 84601-ENQX SKIN LESIONS, OVER 4 06/22/19 Next Appt Details Provider Name:Syed Noel , 01/14/2025 09:00:00 AM, [address] [place], [address], Insurance Providers Payer Name Payer Address Payer Phone Subscriber Number Group Number Insured Name Patient Relationship to Insured Coverage Start Date Coverage End Date [facility] [employer] Claims [address] [place] [id number] Radha Moreno Self - patient is the [...]
--- OUTSIDE RECORDS SUMMARY | 2024-11-21 09:11 | XMS_ITS | Patient Health Record ---
Author Organization [employer] [facility] (Formerly [facility]) Address [address] [place] [address] Care Team Providers Care Family Intervention Specialist Name Role Phone ERIN COLBERT M.D. Primary Care Provider MARGY Mishra Unavailable [phone] Allergies Allergen (clinical drug ingredient) Drug/Non Drug [...] Notes Problem Excessive and freque nt menstruation (207681478) Excessive and frequent menstruation with regular cycle (N92.0) Active confirmed Problem Body mass index 40+ - severely obese (408640601) Body mass index (BMI) 45.0-49.9, adult (Z68.42) Active confirmed Problem Pure hypercholesterolemia (567029314) Pure hypercholester olemia, unspecified (E78.00) Active confirmed Plan Of Treatment Pending Test Test Name Order Date COMPLETE BLOOD COUNT 12/14/2018 THIN PREP,HPV,BEA IF HPV+ (>29YR)(DIAG) 07/16/2018 MM Digital Screening Mammogram 3D 2018 Insurance Providers Payer Name Payer Address Payer Phone Subscriber Number Group Number Insured Name Patient Relationship to Insured Coverage Start Date Coverage End Date MEDICARE [address] [place] [id number] JANE DUARTE Self - patient is the [...]
== END 2024-11-21 09:32 | disposition home or self-care (01) ==
LOC: HO.HMCH 08:39
PROVIDERS: PCP Internal Medicine; Visit Provider Internal Medicine
DX: E11.65 Type 2 diabetes mellitus with hyperglycemia (principal); E66.01 Morbid (severe) obesity due to excess calories; Z68.42 Body mass index [BMI] 45.0-49.9, adult; I10 Essential (primary) hypertension; E78.00 Pure hypercholesterolemia, unspecified; I25.5 Ischemic cardiomyopathy; I25.10 Atherosclerotic heart disease of native coronary artery without angina pectoris; K21.9 Gastro-esophageal reflux disease without esophagitis; Z12.11 Encounter for screening for malignant neoplasm of colon; G47.33 Obstructive sleep apnea (adult) (pediatric); M77.8 Other enthesopathies, not elsewhere classified

== ENCOUNTER 2024-12-05 16:26 | Emergency (ER) | payer OTHER, SELFPAY ==
--- NOTE | ~2024-12-05 | XR_ITS ---
CLINICAL HISTORY: Fall Two views of the right forearm. Findings: Patient positioning limits the study. There is a fracture of the radial head with an elbow joint effusion. No other acute fractures are seen. Old fracture of the ulnar styloid. Impression: Acute fracture of the radial head. This document has been electronically signed by: Jose A Laurent MD on 12/05/2024 20:06:26
--- NOTE | ~2024-12-05 | XR_ITS ---
CLINICAL HISTORY: fall, tenderness Three views of the right shoulder. Findings: No acute fracture or dislocation is seen. There is moderate acromioclavicular DJD with subacromial spurring. Calcific density superior to the humeral head could relate to old trauma. Impression: No acute fracture. This document has been electronically signed by: Jose A Laurent MD on 12/05/2024 20:48:01
--- NOTE | ~2024-12-05 | XR_ITS ---
CLINICAL HISTORY: Fall Four views of the right wrist. Findings: There is an old ununited fracture of the ulnar styloid. No acute fracture or dislocation is seen. There is prominent 1st carpometacarpal DJD. Impression: No acute fracture is identified. This document has been electronically signed by: Jose A Laurent MD on 12/05/2024 20:03:08
--- NOTE | ~2024-12-05 | XR_ITS ---
CLINICAL HISTORY: Fall Four views of the right elbow. Findings: There is an intra-articular fracture of the radial head with minimal displacement. There is no dislocation. There are changes of old epicondylitis bilaterally. Mild olecranon spurring. There is a joint effusion. There are ywkn-um-ciuntjud degenerative changes in the elbow. Impression: Acute fracture of the radial head. Other findings as above. This document has been electronically signed by: Jose A Laurent MD on 12/05/2024 20:08:59
--- NOTE | ~2024-12-05 | XR_ITS ---
CLINICAL HISTORY: Fall Two views of the right humerus. Findings: There is an acute fracture of the radial head. No other fractures are identified. There is mild glenohumeral DJD. Impression: Fracture of the radial head This document has been electronically signed by: Jose A Laurent MD on 12/05/2024 20:07:35
[2024-12-05 16:44] VITALS: BP 215/100; PULSE 73; RESP 20; TEMP 36; O2SAT 97; BMI 46.6
--- NOTE | 2024-12-05 16:45 | ED.GENADULT ---
HPI - General Adult General Chief complaint: Fall Stated complaint: right arm, shoulder, arm injury (fall) Time Seen by Provider: 12/05/24 17:53 History of Present Illness ED Provider: Dr. Feliz HPI narrative: 54 y/o F patient; PMH obesity, GERD, HTN, HLD, CAD, T2DM, asthma, KRYSTAL; presents from home with report of trip and fall prior to arrival. The patient states she was going up the stairs outside when she tripped and landed on her right upper extremity. She denies head injury or LOC. She has been ambulatory since the event. She is right hand dominant. Related Data Home Medications ?Medication ?Instructions ?Recorded ?Confirmed aspirin 81 mg tablet,delayed 162 mg PO DAILY 07/06/20 11/21/24 release (Adult Low Dose Aspirin) Previous Rx's ?Medication ?Instructions ?Recorded cpap Supplies #1 ea 04/13/20 AUTOCPAP 8-20 mm HG humidified #1 ea 06/12/20 heated air Diabetic Shoes #1 ea 06/16/21 compr.stocking,knee,long,x-lrg #12 ea 06/16/21 triamcinolone acetonide 0.5 % 1 appl topical BID 14 days #60 06/27/22 topical cream grams blood sugar diagnostic #50 ea 06/30/22 lancets #100 ea 07/11/22 lancets 33 gauge (OneTouch Delica #100 ea 07/11/22 Lancets) diabetic socks #12 ea 08/24/22 trouser socks #12 ea 09/15/22 blood-glucose meter #1 ea 10/13/22 albuterol sulfate 90 mcg/actuation 2 puff inhalation Q6H #8.5 grams 11/23/22 aerosol inhaler (ProAir HFA) ketoconazole 2 % shampoo 1 appl topical 2XW #120 mL 02/21/23 blood sugar diagnostic (OneTouch #100 ea 07/19/23 Ultra Test strips) ibuprofen 800 mg tablet 800 mg PO TID PRN for pain #90 tabs 08/02/23 metoprolol tartrate 25 mg tablet See Rx Instructions PO BID #450 12/10/23 tabs rosuvastatin 10 mg tablet 10 mg PO BEDTIME #90 tabs 12/10/23 empty container (BD Sharps #36 ea 05/21/24 Test Department Helper) montelukast 10 mg tablet 10 mg PO BEDTIME #90 tabs 06/14/24 lisinopril 40 mg tablet 40 mg PO DAILY #90 tabs 11/17/24 Sleeve right hand #1 ea 11/21/24 nitroglycerin 0.4 mg sublingual 0.4 mg sublingual Q5M PRN chest 11/21/24 tablet pain #20 tabs tirzepatide 7.5 mg/0.5 mL 7.5 mg (0.5 mL) subcut QWEEK #2 mL 11/21/24 subcutaneous pen injector (Mounjaro) walker (Ultra-Light Rollator misc) #1 ea 11/21/24 Allergies Allergy/AdvReac Type Severity Reaction Status Date / Time amoxicillin (AMOXICILLIN) Allergy Unknown HIVES Verified 12/05/24 16:51 atorvastatin Allergy Unknown hives Verified 12/05/24 16:51 bupropion (From ZYBAN) Allergy Unknown HIVES Verified 12/05/24 16:51 milk Allergy Unknown Diarrhea Verified 12/05/24 16:51 Penicillins (PENICILLINS) Allergy Unknown HIVES Verified 12/05/24 16:51 pravastatin Allergy Unknown hives Verified 12/05/24 16:51 simvastatin (SIMVASTATIN) Allergy Unknown HIVES Verified 12/05/24 16:51 tomato Allergy Unknown Hives Verified 12/05/24 16:51 metformin AdvReac Intermediate Diarrhea Verified 12/05/24 16:51 Review of Systems Review of Systems: Yes all other systems are reviewed and are negative PMFSH Past Medical History Attestation statement: The following information was validated with the patient. Source: old records reviewed Medical History Aortic stenosis Colon cancer screening Myocardial infarction Breast cancer screening by mammogram GERD (gastroesophageal reflux disease) Hypercholesterolemia Hypertension Folic acid deficiency Vitamin D deficiency Asthma Type 2 diabetes mellitus with hyperglycemia Surgical History History of coronary artery stent placement History of cholecystectomy History of hand surgery History of section Family History Family History Father CVD (cardiovascular disease) Hypertension Heart disease Mother No problems noted. Sister In good health Sister In good health Daughter In good health Paternal Uncle Gastric cancer Substance abuse Paternal Grandfather Colon cancer Paternal Grandmother Brain cancer Maternal Grandmother Myocardial infarction Paternal Uncle Lymphoma Paternal Aunt Substance abuse Social History Social History Household Members: Significant Other Household Members Other:: 2 kids Housing: House Alcohol intake: never Patient Tobacco Use Status: Former Tobacco user Tobacco use type: Cigarette Smoked in Last 30 Days: No e-Cigarette/Vaping Use: Never Used Second Hand Smoke Exposure: No Use of substances other than those prescribed or required for medical reasons: No Advance Directives: No Advance Directives Information Provided: No Do you have a plan to hurt others: No Plan Patient : No service: No Current occupational status: disabled 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 Const General: cooperative and no acute distress HENMT Head: Yes normal to inspection and Yes atraumatic Eyes General: appearance normal, both eyes and all related structures Pupils: Equal, round and reactive pupils present EOM: EOMs intact bilaterally Neck Neck: Yes normal visual inspection, Yes full ROM, Yes supple and No tender Chest Chest palpation & inspection: normal inspection of the chest and normal palpation of entire chest wall Resp Effort & Inspection: normal respiratory effort, able to speak in complete sentences and no cough Auscultation: clear to auscultation bilaterally Cardio Rate: regular rate Rhythm: regular rhythm Peripheral pulses: Peripheral pulses 2+ throughout GI Inspection: No Abdominal wall edema and No distended Palpation (GI): Soft to palpation, not firm, nontender, no guarding and not rigid Auscultation: normal bowel sounds Back/Spine/Pelvis Back: No back tenderness Neuro Cranial nerves: Yes Equal, round and reactive pupils present Extrem Other: LUE: Unremarkable RUE: Wearing a wrist immobilizer. Reports diffuse pain from shoulder to humerus to elbow to wrist. FROM at elbow, wrist, hand. NVI. Course Course Course Narrative: This is a rapid medical exam performed by C. Andrew, DATA PROCESSING CONSULTANT: Additional HPI, ROS, PE not included below will be deferred to primary provider. Patient is a 54y/o F pmhx impingement syndrome of R shoulder, cardiomyopathy, PVD, GERD, HTN, T2DM, astham, CAD, KRYSTAL presenting with complaint of right shoulder pain. State she tripped and fell up stairs onto porch and bench. Denies head strike or LOC. Plan: imaging Reevaluation(s) Reevaluation #1: Patient is afebrile and hemodynamically stable. Without head injury, headache, or use of anticoagulation - no indication for CT imaging. Reviewed XR Right Shoulder ordered in triage. Added additional XRs of RUE. Provided pain control with Tylenol and Toradol. XR right wrist is negative for fx. XR right forearm/elbow/humerus notable for nondisplaced radial head fx. XR right shoulder is negative for fx. Please see procedure note for posterior long arm splint placement. Plan: Discharge to home with orthopedic follow up Return precautions given Medications Administered Discontinued Medications Generic Name Dose Route Start Last Admin Trade Name Howardq PRN Reason Stop Dose Admin Acetaminophen 975 mg 12/05/24 19:00 12/05/24 19:26 Acetaminophen 325 Mg Tablet PO 12/05/24 19:01 975 mg ONCE ONE Administration Ketorolac Tromethamine 30 mg 12/05/24 19:00 12/05/24 19:26 Ketorolac Tromethamine 30 Mg/Ml Vial IM 12/05/24 19:01 30 mg ONCE ONE Administration Procedures Orthopedic Splinting/Casting Injury #1: Side: right Upper Extremity Injury Location: elbow Upper Extremity Immobilizer: sling/shoulder immobilizer and posterior splint Medical Decision Making Radiology Impression Discussion of test interpretation with radiology: I have reviewed the radiologist's reading. Radiologist Impression: CLINICAL HISTORY: Fall Four views of the right wrist. Findings: There is an old ununited fracture of the ulnar styloid. No acute fracture or dislocation is seen. There is prominent 1st carpometacarpal DJD. Impression: No acute fracture is identified. This document has been electronically signed by: Jose A Laurent MD on 12/05/2024 20:03:08 CLINICAL HISTORY: Fall Two views of the right forearm. Findings: Patient positioning limits the study. There is a fracture of the radial head with an elbow joint effusion. No other acute fractures are seen. Old fracture of the ulnar styloid. Impression: Acute fracture of the radial head. This document has been electronically signed by: Jose A Laurent MD on 12/05/2024 20:06:26 CLINICAL HISTORY: Fall Four views of the right elbow. Findings: There is an intra-articular fracture of the radial head with minimal displacement. There is no dislocation. There are changes of old epicondylitis bilaterally. Mild olecranon spurring. There is a joint effusion. There are [id number] degenerative changes in the elbow. Impression: Acute fracture of the radial head. Other findings as above. This document has been electronically signed by: Jose A Laurent MD on 12/05/2024 20:08:59 CLINICAL HISTORY: Fall Two views of the right humerus. Findings: There is an acute fracture of the radial head. No other fractures are identified. There is mild glenohumeral DJD. Impression: Fracture of the radial head This document has been electronically signed by: Jose A Laurent MD on 12/05/2024 20:07:35 Discharge Plan Discharge Clinical Impression: Fall, Closed fracture of radial head Patient Disposition: Home, Self-Care Instructions: Elbow Fracture (DC) Additional Instructions: You were seen today after a fall. We did XR of your wrist, forearm, elbow, humerus, and shoulder. We found a non-displaced fracture of your right elbow. You were placed in a splint. Make sure you elevate your arm and apply ice for 20min on/off. Call the orthopedic number provided to make an appointment to be seen in the next 7 days. Prescriptions: No Action triamcinolone acetonide 0.5 % cream 1 appl topical BID 14 Days Qty: 60 2RF (DME) blood sugar diagnostic Strip See Rx Instructions .Route Qty: 50 2RF Rx Instructions: As directed (DME) lancets [OneTouch Delica Lancets] 33 gauge misc See Rx Instructions .ROUTE .MEDSUPPLY Qty: 100 3RF Rx Instructions: As directed check the blood sugar q.day (DME) lancets Misc See Rx Instructions .Route Qty: 100 2RF Rx Instructions: As directed (DME) diabetic socks See Rx Instructions .Route .MEDSUPPLY Qty: 12 3RF Rx Instructions: As directed (DME) trouser socks See Rx Instructions .Route .MEDSUPPLY Qty: 12 3RF Rx Instructions: 20-30 millimeter mercury pressure (DME) blood-glucose meter Kit See Rx Instructions .ROUTE .MEDSUPPLY Qty: 1 0RF Rx Instructions: As directed check the blood sugar once a day albuterol sulfate [ProAir HFA] 90 mcg/actuation HFA aerosol inhaler 2 puff inhalation Q6H Qty: 8.5 3RF ketoconazole 2 % shampoo 1 appl topical 2XW Qty: 120 0RF (DME) OneTouch Ultra Test Strip See Rx Instructions .ROUTE .MEDSUPPLY Qty: 100 3RF Rx Instructions: As directed check the blood sugar once a day ibuprofen 800 mg tablet 800 mg PO TID PRN (Reason: for pain) Qty: 90 2RF rosuvastatin 10 mg tablet 10 mg PO BEDTIME Qty: 90 3RF metoprolol tartrate 25 mg tablet See Rx Instructions PO BID Qty: 450 3RF Rx Instructions: 2 tabs in am and 3 tabs in pm PO 2 times a day; (DME) BD Sharps Test Department Helper Misc See Rx Instructions .Route Qty: 36 0RF Rx Instructions: As directed montelukast 10 mg tablet 10 mg PO BEDTIME Qty: 90 2RF lisinopril 40 mg tablet 40 mg PO DAILY Qty: 90 1RF (DME) cpap Supplies See Rx Instructions .Route .MEDSUPPLY Qty: 1 0RF Rx Instructions: As directed aspirin [Adult Low Dose Aspirin] 81 mg tablet,delayed release (DR/EC) 162 mg PO DAILY (DME) AUTOCPAP 8-20 mm HG humidified heated air 0 .Route .MEDSUPPLY Qty: 1 0RF Rx Instructions: As directed (DME) Diabetic Shoes See Rx Instructions .Route .MEDSUPPLY Qty: 1 0RF Rx Instructions: As directed (DME) compr.stocking,knee,long,x-lrg Misc See Rx Instructions .ROUTE .MEDSUPPLY Qty: 12 0RF Rx Instructions: As directed 20-30 mm HG Mounjaro 7.5 mg/0.5 mL pen injector 7.5 mg subcut QWEEK Qty: 2 2RF nitroglycerin 0.4 mg tablet, sublingual 0.4 mg sublingual Q5M PRN (Reason: chest pain) Qty: 20 0RF Rx Instructions: do not exceed 3 doses per episode (DME) Ultra-Light Rollator Misc See Rx Instructions .Route Qty: 1 0RF Rx Instructions: As directed (DME) Sleeve right hand See Rx Instructions .Route .MEDSUPPLY Qty: 1 0RF Rx Instructions: As directed Referrals: Cristóbal Paulson PA-C [Physician Director Of Rooms, Orthopedics] Referral Note: Please call to make an appointment in the next 7 days Print Language: Bangladeshi
[2024-12-05 18:16] VITALS: BP 204/107
--- NOTE | 2024-12-05 19:30 | PC.NURSE ---
this rn assumed care of pt @1900. pt medicated according to apr for reported 11/06 pain
[2024-12-05 21:57] VITALS: BP 180/95; PULSE 70; RESP 18; TEMP 36.6; O2SAT 100
[2024-12-05 22:05] VITALS: BP 180/95; PULSE 70; RESP 18; TEMP 36.6; O2SAT 100
== END 2024-12-05 22:08 | disposition home or self-care (01) ==
PROVIDERS: Emergency Provider Emergency Medicine; PCP Internal Medicine
DX: S52.121A Displaced fracture of head of right radius, initial encounter for closed fracture (principal); I10 Essential (primary) hypertension; E11.9 Type 2 diabetes mellitus without complications; W01.0XXA Fall on same level from slipping, tripping and stumbling without subsequent striking against object, initial encounter; Y93.9 Activity, unspecified; Y92.9 Unspecified place or not applicable; Y99.9 Unspecified external cause status; Z88.0 Allergy status to penicillin; Z88.8 Allergy status to other drugs, medicaments and biological substances
CPT/HCPCS: 73030; 73060; 73080; 73090; 73110; 96372; 99284; J1885

== ENCOUNTER → 2024-12-05 16:55 | Outpatient (BNV) | payer OTHER, SELFPAY | PROVIDERS: Emergency Provider Emergency Medicine; PCP Internal Medicine; Visit Provider Radiology Diagnostic Radiology | DX: M25.511 Pain in right shoulder (principal); S52.121A Displaced fracture of head of right radius, initial encounter for closed fracture; M25.531 Pain in right wrist; W01.0XXA Fall on same level from slipping, tripping and stumbling without subsequent striking against object, initial encounter | CPT/HCPCS: 73030; 73060; 73080; 73090; 73110 ==

== ENCOUNTER 2024-12-07 00:13 | Emergency (ER) | payer OTHER, SELFPAY ==
[2024-12-07 00:32] VITALS: BP 181/85; PULSE 75; RESP 20; TEMP 36.7; O2SAT 94; BMI 47.2
--- OUTSIDE RECORDS SUMMARY | 2024-12-07 00:40 | XMS_ITS | Patient Health Record ---
Author Organization [facility] Address [address] [place] [address] Care Team Providers Care Cutter Hand Name Role Phone ERIN COLBERT M.D. Primary Care Provider MARGY Mishra Unavailable [phone] Allergies Allergen (clinical drug ingredient) Drug/Non Drug [...] Notes Problem Excessive and freque nt menstruation (658201023) Excessive and frequent menstruation with regular cycle (N92.0) Active confirmed Problem Body mass index 40+ - severely obese (600605246) Body mass index (BMI) 45.0-49.9, adult (Z68.42) Active confirmed Problem Pure hypercholesterolemia (924830453) Pure hypercholester olemia, unspecified (E78.00) Active confirmed Plan Of Treatment Pending Test Test Name Order Date COMPLETE BLOOD COUNT 12/14/2018 THIN PREP,HPV,BEA IF HPV+ (>29YR)(DIAG) 07/16/2018 MM Digital Screening Mammogram 3D 2018 Insurance Providers Payer Name Payer Address Payer Phone Subscriber Number Group Number Insured Name Patient Relationship to Insured Coverage Start Date Coverage End Date MEDICARE [address] [place] [id number] [phone] [id number] JANE DUARTE Self - patient is the [...]
--- OUTSIDE RECORDS SUMMARY | 2024-12-07 00:41 | XMS_ITS | Patient Health Record ---
Author Organization [facility] Address [address] [place] [address] Care Team Providers Care Cordage Sales Representative Name Role Phone Adán Yadav Primary Care Provider UnavailSyed Rodriguez Unavailable [phone] Allergies Allergen (clinical drug ingredient) Drug/Non Drug [...] Problem Acquired hammer toe of right foot (0606769584142019 ) Other hammer toe(s) (acquired), right foot (M20.41) Active confirmed Problem Acquired hammer toe of left foot (4615726168197718 ) Other hammer toe(s) (acquired), left foot (M20.42) Active confirmed Problem Polyneuropathy due to type 2 diabetes mellitus (656454982) Type 2 diabetes mellitus with diabetic polyneuropathy (E11.42) Active confirmed Vital Signs Blood pressure diastolic 65 mm Hg 09/24/2024 Height 6ft2in in 09/24/2024 Blood pressure systolic 128 mm Hg 09/24/2024 Weight 342 lbs 09/24/2024 BMI 43.91 kg/m2 09/24/2024 Procedures Procedure Date Ordered Date Performed Result Body Sit e 45001-GKVGFPL NAIL, 6 OR MORE 12/19/2023 N/A 56827-FZNC SKIN LESIONS, OVER 4 12/19/2023 N/A 81378-HDFMQXA NAIL, 6 OR MORE 03/19/2024 N/A 09050-LAPB SKIN LESIONS, OVER 4 03/19/2024 N/A 21802-SWYYCRV NAIL, 6 OR MORE 06/21/2024 N/A 00673-AHXE SKIN LESIONS, OVER 4 06/21/2024 N/A 39654-JKWEWWZ NAIL, 6 OR MORE 09/24/2024 N/A 42825-MAGU SKIN LESIONS, OVER 4 09/24/2024 N/A Encounters Encounter Location Date Provider Diagnosis [address] [address] 12/19/2023 Syed Noel Type 2 diabetes mellitus with diabetic polyneuropathy E11.42 ; Tinea unguium B35.1 and Xerosis of skin L85.[address] [address] 03/19/2024 Syedsharron Noel Type 2 diabetes mellitus with diabetic polyneuropathy E11.42 ; Tinea unguium B35.1 and Xerosis of skin L85.[address] [address] 06/21/2024 Syedsharron Noel Type 2 diabetes mellitus with diabetic polyneuropathy E11.42 ; Tinea unguium B35.1 ; Other hammer toe(s) (acquired), right foot M20.41 and Other hammer toe(s) (acquired), left foot M20.[address] [address] 09/24/2024 Syed Noel Type 2 diabetes mellitus [...] X ray : Foot, right 3V 02/07/2022 82757-ETFDSEC NAIL, 6 OR MORE 06/21/2024 81778-RFCTEGA NAIL, 6 OR MORE 09/24/2024 82449-PXXDSPX NAIL, 6 OR MORE 07/27/2022 13715-RZFFXSD NAIL, 6 OR MORE 12/19/2023 69927-NGNASZW NAIL, 6 OR MORE 03/19/2024 00579-DWLD SKIN LESIONS, OVER 4 03/19/19 76279-VTAQ SKIN LESIONS, OVER 4 12/19/19 24 91803-EVHS SKIN LESIONS, OVER 4 02/08/20 03178-RNQD SKIN LESIONS, OVER 4 05/17/19 23 59286-YHEO SKIN LESIONS, OVER 4 07/28/19 23 79053-MQUT SKIN LESIONS, OVER 4 09/25/19 10546-ESXA SKIN LESIONS, OVER 4 06/22/19 Next Appt Details Provider Name:Syed Noel , 01/14/2025 09:00:00 AM, [address] [place], [address], Insurance Providers Payer Name Payer Address Payer Phone Subscriber Number Group Number Insured Name Patient Relationship to Insured Coverage Start Date Coverage End Date [facility] [employer] Claims [address] [place] [id number] Radha Moreno Self - patient is the [...]
--- NOTE | 2024-12-07 01:12 | ED.GENADULT ---
HPI - General Adult General Chief complaint: Extremity Problem Stated complaint: right elbow injury; needs to be rewrapped Time Seen by Provider: 12/07/24 00:33 Source: patient Limitations: no limitations History of Present Illness ED Provider: Jana Etienne PA-C HPI narrative: 54-year-old female with a history of morbid obesity, with recent right radial head fracture, presents with splint dysfunction. Patient states there was a part of the splint that has irritating her skin, she is asking to have it replaced. Related Data Home Medications ?Medication ?Instructions ?Recorded ?Confirmed aspirin 81 mg tablet,delayed 162 mg PO DAILY 07/06/20 11/21/24 release (Adult Low Dose Aspirin) Previous Rx's ?Medication ?Instructions ?Recorded cpap Supplies #1 ea 04/13/20 AUTOCPAP 8-20 mm HG humidified #1 ea 06/12/20 heated air Diabetic Shoes #1 ea 06/16/21 compr.stocking,knee,long,x-lrg #12 ea 06/16/21 triamcinolone acetonide 0.5 % 1 appl topical BID 14 days #60 06/27/22 topical cream grams blood sugar diagnostic #50 ea 06/30/22 lancets #100 ea 07/11/22 lancets 33 gauge (OneTouch Delica #100 ea 07/11/22 Lancets) diabetic socks #12 ea 08/24/22 trouser socks #12 ea 09/15/22 blood-glucose meter #1 ea 10/13/22 albuterol sulfate 90 mcg/actuation 2 puff inhalation Q6H #8.5 grams 11/23/22 aerosol inhaler (ProAir HFA) ketoconazole 2 % shampoo 1 appl topical 2XW #120 mL 02/21/23 blood sugar diagnostic (OneTouch #100 ea 07/19/23 Ultra Test strips) ibuprofen 800 mg tablet 800 mg PO TID PRN for pain #90 tabs 08/02/23 metoprolol tartrate 25 mg tablet See Rx Instructions PO BID #450 12/10/23 tabs rosuvastatin 10 mg tablet 10 mg PO BEDTIME #90 tabs 12/10/23 empty container (BD Sharps #36 ea 05/21/24 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) montelukast 10 mg tablet 10 mg PO BEDTIME #90 tabs 06/14/24 lisinopril 40 mg tablet 40 mg PO DAILY #90 tabs 11/17/24 Sleeve right hand #1 ea 11/21/24 nitroglycerin 0.4 mg sublingual 0.4 mg sublingual Q5M PRN chest 11/21/24 tablet pain #20 tabs tirzepatide 7.5 mg/0.5 mL 7.5 mg (0.5 mL) subcut QWEEK #2 mL 11/21/24 subcutaneous pen injector (Mounjaro) walker (Ultra-Light Rollator misc) #1 ea 11/21/24 Allergies Allergy/AdvReac Type Severity Reaction Status Date / Time amoxicillin (AMOXICILLIN) Allergy Unknown HIVES Verified 12/07/24 00:35 atorvastatin Allergy Unknown hives Verified 12/07/24 00:35 bupropion (From ZYBAN) Allergy Unknown HIVES Verified 12/07/24 00:35 milk Allergy Unknown Diarrhea Verified 12/07/24 00:35 Penicillins (PENICILLINS) Allergy Unknown HIVES Verified 12/07/24 00:35 pravastatin Allergy Unknown hives Verified 12/07/24 00:35 simvastatin (SIMVASTATIN) Allergy Unknown HIVES Verified 12/07/24 00:35 tomato Allergy Unknown Hives Verified 12/07/24 00:35 metformin AdvReac Intermediate Diarrhea Verified 12/07/24 00:35 Review of Systems Review of Systems: Yes all other systems are reviewed and are negative Constitutional: Constitutional: Denies fatigue and Denies fever(s) Integumentary/Breasts: Skin/Breast: Denies erythema, Denies skin swelling, Denies sores and Denies wounds Endocrine: Endocrine: Denies fatigue PMFSH Past Medical History Attestation statement: The following information was validated with the patient. Medical History Aortic stenosis Colon cancer screening Myocardial infarction Breast cancer screening by mammogram GERD (gastroesophageal reflux disease) Hypercholesterolemia Hypertension Folic acid deficiency Vitamin D deficiency Asthma Type 2 diabetes mellitus with hyperglycemia Surgical History History of coronary artery stent placement History of cholecystectomy History of hand surgery History of section Family History Family History Father CVD (cardiovascular disease) Hypertension Heart disease Mother No problems noted. Sister In good health Sister In good health Daughter In good health Paternal Uncle Gastric cancer Substance abuse Paternal Grandfather Colon cancer Paternal Grandmother Brain cancer Maternal Grandmother Myocardial infarction Paternal Uncle Lymphoma Paternal Aunt Substance abuse Social History Social History Household Members: Significant Other Household Members Other:: 2 kids Housing: House Alcohol intake: never Patient Tobacco Use Status: Former Tobacco user Tobacco use type: Cigarette Smoked in Last 30 Days: No e-Cigarette/Vaping Use: Never Used Second Hand Smoke Exposure: No Use of substances other than those prescribed or required for medical reasons: No Advance Directives: No Advance Directives Information Provided: No service: No Current occupational status: disabled 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 Cognitive needs: No Hearing needs: No Vision needs: Yes Physical Exam ED Vital Signs: Vital Signs - 24 hr 12/07/24 00:32 12/07/24 01:28 Temperature 98.0 F 98.0 F Pulse Rate 75 75 Respiratory Rate 20 20 Blood Pressure 181/85 H 181/85 H Pulse Oximetry 94 94 Oxygen Delivery Method Room Air Room Air BMI result Body Mass Index 47.2 Const Other: Alert, appears older than stated age Orientation/consciousness: patient oriented x3 Resp Effort & Inspection: normal respiratory effort Cardio Other: normal peripheral perfusion Skin Other: warm dry no rash, I do not see any glaring skin irritation over the posterior right arm Neuro General: patient oriented x3, gait normal, no focal motor deficits and CN's II-XI intact bilaterally Psych Other: cooperative Medical Decision Making Medical Decision Making MDM Narrative: 54-year-old female with a history of morbid obesity, with recent right radial head fracture, presents with splint dysfunction. Patient states there was a part of the splint that has irritating her skin, she is asking to have it replaced. problem: Recent radial head fracture History: Per patient I have considered the following differential diagnoses: Request have splint removed Plan: The patient does not need the splint, we will keep her in the sling, she can continue to follow up with the orthopedic service. Differential Diagnosis Differential Diagnoses: The differential diagnosis associated with the presentation includes See medical decision-making Admission/Observation Consideration of admission/observation: Escalation of care including admission/observation considered not applicable Discharge Plan Discharge Clinical Impression: Closed fracture of head of right radius Patient Disposition: Home, Self-Care Instructions: Elbow Fracture (ED) Additional Instructions: we removed the splint, you need to use the sling. Continue to follow up with the orthopedic service as directed. Review your discharge instructions from yesterday. Prescriptions: No Action triamcinolone acetonide 0.5 % cream 1 appl topical BID 14 Days Qty: 60 2RF (DME) blood sugar diagnostic Strip See Rx Instructions .Route Qty: 50 2RF Rx Instructions: As directed (DME) lancets [OneTouch Delica Lancets] 33 gauge misc See Rx Instructions .ROUTE .MEDSUPPLY Qty: 100 3RF Rx Instructions: As directed check the blood sugar q.day (DME) lancets Misc See Rx Instructions .Route Qty: 100 2RF Rx Instructions: As directed (DME) diabetic socks See Rx Instructions .Route .MEDSUPPLY Qty: 12 3RF Rx Instructions: As directed (DME) trouser socks See Rx Instructions .Route .MEDSUPPLY Qty: 12 3RF Rx Instructions: 20-30 millimeter mercury pressure (DME) blood-glucose meter Kit See Rx Instructions .ROUTE .MEDSUPPLY Qty: 1 0RF Rx Instructions: As directed check the blood sugar once a day albuterol sulfate [ProAir HFA] 90 mcg/actuation HFA aerosol inhaler 2 puff inhalation Q6H Qty: 8.5 3RF ketoconazole 2 % shampoo 1 appl topical 2XW Qty: 120 0RF (DME) OneTouch Ultra Test Strip See Rx Instructions .ROUTE .MEDSUPPLY Qty: 100 3RF Rx Instructions: As directed check the blood sugar once a day ibuprofen 800 mg tablet 800 mg PO TID PRN (Reason: for pain) Qty: 90 2RF rosuvastatin 10 mg tablet 10 mg PO BEDTIME Qty: 90 3RF metoprolol tartrate 25 mg tablet See Rx Instructions PO BID Qty: 450 3RF Rx Instructions: 2 tabs in am and 3 tabs in pm PO 2 times a day; (DME) BD Sharps 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 Misc See Rx Instructions .Route Qty: 36 0RF Rx Instructions: As directed montelukast 10 mg tablet 10 mg PO BEDTIME Qty: 90 2RF lisinopril 40 mg tablet 40 mg PO DAILY Qty: 90 1RF (DME) cpap Supplies See Rx Instructions .Route .MEDSUPPLY Qty: 1 0RF Rx Instructions: As directed aspirin [Adult Low Dose Aspirin] 81 mg tablet,delayed release (DR/EC) 162 mg PO DAILY (DME) AUTOCPAP 8-20 mm HG humidified heated air 0 .Route .MEDSUPPLY Qty: 1 0RF Rx Instructions: As directed (DME) Diabetic Shoes See Rx Instructions .Route .MEDSUPPLY Qty: 1 0RF Rx Instructions: As directed (DME) compr.stocking,knee,long,x-lrg Misc See Rx Instructions .ROUTE .MEDSUPPLY Qty: 12 0RF Rx Instructions: As directed 20-30 mm HG Mounjaro 7.5 mg/0.5 mL pen injector 7.5 mg subcut QWEEK Qty: 2 2RF nitroglycerin 0.4 mg tablet, sublingual 0.4 mg sublingual Q5M PRN (Reason: chest pain) Qty: 20 0RF Rx Instructions: do not exceed 3 doses per episode (DME) Ultra-Light Rollator Misc See Rx Instructions .Route Qty: 1 0RF Rx Instructions: As directed (DME) Sleeve right hand See Rx Instructions .Route .MEDSUPPLY Qty: 1 0RF Rx Instructions: As directed Interventions: ED Discharge Assessment Last Done: 12/07/24 01:28 Discharge Date/Time: 12/07/24 01:29 Print Language: Urdu
--- NOTE | 2024-12-07 01:26 | PC.NURSE ---
reviewed discharge instructions with pt. pt verbalized understanding, no sign of distress. positive cms and pulse to right arm.
[2024-12-07 01:28] VITALS: BP 181/85; PULSE 75; RESP 20; TEMP 36.7; O2SAT 94
== END 2024-12-07 01:29 | disposition home or self-care (01) ==
PROVIDERS: Emergency Provider Emergency Medicine; PCP Internal Medicine
DX: S52.121D Displaced fracture of head of right radius, subsequent encounter for closed fracture with routine healing (principal); E11.9 Type 2 diabetes mellitus without complications; I10 Essential (primary) hypertension
CPT/HCPCS: 99282; 99283

== ENCOUNTER 2024-12-17 11:22 | Outpatient (AMB) | payer OTHER, SELFPAY ==
[2024-12-17 11:28] VITALS: BMI 47.1
--- NOTE | 2024-12-17 11:28 | MHC.OFFVIS ---
Vital Signs 12/17/24 11:28 Height 6 ft 2 in Weight 367 lb BMI 47.1 Intake Visit Reasons: FC- Right radial head fx, DOI 12/05/24 Intake Note: Radha is a 54 year old right hand dominant female who presents today for evaluation of a Right Radial Head Fracture, DOI: 12/05/24. Patient presented to [facility] ED reporting she tripped and fell while going up the stairs landing on her right upper extremity. At the ED, she was placed in a splint and given a sling. Patient reported to [facility] ED on 12/07/24 for a splint change due to irritation. Splint was discontinued. Patient to use sling as instructed. Today, patient complains of right shoulder pain and minimal discomfort on the right shoulder. Denies numbness or tingling. She is not taking anything for pain at this time. Denies previous injuries or surgeries to the right hand or shoulder. Allergies amoxicillin (AMOXICILLIN) Allergy (Unknown, Verified 12/17/24 11:29) HIVES atorvastatin Allergy (Unknown, Verified 12/17/24 11:29) hives bupropion (From ZYBAN) Allergy (Unknown, Verified 12/17/24 11:29) HIVES milk Allergy (Unknown, Verified 12/17/24 11:29) Diarrhea Penicillins (PENICILLINS) Allergy (Unknown, Verified 12/17/24 11:29) HIVES pravastatin Allergy (Unknown, Verified 12/17/24 11:29) hives simvastatin (SIMVASTATIN) Allergy (Unknown, Verified 12/17/24 11:29) HIVES tomato Allergy (Unknown, Verified 12/17/24 11:29) Hives metformin Adverse Reaction (Intermediate, Verified 12/17/24 11:29) Diarrhea HPI HPI FC- Right radial head fx, DOI 12/05/24: Details: Radha is a 54 year old right hand dominant female who presents today for evaluation of a Right Radial Head Fracture, DOI: 12/05/24. Patient presented to [facility] ED reporting she tripped and fell while going up the stairs landing on her right upper extremity. At the ED, she was placed in a splint and given a sling. Patient reported to [facility] ED on 12/07/24 for a splint change due to irritation. Splint was discontinued. Patient to use sling as instructed. Today, patient complains of right shoulder pain and minimal discomfort on the right elbow. Denies numbness or tingling. She is not taking anything for pain at this time. Denies previous injuries or surgeries to the right hand or shoulder. [facility] Medical History Aortic stenosis Colon cancer screening Myocardial infarction Breast cancer screening by mammogram GERD (gastroesophageal reflux disease) Hypercholesterolemia Hypertension Folic acid deficiency Vitamin D deficiency Asthma Type 2 diabetes mellitus with hyperglycemia Surgical History History of coronary artery stent placement History of cholecystectomy History of hand surgery History of section Family History Father CVD (cardiovascular disease) Hypertension Heart disease Mother No problems noted. Sister In good health Sister In good health Daughter In good health Paternal Uncle Gastric cancer Substance abuse Paternal Grandfather Colon cancer Paternal Grandmother Brain cancer Maternal Grandmother Myocardial infarction Paternal Uncle Lymphoma Paternal Aunt Substance abuse Social History (Updated 12/17/24 @ 11:32 by SKYE Dillon) Household Members: Significant Other Household Members Other:: 2 kids Housing: House Alcohol intake: never Patient Tobacco Use Status: Former Tobacco user Tobacco use type: Cigarette e-Cigarette/Vaping Use: Never Used Second Hand Smoke Exposure: No service: No Current occupational status: disabled 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 Neuro: Normal sensation of the tips of all digits of the right hand at this time Vascular: Cap refill brisk Pain: Tenderness to palpation of right radial head No tenderness to palpation of the olecranon process, medial or lateral epicondyle ROM: Patient is able to extend the right elbow to approximately 10 degrees and flex to approximately 90 degrees without difficulty Pronation to approximately 70 degrees supination to approximately 60 degrees Skin: No lacerations or abrasions. General: No ecchymosis, erythema, or evidence of infection. Psych: Appears grossly normal Affect normal Attitude cooperative Office Procedures AMB Fracture Care Fracture Billing Code: Fracture Billing Code Results Reviewed Results Reviewed: X-rays obtained in the office today and independently reviewed by me, Ari Schmidt PA-C, demonstrate minimally displaced right radial head fracture. Assessment & Plan Assessment & Plan (1) Right radial head fracture: Code(s): S52.121A - Displaced fracture of head of right radius, initial encounter for closed fracture Category: Medical Plan 1. Right radial head fracture Date of injury 12/05/2024 Patient is educated about this condition Patient is educated about the typical recovery course At this time, patient is educated that no further immobilization is necessary, she may wear the sling for comfort, but should come out of it to work on gentle range of motion of the right elbow 1-2 lb weight limit in the right hand Patient should avoid forceful pronation or supination, as this could lead to displacement of the fracture Patient understands this in his amenable to this plan Follow-up in 4 weeks with repeat x-rays for reassessment, sooner with any acute concerns Orders: Orders XR elbow RT min 3V 12/17/24 M25.521 - Pain in right elbow Coding Level of Care Code New Pt Level 3 (05456) Diagnoses Right radial head fracture S52.121A CPT Codes Fracture Care - Fracture Billing Code: Fracture Billing Code ([id number])
== END 2024-12-17 12:04 | disposition home or self-care (01) ==
LOC: HO.HOS 11:23
PROVIDERS: PCP Internal Medicine
DX: S52.121A Displaced fracture of head of right radius, initial encounter for closed fracture (principal)
CPT/HCPCS: 99213

== ENCOUNTER 2024-12-17 11:22 | Outpatient (REF) | payer OTHER, SELFPAY ==
--- NOTE | ~2024-12-17 | XR_ITS ---
EXAMINATION: XR ELBOW 3 VIEWS RIGHT HISTORY: M25.521 - Pain in right elbow COMPARISON: Comparison is made with the prior examination dated 12/05/2024. FINDINGS: Three views of the right elbow are submitted. Osseous mineralization is normal. Again seen is a minimally displaced fracture of the radial head. The fracture line remains visible. The joint spaces are preserved. There is a persistent joint effusion. XR/XR elbow RT min 3V IMPRESSION: Minimally displaced fracture of the radial head without significant change. Electronically signed by: Steve Hong MD 12/17/2024 11:50 AM EDT
--- OUTSIDE RECORDS SUMMARY | 2024-12-17 15:02 | XMS_ITS | Patient Health Record ---
[facility] Address [address] [place] [address] Care Team Providers Care Lumber Bearer Name Role Phone Adán Yadav Primary Care Provider UnavailSyed Rodriguez Unavailable [phone] Allergies Allergen (clinical drug ingredient) Drug/Non Drug [...] Problem Acquired hammer toe of right foot (3465658374382117 ) Other hammer toe(s) (acquired), right foot (M20.41) Active confirmed Problem Acquired hammer toe of left foot (4277305019274575 ) Other hammer toe(s) (acquired), left foot (M20.42) Active confirmed Problem Polyneuropathy due to type 2 diabetes mellitus (251598200) Type 2 diabetes mellitus with diabetic polyneuropathy (E11.42) Active confirmed Vital Signs Blood pressure diastolic 65 mm Hg 09/24/2024 Height 6ft2in in 09/24/2024 Blood pressure systolic 128 mm Hg 09/24/2024 Weight 342 lbs 09/24/2024 BMI 43.91 kg/m2 09/24/2024 Procedures Procedure Date Ordered Date Performed Result Body Sit e 84545-PGRBIQO NAIL, 6 OR MORE 12/19/2023 N/A 62357-XFHQ SKIN LESIONS, OVER 4 12/19/2023 N/A 11369-PNPAUHZ NAIL, 6 OR MORE 03/19/2024 N/A 14409-SFPC SKIN LESIONS, OVER 4 03/19/2024 N/A 92069-SGROOPF NAIL, 6 OR MORE 06/21/2024 N/A 34054-NZJT SKIN LESIONS, OVER 4 06/21/2024 N/A 09305-IYNIMXF NAIL, 6 OR MORE 09/24/2024 N/A 83871-RJMH SKIN LESIONS, OVER 4 09/24/2024 N/A Encounters Encounter Location Date Provider Diagnosis [address] [address] 12/19/2023 Syed Noel Type 2 diabetes mellitus with diabetic polyneuropathy E11.42 ; Tinea unguium B35.1 and Xerosis of skin L85.[address] [address] 03/19/2024 Syedsharron Noel Type 2 diabetes mellitus with diabetic polyneuropathy E11.42 ; Tinea unguium B35.1 and Xerosis of skin L85.[address] [address] 06/21/2024 Syedsharron Noel Type 2 diabetes mellitus with diabetic polyneuropathy E11.42 ; Tinea unguium B35.1 ; Other hammer toe(s) (acquired), right foot M20.41 and Other hammer toe(s) (acquired), left foot M20.[address] [address] 09/24/2024 Syed Noel Type 2 diabetes mellitus [...] X ray : Foot, right 3V 02/07/2022 74980-QTAIYCN NAIL, 6 OR MORE 06/21/2024 22487-UERYGAY NAIL, 6 OR MORE 09/24/2024 68693-TKRZSVX NAIL, 6 OR MORE 07/27/2022 95173-AYIHPZP NAIL, 6 OR MORE 12/19/2023 50381-MKMEJNV NAIL, 6 OR MORE 03/19/2024 34029-MWNF SKIN LESIONS, OVER 4 03/19/19 22621-KGPO SKIN LESIONS, OVER 4 12/19/19 24 54977-TMQE SKIN LESIONS, OVER 4 02/08/20 91008-MJCI SKIN LESIONS, OVER 4 05/17/19 23 54561-WCWE SKIN LESIONS, OVER 4 07/28/19 23 62858-NAXF SKIN LESIONS, OVER 4 09/25/19 83401-JQRS SKIN LESIONS, OVER 4 06/22/19 Next Appt Details Provider Name:Syed Noel , 01/14/2025 09:00:00 AM, [address] [place], [address], Insurance Providers Payer Name Payer Address Payer Phone Subscriber Number Group Number Insured Name Patient Relationship to Insured Coverage Start Date Coverage End Date [facility] SCO Claims [address] [place] [id number] Radha Moreno Self - patient is the [...]
== END 2024-12-17 11:23 | disposition home or self-care (01) ==
LOC: HO.HOSX 11:22
PROVIDERS: PCP Internal Medicine
DX: S52.121D Displaced fracture of head of right radius, subsequent encounter for closed fracture with routine healing (principal); W01.0XXD Fall on same level from slipping, tripping and stumbling without subsequent striking against object, subsequent encounter
CPT/HCPCS: 73080; 99212

== ENCOUNTER → 2024-12-17 11:37 | Outpatient (BNV) | payer OTHER, SELFPAY | PROVIDERS: PCP Internal Medicine; Visit Provider Radiology Diagnostic Radiology | DX: S52.121A Displaced fracture of head of right radius, initial encounter for closed fracture (principal) | CPT/HCPCS: 73080 ==

== ENCOUNTER 2025-01-02 07:27 | Outpatient (REF) | payer OTHER, SELFPAY ==
--- NOTE | ~2025-01-02 | XR_ITS ---
EXAMINATION: X-ray bilateral knees CLINICAL INFORMATION: Pain COMPARISON: X-ray 07/12/2022 TECHNIQUE: Bilateral knees one view. Right knee 2 views. Left knee 2 views. FINDINGS: Right knee: Severe tricompartment arthritis with joint space loss, marginal osteophytes, sclerosis. No visible acute fracture or dislocation. Bone mineralization is decreased. No suspicious soft tissue lesions. Small joint effusion. Left knee: Severe tricompartment arthritis or joint space loss, marginal osteophytes. No acute fracture or dislocation. Bone mineralization is decreased. Small sclerotic focus in the proximal tibial metaphysis, unchanged from previous, could reflect a chondroid lesion. Small- moderate effusion. No abnormal soft tissue calcification.. XR/XR knee LT 3V IMPRESSION: Right knee: Severe tricompartment arthritis. Interval progression from previous. Left Knee: Severe tricompartment arthritis. Interval progression previous. Small sclerotic focus in the proximal tibial metaphysis, similar to previous, could reflect a chondroid lesion. Electronically signed by: Saroj Joy MD 01/02/2025 11:14 AM T[facility]
--- NOTE | ~2025-01-02 | XR_ITS ---
EXAMINATION: X-ray bilateral knees CLINICAL INFORMATION: Pain COMPARISON: X-ray 07/12/2022 TECHNIQUE: Bilateral knees one view. Right knee 2 views. Left knee 2 views. FINDINGS: Right knee: Severe tricompartment arthritis with joint space loss, marginal osteophytes, sclerosis. No visible acute fracture or dislocation. Bone mineralization is decreased. No suspicious soft tissue lesions. Small joint effusion. Left knee: Severe tricompartment arthritis or joint space loss, marginal osteophytes. No acute fracture or dislocation. Bone mineralization is decreased. Small sclerotic focus in the proximal tibial metaphysis, unchanged from previous, could reflect a chondroid lesion. Small- moderate effusion. No abnormal soft tissue calcification.. XR/XR knee RT 3V IMPRESSION: Right knee: Severe tricompartment arthritis. Interval progression from previous. Left Knee: Severe tricompartment arthritis. Interval progression previous. Small sclerotic focus in the proximal tibial metaphysis, similar to previous, could reflect a chondroid lesion. Electronically signed by: Saroj Joy MD 01/02/2025 11:14 AM TONY
--- OUTSIDE RECORDS SUMMARY | 2025-01-02 07:29 | XMS_ITS | Patient Health Record ---
Author Organization [facility] Address [address] [place] [address] Care Team Providers Care Marine Engineering Teacher Name Role Phone Adán Yadav Primary Care Provider UnavailSyed Rodriguez Unavailable [phone] Allergies Allergen (clinical drug ingredient) Drug/Non Drug [...] Problem Acquired hammer toe of right foot (2036744332599912 ) Other hammer toe(s) (acquired), right foot (M20.41) Active confirmed Problem Acquired hammer toe of left foot (0415308261901341 ) Other hammer toe(s) (acquired), left foot (M20.42) Active confirmed Problem Polyneuropathy due to type 2 diabetes mellitus (294816858) Type 2 diabetes mellitus with diabetic polyneuropathy (E11.42) Active confirmed Vital Signs Blood pressure diastolic 65 mm Hg 09/24/2024 Height 6ft2in in 09/24/2024 Blood pressure systolic 128 mm Hg 09/24/2024 Weight 342 lbs 09/24/2024 BMI 43.91 kg/m2 09/24/2024 Procedures Procedure Date Ordered Date Performed Result Body Sit e 44701-PGRFYOK NAIL, 6 OR MORE 03/19/2024 N/A 44379-TLAV SKIN LESIONS, OVER 4 03/19/2024 N/A 85510-UXETCNI NAIL, 6 OR MORE 06/21/2024 N/A 83303-ACVI SKIN LESIONS, OVER 4 06/21/2024 N/A 42939-BAJQSNG NAIL, 6 OR MORE 09/24/2024 N/A 56948-NGNA SKIN LESIONS, OVER 4 09/24/2024 N/A Encounters Encounter Location Date Provider Diagnosis [address] [address] 03/19/2024 Syed Noel Type 2 diabetes mellitus with diabetic polyneuropathy E11.42 ; Tinea unguium B35.1 and Xerosis of skin L85.[address] [address] 06/21/2024 Syed Noel Type 2 diabetes mellitus with diabetic polyneuropathy E11.42 ; Tinea unguium B35.1 ; Other hammer toe(s) (acquired), right foot M20.41 and Other hammer toe(s) (acquired), left foot M20.[address] [address] 09/24/2024 Syed Noel Type 2 diabetes mellitus [...] toe(s) (acquired), left foot (ICD-10 - M20.42) Plan Of Treatment Pending Test Test Name Order Date X ray : Foot, left 3V 02/07/2022 X ray : Foot, right 3V 02/07/2022 15727-LFUAXVC NAIL, 6 OR MORE 06/21/2024 84466-AEDGGLC NAIL, 6 OR MORE 09/24/2024 26965-OFSYNBL NAIL, 6 OR MORE 07/27/2022 35453-OREVJEV NAIL, 6 OR MORE 12/19/2023 76428-JGHXXRJ NAIL, 6 OR MORE 03/19/2024 49701-WBHH SKIN LESIONS, OVER 4 03/19/19 25 56097-ASRX SKIN LESIONS, OVER 4 12/19/19 24 94146-BUXT SKIN LESIONS, OVER 4 02/08/20 22 13143-HSPL SKIN LESIONS, OVER 4 05/17/19 23 73658-UKUE SKIN LESIONS, OVER 4 07/28/19 23 64031-DQUJ SKIN LESIONS, OVER 4 09/25/19 25 91145-TTZQ SKIN LESIONS, OVER 4 06/22/19 25 Next Appt Details Provider Name:Syed Noel , 01/14/2025 09:00:00 AM, [address] [place], [address], Insurance Providers Payer Name Payer Address Payer Phone Subscriber Number Group Number Insured Name Patient Relationship to Insured Coverage Start Date Coverage End Date [facility] SCO Claims [address] [place] [phone] [id number] Radha Moreno Self - patient is the [...] 2008 Hand Surgery 1993 Mammogram Screening section 2000 gallbladder
--- OUTSIDE RECORDS SUMMARY | 2025-01-02 07:29 | XMS_ITS | Patient Health Record ---
Author Organization [employer] [facility] Address [address] [place] [address] Care Team Providers Care Regional Manager Name Role Phone ERIN COLBERT M.D. Primary Care Provider MARGY Mishra Unavailable [phone] Allergies Allergen (clinical drug ingredient) Drug/Non Drug [...] Notes Problem Excessive and freque nt menstruation (875027716) Excessive and frequent menstruation with regular cycle (N92.0) Active confirmed Problem Body mass index 40+ - severely obese (026637206) Body mass index (BMI) 45.0-49.9, adult (Z68.42) Active confirmed Problem Pure hypercholesterolemia (447487050) Pure hypercholester olemia, unspecified (E78.00) Active confirmed Plan Of Treatment Pending Test Test Name Order Date COMPLETE BLOOD COUNT 12/14/2018 THIN PREP,HPV,BEA IF HPV+ (>29YR)(DIAG) 07/16/2018 MM Digital Screening Mammogram 3D 2018 Insurance Providers Payer Name Payer Address Payer Phone Subscriber Number Group Number Insured Name Patient Relationship to Insured Coverage Start Date Coverage End Date MEDICARE [address] [place] [id number] JANE DUARTE Self - patient is the [...]
== END 2025-01-02 07:28 | disposition home or self-care (01) ==
LOC: HO.HOSX 07:27
PROVIDERS: Visit Provider Orthopaedic Surgery
DX: M17.0 Bilateral primary osteoarthritis of knee (principal); E11.65 Type 2 diabetes mellitus with hyperglycemia; E66.01 Morbid (severe) obesity due to excess calories; Z68.42 Body mass index [BMI] 45.0-49.9, adult
CPT/HCPCS: 73562

== ENCOUNTER 2025-01-02 09:58 | Outpatient (AMB) | payer OTHER, SELFPAY ==
--- NOTE | 2025-01-02 09:59 | A.OFFVIS_ITS ---
Intake Visit Reasons: OV - Bilateral Knee OA Intake Note: Radha is a 54 year old female who presents today for a follow up of her bilateral knee OA. History of bilateral knee Durolane injections done 07/29/22 and we have previously discussed weightloss. Patient reports that the gel injections were helpful until recently - she is interested in repeating gel injections. She is being treated by Ari Schmidt for a Right Radial Head Fracture DOI 12/05/24 Allergies amoxicillin (AMOXICILLIN) Allergy (Unknown, Verified 12/17/24 11:29) HIVES atorvastatin Allergy (Unknown, Verified 12/17/24 11:29) hives bupropion (From ZYBAN) Allergy (Unknown, Verified 12/17/24 11:29) HIVES milk Allergy (Unknown, Verified 12/17/24 11:29) Diarrhea Penicillins (PENICILLINS) Allergy (Unknown, Verified 12/17/24 11:29) HIVES pravastatin Allergy (Unknown, Verified 12/17/24 11:29) hives simvastatin (SIMVASTATIN) Allergy (Unknown, Verified 12/17/24 11:29) HIVES tomato Allergy (Unknown, Verified 12/17/24 11:29) Hives metformin Adverse Reaction (Intermediate, Verified 12/17/24 11:29) Diarrhea HPI HPI OV - Bilateral Knee OA: Details: Radha is a 54 year old female who presents today for a follow up of her bilateral knee OA. History of bilateral knee Durolane injections done 07/29/22 and we have previously discussed weightloss. Patient reports that the gel injections were helpful until recently - she is interested in repeating gel injections. She is being treated by Ari Schmidt for a Right Radial Head Fracture DOI 12/05/24 [facility] Medical History Aortic stenosis Colon cancer screening Myocardial infarction Breast cancer screening by mammogram GERD (gastroesophageal reflux disease) Hypercholesterolemia Hypertension Folic acid deficiency Vitamin D deficiency Asthma Type 2 diabetes mellitus with hyperglycemia Surgical History History of coronary artery stent placement History of cholecystectomy History of hand surgery History of section Family History Father CVD (cardiovascular disease) Hypertension Heart disease Mother No problems noted. 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 Severe tricompartmental OA bilaterally Assessment & Plan Assessment & Plan (1) Tricompartment osteoarthritis of knees, bilateral: Code(s): M17.0 - Bilateral primary osteoarthritis of knee Category: Medical Plan: Severe bilateral knee OA. not a surgical candidate at this time. Vipin previously helpful and I recommend we repeat those. (2) Type 2 diabetes mellitus with hyperglycemia: Code(s): E11.65 - Type 2 diabetes mellitus with hyperglycemia Category: Medical Qualifiers: Diabetes mellitus halfway insulin use: without halfway use Qual ified Code(s): E11.65 - Type 2 diabetes mellitus with hyperglycemia Plan: (3) Morbid obesity with BMI of 45.0-49.9, adult: Comment: Patient remains morbidly obese. She has difficulty in losing weight. Currently getting wagovy injections Q 1 month but has not made much progress in the last 6 months. Code(s): E66.01 - Morbid (severe) obesity due to excess calories; Z68.42 - Body mass index [BMI] 45.0-49.9, adult Category: Medical Plan: Orders: Orders XR knee LT 3V 01/02/25 M25.562 - Pain in left knee XR knee RT 3V 01/02/25 M25.561 - Pain in right knee Coding Level of Care Code Est Pt Level 3 (05216) Complex EM visit Add On G2211 Diagnoses Tricompartment osteoarthritis of knees, bilateral M17.0 Type 2 diabetes mellitus with hyperglycemia, without long-term current use of insulin E11.65 Diabetes mellitus halfway insulin use: without halfway use Morbid obesity with BMI of 45.0-49.9, adult E66.01; Z68.42
== END 2025-01-02 10:22 | disposition home or self-care (01) ==
LOC: HO.HOS 09:59
PROVIDERS: PCP Internal Medicine; Visit Provider Orthopaedic Surgery
DX: M17.0 Bilateral primary osteoarthritis of knee (principal); E11.65 Type 2 diabetes mellitus with hyperglycemia; E66.01 Morbid (severe) obesity due to excess calories; Z68.42 Body mass index [BMI] 45.0-49.9, adult
CPT/HCPCS: 99213; G2211

== ENCOUNTER → 2025-01-02 10:01 | Outpatient (BNV) | payer OTHER, SELFPAY | PROVIDERS: Visit Provider Radiology Diagnostic Ultrasound | DX: M17.0 Bilateral primary osteoarthritis of knee (principal) | CPT/HCPCS: 73562 ==

== ENCOUNTER 2025-01-13 08:07 | Outpatient (REF) | payer OTHER, SELFPAY ==
--- NOTE | ~2025-01-13 | XR_ITS ---
EXAMINATION: XR ELBOW, RIGHT CLINICAL INFORMATION: M25.521 - Pain in right elbow COMPARISON: Prior x-rays latest 12/17/2024 TECHNIQUE: AP, lateral, and oblique views of the right elbow. FINDINGS: There is decreased conspicuity of the radial head fracture plane as compared to prior studies. Joint spaces are maintained. No new acute fractures. Minimal enthesopathy in the lateral humeral epicondyle. Olecranon process small enthesopathy. No significant effusion. No abnormal soft tissue calcification. XR/XR elbow RT min 3V IMPRESSION: Healing radial head fracture.. Electronically signed by: Saroj Joy MD 01/13/2025 10:09 AM [facility]
== END 2025-01-13 08:08 | disposition home or self-care (01) ==
LOC: HO.HOSX 08:07
DX: S52.121D Displaced fracture of head of right radius, subsequent encounter for closed fracture with routine healing (principal); X58.XXXD Exposure to other specified factors, subsequent encounter
CPT/HCPCS: 73080; 99212

== ENCOUNTER 2025-01-13 09:22 | Outpatient (AMB) | payer OTHER, SELFPAY ==
[2025-01-13 09:40] VITALS: BMI 47.1
--- NOTE | 2025-01-13 09:40 | A.OFFVIS_ITS ---
Vital Signs 01/13/25 09:40 Height 6 ft 2 in Weight 367 lb BMI 47.1 Intake Visit Reasons: Right radial head fx, DOI 12/05/24 Intake Note: Radha is a 54 year old right hand dominant female who presents today for Follow Up status post Right Radial Head Fracture, DOI: 12/05/24. A her last visit, patient was advised she might wear the sling for comfort rather than daily. She was also advised to remain at a 1-2 lb weight limit avoiding forceful pronation or supination. Patient reports that she is doing well, her pain is improving. Her shoulder is more painful than her elbow. Denies numbness and tingling. Allergies amoxicillin (AMOXICILLIN) Allergy (Unknown, Verified 12/17/24 11:29) HIVES atorvastatin Allergy (Unknown, Verified 12/17/24 11:29) hives bupropion (From ZYBAN) Allergy (Unknown, Verified 12/17/24 11:29) HIVES milk Allergy (Unknown, Verified 12/17/24 11:29) Diarrhea Penicillins (PENICILLINS) Allergy (Unknown, Verified 12/17/24 11:29) HIVES pravastatin Allergy (Unknown, Verified 12/17/24 11:29) hives simvastatin (SIMVASTATIN) Allergy (Unknown, Verified 12/17/24 11:29) HIVES tomato Allergy (Unknown, Verified 12/17/24 11:29) Hives metformin Adverse Reaction (Intermediate, Verified 12/17/24 11:29) Diarrhea HPI HPI Right radial head fx, DOI 12/05/24: Details: Radha is a 54 year old right hand dominant female who presents today for Follow Up status post Right Radial Head Fracture, DOI: 12/05/24. A her last visit , patient was advised she might wear the sling for comfort rather than daily. She was also advised to remain at a 1-2 lb weight limit avoiding forceful pronation or supination. Patient reports that she is doing well, her pain is improving. Her shoulder is more painful than her elbow. The patient does state that she has continue to use the sling when sleeping and whenever leaving the house. Denies numbness and tingling. [facility] Medical History Aortic stenosis Colon cancer screening Myocardial infarction Breast cancer screening by mammogram GERD (gastroesophageal reflux disease) Hypercholesterolemia Hypertension Folic acid deficiency Vitamin D deficiency Asthma Type 2 diabetes mellitus with hyperglycemia Surgical History History of coronary artery stent placement History of cholecystectomy History of hand surgery History of section Family History Father CVD (cardiovascular disease) Hypertension Heart disease Mother No problems noted. 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 Neuro: Normal sensation of the tips of all digits of the right hand at this time Vascular: Cap refill brisk Pain: Minimal Tenderness to palpation of right radial head No tenderness to palpation of the olecranon process, medial or lateral epicondyle ROM: Patient is able to extend the right elbow to approximately 20 degrees and flex to approximately 90 degrees without difficulty Pronation to approximately 70 degrees supination to approximately 60 degrees Skin: No lacerations or abrasions. General: No ecchymosis, erythema, or evidence of infection. Psych: Appears grossly normal Affect normal Attitude cooperative Results Reviewed Results Reviewed: X-rays obtained in the office today and independently reviewed by , Ari Schmidt PA-C, demonstrate minimally displaced right radial head fracture with evidence of interval bony healing Assessment & Plan Assessment & Plan (1) Right radial head fracture: Comment: 12/05/2024 fall Code(s): S52.121A - Displaced fracture of head of right radius, initial encounter for closed fracture Category: Medical Plan 1. Right radial head fracture Date of injury 12/05/2024 Patient appears to be recovering fairly well from her fracture, as there is good healing on x-rays and no further evidence of displacement Patient is educated about the typical recovery course OT referral placed for range of motion and gentle strengthening of the right elbow in the setting of significant stiffness that has developed At this time, patient is educated that she should cut back on sling usage significantly, as I feel that this is contributed to her developing significant stiffness in the right elbow Patient should continue to avoid forceful pronation or supination, as this could lead to displacement of the fracture Patient understands this in his amenable to this plan Follow-up in 4-6 weeks with repeat x-rays for reassessment, sooner with any acute concerns Orders: Orders XR elbow RT min 3V Today M25.521 - Pain in right elbow OT Evaluation and Treatment Today S52.121A - Displaced fracture of head of right radius, initial encounter for closed fracture Coding Level of Care Code Global (62852) Diagnoses Right radial head fracture S52.121A
--- OUTSIDE RECORDS SUMMARY | 2025-01-13 17:49 | XMS_ITS | Patient Health Record ---
Author Organization [facility] Address [address] [place] [address] Care Team Providers Care Senior Sharepoint Architect Name Role Phone ERIN COLBERT M.D. Primary Care Provider MARGY Mishra Unavailable [phone] Allergies Allergen (clinical drug ingredient) Drug/Non Drug [...] Notes Problem Excessive and freque nt menstruation (209550452) Excessive and frequent menstruation with regular cycle (N92.0) Active confirmed Problem Body mass index 40+ - severely obese (084629253) Body mass index (BMI) 45.0-49.9, adult (Z68.42) Active confirmed Problem Pure hypercholesterolemia (339035083) Pure hypercholester olemia, unspecified (E78.00) Active confirmed Plan Of Treatment Pending Test Test Name Order Date COMPLETE BLOOD COUNT 12/14/2018 THIN PREP,HPV,BEA IF HPV+ (>29YR)(DIAG) 07/16/2018 MM Digital Screening Mammogram 3D 2018 Insurance Providers Payer Name Payer Address Payer Phone Subscriber Number Group Number Insured Name Patient Relationship to Insured Coverage Start Date Coverage End Date MEDICARE [address] [place] [id number] [phone] [id number] JANE DUARTE Self - patient is the [...]
--- OUTSIDE RECORDS SUMMARY | 2025-01-13 17:50 | XMS_ITS | Patient Health Record ---
Author Organization [facility] Address [address] [place] [address] Care Team Providers Care Information Technology Project Manager Name Role Phone Adán Yadav Primary Care Provider UnavailSyed Rodriguez Unavailable [phone] Allergies Allergen (clinical drug ingredient) Drug/Non Drug [...] Problem Acquired hammer toe of right foot (8993005820668591 ) Other hammer toe(s) (acquired), right foot (M20.41) Active confirmed Problem Acquired hammer toe of left foot (3410981096362784 ) Other hammer toe(s) (acquired), left foot (M20.42) Active confirmed Problem Polyneuropathy due to type 2 diabetes mellitus (380123355) Type 2 diabetes mellitus with diabetic polyneuropathy (E11.42) Active confirmed Vital Signs Blood pressure diastolic 65 mm Hg 09/24/2024 Height 6ft2in in 09/24/2024 Blood pressure systolic 128 mm Hg 09/24/2024 Weight 342 lbs 09/24/2024 BMI 43.91 kg/m2 09/24/2024 Procedures Procedure Date Ordered Date Performed Result Body Sit e 01323-QKEWZPQ NAIL, 6 OR MORE 03/19/2024 N/A 90098-JCBU SKIN LESIONS, OVER 4 03/19/2024 N/A 13984-NFXQVGG NAIL, 6 OR MORE 06/21/2024 N/A 49014-RYMX SKIN LESIONS, OVER 4 06/21/2024 N/A 70570-PEVBRKL NAIL, 6 OR MORE 09/24/2024 N/A 74920-LQKR SKIN LESIONS, OVER 4 09/24/2024 N/A Encounters Encounter Location Date Provider Diagnosis [address] [address] 03/19/2024 Syed Noel Type 2 diabetes mellitus with diabetic polyneuropathy E11.42 ; Tinea unguium B35.1 and Xerosis of skin L85.[address] [address] 06/21/2024 Syed Noel Type 2 diabetes mellitus with diabetic polyneuropathy E11.42 ; Tinea unguium B35.1 ; Other hammer toe(s) (acquired), right foot M20.41 and Other hammer toe(s) (acquired), left foot M20.[address] [address] 09/24/2024 Syed Noel Type 2 diabetes mellitus [...] X ray : Foot, right 3V 02/07/2022 30136-ITWLUTL NAIL, 6 OR MORE 06/21/2024 52484-NPZGIKH NAIL, 6 OR MORE 09/24/2024 68568-OHVTEWK NAIL, 6 OR MORE 07/27/2022 12119-XRTDCQS NAIL, 6 OR MORE 12/19/2023 66449-EPCFUKD NAIL, 6 OR MORE 03/19/2024 60118-SPJG SKIN LESIONS, OVER 4 03/19/19 25 49784-VXVO SKIN LESIONS, OVER 4 12/19/19 24 16242-RCRO SKIN LESIONS, OVER 4 02/08/20 22 29759-SZAR SKIN LESIONS, OVER 4 05/17/19 23 04067-DPGB SKIN LESIONS, OVER 4 07/28/19 23 89140-IVUB SKIN LESIONS, OVER 4 09/25/19 25 76719-TMPV SKIN LESIONS, OVER 4 06/22/19 25 Next Appt Details Provider Name:Syed Noel , 01/14/2025 09:00:00 AM, [address] [place], [address], Insurance Providers Payer Name Payer Address Payer Phone Subscriber Number Group Number Insured Name Patient Relationship to Insured Coverage Start Date Coverage End Date [facility] [employer] Claims [address] [place] [id number] Radha Moreno Self - patient is the [...]
== END 2025-01-13 09:54 | disposition home or self-care (01) ==
LOC: HO.HOS 09:23
PROVIDERS: PCP Internal Medicine
DX: S52.121A Displaced fracture of head of right radius, initial encounter for closed fracture (principal)
CPT/HCPCS: 99024

== ENCOUNTER → 2025-01-13 09:25 | Outpatient (BNV) | payer OTHER, SELFPAY | PROVIDERS: Visit Provider Radiology Diagnostic Ultrasound | DX: S52.121D Displaced fracture of head of right radius, subsequent encounter for closed fracture with routine healing (principal) | CPT/HCPCS: 73080 ==

== ENCOUNTER 2025-01-16 11:10 | Outpatient (AMB) | payer OTHER, SELFPAY ==
--- OUTSIDE RECORDS SUMMARY | 2025-01-14 04:00 | XMS_ITS ---
Author Organization [facility] Address [address] [facility] [place] [address] Care Team Providers Care Automotive Project Engineer Name Role Phone Leif Adán Primary Care Provider Unavailgopi e Syed Noel Unavailable [phone] Allergies Allergen (clinical drug ingredient) Drug/Non Drug [...] REASON FOR VISIT At Risk Footcare, Skin problem Medications Medication SIG (Take, Route, Frequency, Duration) Notes Start Date End Date Status Lisinopril 20 MG as directed Orally O nce a day Active Montelukast Sodium 10 MG as directed Ora lly Once a day Active Nitroglycerin 0.4 MG as directed Sublingual PRN Active Rosuvastatin Calcium 10 MG 1 tablet Orally Once a day Active Metoprolol Tartrate 25 MG as directed Orally Active Lancets Active Ozempic Active Aspirin 81 MG 1 tablet Orally Once a day; Duration: 30 day(s) Active Albuterol Sulfate Ac tive Ibuprofen 800 MG 1 tablet every Orall y every 6 hrs PRN Active Triamcinolone Acetonide 0.5 % as directed Externally Activ e Extra Depth Orthopedic Shoes (1 Pair) with Customized Heat Molded Multidensity Innersoles (3 Pair) as directed Dx: NIDDM/Polyneuropathy (E11.42), Hammertoe Foot Deformity (M20.41,M20.42), Preulcerative Skin Lesion(s) (L85.1 06/21/2024 Active metFORMIN HCl 500 MG as directed Orally Not-Taking Mounjaro Active Wegovy Not-Taking Ammonium Lactate 12 % 1 application Exte rnally to affected areas of dry skin to feet except for between the toes Twice a day; Duration: 30 days Active Social History Tobacco Use: Social History [...] Interpretation Negative Vital Signs Height 6ft2in in 01/14/2025 Weight 342 lbs 01/14/2025 BMI 43.91 kg/m2 01/14/2025 Blood pressure systolic 130 mm Hg 01/15/20 25 Blood pressure diastolic 70 mm Hg 025 Procedures Procedure Date Ordered Date Performed Result Body Sit e 14355-DQXNYFA NAIL, 6 OR MORE 01/14/2025 N/A 65226-GXJA SKIN LESIONS, OVER 4 01/14/2025 N/A Encounters Encounter Location Date Provider Diagnosis [facility] [place] [address] [place] [address] 01/14/2025 Syed Noel Type 2 diabetes mellitus with diabetic polyneuropathy E11.42 ; Tinea unguium B35.1 and Xerosis of skin L85.3 Assessments Encounter Date Diagnosis (ICD Code) Assessment Notes Treatment Notes Treatment Clinical Notes Section Notes 01/14/2025 Type 2 diabetes mellitus with diabetic polyneuropathy (ICD-10 - E11.42) 01/14/2025 Tinea unguium (ICD-10 - B35.1) 01/14/2025 Xerosis of skin (ICD-10 - L85.3) Plan Of Treatment Medication Medication Name Sig Start Date Stop Date Notes Ammonium Lactate 12 % 1 application Exte rnally to affected areas of dry skin to feet except for between the toes Twice a day; Duration: 30 days Pending Test Test Name Order Date 20082-YYZREJE NAIL, 6 OR MORE 01/14/2025 61988-QRHE SKIN LESIONS, OVER 4 01/15/20 25 Next Appt Details Follow Up: 2 Months, Reason: Provider Name:Syed Noel , 04/29/2025 09:00:00 AM, [address] [place] [address], [id number], Procedure Notes * Category Sub-Category Detail Notes [...] use of a nail nipper and/or dremel-type valve grinder, to a more viable healthy nail [...] to maintain effectiveness in symptomatic relief - 06397 Keratoma Treatment Parring or Cutting o f Benign Hyperkeratotic Lesion(s) (-57) More than 4 Lesions - Due to the at risk nature of the patients medical condition as documented in the exam findings, performance of this keratoderma treatment is medically necessary as its management by an unskilled/untrained nonprofessional would put this patients foot and overall health at risk. Therefore, the benign hyperkeratotic lesions, (15) in total, locations as stated and described [...] instrumentation by the physician of record - 99343 Progress Notes * Radha MORENODOB: [birth year] (54 yo F)Acc No.[id number]:01/14/2025 Progress Note Patient: Radha DOWELL Provider: Mynor Noel DPM :1970 A ge:54 Y S ex:Female Date:01/14/2025 Address:[address] [place], [place] [id number] Pcp:Adán Yadav Subjective: * Chief Complaints: * A t Risk FootcareSkin problem * HPI: A t Risk footcare: Pt States Last PCP Visit: D ate 0 11/01/2024 S kin problems: Nature: d ryness , scaling. Location: B /L . Duration: s everal days. Course: pelon fernandez. Treatments: M edication ( AM Lactin ), has been effective for the condition in the past. * ROS: G eneral/Constitutional: Nausea d enies. V omiting d enies. H sandra Thirst d enies. L oss appetite d enies. C hills d enies. F atigue d enies.?Fever d enies. N ight Sweats d enies. U nexplained weight loss d enies. U nexplained weight gain d enies. H EENTM: Dentures d enies. D izziness d enies. G lasses/contacts a dmits. R etinopathy d enies. B lurred/double vision d enies. T MJ?denies. D ischarge/drainage d enies. I mplants d enies. S ore throat d enies. D ental implants d enies. H radha of hearing d enies. D ifficulty chewing/swallowing/speaking d enies. N ose bleeds d enies. S ore mouth d enies. ? R espiratory: On Oxygen d enies. P neumonia/pleurisy a dmits.?Bronchitis d enies. E mphysema d enies. C oughing d enies. C ough blood?denies. S hortness of breath d enies. W heezing d enies. C ardiovascular: Pacemaker d enies. M FRONTEND ENGINEER d enies. W PW d enies. C HF d enies. H eart attack d enies. S eptal defect d enies. R apid beat d enies. C hest pain d enies. A trial Fib. d enies. M urmur/Palpitations d enies. G astrointestinal: Hemorrhoids d enies. S tomach/Abdominal pain d enies. D ark blood stool d enies. I rritable bowel d enies. C onstipation d enies. D iarrhea d enies. H ematology: Swelling a dmits. C lots d enies. V aricose Veins a dmits. B ruising a dmits, on aspirin. B leeding problem a dmits, on anticoagulants. G enitourinary: Blood urine d enies. F requent/Painfu/urination/bladder control d enies. K idney stones d enies. I nfection (UTI) d enies. N ephropathy d enies. s ex trans dis (STD) d enies. P rostate d enies. M usculoskeletal: Hammertoes a dmits. B unions a dmits. B ack Pain d enies. M uscle Cramps/ Resting a dmits. M uscle cramps / walking d enies.?Generalized aches and pains a dmits. W eakness d enies. I nteg.: Eddy d enies. S cars d enies. C orns/calluses?admits. I ngrown nails a dmits. P ainful nails d enies. O pen Sores d enies. R ashes d enies. N eurologic: Difficulty sleeping d enies. B rain disorder d enies. N umbness a dmits. B alance trouble d enies. C onfusion d enies. F ainting/blackouts d enies. T ingling d enies. T remors d enies. * Medical History: * Surgical History: c holecystectomy coronary artery stent placement 2009Hand Surgery 1993Mammogram Screening section 2000gallbladder * Hospitalization/Major Diagno stic Procedure: D enies Past Hospitalization * Family History: M other: alive. F ather: alive, heart disease, cardiovascular disease, diagnosed with Unspecified essential hypertension. P aternal Grand Mother: brain cancer, heart attack. P aternal Grand Father: colon cancer, lymphoma. P aternal aunt: substance abuse. P aternal uncle: gastric cancer, substance abuse. * Social History: T obacco Use: T obacco use other than smoking A re you an other tobacco user? N o Tobacco Control (Standard) T obacco use: N onsmoker D rugs/Alcohol: D rugs H ave you used drugs other than those for medical reasons in the past 12 months? N o M iscellaneous: C affeine: yes, frequency: 3-5 cups per day. Children: yes, 1. Exercise: yes. Marital status: partner. 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 D rug/Alcohol: A YENI-C (Standard) D id you have a drink containing alcohol in the past year? N o P oints 0 I nterpretation N egative * Medications: T akingMounjaro Ozempic Aspirin 81 MG Tablet Chewable 1 tablet [...] Acetonide 0.5 % Cream as directed Externally Extra Depth Orthopedic Shoes (1 Pair) with Customized Heat Molded Multidensity Innersoles (3 Pair) as directed Dx: NIDDM/Polyneuropathy (E11.42), Hammertoe Foot Deformity (M20.41,M20.42), Preulcerative Skin Lesion(s) (L85.1 Taking Mounjaro Taking Ozempic Taking Aspirin 81 MG Tablet [...] 0.5 % Cream as directed Externally Taking Extra Depth Orthopedic Shoes (1 Pair) with Customized Heat Molded Multidensity Innersoles (3 Pair) as directed Dx: NIDDM/Polyneuropathy (E11.42), Hammertoe Foot Deformity (M20.41,M20.42), Preulcerative Skin Lesion(s) (L85.1 Not-Taking/PRNWegovy metFORMIN HCl 500 MG Tablet as directed Orally Medication List reviewed and reconciled with the patientNot-Taking/PRN Wegovy Not-Taking/PRN metFORMIN HCl 500 MG Tablet as directed Orally Medication List reviewed and reconciled with the patient * Allergies: A moxicillin: AllergyAtorvastatin: AllergyBupropion: AllergyPenicillin: hives - AllergyPravastatin: AllergySimvastatin: AllergyWellbutrin: hives - AllergyTomatoes: AllergyMilk: diarrhea - AllergyAdhesive: rashyes[Allergies Verified] Objective: * Vitals: H t:6ft2in, Wt:342, BMI:43.91, Shoe size:10-10.5, BP:130/70mm Hg, BS:not taken, Ht-cm: 187.96 cm, Wt-k.13 kg. * P ast Orders: L ab:HEMOGLOBIN A1C (GLYCOHEMOGLOBIN) (Order Date - 05/31/2024) (Collection Date & Time - 01/14/2025 09:47 AM) Value Reference Range HEMOGLOBIN A1C % (HH) 6.1 * Examination: O phthalmology Referral: DIABETES EYE EXAM P rocedure Performed: Amadou Stone ate of Exam Performed 0 08/14/2024 D iabetic Retinopathy Screening: Y primitivo R etinal Screening Performed: Y primitivo F indings of Diabetic Eye Exam: n o retinopathy N eurological: SENSORY: N eurological exam demonstrates a loss of protective sensation by an absence of tested sensitivity to 5.07 [place] monofilament at 2 or more sites out of 5 total locations, each foot. N ails: NAILS are: E longated, overgrown, dystrophic, lytic, greater than 3mm thick, discolored and friable with crumbly malodorous subungual debris , TA, T1, T2, T3, T4, T5, T6, T7, T8, T9. D ermatologic: SKIN FINDINGS: S kin exam reveals Keratotic lesion(s) located at, Medial plantar, IPJ, TA, Medial plantar, IPJ, T5, Plantar, T2, Plantar, T3, Plantar, T4, Plantar, T6, Plantar, T7, Plantar, T8, Plantar, T9, SUB MTH (s), 1, B/L, SUB MTH (s), 5, B/L , Plantar, Heel(s), B/L , Skin shows sign(s) of, dryness, scaling, in a stocking fashion, no fissure(s) present, B/L. Assessment: * Assessment: 1. T ype 2 diabetes mellitus with diabetic polyneuropathy - E11.42 (Primary) 2 . T inea unguium - B35.1 3 . X erosis of skin - L85.3 S pecify :Acute problem, Uncomplicated (3), Rx Management (4) Plan: * Treatment: 2. X erosis of skin Start Ammonium Lactate Cream, 12 %, 1 application, Externally to affected areas of dry skin to feet except for between the toes, Twice a day, 30 days, 280, Refills 3. * Procedures: D ebride Nail 6-10: Nail debridement D ue to the clinical pathology outlined in the exam findings, performance of this nail treatment is medically necessary as its management by an unskilled/untrained nonprofessional would put this patients foot and overall health at risk. Therefore, debridement to affected nail(s), as described in exam ( T A, T1, T2, T3, T4, T5, T6, T7, T8, T9 ) , was performed exclusively by the physician of record to reduce/remove overall nail length, girth, thickness, subungual debris, and necrotic tissue, by manual and/or electrical means through the use of a nail nipper and/or dremel-type valve grinder, to a more viable healthy nail [...] to maintain effectiveness in symptomatic relief - 87984. K eratoma Treatment: Parring or Cutting of Benign Hyperkeratotic Lesion(s) ( -57) More than 4 Lesions - Due to the at risk nature of the patients medical condition as documented in the exam findings, performance of this keratoderma treatment is medically necessary as its management by an unskilled/untrained nonprofessional would put this patients foot and overall health at risk. Therefore, the benign hyperkeratotic lesions, (15) in total, locations as stated and described in the exam ( M edial plantar, I PJ, T A, M edial plantar, I PJ, T 5, P lantar, T 2, P lantar, T 3, P lantar, T 4, P lantar, T 6, P lantar, T 7, P lantar, T 8, P lantar, T 9, S UB MTH (s), 1 , B /L, S UB MTH (s), 5 , B /L , P lantar, H eel(s), B /L ) , were pared, and/or cut utilizing a sterile 15 blade, tissue nippers, and/or power dremel instrumentation by the physician of record - 57970. * Procedure Codes: 1 1721 DEBRIDE NAIL, 6 OR MORE, Modifiers: XS 03703 TRIM SKIN LESIONS, OVER 4, Modifiers: XS * Preventive Medicine: Counseling: D iscussion: - 13: Office or other outpatient visit for the [...] have encouraged the patient to call the office. X erosis: T he patient was counseled on the diagnosis, potential [...] to their pharmacy at the time of visit. Screening/Special Tests: F all Risk Screening: N o falls in the past year F ALLS: Screening for Future Fall Risk Have you had any falls with injury in the past year? N o * Follow Up: 2 Months * Images: * Sign off status: Completed true * Provider: Mynor Noel DPM Date: 03/16/2024 Generated for Danna elmore/Alphonso/Rosalio on: 03/18/2024 05:23 PM EST History and Physical Notes * HPI (History of Present Illness) Category Sub-Category Detail Notes Category Not es Skin problems Nature: dryness , scaling Location: B/L Duration: several days Course: worse Treatments: Medication ( AM Lact in ), has been effective for the condition in the past At Risk footcare Pt States Last PCP Visit: Date: Examination Category Sub-Category Detail Notes Category Not es Neurological SENSORY: Neurological exa m demonstrates a loss of protective sensation by an absence of tested sensitivity to 5.07 [place] monofilament at 2 or more sites out of 5 total locations, each foot Dermatologic SKIN FINDINGS: Skin exam reveal s [...] DIABETES EYE EXAM Procedu re Performed:: Yes Date of Exam Performed: 08/14/2024 Diabetic Retinopathy Screening:: Yes Retinal Screening Performed:: Yes Findings of Diabetic Eye Exam:: no retin opathy Nails NAILS are: Elongated, overg rown, dystrophic, lytic, greater than 3mm thick, discolored and friable with crumbly malodorous subungual debris , TA, T1, T2, T3, T4, T5, T6, T7, T8, T9
--- NOTE | 2025-01-16 11:12 | MHC.OFFVIS ---
Intake Visit Reasons: INJ-bilateral knee durolane Intake Note: Radha is a 54 year old female who presents today for Bilateral Knee Durolane Injections. Allergies amoxicillin (AMOXICILLIN) Allergy (Unknown, Verified 12/17/24 11:29) HIVES atorvastatin Allergy (Unknown, Verified 12/17/24 11:29) hives bupropion (From ZYBAN) Allergy (Unknown, Verified 12/17/24 11:29) HIVES milk Allergy (Unknown, Verified 12/17/24 11:29) Diarrhea Penicillins (PENICILLINS) Allergy (Unknown, Verified 12/17/24 11:29) HIVES pravastatin Allergy (Unknown, Verified 12/17/24 11:29) hives simvastatin (SIMVASTATIN) Allergy (Unknown, Verified 12/17/24 11:29) HIVES tomato Allergy (Unknown, Verified 12/17/24 11:29) Hives metformin Adverse Reaction (Intermediate, Verified 12/17/24 11:29) Diarrhea PFSH Medical History Aortic stenosis Colon cancer screening Myocardial infarction Breast cancer screening by mammogram GERD (gastroesophageal reflux disease) Hypercholesterolemia Hypertension Folic acid deficiency Vitamin D deficiency Asthma Type 2 diabetes mellitus with hyperglycemia Surgical History History of coronary artery stent placement History of cholecystectomy History of hand surgery History of section Family History Father CVD (cardiovascular disease) Hypertension Heart disease Mother No problems noted. 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 Site was prepped using aseptic technique. Patient tolerated the procedure well. Approach Used: anterolateral Shoulders, Hips, Knees, Knee Large Joint Injection : Bilateral Knee Coding Procedure code (CPT) selection complete Assessment & Plan Assessment & Plan (1) Tricompartment osteoarthritis of knees, bilateral: Code(s): M17.0 - Bilateral primary osteoarthritis of knee Category: Medical Plan: Bilateral Durolane injected. Coding Level of Care Code Est Pt Level 2 (57699) Diagnoses Tricompartment osteoarthritis of knees, bilateral M17.0 CPT Codes Shoulders, Hips, Knees, - Knee Large Joint Injection : Bilateral Knee ([id number])
--- OUTSIDE RECORDS SUMMARY | 2025-01-16 17:24 | XMS_ITS | Patient Health Record ---
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 Name Role Phone Adán Yadav Primary Care Provider Syed Ford Unavailable [phone] Allergies Allergen (clinical drug ingredient) Drug/Non Drug [...] Lab: Notes/Report: HEMOGLOBIN A1C % (HH) 6.1 HEMOGLOBIN A1C (GLYCOHEMOGLO BIN) Reviewed date:01/14/2025 09:47:28 AM Interpretation: Performing Lab: Notes/Report: HEMOGLOBIN A1C % (HH) 6.1 Reason For Referral No Information Medications Medication SIG (Take, Route, Frequency, Duration) Notes Start Date End Date Status Montelukast Sodium 10 MG as directed Ora lly Once a day Active metFORMIN HCl 500 MG as directed Orally Not-Taking Nitroglycerin 0.4 MG as directed Sublingual PRN Active Mounjaro Active Rosuvastatin Calcium 10 MG 1 tablet Orally Once a day Active Wegovy Not-Taking Metoprolol Tartrate 25 MG as directed Orally Active Lancets Active Lisinopril 20 MG as directed Orally O nce a day Active Ammonium Lactate 12 % 1 application Exte rnally to affected areas of dry skin to feet except for between the toes Twice a day; Duration: 30 days Active Ozempic Active Aspirin 81 MG 1 tablet Orally Once a day; Duration: 30 day(s) Active Triamcinolone Acetonide 0.5 % as directed Externally Activ e Albuterol Sulfate Ac tive Ibuprofen 800 MG 1 tablet every Orall y every 6 hrs PRN Active Extra Depth Orthopedic Shoes (1 Pair) with Customized Heat Molded Multidensity Innersoles (3 Pair) as directed Dx: NIDDM/Polyneuropathy (E11.42), Hammertoe Foot Deformity (M20.41,M20.42), Preulcerative Skin Lesion(s) (L85.1 06/21/2024 Active Immunizations Vaccine Route Administration Date Status Comme nts Influenza Unknown 11/27/2021 Administered Influenza Unknown 11/28/2023 Administered Influenza Unknown 11/29/2024 Administered COVID-19 Moderna Vaccine Unknown 07/13/2020 Administere [...] ast year? No Points 0 Interpretation Negative Problems Problem Type SNOMED Code ICD Code Onset Dates Problem Status W/U Status Risk Notes Problem Acquired hammer toe of right foot (1067919594087957 ) Other hammer toe(s) (acquired), right foot (M20.41) Active confirmed Problem Acquired hammer toe of left foot (4227209203571727 ) Other hammer toe(s) (acquired), left foot (M20.42) Active confirmed Problem Polyneuropathy due to type 2 diabetes mellitus (287596017) Type 2 diabetes mellitus with diabetic polyneuropathy (E11.42) Active confirmed Vital Signs Blood pressure diastolic 70 mm Hg 01/14/2025 Height 6ft2in in 01/14/2025 Blood pressure systolic 130 mm Hg 01/14/2025 Weight 342 lbs 01/14/2025 BMI 43.91 kg/m2 01/14/2025 Procedures Procedure Date Ordered Date Performed Result Body Sit e 51006-JEFVNVE NAIL, 6 OR MORE 03/19/2024 N/A 88921-NNEM SKIN LESIONS, OVER 4 03/19/2024 N/A 73560-UYWMPEY NAIL, 6 OR MORE 06/21/2024 N/A 19635-IEXP SKIN LESIONS, OVER 4 06/21/2024 N/A 28651-IQYIQMM NAIL, 6 OR MORE 09/24/2024 N/A 20855-SQAJ SKIN LESIONS, OVER 4 09/24/2024 N/A 30107-IUUCIIH NAIL, 6 OR MORE 01/14/2025 N/A 54951-CHXA SKIN LESIONS, OVER 4 01/14/2025 N/A Encounters Encounter Location Date Provider Diagnosis [address] [address] 03/19/2024 Syedsharron KruseBert Type 2 diabetes mellitus with diabetic polyneuropathy E11.42 ; Tinea unguium B35.1 and Xerosis of skin L85.[address] [address] 06/21/2024 Syedsharron KruseBert Type 2 diabetes mellitus with diabetic polyneuropathy E11.42 ; Tinea unguium B35.1 ; Other hammer toe(s) (acquired), right foot M20.41 and Other hammer toe(s) (acquired), left foot M20.[address] [address] 09/24/2024 Syedsharron KruseBert Type 2 diabetes mellitus with diabetic polyneuropathy E11.42 and Tinea unguium B35.[address] [address] 01/14/2025 Syedsharron KruseBert Type 2 diabetes mellitus with [...] E11.42) 09/24/2024 Tinea unguium (ICD-10 - B35.1) 01/14/2025 Type 2 diabetes mellitus with diabetic polyneuropathy (ICD-10 - E11.42) 01/14/2025 Tinea unguium (ICD-10 - B35.1) 03/19/2024 Xerosis of skin (ICD-10 - L85.3) 06/21/2024 Other hammer toe(s) (acquired), right foot (ICD-10 - M20.41) Patient Educated with: DIABETIC FOOT CARE INSTRUCTIONS. pdf (DIABETIC FOOT CARE INSTRUCTIONS. pdf) 06/21/2024 Other hammer toe(s) (acquired), left foot (ICD-10 - M20.42) 01/14/2025 Xerosis of skin (ICD-10 - L85.3) Plan Of Treatment Pending Test Test Name Order Date X ray : Foot, left 3V 02/07/2022 X ray : Foot, right 3V 02/07/2022 74594-LYCLSEO NAIL, 6 OR MORE 01/14/2025 29482-RUJTHUK NAIL, 6 OR MORE 06/21/2024 13680-BMNGQYW NAIL, 6 OR MORE 09/24/2024 22439-NXSTUGD NAIL, 6 OR MORE 07/27/2022 78487-PXJMJZE NAIL, 6 OR MORE 12/19/2023 38511-UJEIKDR NAIL, 6 OR MORE 03/19/2024 68482-ADBM SKIN LESIONS, OVER 4 03/19/19 48962-KTZE SKIN LESIONS, OVER 4 12/19/19 24 95296-FEDM SKIN LESIONS, OVER 4 02/08/20 22 08226-UUZY SKIN LESIONS, OVER 4 05/17/19 23 32902-KPFT SKIN LESIONS, OVER 4 07/28/19 23 64042-VBCB SKIN LESIONS, OVER 4 09/25/19 25 73828-FJAH SKIN LESIONS, OVER 4 06/22/19 34004-TEQA SKIN LESIONS, OVER 4 01/15/20 Next Appt Details Provider Name:Syed Issac Noel , 04/29/2025 09:00:00 AM, [address] [place], [address], Insurance Providers Payer Name Payer Address Payer Phone Subscriber Number Group Number Insured Name Patient Relationship to Insured Coverage Start Date Coverage End Date [facility] [employer] Claims [address] [place] [id number] Radha Moreno Self - patient is the [...] 2008 Hand Surgery 1992 Mammogram Screening section 2000 gallbladder
--- OUTSIDE RECORDS SUMMARY | 2025-01-16 17:24 | XMS_ITS | Patient Health Record ---
Author Organization [facility] Address [address] [place] [address] Care Team Providers Care Desulfurizer Machine Name Role Phone ERIN COLBERT M.D. Primary Care Provider MARGY Mishra Unavailable [phone] Allergies Allergen (clinical drug ingredient) Drug/Non Drug [...] Notes Problem Excessive and freque nt menstruation (034723536) Excessive and frequent menstruation with regular cycle (N92.0) Active confirmed Problem Body mass index 40+ - severely obese (758401576) Body mass index (BMI) 45.0-49.9, adult (Z68.42) Active confirmed Problem Pure hypercholesterolemia (220602439) Pure hypercholester olemia, unspecified (E78.00) Active confirmed Plan Of Treatment Pending Test Test Name Order Date COMPLETE BLOOD COUNT 12/14/2018 THIN PREP,HPV,BEA IF HPV+ (>29YR)(DIAG) 07/16/2018 MM Digital Screening Mammogram 3D 2018 Insurance Providers Payer Name Payer Address Payer Phone Subscriber Number Group Number Insured Name Patient Relationship to Insured Coverage Start Date Coverage End Date MEDICARE [address] [place] [id number] JANE DUARTE Self - patient is the [...]
== END 2025-01-16 11:34 | disposition home or self-care (01) ==
LOC: HO.HOS 11:12
PROVIDERS: PCP Internal Medicine; Visit Provider Orthopaedic Surgery
DX: M17.0 Bilateral primary osteoarthritis of knee (principal)
CPT/HCPCS: 20610

== ENCOUNTER → 2025-01-16 11:10 | Outpatient (BNVA) | payer OTHER, SELFPAY | PROVIDERS: PCP Internal Medicine; Visit Provider Orthopaedic Surgery | DX: M17.0 Bilateral primary osteoarthritis of knee (principal) | CPT/HCPCS: 20610; J7318 ==

== ENCOUNTER 2025-01-21 09:59 | Outpatient (REF) | payer OTHER, SELFPAY ==
--- OUTSIDE RECORDS SUMMARY | 2025-01-21 11:59 | XMS_ITS | Patient Health Record ---
Author Organization [facility] Address [address] [place] [address] Care Team Providers Care Store Assistant Name Role Phone ERIN COLBERT M.D. Primary Care Provider MARGY Mishra Unavailable [phone] Allergies Allergen (clinical drug ingredient) Drug/Non Drug [...] Notes Problem Excessive and freque nt menstruation (953659956) Excessive and frequent menstruation with regular cycle (N92.0) Active confirmed Problem Body mass index 40+ - severely obese (751683148) Body mass index (BMI) 45.0-49.9, adult (Z68.42) Active confirmed Problem Pure hypercholesterolemia (409726343) Pure hypercholester olemia, unspecified (E78.00) Active confirmed Plan Of Treatment Pending Test Test Name Order Date COMPLETE BLOOD COUNT 12/14/2018 THIN PREP,HPV,BEA IF HPV+ (>29YR)(DIAG) 07/16/2018 MM Digital Screening Mammogram 3D 2018 Insurance Providers Payer Name Payer Address Payer Phone Subscriber Number Group Number Insured Name Patient Relationship to Insured Coverage Start Date Coverage End Date MEDICARE [address] [place] [id number] JANE DUARTE Self - patient is the [...]
--- OUTSIDE RECORDS SUMMARY | 2025-01-21 11:59 | XMS_ITS | Patient Health Record ---
Author Organization [facility] Address [address] [place] [address] Care Team Providers Care Senior Accounting Clerk Name Role Phone Adán Yadav Primary Care Provider Syed Ford Unavailable [phone] Allergies Allergen (clinical drug ingredient) Drug/Non Drug [...] Problem Acquired hammer toe of right foot (3037324503669442 ) Other hammer toe(s) (acquired), right foot (M20.41) Active confirmed Problem Acquired hammer toe of left foot (3123868506271201 ) Other hammer toe(s) (acquired), left foot (M20.42) Active confirmed Problem Polyneuropathy due to type 2 diabetes mellitus (796591205) Type 2 diabetes mellitus with diabetic polyneuropathy (E11.42) Active confirmed Vital Signs Blood pressure diastolic 70 mm Hg 01/14/2025 Height 6ft2in in 01/14/2025 Blood pressure systolic 130 mm Hg 01/14/2025 Weight 342 lbs 01/14/2025 BMI 43.91 kg/m2 01/14/2025 Procedures Procedure Date Ordered Date Performed Result Body Sit e 75867-OKSIJTB NAIL, 6 OR MORE 03/19/2024 N/A 57142-OUOA SKIN LESIONS, OVER 4 03/19/2024 N/A 54995-OWZZRTR NAIL, 6 OR MORE 06/21/2024 N/A 75461-JGCM SKIN LESIONS, OVER 4 06/21/2024 N/A 96188-RRFTLEY NAIL, 6 OR MORE 09/24/2024 N/A 00836-KGKU SKIN LESIONS, OVER 4 09/24/2024 N/A 49850-DPJOZJK NAIL, 6 OR MORE 01/14/2025 N/A 91020-YRBI SKIN LESIONS, OVER 4 01/14/2025 N/A Encounters Encounter Location Date Provider Diagnosis [address] [address] 03/19/2024 Syedsharron KruseBert Type 2 diabetes mellitus with diabetic polyneuropathy E11.42 ; Tinea unguium B35.1 and Xerosis of skin L85.[address] [address] 06/21/2024 Syedsharron KruseBert Type 2 diabetes mellitus with diabetic polyneuropathy E11.42 ; Tinea unguium B35.1 ; Other hammer toe(s) (acquired), right foot M20.41 and Other hammer toe(s) (acquired), left foot M20.[address] [address] 09/24/2024 Syedsharron KruseBert Type 2 diabetes mellitus with diabetic polyneuropathy E11.42 and Tinea unguium B35.[address] [address] 01/14/2025 Syedsharron KruseBert Type 2 diabetes mellitus [...] X ray : Foot, right 3V 02/07/2022 98496-TEHMFXR NAIL, 6 OR MORE 01/14/2025 91687-HQAFNMF NAIL, 6 OR MORE 06/21/2024 01994-FRUBFVI NAIL, 6 OR MORE 09/24/2024 18086-XWPLQRN NAIL, 6 OR MORE 07/27/2022 13247-LZHKJCS NAIL, 6 OR MORE 12/19/2023 56419-AIFSFLB NAIL, 6 OR MORE 03/19/2024 60619-MVCC SKIN LESIONS, OVER 4 03/19/19 62468-VLJW SKIN LESIONS, OVER 4 12/19/19 24 22050-VLXG SKIN LESIONS, OVER 4 02/08/20 22 05527-HYPC SKIN LESIONS, OVER 4 05/17/19 23 61161-KBKD SKIN LESIONS, OVER 4 07/28/19 23 30500-NDJG SKIN LESIONS, OVER 4 09/25/19 25 08317-WMUJ SKIN LESIONS, OVER 4 06/22/19 42176-PROB SKIN LESIONS, OVER 4 01/15/20 Next Appt Details Provider Name:Syed Issac Noel , 04/29/2025 09:00:00 AM, [address] [place], [address], Insurance Providers Payer Name Payer Address Payer Phone Subscriber Number Group Number Insured Name Patient Relationship to Insured Coverage Start Date Coverage End Date [facility] [employer] S[employer] Claims [address] SHASTA Graham [id number] Radha Moreno Self - patient is the [...]
== END 2025-01-21 10:00 | disposition home or self-care (01) ==
LOC: HO.MAMMO 09:59
PROVIDERS: PCP Internal Medicine; Visit Provider Internal Medicine
DX: M18.11 Unilateral primary osteoarthritis of first carpometacarpal joint, right hand (principal); E11.65 Type 2 diabetes mellitus with hyperglycemia; S52.121D Displaced fracture of head of right radius, subsequent encounter for closed fracture with routine healing; W19.XXXD Unspecified fall, subsequent encounter; M67.431 Ganglion, right wrist
CPT/HCPCS: 99212

== ENCOUNTER 2025-01-21 11:23 | Outpatient (AMB) | payer OTHER, SELFPAY ==
--- NOTE | 2025-01-21 11:47 | A.OFFVIS_ITS ---
Vital Signs 01/21/25 11:48 Height 6 ft 2 in Weight 367 lb BMI 47.1 Intake Visit Reasons: New Problem- Right Wrist Ganglion Cyst Intake Note: Radha 54 yr old right hand dominant female who is unemployed presents today for a new problem visit for her right wrist. States she noticed a lump on her palm area by base of CMC joint about 2-3 months ago and has increase in size. States this is causing her pain and discomfort. Patient would like to discuss if this could be removed. Hx of status post Right Radial Head Fracture, DOI: 12/05/24. Last A1C check was on 11/21/24- 6.2. Allergies amoxicillin (AMOXICILLIN) Allergy (Unknown, Verified 01/21/25 11:53) HIVES atorvastatin Allergy (Unknown, Verified 01/21/25 11:53) hives bupropion (From ZYBAN) Allergy (Unknown, Verified 01/21/25 11:53) HIVES milk Allergy (Unknown, Verified 01/21/25 11:53) Diarrhea Penicillins (PENICILLINS) Allergy (Unknown, Verified 01/21/25 11:53) HIVES pravastatin Allergy (Unknown, Verified 01/21/25 11:53) hives simvastatin (SIMVASTATIN) Allergy (Unknown, Verified 01/21/25 11:53) HIVES tomato Allergy (Unknown, Verified 01/21/25 11:53) Hives metformin Adverse Reaction (Intermediate, Verified 01/21/25 11:53) Diarrhea HPI HPI New Problem- Right Wrist Ganglion Cyst: Details: Radha is a 54 year old right hand dominant woman who presents for a right wrist mass at the base of her thumb. She complains of a mass near the base of her thumb. She complains of pain & discomfort with wrist ROM.She also has pain with pinching & gripping activities She is a Diabetic, her most recent HgA1c was 6.2% on 11/21/24. She has a right radial head fracture, which has been managed conservatively. She has just started OT hand therapy. [facility] Medical History Aortic stenosis Colon cancer screening Myocardial infarction Breast cancer screening by mammogram GERD (gastroesophageal reflux disease) Hypercholesterolemia Hypertension Folic acid deficiency Vitamin D deficiency Asthma Type 2 diabetes mellitus with hyperglycemia Surgical History History of coronary artery stent placement History of cholecystectomy History of hand surgery History of section Family History Father CVD (cardiovascular disease) Hypertension Heart disease Mother No problems noted. 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, 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 Cognitive needs: No Hearing needs: No Vision needs: Yes Review of Systems Const All systems reviewed & are unremarkable except as noted in HPI and below Physical Exam Vital Signs: BMI result Body Mass Index 47.1 Const General: cooperative, healthy appearing and no acute distress Orientation/consciousness: patient oriented x3 HEENT Head: Yes normocephalic and Yes atraumatic Eyes EOM: EOMs intact bilaterally Resp Effort & Inspection: normal respiratory effort and able to speak in complete sentences Cardio Jugular venous distension: no JVD Skin General skin exam: turgor normal Rashes: no rashes Neuro General: patient oriented x3 Extrem Other: Evaluation of Right Upper Extremity: The patient is alert, oriented, and in no acute distress Neuro: Median, Ulnar, Radial nerves motor and sensory intact and sensation is normal to the tips of all digits Vascular: Cap refill brisk ROM: She can make a fist and extend all her digits No locking or catching Skin: No lacerations or abrasions. General: No Ecchymosis. No Erythema or evidence of infection. Pos shoulder sign, no wrist mass Pos CMC grind Most tender over the basal joint No tenderness over the 1st dorsal compartment No tenderness over the a1 juanito Radiographs: 3 views of the right hand from 12/05/24 were reviewed by me today in clinic. They show an old ulnar styloid fracture and basal joint arthritis with joint space narrowing, subchondral sclerosis, and osteophyte formation Psych Appearance: grossly normal Affect: normal affect Attitude: cooperative Assessment & Plan Assessment & Plan (1) Arthritis of carpometacarpal (CMC) joint of right thumb: Code(s): M18.11 - Unilateral primary osteoarthritis of first carpometacarpal joint, right hand Category: Medical (2) Type 2 diabetes mellitus with hyperglycemia: Code(s): E11.65 - Type 2 diabetes mellitus with hyperglycemia Category: Medical Qualifiers: Diabetes mellitus field geologist insulin use: without mcfp use Qualified Code(s): E11.65 - Type 2 diabetes mellitus with hyperglycemia (3) Right radial head fracture: Comment: 12/05/2024 fall Code(s): S52.121A - Displaced fracture of head of right radius, initial encounter for closed fracture Category: Medical Plan Assessment & Plan: 1. Right basal joint arthritis I educated her about this condition I discussed operative and non-operative treatment options. I am not recommending operative treatment at this time, and she is in agreement.. I discussed activity modification at length, they should limit or avoid any heavy or repetitive pinching or gripping activities She was fitted for a comfort cool brace to wear with daily activity She should work on ROM exercises, and avoid any gripping or strengthening activities I discussed the use of assistive devices for daily activity 2. Right radial head fracture S/P fall, DOI: 12/05/24 This has been managed conservatively She is starting OT hand therapy and following with SHASTA Kendall for Miranda Bonilla MD by Rommel Edwards clinical laboratory medical director, on 01/21/25 at 12:05 PM, EST. Coding Level of Care Code Est Pt Level 4 (44501) Diagnoses Arthritis of carpometacarpal (CMC) joint of right thumb M18.11 Type 2 diabetes mellitus with hyperglycemia, without long-term current use of insulin E11.65 Diabetes mellitus mcfp insulin use: without mcfp use Right radial head fracture S52.121A
[2025-01-21 11:48] VITALS: BMI 47.1
== END 2025-01-21 12:52 | disposition home or self-care (01) ==
LOC: HO.HOS 11:24
PROVIDERS: PCP Internal Medicine; Visit Provider Orthopaedic Surgery
DX: M18.11 Unilateral primary osteoarthritis of first carpometacarpal joint, right hand (principal); E11.65 Type 2 diabetes mellitus with hyperglycemia; S52.121A Displaced fracture of head of right radius, initial encounter for closed fracture
CPT/HCPCS: 99214

== ENCOUNTER 2025-02-19 07:45 | Outpatient (REF) | payer OTHER, SELFPAY ==
--- NOTE | ~2025-02-19 | XR_ITS ---
EXAMINATION: XR ELBOW 3 VIEWS RIGHT HISTORY: M25.521 - Pain in right elbow COMPARISON: Comparison is made with the prior examination dated 01/13/2025. FINDINGS: Four views of the right elbow are submitted. Osseous mineralization is normal. Again seen is a fracture of the radial head. The fracture line remains visible. The joint spaces are preserved. The soft tissues are unremarkable. There is no joint effusion. XR/XR elbow RT min 3V IMPRESSION: Fracture of the radial head without change. Electronically signed by: Steve Hong MD 02/19/2025 11:36 AM EST
--- OUTSIDE RECORDS SUMMARY | 2025-02-19 07:47 | XMS_ITS | Patient Health Record ---
Author Organization [facility] Address [address] [place] [address] Care Team Providers Care Filenet P8 Developer Name Role Phone Adán Yadav Primary Care Provider Syed Ford Unavailable [phone] Allergies Allergen (clinical drug ingredient) Drug/Non Drug [...] Notes HEMOGLOBIN A1C (GLYCOHEMOGLO BIN) Reviewed date:03/19/2024 11:15:04 [...] Problem Acquired hammer toe of right foot (5523808024406369 ) Other hammer toe(s) (acquired), right foot (M20.41) Active confirmed Problem Acquired hammer toe of left foot (1844022634227728 ) Other hammer toe(s) (acquired), left foot (M20.42) Active confirmed Problem Polyneuropathy due to type 2 diabetes mellitus (037237552) Type 2 diabetes mellitus with diabetic polyneuropathy (E11.42) Active confirmed Vital Signs Blood pressure diastolic 70 mm Hg 01/14/2025 Height 6ft2in in 01/14/2025 Blood pressure systolic 130 mm Hg 01/14/2025 Weight 342 lbs 01/14/2025 BMI 43.91 kg/m2 01/14/2025 Procedures Procedure Date Ordered Date Performed Result Body Sit e 45606-LVBAOUY NAIL, 6 OR MORE 03/19/2024 N/A 41522-PERN SKIN LESIONS, OVER 4 03/19/2024 N/A 78250-KNIHIAU NAIL, 6 OR MORE 06/21/2024 N/A 06388-JPJO SKIN LESIONS, OVER 4 06/21/2024 N/A 33781-SPSMMDZ NAIL, 6 OR MORE 09/24/2024 N/A 50703-GLQY SKIN LESIONS, OVER 4 09/24/2024 N/A 13599-YWEYKQP NAIL, 6 OR MORE 01/14/2025 N/A 64081-OUNI SKIN LESIONS, OVER 4 01/14/2025 N/A Encounters Encounter Location Date Provider Diagnosis [address] [address] 03/19/2024 Syed Bert Type 2 diabetes mellitus with diabetic polyneuropathy E11.42 ; Tinea unguium B35.1 and Xerosis of skin L85.[address] [address] 06/21/2024 Syed Bert Type 2 diabetes mellitus with diabetic polyneuropathy E11.42 ; Tinea unguium B35.1 ; Other hammer toe(s) (acquired), right foot M20.41 and Other hammer toe(s) (acquired), left foot M20.[address] [address] 09/24/2024 Syed Bert Type 2 diabetes mellitus with diabetic polyneuropathy E11.42 and Tinea unguium B35.[address] [address] 01/14/2025 Syed Bert Type 2 diabetes mellitus with [...] X ray : Foot, right 3V 02/07/2022 32666-GZEVAPE NAIL, 6 OR MORE 01/14/2025 30406-PRTYXVB NAIL, 6 OR MORE 06/21/2024 31249-RSCAGBW NAIL, 6 OR MORE 09/24/2024 32138-OHUUFBS NAIL, 6 OR MORE 07/27/2022 91085-NFYBIIP NAIL, 6 OR MORE 12/19/2023 03259-LEUVCOE NAIL, 6 OR MORE 03/19/2024 66389-DVFI SKIN LESIONS, OVER 4 03/19/19 25 07867-RCQC SKIN LESIONS, OVER 4 12/19/19 24 48191-GDNF SKIN LESIONS, OVER 4 02/08/20 86651-CZQN SKIN LESIONS, OVER 4 05/17/19 23 44671-UVZS SKIN LESIONS, OVER 4 07/28/19 23 97081-ARFL SKIN LESIONS, OVER 4 09/25/19 31262-QEMH SKIN LESIONS, OVER 4 06/22/19 13726-ZGIV SKIN LESIONS, OVER 4 01/15/20 Next Appt Details Provider Name:Syed Noel , 04/29/2025 09:00:00 AM, [address] [place] [address], [address], Insurance Providers Payer Name Payer Address Payer Phone Subscriber Number Group Number Insured Name Patient Relationship to Insured Coverage Start Date Coverage End Date [facility] CCA SCO Claims [address] [place] [address] [id number] Radha Moreno Self - patient is the insured Medical (General) History Medical History History ICD Code asthma Coronary artery disease Gastroesophageal reflux disease (GERD) Hypercholesterolemia Hypertension moderate Aortic stenosis Vitamin D deficiency Folic acid deficiency Sleep apnea Sciatica Obesity Arthritis Back,Hip,and Knee pain type II diabetes Headaches/Migraines Heart disease Psoriasis/eczema Chicken pox Surgical History Surgery Date(Month/Year) cholecystectomy coronary artery stent placement 2009 Hand Surgery 1992 Mammogram Screening section 1999 gallbladder
--- OUTSIDE RECORDS SUMMARY | 2025-02-19 07:47 | XMS_ITS | Patient Health Record ---
Author Organization [facility] Address [address] [place] [address] Care Team Providers Care Cash Posting Clerk Name Role Phone ERIN COLBERT M.D. Primary Care Provider MARGY Mishra Unavailable [phone] Allergies Allergen (clinical drug ingredient) Drug/Non Drug [...] Notes Problem Excessive and freque nt menstruation (670909137) Excessive and frequent menstruation with regular cycle (N92.0) Active confirmed Problem Body mass index 40+ - severely obese (008947009) Body mass index (BMI) 45.0-49.9, adult (Z68.42) Active confirmed Problem Pure hypercholesterolemia (964539198) Pure hypercholester olemia, unspecified (E78.00) Active confirmed Plan Of Treatment Pending Test Test Name Order Date COMPLETE BLOOD COUNT 12/14/2018 THIN PREP,HPV,BEA IF HPV+ (>29YR)(DIAG) 07/16/2018 MM Digital Screening Mammogram 3D 2018 Insurance Providers Payer Name Payer Address Payer Phone Subscriber Number Group Number Insured Name Patient Relationship to Insured Coverage Start Date Coverage End Date MEDICARE [address] [place] [id number] JANE DUARTE Self - patient is the [...]
== END 2025-02-19 07:46 | disposition home or self-care (01) ==
LOC: HO.HOSX 07:45
DX: S52.121D Displaced fracture of head of right radius, subsequent encounter for closed fracture with routine healing (principal); X58.XXXD Exposure to other specified factors, subsequent encounter
CPT/HCPCS: 73080

== ENCOUNTER 2025-02-19 11:20 | Outpatient (AMB) | payer OTHER, SELFPAY ==
[2025-02-19 11:29] VITALS: BMI 47.1
--- NOTE | 2025-02-19 11:29 | MHC.OFFVIS ---
Vital Signs 02/19/25 11:29 Height 6 ft 2 in Weight 367 lb BMI 47.1 Intake Visit Reasons: Right radial head fx, DOI 12/05/24 Intake Note: Radha is a 54 year old right hand dominant female who presents today for Follow Up status post Right Radial Head Fracture, DOI: 12/05/24. At her last visit she was advised to cut back on sling usage significantly and to start Occupational Therapy. Patient reports she is still experiencing pain, primarily at the shoulder. Allergies amoxicillin (AMOXICILLIN) Allergy (Unknown, Verified 02/19/25 11:33) HIVES atorvastatin Allergy (Unknown, Verified 02/19/25 11:33) hives bupropion (From ZYBAN) Allergy (Unknown, Verified 02/19/25 11:33) HIVES milk Allergy (Unknown, Verified 02/19/25 11:33) Diarrhea Penicillins (PENICILLINS) Allergy (Unknown, Verified 02/19/25 11:33) HIVES pravastatin Allergy (Unknown, Verified 02/19/25 11:33) hives simvastatin (SIMVASTATIN) Allergy (Unknown, Verified 02/19/25 11:33) HIVES tomato Allergy (Unknown, Verified 02/19/25 11:33) Hives metformin Adverse Reaction (Intermediate, Verified 02/19/25 11:33) Diarrhea HPI HPI Right radial head fx, DOI 12/05/24: Details: Radha is a 54 year old right hand dominant female who presents today for Follow Up status post Right Radial Head Fracture, DOI: 12/05/24. At her last visit she was advised to cut back on sling usage significantly and to start Occupational Therapy. Patient reports she is still experiencing pain, primarily at the shoulder, however she does still have some discomfort to the touch of the right elbow. Patient reports her range of motion has improved fairly significantly since previous evaluation. [facility] Medical History Aortic stenosis Colon cancer screening Myocardial infarction Breast cancer screening by mammogram GERD (gastroesophageal reflux disease) Hypercholesterolemia Hypertension Folic acid deficiency Vitamin D deficiency Asthma Type 2 diabetes mellitus with hyperglycemia Surgical History History of coronary artery stent placement History of cholecystectomy History of hand surgery History of section Family History Father CVD (cardiovascular disease) Hypertension Heart disease Mother No problems noted. 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, 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 Cognitive needs: No Hearing needs: No Vision needs: Yes Review of Systems Const All systems reviewed & are unremarkable except as noted in HPI and below Physical Exam Vital Signs: BMI result Body Mass Index 47.1 Const General: cooperative, healthy appearing and no acute distress Orientation/consciousness: patient oriented x3 HEENT Head: Yes normocephalic and Yes atraumatic Eyes EOM: EOMs intact bilaterally Resp Effort & Inspection: normal respiratory effort and able to speak in complete sentences Cardio Jugular venous distension: no JVD Skin General skin exam: turgor normal Rashes: no rashes Neuro General: patient oriented x3 Extrem Other: Patient is alert, oriented, and in no acute distress. Neuro: Normal sensation of the tips of all digits of the right hand at this time Vascular: Cap refill brisk Pain: Minimal Tenderness to palpation of right radial head No tenderness to palpation of the olecranon process, medial or lateral epicondyle ROM: Patient is able to extend the right elbow to approximately 0 degrees and flex to approximately 120 degrees without difficulty Pronation to approximately 70 degrees supination to approximately 60 degrees Skin: No lacerations or abrasions. General: No ecchymosis, erythema, or evidence of infection. Psych: Appears grossly normal Affect normal Attitude cooperative Psych Appearance: grossly normal Affect: normal affect Attitude: cooperative Results Reviewed Results Reviewed: X-rays obtained in the office today and independently reviewed by me, Ari Schmidt PA-C, demonstrate minimally displaced right radial head fracture with evidence of interval bony healing Assessment & Plan Assessment & Plan (1) Right radial head fracture: Comment: 12/05/2024 fall Code(s): S52.121A - Displaced fracture of head of right radius, initial encounter for closed fracture Category: Medical Plan 1. Right radial head fracture Date of injury 12/05/2024 Patient appears to be recovering fairly well from her fracture, as there is good healing on x-rays and no further evidence of displacement Patient is educated about the typical recovery course Continue with occupational therapy No sling usage at this point Patient should continue to avoid forceful pronation or supination, as this could lead to displacement of the fracture 5 lb weight limit in right upper extremity until follow-up Patient understands this in his amenable to this plan Follow-up in 6 weeks with repeat x-rays for reassessment, sooner with any acute concerns Orders: Orders XR elbow RT min 3V Today M25.521 - Pain in right elbow Coding Level of Care Code Global (80112) Diagnoses Right radial head fracture S52.121A
== END 2025-02-19 11:46 | disposition home or self-care (01) ==
LOC: HO.HOS 11:21
PROVIDERS: PCP Internal Medicine
DX: S52.121A Displaced fracture of head of right radius, initial encounter for closed fracture (principal)
CPT/HCPCS: 99213

== ENCOUNTER → 2025-02-19 11:22 | Outpatient (BNV) | payer OTHER, SELFPAY | PROVIDERS: Visit Provider Radiology Diagnostic Radiology | DX: M25.521 Pain in right elbow (principal) | CPT/HCPCS: 73080 ==